=== PATIENT | male | born 1950 | race Caucasian/White ===

== ENCOUNTER 2016-11-10 08:23 | Inpatient (IN) ==
[2016-11-10] MEDS ORDERED: ALBUTEROL/IPRATROPIUM 3 ML NEB RESP TX PRN (08:37)
--- NOTE | 2016-11-10 08:50 | Pulmonology History & Physical ---
History of Present Illness Chief complaint: pneumonia, outpatient treatment failure History of present illness: YESSENIA Zambrano-Guillaume acting as scribe for Dr. Narciso Arnett. Mr. Díaz is a 66 year old /White male with multiple chronic medical problems. Presented to the clinic on 11/04/16 for his 8 week check up he was seen along with his and daughter who are mostly the historians for this appt. At that time he was having increased shortness of breath and discolored sputum, along with increased reflux, heartburn, and decreased tolerance of his feedings. Per his report he has also been experiencing weight loss. He is followed by DARRELL Darby and has been evaluated by him recently. 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 This was the second time he has been given Gentamicin IM as an outpatient for Pseudomonas. He has also been treated with multiple PO antibiotics including Levaquin and Cleocin within the last few months. Sputum for gram stain C&S was obtained at his appt on the and result showed moderate Pseudomonas aeruginosa and moderate growth of yeast. Due to resistance to PO antibiotics and history of treatment with multiple courses of IM antibiotics for this infection in combination with his multiple chronic medical problems, decision was made to admit to inpatient for further treatment and evaluation with IV antibiotics. Allergies: Morphine Medications: See list Past medical history: [facility] hospitalization 11/23/2015 through 2015 under the care of the hospitalists. He was admitted and with acute respiratory failure, aspiration into the respiratory tract, Parkinson's disease , and hyperglycemia. During that admission the patient developed acute respiratory distress syndrome ultimately requiring a tracheostomy which was done 12/03/[address] Herron. Patient had a PEG placed 12/04/2015 for feedings and this was done by Dr. Darby. He was discharged to [facility] where he stayed under the care of Dr. Arnett from 12/15/15-December. At that time he was transferred to [facility] in [place]. He was admitted back to [facility] on 01/30/16-02/16/16 with acute respiratory failure and pneumonia secondary to aspiration he had a second tracheostomy placed at this time which he still has in place now. Cultures during this stay grew Klebsiella and ESBL. [facility] 02/16/16-04/07/16, after leaving [facility] he required superintendent [employer] mechanical ventilation so he was transferred to [facility] where he stayed from 04/07/16-06/25/16 once he was able to wean off mechanical ventilation. He has 2 reported trach site cultures positive for MRSA while at [facility], last trach site culture done at the clinic on 07/29/16 grew Serratia marcescens this was treated with Levaquin. His urine cultures have been positive for Pseudomonas aeruginosa on 07/29/16 and 09/09/16 both these times he was treated with Gentamicin IM. Sputum C&S has grown Pseudomonas aeruginosa on 09/11/16, 10/04/16, and again on 11/04/16 as above this was treated with Gentamicin IM. He has a history of Parkinson's disease and dyslipidemia. There is a remote history of rotator cuff repair. I believe he's had neck surgery in the past also. Family history: Positive for familial heart disease and familial hypertension Social history: The patient is . His is very supportive. He is a former smoker. His daughter is a nurse who helps out at home with his home care. CXR, Labs, and EKG are pending at this time. Home Medications Medication Instructions Recorded Confirmed Type Aspirin EC Tab 81 mg PO DAILY tablet 02/16/16 11/10/16 Rx Acetaminophen Tab [Tylenol Tab] 325 mg PO Q4H PRN 11/10/16 11/10/16 History Amantadine HCl [Amantadine] 100 mg PEG TID 11/10/16 11/10/16 History Carbidopa/Levodopa/Entacapone 1 each PO 5X DAILY 11/10/16 11/10/16 History [Stalevo 200 Tablet] Fludrocortisone [Florinef] 0.1 mg PEG TID 11/10/16 11/10/16 History Midodrine [Proamatine] 10 mg PEG TID 11/10/16 11/10/16 History Pantoprazole Tab [Protonix Tab] 40 mg PEG BID 11/10/16 11/10/16 History Potassium Chloride Liquid 20 meq PEG BID 11/10/16 11/10/16 History Scopolamine 1.5 mg Patch 1 patch TRANSDERM Q3DAY 11/10/16 11/10/16 History [Transderm Scop 1.5 mg/72 hr Patch] Allergies Allergy/AdvReac Type Severity Reaction Status Date / Time morphine Allergy Unknown/Unable Verified 11/23/15 10:45 to obtain Medical,Surgical,& Family Hx - Medical History Neurology: History of: Parkinson's Disease Endocrine: History of: Dyslipidemia Respiratory: History of: Intubation, Pneumonia - Surgical History Thoracic Surgeries: Patient denies;: Organ Transplant Orthopedic Surgeries: Surgical HX of;: Orthopedic Surgery (rotator cuff repair) - Family History Family History: Reports;: Family Heart Disease (siblings), Family Hypertension ( siblings) - Social History Smoking Status: Former smoker Results - Labs CBC & BMP: 11/10/16 09:13 11/10/16 09:12 Exam (Pulmonay) H&P - Constitutional Exam: Psych: Awake and alert. Pleasant and cooperative patient. HEENT: Pupils, irises, sclera, conjunctiva, and eyelids are normal. The face is symmetrical without rash or masses. Neck: Symmetrical. Tracheostomy in place. Lymphatics: No submandibular, cervical, or supraclavicular adenopathy Chest: Symmetrical with loose large airway congestion and coarse breath sounds bilaterally. CV: Regular with a short grade 1/6 systolic ejection murmur at the left sternal border that does not radiate; no gallop or rub Arterial: Carotids with a good upstroke. There is no bruit. Upper extremity pulses are palpable. Lower extremity pulses are non-palpable, but I see no evidence of ischemia. Venous: Exam of the neck, upper, and lower extremities is normal Abd: No appreciable organomegaly, masses, tenderness, or bruit; PEG tube is present; Bowel sounds are positive x 4; The aorta was not palpated. /Rectal: Deferred Extremities: No clubbing, cyanosis, edema, or obvious DVT. Skin: No cancerous or infectious lesions of the exposed, examined skin; the perineal area was not examined. M/S: Age appropriate loss of the normal curvature of the cervical, thoracic, and lumbar spine. Neurological: Cranial nerves are intact, Long tract motor function is intact; Sensory exam was not done; gait was not tested. The remainder of the exam was noncontributory. Impression: #1: Pneumonia secondary to Pseudomonas refractory to outpatient treatment. #2: GERD, recent increased reflux and aspiration #3: Underlying Parkinson's disease #4: Increased shortness of breath secondary to #1. #5: Weight loss #6: See past history. Plan: #1: Admit to inpatient for treatment with IV antibiotics. #2: Gentamicin start at 40mg [id number], consult pharmacy for dosing management. Fortaz 1GM [id number]. #3: Repeat sputum for gram stain culture and sensitivity before first dose of abx. #4: Inhalation therapy with Duonebs QID and PRN. #5: ID and continue home medicines. #6: CXR today. #7: See orders.
[2016-11-10] MEDS ORDERED: GENTAMICIN IV SCH (09:00)
[2016-11-10] MEDS ORDERED: SODIUM CHLORIDE 0.9% IV SCH (09:00)
[2016-11-10 09:23] LABS: Basophils % 0.1 % (0.0-0.8); Eosinophils % 0.1 % (0.00-10.9); Hematocrit 38.2 VOL% (42.0-52.0); Hemoglobin 12.9 GM/DL (14.0-18.0); Immature Granulocytes % 0.4 %; Immature Granulocytes Absolute 0.05 #; Lymphocytes # 0.9 10*3/uL (1.4-4.0); Lymphocytes % 6.2 % (21.2-54.2); Mean Corpuscular HGB Conc 33.8 GM/DL (32-36); Mean Corpuscular Hemoglobin 33 PG (27-34); Monocytes # 0.3 10*3/uL (0.11-0.8); Monocytes % 2.2 % (1.7-12.7); Neutrophils # 12.7 10*3/uL (1.4-7.4); Platelet Count 253 T/CUMM (130-400); Red Blood Count 3.94 MC/CUMM (3.8-5.5); Red Cell Distribution Width 12.6 % (9.3-17.3); White Blood Count 13.9 T/CUMM (4-12)
--- NOTE | 2016-11-10 09:25 | EKG Report ---
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
[2016-11-10 09:39] LABS: Apearance,Urine CLEAR (Clear); Bacteria,Urine Occasional /HPF (Few); Bilirubin,Urine Negative (Negative); Blood, Urine Negative (Negative); Glucose,Urine (UA) Negative (Negative); Hyaline Casts,Urine 4 /LPF (0-3); Ketones,Urine Negative (Negative); Mucus,Urine Occasional /LPF (Occasional); Nitrite,Urine Negative (Negative); Protein,Urine Negative; RBC,Urine 2 /HPF (0-4); Squamous Epithelial Cell,Urine Occasional /HPF (0-10); Urine Specific Gravity 1.004 (1.001-1.035); Urine Urobilinogen < 2.0 EU/DL (0.2-1.0); WBC,Urine 19 /HPF (0-6)
[2016-11-10 09:40] LABS: Urine Color Yellow (Yellow)
[2016-11-10 09:48] LABS: Giant Platelets Few; Hypochromasia 1+; Lymphocytes 9 % (20-55); Platelet Estimate Adequate; Segmented Neutrophils 86 % (50-85); Total Cells Counted 100
[2016-11-10 09:59] LABS: Alanine Aminotransferase < 9 U/L (16-61); Albumin 3.3 G/DL (3.4-5.0); Alkaline Phosphatase 120 U/L (45-117); Aspartate Amino Transferase 22 U/L (0-37); Blood Urea Nitrogen 10 MG/DL (7-18); Calcium 8.5 MG/DL (8.5-10.1); Glucose 180 MG/DL (74-106); Magnesium 2.4 MG/DL (1.8-2.4); Osmolality,Calculated 280.5 MOS/KG (273-304); Potassium 3.3 MMOL/L (3.5-5.1); Sodium 139 MMOL/L (136-145)
[2016-11-10] MEDS ORDERED: ACETAMINOPHEN 325 MG TABLET PO PRN (10:06)
[2016-11-10] MEDS: ALBUTEROL/IPRATROPIUM 3 ML NEB RESP TX SCH ×3 (10:30→19:23)
[2016-11-10] MEDS: GENTAMICIN INJ 400 MG in SODIUM CHLORIDE 0.9% 100 ML IV SCH (13:07)
--- NOTE | 2016-11-10 13:26 | Gastrointestinal Consult Note ---
Assessment and Plan (1) Dysphagia causing pulmonary aspiration with swallowing Status: Acute Assessment and plan: I am concerned about this patient's coughing/vomiting of tube feeds out of his tracheostomy site. In a patient without evidence of gastric emptying difficulties on nuclear study this speaks to either severe esophageal dysmotility, versus perhaps a progressive pyloric stenosis versus a fistulous tract from the esophagus into the trachea or bronchial tree. We will perform upper endoscopy tomorrow to look for these things. In the meantime utilization of something to improve gastric motility and decreased regurgitation is called for. Given the parkinsonian history we will hold off on use of Reglan as this can worsen parkinsonian symptoms. Will try erythromycin suspension 200 mg every 6 hours to see if this helps out. Will keep track of this by checking residuals. My strong suggestion is to switch the formulation of the patient's tube feeds to something calorically dense that can be used less frequently and with less volume. Suggestions include TwoCal HN or Nepro. At the very least we could switch the patient over to Jevity 1.5. The patient and his understands the risks of upper endoscopy which include but are not limited to: Bleeding, infection, perforation, cardiac and pulmonary compromise. Current Visit: Yes (2) Chronic GERD Status: Acute Assessment and plan: He is currently being covered with Protonix 40 mg twice daily, will switch this over to an IV preparation. Further recommendations after tomorrow's upper endoscopy. It might be advisable to switch him over to Prevacid 30 mg twice daily Via [employer] for his PEG tube, his insurance may have difficulty covering this. Current Visit: Yes (3) Moderate malnutrition Status: Acute Assessment and plan: This patient has lost another 4 pounds since I saw him in the office on 10/11/16 he had lost 12 pounds in the prior month before coming to the office. He needs to improve his nutritional status, hopefully the dense caloric liquid intake will help with this as well the erythromycin. He is not having any diarrhea fortunately. We will keep an eye on residuals and perhaps ramp up the formula intake per hour. A pump in this patient may be problematic due to his attempts to be more mobile, ambulating with a walker for example. He might be better served with a nighttime gravity feeding schedule. Current Visit: Yes History of Present Illness Chief complaint: Severe sensation of regurgitation, refractory GERD despite Protonix BID History of present illness: Mr. Díaz is a 66 year old male who is followed by Melquiades tavera and Dr. Umanzor, a neurologist at [facility], for his refractory parkinsonism and had previously been seen in the past for elevations of his ALT and AST likely from ischemic hepatitis when seen in the hospital back in October 2015. Patient developed Arvidson who is having difficulty being weaned off of the ventilator with tracheostomy placement required and a PEG tube subsequently placed on 12/04/15. The upper endoscopy at that time demonstrated some mild linear gastritis thought secondary to patient's NG tube erosion with some mild duodenitis but no Helicobacter pylori. The patient has been having some difficulty with his tracheostomy and with apparent high residuals producing aspiration. He actually had to have a tracheostomy revision by Dr. Herron, and the residual fistulous hole from the last tracheostomy is not completely closed off. As mentioned in nurse practitioner Lu's note, cultures have grown out Klebsiella. The patient ended up requiring long-term mechanical ventilation both at [facility] and then after transfer back to [facility] where he remained until 06/25/16. He had been quite cachectic at that point and started gaining weight after was released from their institution and his PEG tube feeding was advanced at first to Glucerna but after he failed to qualify for this medication due to lack of diabetes this was cut back to Jevity 1.2 nickolas per milliliter. Lately he is been having some real problems over the last 1 month with regurgitation of tube feeds through his tracheostomy site, and was seen in my office on 10/11/16 at which time I ordered a gastric emptying study. Surprisingly this turned out to be normal with a T1 half emptying time of 74.8 minutes, well within the normal range. We have switched him up to Protonix 40 mg twice a day but this does not appear to be improving his underlying situation. It is still a mystery to me exactly how it is the tube feeds are regurgitating out of his tracheostomy site without a fistulous tract. I will perform upper endoscopy tomorrow looking for this and examining for pyloric stenosis which might be feeding into his current problems. He is not having any particular abdominal pain. He does get up and walk around some. He is not having diarrhea or constipation particularly. He does have the sensation of reflux despite the Protonix twice daily. The states that despite the normal gastric emptying the patient has 2-3 syringes of retained material in the stomach when residuals are checked prior to feedings in this patient at times (120-180 mL every 2-3 hours)--> is the patient's parkinsonism will not be able to use Reglan but instead erythromycin may represent an acceptable alternative. Home Medications Medication Instructions Recorded Confirmed Type Aspirin EC Tab 81 mg PO DAILY tablet 02/16/16 11/10/16 Rx Acetaminophen Tab [Tylenol Tab] 325 mg PO Q4H PRN 11/10/16 11/10/16 History Amantadine HCl [Amantadine] 100 mg PEG TID 11/10/16 11/10/16 History Carbidopa/Levodopa/Entacapone 1 each PO 5X DAILY 11/10/16 11/10/16 History [Stalevo 200 Tablet] Fludrocortisone [Florinef] 0.1 mg PEG TID 11/10/16 11/10/16 History Midodrine [Proamatine] 10 mg PEG TID 11/10/16 11/10/16 History Pantoprazole Tab [Protonix Tab] 40 mg PEG BID 11/10/16 11/10/16 History Potassium Chloride Liquid 20 meq PEG BID 11/10/16 11/10/16 History Scopolamine 1.5 mg Patch 1 patch TRANSDERM Q3DAY 11/10/16 11/10/16 History [Transderm Scop 1.5 mg/72 hr Patch] Allergies Allergy/AdvReac Type Severity Reaction Status Date / Time morphine Allergy Unknown/Unable Verified 11/23/15 10:45 to obtain Medical,Surgical,& Family Hx - Medical History Neurology: History of: Parkinson's Disease Endocrine: History of: Dyslipidemia Respiratory: History of: Intubation, Pneumonia Renal: History of: Renal Problems (chronic steele) - Surgical History Thoracic Surgeries: Patient denies;: Organ Transplant Orthopedic Surgeries: Surgical HX of;: Orthopedic Surgery (rotator cuff repair) - Family History Family History: Reports;: Family Heart Disease (siblings), Family Hypertension ( siblings) - Social History Smoking Status: Former smoker Review of systems: Constitutional: Denies fever, chills, but positive for nausea, and vomiting Eyes: Denies dry eyes, and scleral icterus HENT: Denies headaches Cardiovascular: Denies acute chest pain and claudication Respiratory: Admits to occasional shortness of breath, wheezing, and difficulty breathing, denies cough Gastrointestinal: As noted in the HPI Genitourinary: Denies dysuria and hematuria Neurologic: Denies vision loss, and loss of sensation Musculoskeletal: Denies joint swelling, but he does have some joint stiffness, and muscular weakness Psychiatric: Denies kierra symptoms, positive for depression Heme-Lymph: Denies easy bruising, lymph node enlargement or tenderness, night sweats, excessive bleeding Allergies-immunologic: Denies pruritus and rhinorrhea Exam - Constitutional Vitals: Period Temp Pulse Resp BP Sys/West Pulse Ox Last 24 Hr 97.9 F 80-82 18-22 147/85 88-98 General appearance: mild distress - Head Head exam: Present: normocephalic - Eye Eye exam: Present: EOMI Pupils: Present: MARCELINO - Neck Neck exam: Present: other (Tracheostomy site noted with closing fistulous tract next to this on the right side) - Respiratory Respiratory exam: Present: clear to auscultation bilaterally - Cardiovascular Cardiovascular exam: Present: regular rate and rhythm - GI/Abdominal GI/Abdominal exam: Present: normal bowel sounds, soft, other (Clean dry PEG tube is noted in the left upper quadrant.). Absent: distended, guarding, tenderness, rebound - Extremities Exam Extremities exam: Present: edema, other (No parkinsonian tremor detected, 4/5 strength in hands--> unexpectedly good.) - Back Exam Back exam: Present: normal inspection Results - Labs CBC & BMP: 11/10/16 09:13 11/10/16 09:12
[2016-11-10] MEDS ORDERED: LEVODOPA PO SCH (14:00)
[2016-11-10] MEDS ORDERED: CARBIDOPA PO SCH (14:00)
[2016-11-10] MEDS ORDERED: ENTACAPONE PO SCH (14:00)
[2016-11-10] MEDS: MIDODRINE 5 MG TABLET PEG SCH ×2 (14:34→21:07)
[2016-11-10] MEDS: FLUDROCORTISONE 0.1 MG TABLET PEG SCH ×2 (14:34→21:07)
[2016-11-10] MEDS: AMANTADINE 100 MG CAPSULE PEG SCH ×2 (14:34→21:06)
--- NOTE | 2016-11-10 15:15 | XRay Report ---
XR chest 2V Indication: Shortness of breath. Chest 2 views: Comparison 04/07/2016. PICC line has been removed. Tracheostomy is stable. Lungs are hypoinflated with elevation right hemidiaphragm. Bibasilar atelectasis or pneumonia is present, although in general, left lung base is better aerated than back in March. Mid and upper lungs are maintained relatively clear. Heart size is upper limits normal but stable. Impression: Bibasilar atelectasis or pneumonia with chronic elevation right hemidiaphragm and pulmonary hypoinflation. PROCEDURE INTERPRETED AT [facility] DEPARTMENT OF RADIOLOGY Final Report Signed by: Kevin Velasquez M.D.
[2016-11-10] MEDS: CARBIDOPA/LEVODOPA 25-100 MG TABLET PO SCH ×2 (16:33→21:07)
[2016-11-10] MEDS: ENTACAPONE 200 MG TABLET PO SCH ×2 (16:33→21:07)
[2016-11-10] MEDS: ERYTHROMYCIN ETHYLSUCCINATE 40 MG/ML 100 ML/BOTTLE PO SCH ×2 (16:34→18:01)
[2016-11-10] MEDS ORDERED: PANTOPRAZOLE 40 MG TABLET PO SCH (21:00)
[2016-11-10] MEDS: POTASSIUM CHLORIDE 20 MEQ/15 ML UDCUP PEG SCH (21:07)
[2016-11-11] MEDS: ERYTHROMYCIN ETHYLSUCCINATE 40 MG/ML 100 ML/BOTTLE PO SCH ×4 (00:46→17:20)
[2016-11-11 02:59] LABS: Basophils % 0.2 % (0.0-0.8); Eosinophils % 0.4 % (0.00-10.9); Hematocrit 34.4 VOL% (42.0-52.0); Hemoglobin 11.3 GM/DL (14.0-18.0); Immature Granulocytes % 0.4 %; Immature Granulocytes Absolute 0.04 #; Lymphocytes # 1.7 10*3/uL (1.4-4.0); Lymphocytes % 17.7 % (21.2-54.2); Mean Corpuscular HGB Conc 32.8 GM/DL (32-36); Mean Corpuscular Hemoglobin 32 PG (27-34); Mean Corpuscular Volume 98.3 FL (87-102); Mean Platelet Volume 10.5 FL (9.6-12.0); Monocytes # 0.9 10*3/uL (0.11-0.8); Monocytes % 9.1 % (1.7-12.7); Neutrophils % 72.2 % (38.7-73.9); Platelet Count 266 T/CUMM (130-400); Red Cell Distribution Width 12.8 % (9.3-17.3); White Blood Count 9.8 T/CUMM (4-12)
[2016-11-11 03:10] LABS: Calcium 8.1 MG/DL (8.5-10.1); Osmolality,Calculated 282.1 MOS/KG (273-304); Potassium 3.3 MMOL/L (3.5-5.1)
[2016-11-11 03:23] LABS: Magnesium 2.5 MG/DL (1.8-2.4); Phosphorous 2.9 MG/DL (2.5-4.9)
[2016-11-11] MEDS: CARBIDOPA/LEVODOPA 25-100 MG TABLET PO SCH ×5 (07:19→21:24)
[2016-11-11] MEDS: ENTACAPONE 200 MG TABLET PO SCH ×4 (07:20→21:25)
[2016-11-11] MEDS: ALBUTEROL/IPRATROPIUM 3 ML NEB RESP TX SCH ×4 (07:37→19:14)
[2016-11-11] MEDS ORDERED: PROPOFOL 200 MG/20 ML VIAL IV ONE (09:19)
[2016-11-11] MEDS ORDERED: LIDOCAINE 1% 5 ML VIAL ONE (09:19)
--- NOTE | 2016-11-11 09:25 | Operative Note ---
Date of procedure: 11/11/16 Pre-op diagnosis: ? Evidence of gastroparesis or tracheoesophageal fistula with aspiration Post-op diagnosis: other (No gross evidence of tracheoesophageal fistula, no esophagitis, but a great deal of retained green fluid in the fundus and in the antrum--represents refluxate from the duodenum which is slightly dilated. We will look for downstream obstruction with a small bowel follow-through.) Procedure: PROCEDURE: Esophagogastroduodenoscopy (EGD) REFERRING PHYSICIAN: Dr. Narciso Arnett MD INDICATIONS: This patient is having chronic aspiration through his trachea of PEG feedings, question of tracheoesophageal fistula versus gastroparesis, none seen on gastric emptying study. The prior H&P was reviewed and interrim changes are as noted: No change from GI consultation yesterday ENDOSCOPIST: Wilmer Darby MD ENDOSCOPE: [employer] Video 100 System upper endoscope ASA CLASS: 4 EXAM: CV: regular rate and rhythm respiratory: Clear without wheezes abdominal: active bowel sounds MEDICATION: Per nursing anesthesia protocol, see their notes PROCEDURE: After discussion of the potential risks and benefits of upper endoscopy, the informed consent was obtained. The patient was then placed in the left lateral decubitus position where sedation was achieved as noted above. Esophageal intubation was performed without difficulty, and the endoscope was advanced through the esophagus, stomach and duodenum. A slow withdrawal was then performed with retroflexion in the stomach for careful inspection of the incisura angularis, fundus and cardia. The scope was then returned to a neutral position and withdrawn through the esophagus. The patient tolerated the procedure well and without complication. BIOPSIES: Not obtained PHOTOGRAPHS: Obtained FINDINGS: Hypopharynx and Larynx: Normal, post laryngeal area narrowed at the tracheostomy site. Esohagoscopy Upper and middle thirds: No gross evidence of fistula Lower third surprisingly, no evidence of esophagitis, GE junction is crisp. Esophogastric junctions: No evidence of esophagitis, stricturing, Doll's. Gastroscopy: Cardia/Fundus: Retained pool of greenish fluid from reflux out of the duodenum Body: Mild diffuse gastritis Antrum and pylorus fluid around the pyloric channel which is eccentric Duodenoscopy: Bulb slightly dilated Second and third portions: Slightly dilated IMPRESSION: No gross evidence of tracheoesophageal fistula, no esophagitis, but a great deal of retained green fluid in the fundus and in the antrum-- represents refluxate from the duodenum which is slightly dilated. We will look for downstream obstruction with a small bowel follow-through. RECOMMENDATIONS: Follow up for biopsy results in 1-2 weeks by phone [phone] Continue anti-gastroesophageal reflux measures (avoid carbonated and acidic beverages, avoid eating within 2 hours of bedtime, avoid tight fitting clothing , and elevate the front bed posts 6 inches prior to sleeping. Small bowel follow-through using PEG tube. Wilmer Darby MD COPY TO: Narciso Arnett MD Anesthesia: MAC Surgeon / Physician: Wilmer Darby Estimated blood loss: minimal Specimens: none sent Condition: stable Disposition: post procedure unit (G.I. Suite) Results - Labs CBC & BMP: 11/11/16 01:58 11/11/16 01:58 Discharge Plan - Discharge Medications No Action Aspirin EC Tab 81 mg PO DAILY tablet Fludrocortisone [Florinef] 0.1 mg PEG TID Amantadine HCl [Amantadine] 100 mg PEG TID Acetaminophen Tab [Tylenol Tab] 325 mg PO Q4H PRN PRN Reason: Pain Pantoprazole Tab [Protonix Tab] 40 mg PEG BID Scopolamine 1.5 mg Patch [Transderm Scop 1.5 mg/72 hr Patch] 1 patch TRANSDERM Q3DAY Potassium Chloride Liquid 20 meq PEG BID Midodrine [Proamatine] 10 mg PEG TID Carbidopa/Levodopa/Entacapone [Stalevo 200 Tablet] 1 each PO 5X DAILY - Follow Up or Referral - Forms/Instructions
--- NOTE | 2016-11-11 09:42 | Gastrointestinal Progress Note ---
Assessment and Plan (1) Dysphagia causing pulmonary aspiration with swallowing Status: Acute Assessment and plan: I am concerned about this patient's coughing/vomiting of tube feeds out of his tracheostomy site. In a patient without evidence of gastric emptying difficulties on nuclear study this speaks to either severe esophageal dysmotility, versus perhaps a progressive pyloric stenosis versus a fistulous tract from the esophagus into the trachea or bronchial tree. We will perform upper endoscopy tomorrow to look for these things. In the meantime utilization of something to improve gastric motility and decreased regurgitation is called for. Given the parkinsonian history we will hold off on use of Reglan as this can worsen parkinsonian symptoms. Will try erythromycin suspension 200 mg every 6 hours to see if this helps out. Will keep track of this by checking residuals. My strong suggestion is to switch the formulation of the patient's tube feeds to something calorically dense that can be used less frequently and with less volume. Suggestions include TwoCal HN or Nepro. At the very least we could switch the patient over to Jevity 1.5. The patient and his understands the risks of upper endoscopy which include but are not limited to: Bleeding, infection, perforation, cardiac and pulmonary compromise. 11/05/16--the patient underwent upper endoscopy today and was found to have retained green fluid in the stomach, there was a slight dilation of the duodenum. This would be indicative of gastroparesis or small bowel partial obstruction versus ileus. Since we know from a gastric emptying study the emptying is adequate. Will search for ileus using small bowel follow-through at this point. Continue to observe the patient as he is taking erythromycin for efficacy and tolerance. Recall that this medication can have a proarrhythmic effect. Advance diet with a more calorically dense formula once the small bowel follow-through is been completed. Current Visit: Yes (2) Chronic GERD Status: Acute Assessment and plan: He is currently being covered with Protonix 40 mg twice daily, will switch this over to an IV preparation. Further recommendations after tomorrow's upper endoscopy. It might be advisable to switch him over to Prevacid 30 mg twice daily Via Solutab's for his PEG tube, his insurance may have difficulty covering this. 11/11/16--as noted above Prevacid Solutab's once off of IV Protonix. Current Visit: Yes (3) Moderate malnutrition Status: Acute Assessment and plan: This patient has lost another 4 pounds since I saw him in the office on 10/11/16 he had lost 12 pounds in the prior month before coming to the office. He needs to improve his nutritional status, hopefully the dense caloric liquid intake will help with this as well the erythromycin. He is not having any diarrhea fortunately. We will keep an eye on residuals and perhaps ramp up the formula intake per hour. A pump in this patient may be problematic due to his attempts to be more mobile, ambulating with a walker for example. He might be better served with a nighttime gravity feeding schedule. 11/11/16--restart tube feeds once small bowel follow-through is completed. Current Visit: Yes Gastroenterology - PN: Subj Interval history: No change from yesterday Exam (Progress Note) - Constitutional Vitals: Period Temp Pulse Resp BP Sys/West Pulse Ox Last 24 Hr 97.1 F-99.2 F 77-91 16-22 92-149/52-80 90-99 General appearance: no acute distress - Head Head exam: Present: normocephalic - Eye Eye exam: Present: EOMI - Respiratory Respiratory exam: Present: clear to auscultation bilaterally, decreased breath sounds. Absent: stridor, wheezes - Cardiovascular Cardiovascular exam: Present: regular rate and rhythm - GI/Abdominal GI/Abdominal exam: Present: normal bowel sounds - Extremities Exam Extremities exam: Present: normal inspection - Neurological Exam Neurological exam: Present: alert, oriented X3 - Psychiatric Psychiatric exam: Present: normal affect, normal mood - Skin Skin exam: Present: warm Results - Labs CBC & BMP: 11/11/16 01:58 11/11/16 01:58
--- NOTE | 2016-11-11 10:36 | Pulmonology Progress Note ---
Pulmonary - PN: Subj Interval history: This is a 66-year-old white male admitted from my office on 11/10/2016. His main problems were. #1: Pneumonia secondary to Pseudomonas refractory to outpatient treatment. #2: GERD, recent increased reflux and aspiration #3: Underlying Parkinson's disease #4: Increased shortness of breath secondary to #1. #5: Weight loss #6: See past history. 11/11/2016. Today the patient was seen in the GI lab along with Dr. Holliday. Patient had some retained intestinal material in the stomach. Dr. Holliday has had it erythromycin is going watch for any evidence of small bowel obstruction. Patient's sputum's are growing gram-negative rods and a few gram-positive cocci. Suspect gram-negative rods are Pseudomonas just as we have grown as an outpatient. White count is dropped from 13,900-9800 with 72% segs. H&H is 11.3 /34.4. Potassium remains low at 3.3 and will be replaced. Creatinine is 0.4 with a BUN of 14. Patient's TSH is normal but he has to free T4 values are elevated. He takes no thyroid supplement. I am not aware that any of his medicines falsely elevated thyroid values. His TSH I think indicates that he is euthyroid. Yesterday also started the patient on physical therapy and Occupational Therapy. He is also receiving wound care. I have asked psychiatric social worker supervisor to see patient and discuss options with his . Patient is taking care of at home by his . Urine shows no evidence of infection. Magnesium is 2.5. Patient has a tendency towards hypoxemia especially during his endoscopic procedure. I think this is from under breathing and from retention of secretions. At a later date we may need to evaluate the patient with fiberoptic bronchoscopy. Today's chest x-ray shows a right lower lung infiltrate compatible with pneumonia and there is associated atelectasis Physical exam. Vital signs. See below Psychiatric oriented 3. Cooperative. Face. Symmetrical. No edema of the lips or tongue Neck symmetrical. No meningismus Chest. Large airway congestion. Heart. No gallop Abdomen. As per Dr. Holliday Extremities. No evidence of deep venous thrombophlebitis Neurologic. Cranial nerves are intact with some decreased hearing acuity long track motor functions intact. Patient has a stigmata of Parkinson's disease. The remainder the physical exam is noncontributory. Plan: 11/10/2016 #1: Admit to inpatient for treatment with IV antibiotics. #2: Gentamicin start at 40mg [id number], consult pharmacy for dosing management. Fortaz 1GM [id number]. #3: Repeat sputum for gram stain culture and sensitivity before first dose of abx. #4: Inhalation therapy with Duonebs QID and PRN. #5: ID and continue home medicines. #6: CXR today. #7: See orders. 11/11/2016. 1. See my note, above 2. See endoscopic report 3. Have discussed with Dr. Saman Holliday and we have coordinated our care 4. Watch for any evidence of small bowel obstruction 5. Check cultures. 6. Consider therapeutic and diagnostic fiberoptic bronchoscopy at a later date 7. TSH is normal. Probably euthyroid. Exam (Progress Note) - Constitutional Vitals: Period Temp Pulse Resp BP Sys/West Pulse Ox Last 24 Hr 97.1 F-99.2 F 60-91 16-22 92-155/52-82 89-99 Results - Labs CBC & BMP: 11/11/16 01:58 11/11/16 01:58
--- NOTE | 2016-11-11 10:41 | Anesthesia Post-Op ---
Anesthesia Post OP - Post Ansesthetic Evaluation Patient seen in post op: Yes Resp: within normal limits (Sats 89% with O2 per trach- preop sats ~ 82%) CV: within normal limits Mental: within normal limits Temp: within normal limits [id number]: within normal limits Nausea and Vomiting: within normal limits Pain: within normal limits
[2016-11-11] MEDS: FLUDROCORTISONE 0.1 MG TABLET PEG SCH ×3 (16:52→21:24)
[2016-11-11] MEDS: MIDODRINE 5 MG TABLET PEG SCH ×3 (16:52→21:25)
[2016-11-11] MEDS: AMANTADINE 100 MG CAPSULE PEG SCH ×3 (16:55→21:24)
[2016-11-11] MEDS: ASPIRIN EC 81 MG TABLET PO SCH (17:23)
[2016-11-11] MEDS: POTASSIUM CHLORIDE 20 MEQ/15 ML UDCUP PEG SCH ×2 (17:23→21:24)
[2016-11-11] MEDS: GENTAMICIN INJ 400 MG in SODIUM CHLORIDE 0.9% 100 ML IV SCH (17:24)
[2016-11-11] MEDS: DESITIN 4OZ/NYSTATIN 15 GRAM MIXTURE PASTE TOP SCH ×2 (17:24→21:25)
--- NOTE | 2016-11-11 21:01 | Fluoroscopy Report ---
Exam: FL small bowel follow through Date: 11/11/2016 9:39 AM Comparison: None Indication: Ileus versus SBO Technique:[Customer Strategy Manager and additional multiple films were obtained after the injection of barium into the PEG tube in the stomach. A total of 12 films were obtained.] Findings: Gaseous distention of the bowel, especially the colon noted on the commercial coordinator film with increased fecal material. PEG tube in the stomach with no leakage of the contrast at the time of the injection of contrast. Slow transient time with barium reaching the colon at 7 hours. The distal small bowel demonstrates somewhat suboptimal opacification on the films that were obtained.. Passage of a significant portion of the contrast into the colon on the final film. Intermittent gastroesophageal reflux. Impression: PEG tube in the stomach with gastroesophageal reflux. Delayed transient time which may be related to ileus with increased fecal material consistent with significant constipation. No evidence of definite SBO. However there is limited evaluation of the distal small bowel since there was significant movement of the contrast from the jejunum into the colon between the 5 and 7 hour films. PROCEDURE INTERPRETED AT [facility] DEPARTMENT OF RADIOLOGY Final Report Signed by: Dr. Yarely Steel
[2016-11-11] MEDS: ACETAMINOPHEN 325 MG TABLET PO PRN (21:40)
[2016-11-12] MEDS: CARBIDOPA/LEVODOPA 25-100 MG TABLET PO SCH ×5 (05:33→21:06)
[2016-11-12] MEDS: ERYTHROMYCIN ETHYLSUCCINATE 40 MG/ML 100 ML/BOTTLE PO SCH ×4 (05:34→18:20)
[2016-11-12] MEDS: ENTACAPONE 200 MG TABLET PO SCH ×5 (05:34→21:06)
[2016-11-12 06:20] LABS: Basophils % 0.2 % (0.0-0.8); Eosinophils # 0.1 10*3/uL (0.0-0.87); Eosinophils % 0.6 % (0.00-10.9); Hematocrit 36.3 VOL% (42.0-52.0); Hemoglobin 12.1 GM/DL (14.0-18.0); Immature Granulocytes % 0.5 %; Immature Granulocytes Absolute 0.09 #; Lymphocytes % 5.7 % (21.2-54.2); Mean Corpuscular HGB Conc 33.3 GM/DL (32-36); Mean Corpuscular Hemoglobin 33 PG (27-34); Mean Corpuscular Volume 99.2 FL (87-102); Mean Platelet Volume 10.6 FL (9.6-12.0); Monocytes # 0.7 10*3/uL (0.11-0.8); Monocytes % 4.2 % (1.7-12.7); Neutrophils # 15.8 10*3/uL (1.4-7.4); Neutrophils % 88.8 % (38.7-73.9); Platelet Count 249 T/CUMM (130-400); Red Blood Count 3.66 MC/CUMM (3.8-5.5); Red Cell Distribution Width 12.8 % (9.3-17.3); White Blood Count 17.8 T/CUMM (4-12)
[2016-11-12 06:50] LABS: Calcium 8.2 MG/DL (8.5-10.1); Osmolality,Calculated 278.4 MOS/KG (273-304); Potassium 3.8 MMOL/L (3.5-5.1)
--- NOTE | 2016-11-12 07:00 | Gastrointestinal Progress Note ---
Assessment and Plan (1) Dysphagia causing pulmonary aspiration with swallowing Status: Acute Assessment and plan: I am concerned about this patient's coughing/vomiting of tube feeds out of his tracheostomy site. In a patient without evidence of gastric emptying difficulties on nuclear study this speaks to either severe esophageal dysmotility, versus perhaps a progressive pyloric stenosis versus a fistulous tract from the esophagus into the trachea or bronchial tree. We will perform upper endoscopy tomorrow to look for these things. In the meantime utilization of something to improve gastric motility and decreased regurgitation is called for. Given the parkinsonian history we will hold off on use of Reglan as this can worsen parkinsonian symptoms. Will try erythromycin suspension 200 mg every 6 hours to see if this helps out. Will keep track of this by checking residuals. My strong suggestion is to switch the formulation of the patient's tube feeds to something calorically dense that can be used less frequently and with less volume. Suggestions include TwoCal HN or Nepro. At the very least we could switch the patient over to Jevity 1.5. The patient and his understands the risks of upper endoscopy which include but are not limited to: Bleeding, infection, perforation, cardiac and pulmonary compromise. 11/11/16--the patient underwent upper endoscopy today and was found to have retained green fluid in the stomach, there was a slight dilation of the duodenum. This would be indicative of gastroparesis or small bowel partial obstruction versus ileus. Since we know from a gastric emptying study the emptying is adequate. Will search for ileus using small bowel follow-through at this point. Continue to observe the patient as he is taking erythromycin for efficacy and tolerance. Recall that this medication can have a proarrhythmic effect. Advance diet with a more calorically dense formula once the small bowel follow-through is been completed. 11/12/16--the patient is tolerating his erythromycin well. the patient's is additionally flushing his feeds with anywhere between 300-500 cc of free water with his roughly 5 cans of feeding per day. The patient has a small bowel follow-through that demonstrates a extremely slow emptying at approximately 7 hours. This explains the patient's regurgitation of tube feeds as he is slow emptying caused by a likely "whole GI tract" hypomotility. The patient's x-rays seem to demonstrate constipation all the patient states that he is going to the bathroom routinely. Bear in mind that these changes are on erythromycin to speed the GI tract--so these numbers likely worse off of the promotility agent. I told the patient's that free water flushes and additional medication flushes should add up to no more than another can of feeding (240 mL) during his 5 meals per day, and no meals within 3 hours of sleep. I have left a prescription for the erythromycin in his chart, there is not much further for me to add, will sign off at this time. Current Visit: Yes (2) Chronic GERD Status: Acute Assessment and plan: He is currently being covered with Protonix 40 mg twice daily, will switch this over to an IV preparation. Further recommendations after tomorrow's upper endoscopy. It might be advisable to switch him over to Prevacid 30 mg twice daily Via Solutab's for his PEG tube, his insurance may have difficulty covering this. 11/11/16--as noted above Prevacid Solutab's once off of IV Protonix. 11/12/16--Prescription for Prevacid Solutab's left in the front of the chart along with the erythromycin tabs to be crushed and flushed through the PEG tube. Would like to avoid a PEJ (percutaneous endoscopic jejunal feeding tube) PEG, but this could be an option for the future if the above changes do not fix his underlying regurgitation of tube feeds through the trach. Current Visit: Yes (3) Moderate malnutrition Status: Acute Assessment and plan: This patient has lost another 4 pounds since I saw him in the office on 10/11/16 he had lost 12 pounds in the prior month before coming to the office. He needs to improve his nutritional status, hopefully the dense caloric liquid intake will help with this as well the erythromycin. He is not having any diarrhea fortunately. We will keep an eye on residuals and perhaps ramp up the formula intake per hour. A pump in this patient may be problematic due to his attempts to be more mobile, ambulating with a walker for example. He might be better served with a nighttime gravity feeding schedule. 11/11/16--restart tube feeds once small bowel follow-through is completed. 11/12/16--the patient's residuals from his tube feedings are not almost 0 now indicating adequate clearance from the stomach. From a GI standpoint although he has complete GI tract hypomotility he is otherwise doing well. Please do not hesitate to reconsult me if there are further issues I can address. Will be happy to see this patient in follow-up as needed. Current Visit: Yes Gastroenterology - PN: Subj Interval history: Alert for the nursing staff that the patient's is additionally flushing his feeds with anywhere between 300-500 cc of free water with his roughly 5 cans of feeding per day. The patient has a small bowel follow-through that demonstrates a extremely slow emptying at approximately 7 hours. This explains the patient's regurgitation of tube feeds as he is slow emptying caused by a likely "whole GI tract" hypomotility. The patient's x-rays seem to demonstrate constipation all the patient states that he is going to the bathroom routinely. Bear in mind that these changes are on erythromycin mental speed the GI tract. Exam (Progress Note) - Constitutional Vitals: Period Temp Pulse Resp BP Sys/West Pulse Ox Last 24 Hr 97.2 F-98.3 F 60-97 16-20 96-155/63-84 28-98 Results - Labs CBC & BMP: 11/12/16 05:09 11/11/16 01:58
[2016-11-12] MEDS: ALBUTEROL/IPRATROPIUM 3 ML NEB RESP TX SCH ×4 (07:18→19:42)
[2016-11-12] MEDS: LANSOPRAZOLE ODT 30 MG TABLET PEG SCH ×2 (09:59→21:07)
[2016-11-12] MEDS: AMANTADINE 100 MG CAPSULE PEG SCH ×3 (09:59→21:07)
[2016-11-12] MEDS: POTASSIUM CHLORIDE 20 MEQ/15 ML UDCUP PEG SCH ×2 (09:59→21:08)
[2016-11-12] MEDS: FLUDROCORTISONE 0.1 MG TABLET PEG SCH ×3 (09:59→21:07)
[2016-11-12] MEDS: ASPIRIN EC 81 MG TABLET PO SCH (10:00)
[2016-11-12] MEDS: MIDODRINE 5 MG TABLET PEG SCH ×3 (10:46→21:06)
[2016-11-12] MEDS: DESITIN 4OZ/NYSTATIN 15 GRAM MIXTURE PASTE TOP SCH ×2 (12:04→21:08)
--- NOTE | 2016-11-12 12:09 | Pulmonology Progress Note ---
Pulmonary - PN: Subj Interval history: Neel Britton, [facility]-, acting as scribe for Dr. Narciso Arnett This is a 66-year-old white male [facility]. At the time of admission, his main problems were: #1: Pneumonia secondary to Pseudomonas refractory to outpatient treatment. #2: GERD, recent increased reflux and aspiration #3: Underlying Parkinson's disease #4: Increased shortness of breath secondary to #1. #5: Weight loss #6: See past history. 11/11/2016. Today the patient was seen in the GI lab along with Dr. Darby. Patient had some retained intestinal material in the stomach. Dr. Darby has had it erythromycin is going watch for any evidence of small bowel obstruction. Patient's sputum's are growing gram-negative rods and a few gram-positive cocci. Suspect gram-negative rods are Pseudomonas just as we have grown as an outpatient. White count is dropped from 13,900-9800 with 72% segs. H&H is 11.3 /34.4. Potassium remains low at 3.3 and will be replaced. Creatinine is 0.4 with a BUN of 14. Patient's TSH is normal but he has to free T4 values are elevated. He takes no thyroid supplement. I am not aware that any of his medicines falsely elevated thyroid values. His TSH I think indicates that he is euthyroid. Yesterday also started the patient on physical therapy and Occupational Therapy. He is also receiving wound care. I have asked social worker to see patient and discuss options with his . Patient is taking care of at home by his . Urine shows no evidence of infection. Magnesium is 2.5. Patient has a tendency towards hypoxemia especially during his endoscopic procedure. I think this is from under breathing and from retention of secretions. At a later date we may need to evaluate the patient with fiberoptic bronchoscopy. Today's chest x-ray shows a right lower lung infiltrate compatible with pneumonia and there is associated atelectasis 11/12/2016. The patient was seen today along with his and Nikkie Rodriguez RN. Small bowel follow-through yesterday showed delayed transit time which is noted may be related to ileus with increased fecal material consistent with significant constipation. There is no evidence of definite small bowel obstruction. There was limited evaluation of the distal small bowel since there was significant movement of the contrast from the jejunum into the colon between the 5 and [address] Darby has noted that the patient basically has hypomotility of the entire GI tract. That said, he now has residuals of almost 0 indicating adequate clearance from the stomach. This would certainly help with his reflux and hopefully overall pulmonary/GI issues. This will, however, need to be watched very, very carefully. Sputum culture has again grown pseudomonas aeruginosa. Urine culture has grown pseudomonas aeruginosa and is also growing 2 different gram-positive cocci's. He is presently on Fortaz and gentamicin. We are awaiting the final urine culture report. We will most likely plan for fiberoptic bronchoscopy on Tuesday. We have discussed this with the patient and his to their understanding and they are in complete agreement. Mrs. Magaña ask if we can have physical therapy see the patient on Tuesday. We have asked for this to be done, but she understands that this is out of her control. Physical therapy is certainly not available on Tuesday. Medications have been reviewed. We made no changes today. Labs been reviewed. White count is 17,800 with 88.8% segs; H&H 12.1/36.3; platelet count 249,000; creatinine 0.40, BUN 9, electrolytes are normal Exam (Progress Note) - Constitutional Vitals: Period Temp Pulse Resp BP Sys/West Pulse Ox Last 24 Hr 98 F-98.6 F 79-97 18-24 96-148/57-84 28-97 Exam: Chest with loose large airway congestion Heart no gallop Abdomen as per Dr. Darby Extremities with nothing to suggest acute deep venous thrombophlebitis Psychiatric oriented 3 Neurologic stigmata of Parkinson's disease Plan: Continue present treatment. Will ask for physical therapy to work with this patient on Tuesday. Follow-up final urine culture when available. Plan for fiberoptic bronchoscopy on Tuesday. See orders. Results - Labs CBC & BMP: 11/12/16 05:09 11/12/16 05:09
[2016-11-12] MEDS: GENTAMICIN INJ 400 MG in SODIUM CHLORIDE 0.9% 100 ML IV SCH (14:51)
[2016-11-12] MEDS: ACETAMINOPHEN 325 MG TABLET PO PRN (21:07)
[2016-11-13] MEDS: ACETAMINOPHEN 325 MG TABLET PO PRN ×2 (01:03→22:17)
[2016-11-13] MEDS: ERYTHROMYCIN ETHYLSUCCINATE 40 MG/ML 100 ML/BOTTLE PO SCH ×4 (01:04→17:32)
[2016-11-13] MEDS: SCOPOLAMINE 1.5 MG PATCH TRANSDERM SCH (01:38)
[2016-11-13 05:56] LABS: Basophils % 0.1 % (0.0-0.8); Eosinophils # 0.2 10*3/uL (0.0-0.87); Eosinophils % 1.1 % (0.00-10.9); Hematocrit 33.5 VOL% (42.0-52.0); Hemoglobin 10.8 GM/DL (14.0-18.0); Immature Granulocytes % 0.4 %; Immature Granulocytes Absolute 0.07 #; Lymphocytes # 1.3 10*3/uL (1.4-4.0); Lymphocytes % 8.2 % (21.2-54.2); Mean Corpuscular HGB Conc 32.2 GM/DL (32-36); Mean Corpuscular Hemoglobin 32 PG (27-34); Mean Corpuscular Volume 99.4 FL (87-102); Mean Platelet Volume 10.4 FL (9.6-12.0); Monocytes # 1.1 10*3/uL (0.11-0.8); Monocytes % 6.7 % (1.7-12.7); Neutrophils # 13.2 10*3/uL (1.4-7.4); Neutrophils % 83.5 % (38.7-73.9); Platelet Count 220 T/CUMM (130-400); Red Blood Count 3.37 MC/CUMM (3.8-5.5); Red Cell Distribution Width 13.1 % (9.3-17.3); White Blood Count 15.8 T/CUMM (4-12)
[2016-11-13 06:28] LABS: Calcium 8.2 MG/DL (8.5-10.1); Osmolality,Calculated 281.3 MOS/KG (273-304); Potassium 3.6 MMOL/L (3.5-5.1)
[2016-11-13] MEDS: ALBUTEROL/IPRATROPIUM 3 ML NEB RESP TX SCH ×4 (07:18→19:28)
[2016-11-13] MEDS: CARBIDOPA/LEVODOPA 25-100 MG TABLET PO SCH ×5 (07:28→22:17)
[2016-11-13] MEDS: ENTACAPONE 200 MG TABLET PO SCH ×5 (07:29→22:17)
[2016-11-13] MEDS: LANSOPRAZOLE ODT 30 MG TABLET PEG SCH ×2 (09:00→22:18)
[2016-11-13] MEDS: MIDODRINE 5 MG TABLET PEG SCH ×3 (09:01→22:18)
[2016-11-13] MEDS: AMANTADINE 100 MG CAPSULE PEG SCH ×3 (09:01→22:17)
[2016-11-13] MEDS: ASPIRIN EC 81 MG TABLET PO SCH (09:01)
[2016-11-13] MEDS: FLUDROCORTISONE 0.1 MG TABLET PEG SCH ×3 (09:01→22:17)
[2016-11-13] MEDS: POTASSIUM CHLORIDE 20 MEQ/15 ML UDCUP PEG SCH ×2 (09:01→22:17)
[2016-11-13] MEDS: DESITIN 4OZ/NYSTATIN 15 GRAM MIXTURE PASTE TOP SCH (09:01)
--- NOTE | 2016-11-13 09:04 | Pulmonology Progress Note ---
Pulmonary - PN: Subj Interval history: Patient with parkinsons and pseudomonas colonization/infection. OVernight patient spiked a fever, and per the he has been more sleepy and lethargic since yesterday. Sensitivities back on culture results today Exam (Progress Note) - Constitutional Vitals: Period Temp Pulse Resp BP Sys/West Pulse Ox Last 24 Hr 98 F-101.1 F 88-101 18-24 98-114/51-63 80-97 General appearance: normal weight, no acute distress Exam: patient sleepy, but wakes up voice and nods head - Head Head exam: Present: normal inspection - ENT ENT exam: Present: other (trach in place) - Respiratory Respiratory exam: Present: clear to auscultation bilaterally - Cardiovascular Cardiovascular exam: Present: regular rate and rhythm Results - Labs CBC & BMP: 11/13/16 05:18 11/13/16 05:18 Lab Results: I have reviewed the past 24 hour labs Assessment and Plan (1) Aspiration pneumonia Status: Acute Assessment and plan: Patient growing pseudomonas from urine and sputum, resistent to everything but Zosyn. Will switch antibiotics today since he spiked a fever last night, and repeat CXR to monitor Current Visit: No
[2016-11-13] MEDS: PIPERACILLIN/TAZOBACTAM 3,375 MG in SODIUM CHLORIDE 0.9% 100 ML IV SCH ×2 (09:39→17:32)
--- NOTE | 2016-11-13 10:22 | XRay Report ---
XR chest 1V portable Indication: Pneumonia. Chest one view: Comparison 11/10/2016. Tracheostomy, borderline cardiomegaly again noted. Increasing infiltrate medial right lung base noted with persistent obscuration of left hemidiaphragm. Right hemidiaphragm remains elevated with continued pulmonary hypoinflation. Impression: Worsening right basilar pneumonia. Continued left basilar infiltrate. PROCEDURE INTERPRETED AT [facility] DEPARTMENT OF RADIOLOGY Final Report Signed by: Kevin Velasquez M.D.
[2016-11-13] MEDS ORDERED: ACETYLCYSTEINE 20% 800 MG/4 ML VIAL RESP TX ONE (20:16)
[2016-11-13 20:45] LABS: Allen Test Positive
[2016-11-13] MEDS ORDERED: ALBUTEROL 2.5 MG/3 ML NEB RESP TX ONE (20:46)
[2016-11-13 20:49] LABS: ABG Base Excess 10.3 MMOL/L (-2.5-2.5); ABG HCO3 36.8 MMOL/L (20-26); ABG Oxygen Saturation 88.1 % (95-100); ABG PCO2 58.3 MM HG (35-48); ABG PH 7.418 (7.35-7.45); ABG PO2 49.3 MM HG (80-95); ABG TCO2 38.6 MMOL/L (23-27)
[2016-11-13 21:11] LABS: Calcium 8.2 MG/DL (8.5-10.1); Potassium 3.7 MMOL/L (3.5-5.1)
[2016-11-13] MEDS: DORNASE ALFA 2.5 MG/2.5 ML VIAL RESP TX SCH (21:14)
[2016-11-13 21:17] LABS: ABG Base Excess 9.8 MMOL/L (-2.5-2.5); ABG HCO3 35.5 MMOL/L (20-26); ABG Oxygen Saturation 89.2 % (95-100); ABG PCO2 53.1 MM HG (35-48); ABG PH 7.443 (7.35-7.45); ABG PO2 50.1 MM HG (80-95); ABG TCO2 37.1 MMOL/L (23-27)
[2016-11-14] MEDS: ERYTHROMYCIN ETHYLSUCCINATE 40 MG/ML 100 ML/BOTTLE PO SCH ×4 (01:00→17:33)
[2016-11-14] MEDS: PIPERACILLIN/TAZOBACTAM 3,375 MG in SODIUM CHLORIDE 0.9% 100 ML IV SCH ×3 (02:53→16:57)
[2016-11-14] MEDS: ACETAMINOPHEN 325 MG TABLET PO PRN ×3 (02:54→13:10)
[2016-11-14] MEDS: ENTACAPONE 200 MG TABLET PO SCH ×5 (07:07→21:19)
[2016-11-14] MEDS: CARBIDOPA/LEVODOPA 25-100 MG TABLET PO SCH ×5 (07:07→21:19)
[2016-11-14] MEDS: ALBUTEROL/IPRATROPIUM 3 ML NEB RESP TX SCH ×4 (07:35→20:16)
[2016-11-14] MEDS: DORNASE ALFA 2.5 MG/2.5 ML VIAL RESP TX SCH ×2 (07:40→20:16)
--- NOTE | 2016-11-14 07:43 | XRay Report ---
XR chest 1V portable Indication: Shortness of breath. Chest one view: Comparison 0937 hours. Tracheostomy, normal heart size and mediastinal contour are stable. More discrete patchy infiltrate left lung base noted with worsening patchy infiltrate of the right upper lobe and right middle lobe now present. L noted right hemidiaphragm persists. Impression: Worsening multifocal pulmonary opacifications, either multifocal pneumonia or progressive edema. ARDS may be developing. PROCEDURE INTERPRETED AT [facility] DEPARTMENT OF RADIOLOGY Final Report Signed by: Kevin Velasquez M.D.
--- NOTE | 2016-11-14 07:46 | Pulmonology Progress Note ---
Pulmonary - PN: Subj Interval history: Called by nursing last night that patient was having significantly increased secretions and desaturating into the low 80s, high 70s. Decided to transfer to ICU for closer monitoring and possible need for mechanical ventilation. Patients sats are better this morning, but he continues to fever and be tachypneic. CXR showed worsening infiltrate. Exam (Progress Note) - Constitutional Vitals: Period Temp Pulse Resp BP Sys/West Pulse Ox Last 24 Hr 98.8 F-103.4 F 82-112 13-28 104-151/54-71 44-99 General appearance: mild distress - Head Head exam: Present: normal inspection - Neck Neck exam: Present: other (trach in place, yellow secretions being suctioned) - Respiratory Respiratory exam: Present: rales - Cardiovascular Cardiovascular exam: Present: tachycardia Results - Labs CBC & BMP: 11/13/16 05:18 11/13/16 20:33 Lab Results: I have reviewed the past 24 hour labs - Diagnostic Findings Procedure: Chest x-ray: image reviewed by me (reviewd images, see HPI) Assessment and Plan (1) Aspiration pneumonia Status: Acute Assessment and plan: Patient clinically worsening yesterday on Gent and Fortaz, switched to Zosyn, continued to fever. Cultures today show that he has a second GPC in the sputum and is growing VRE in the urine. Will add Linezolid, not currently requiring ventilator support, but this may become necessary if he does not turn around. Will reculture today given his clinical worsening. Current Visit: No
[2016-11-14] MEDS ORDERED: VANCOMYCIN INJ 1,000 MG in SODIUM CHLORIDE 0.9% 250 ML IV SCH (08:00)
[2016-11-14 08:19] LABS: Basophils % 0.2 % (0.0-0.8); Hematocrit 31.5 VOL% (42.0-52.0); Hemoglobin 10.5 GM/DL (14.0-18.0); Immature Granulocytes % 1.1 %; Immature Granulocytes Absolute 0.27 #; Lymphocytes # 1.2 10*3/uL (1.4-4.0); Lymphocytes % 4.8 % (21.2-54.2); Mean Corpuscular HGB Conc 33.3 GM/DL (32-36); Mean Corpuscular Hemoglobin 33 PG (27-34); Mean Corpuscular Volume 99.4 FL (87-102); Monocytes # 1.5 10*3/uL (0.11-0.8); Monocytes % 6.1 % (1.7-12.7); Neutrophils # 21.1 10*3/uL (1.4-7.4); Neutrophils % 87.8 % (38.7-73.9); Platelet Count 187 T/CUMM (130-400); Red Blood Count 3.17 MC/CUMM (3.8-5.5)
[2016-11-14] MEDS: POTASSIUM CHLORIDE 20 MEQ/15 ML UDCUP PEG SCH ×2 (08:29→21:18)
[2016-11-14] MEDS: MIDODRINE 5 MG TABLET PEG SCH ×3 (08:29→21:19)
[2016-11-14] MEDS: ASPIRIN EC 81 MG TABLET PO SCH (08:29)
[2016-11-14] MEDS: AMANTADINE 100 MG CAPSULE PEG SCH ×3 (08:29→21:19)
[2016-11-14] MEDS: LANSOPRAZOLE ODT 30 MG TABLET PEG SCH ×2 (08:29→21:19)
[2016-11-14] MEDS: LINEZOLID INJ 600 MG in PREMIX 1 EACH IV SCH ×2 (08:30→20:46)
[2016-11-14] MEDS: FLUDROCORTISONE 0.1 MG TABLET PEG SCH ×3 (08:30→21:18)
[2016-11-14 08:50] LABS: Band Neutrophils 2 % (0-10); Hypochromasia 1+; Lymphocytes 3 % (20-55); Segmented Neutrophils 89 % (50-85); Total Cells Counted 100
[2016-11-14 08:52] LABS: Microcytosis Slight; Platelet Estimate Adequate
[2016-11-14 08:55] LABS: Albumin 2.7 G/DL (3.4-5.0); Calcium 7.9 MG/DL (8.5-10.1); Phosphorous 2.3 MG/DL (2.5-4.9); Potassium 3.5 MMOL/L (3.5-5.1)
[2016-11-14] MEDS: DESITIN 4OZ/NYSTATIN 15 GRAM MIXTURE PASTE TOP SCH ×3 (08:59→21:19)
[2016-11-15] MEDS: PIPERACILLIN/TAZOBACTAM 3,375 MG in SODIUM CHLORIDE 0.9% 100 ML IV SCH ×3 (00:31→16:28)
[2016-11-15] MEDS: ERYTHROMYCIN ETHYLSUCCINATE 40 MG/ML 100 ML/BOTTLE PO SCH ×4 (00:31→18:06)
[2016-11-15] MEDS: CARBIDOPA/LEVODOPA 25-100 MG TABLET PO SCH ×5 (06:09→21:38)
[2016-11-15] MEDS: ENTACAPONE 200 MG TABLET PO SCH ×5 (06:09→21:38)
[2016-11-15 06:48] LABS: Calcium 8.1 MG/DL (8.5-10.1); Magnesium 2.5 MG/DL (1.8-2.4); Phosphorous 1.8 MG/DL (2.5-4.9); Potassium 3.4 MMOL/L (3.5-5.1)
[2016-11-15] MEDS: ALBUTEROL/IPRATROPIUM 3 ML NEB RESP TX SCH ×4 (07:31→19:48)
[2016-11-15] MEDS: DORNASE ALFA 2.5 MG/2.5 ML VIAL RESP TX SCH ×2 (07:39→19:48)
[2016-11-15] MEDS: POTASSIUM CHLORIDE 20 MEQ/15 ML UDCUP PEG SCH ×2 (08:18→21:37)
[2016-11-15] MEDS: FLUDROCORTISONE 0.1 MG TABLET PEG SCH ×3 (08:19→21:37)
[2016-11-15] MEDS: MIDODRINE 5 MG TABLET PEG SCH ×3 (08:19→21:37)
[2016-11-15] MEDS: ASPIRIN EC 81 MG TABLET PO SCH (08:19)
[2016-11-15] MEDS: AMANTADINE 100 MG CAPSULE PEG SCH ×3 (08:19→21:38)
[2016-11-15] MEDS: LINEZOLID INJ 600 MG in PREMIX 1 EACH IV SCH ×2 (08:20→21:37)
[2016-11-15] MEDS: LANSOPRAZOLE ODT 30 MG TABLET PEG SCH ×2 (08:20→21:37)
--- NOTE | 2016-11-15 09:09 | XRay Report ---
Portable chest. Indication: Pneumonia. Comparison: November 13, 2016. The heart is normal in size. A tracheostomy tube is in satisfactory position. There is worsening atelectasis at the right lung base. There is rounded opacity in the medial aspect of the right lung, and diffuse infiltrate involving the right lung, worsened compared to the previous exam. Postsurgical changes in the right shoulder. Impression: Interval worsening with increasing right-sided infiltrate and increasing left-sided atelectasis. Rounded area of opacity in the medial aspect of the right lung base, mass versus round pneumonia. Follow-up necessary. PROCEDURE INTERPRETED AT [facility] DEPARTMENT OF RADIOLOGY Final Report Signed by: Dr. Bria Rosas
[2016-11-15 09:55] LABS: ABG Base Excess 12.2 MMOL/L (-2.5-2.5); ABG HCO3 38.5 MMOL/L (20-26); ABG Oxygen Saturation 95.2 % (95-100); ABG PCO2 59.4 MM HG (35-48); ABG PH 7.429 (7.35-7.45); ABG PO2 70.2 MM HG (80-95); ABG TCO2 40.3 MMOL/L (23-27)
[2016-11-15 10:10] LABS: Basophils % 0.1 % (0.0-0.8); Hematocrit 30.7 VOL% (42.0-52.0); Hemoglobin 10.2 GM/DL (14.0-18.0); Immature Granulocytes % 1.3 %; Immature Granulocytes Absolute 0.27 #; Lymphocytes # 0.8 10*3/uL (1.4-4.0); Lymphocytes % 3.9 % (21.2-54.2); Mean Corpuscular HGB Conc 33.2 GM/DL (32-36); Mean Corpuscular Hemoglobin 33 PG (27-34); Mean Corpuscular Volume 99.7 FL (87-102); Mean Platelet Volume 10.5 FL (9.6-12.0); Monocytes # 1.1 10*3/uL (0.11-0.8); Monocytes % 5.3 % (1.7-12.7); Neutrophils # 18.2 10*3/uL (1.4-7.4); Neutrophils % 89.4 % (38.7-73.9); Platelet Count 177 T/CUMM (130-400); Red Blood Count 3.08 MC/CUMM (3.8-5.5); Red Cell Distribution Width 12.6 % (9.3-17.3); White Blood Count 20.4 T/CUMM (4-12)
--- NOTE | 2016-11-15 10:54 | Pulmonology Progress Note ---
Pulmonary - PN: Subj Interval history: This is a 66-year-old white male admitted from my office on 11/10/2016. His main problems were. #1: Pneumonia secondary to Pseudomonas refractory to outpatient treatment. #2: GERD, recent increased reflux and aspiration #3: Underlying Parkinson's disease #4: Increased shortness of breath secondary to #1. #5: Weight loss #6: See past history. 11/11/2016. Today the patient was seen in the GI lab along with Dr. Holliday. Patient had some retained intestinal material in the stomach. Dr. Holliday has had it erythromycin is going watch for any evidence of small bowel obstruction. Patient's sputum's are growing gram-negative rods and a few gram-positive cocci. Suspect gram-negative rods are Pseudomonas just as we have grown as an outpatient. White count is dropped from 13,900-9800 with 72% segs. H&H is 11.3 /34.4. Potassium remains low at 3.3 and will be replaced. Creatinine is 0.4 with a BUN of 14. Patient's TSH is normal but he has to free T4 values are elevated. He takes no thyroid supplement. I am not aware that any of his medicines falsely elevated thyroid values. His TSH I think indicates that he is euthyroid. Yesterday also started the patient on physical therapy and Occupational Therapy. He is also receiving wound care. I have asked director of social media marketing to see patient and discuss options with his . Patient is taking care of at home by his . Urine shows no evidence of infection. Magnesium is 2.5. Patient has a tendency towards hypoxemia especially during his endoscopic procedure. I think this is from under breathing and from retention of secretions. At a later date we may need to evaluate the patient with fiberoptic bronchoscopy. Today's chest x-ray shows a right lower lung infiltrate compatible with pneumonia and there is associated atelectasis 11/15/2016. Over the past few days the patient has experienced increase hypoxemia and increased shortness of breath along with difficulty mobilizing sputum. This necessitated movement to ICU. Today the patient still has trouble with mobilization of his fluid and I think that this would come to fiberoptic bronchoscopy. I would like to see his temperature drop a little more as I would try to avoid inducing any sepsis. His chest x-ray shows the right upper lung and right lower lung infiltrate. He continues to grow Pseudomonas from his sputum. He also has grown Pseudomonas from his urine which has a different spectrum of sensitivity. Urinalysis also grown Enterococcus faecalis. Medicines have been adjusted and everything is covered. ABGs on FiO2 of 60% oxygen shows a pH of 7.23, PCO2 of 59.2, PO2 70.2 and a bicarb of 35.5. Sodium is 136. Potassium is dropped to 3.4. White count is 20 ,400 with 89 segs. H&H is 10.2/30.4. The patient's downhill slide seems to be related to pyelonephritis with possible sepsis as well as Pseudomonas pneumonia and retention of secretions. He is tentatively scheduled for fiberoptic bronchoscopy tomorrow. He presently is better and does not appear to be in any distress. He was seen with Neel Britton nurse back Physical exam. Vital signs. See below Psychiatric oriented 3. Cooperative. Face. Symmetrical. No edema of the lips or tongue Neck symmetrical. No meningismus Chest. Large airway congestion. Heart. No gallop Abdomen. As per Dr. Holliday Extremities. No evidence of deep venous thrombophlebitis Neurologic. Cranial nerves are intact with some decreased hearing acuity long track motor functions intact. Patient has a stigmata of Parkinson's disease. The remainder the physical exam is noncontributory. Plan: 11/10/2016 #1: Admit to inpatient for treatment with IV antibiotics. #2: Gentamicin start at 40mg [id number], consult pharmacy for dosing management. Fortaz 1GM [id number]. #3: Repeat sputum for gram stain culture and sensitivity before first dose of abx. #4: Inhalation therapy with Duonebs QID and PRN. #5: ID and continue home medicines. #6: CXR today. #7: See orders. 11/11/2016. 1. See my note, above 2. See endoscopic report 3. Have discussed with Dr. Saman Holliday and we have coordinated our care 4. Watch for any evidence of small bowel obstruction 5. Check cultures. 6. Consider therapeutic and diagnostic fiberoptic bronchoscopy at a later date 7. TSH is normal. Probably euthyroid. 11/15/2016. 1. See today's note, above 2. Fiberoptic bronchoscopy in a.m. 3. See adjustment of antibiotics. 4. Continue to follow her ABGs chest x-ray and lab Exam (Progress Note) - Constitutional Vitals: Period Temp Pulse Resp BP Sys/West Pulse Ox Last 24 Hr 99.8 F-101.5 F 52-92 12-50 103-134/53-76 93-100 Results - Labs CBC & BMP: 11/15/16 09:51 11/15/16 05:39
[2016-11-15] MEDS: DESITIN 4OZ/NYSTATIN 15 GRAM MIXTURE PASTE TOP SCH ×2 (10:57→21:38)
[2016-11-15 11:01] LABS: Band Neutrophils 1 % (0-10); Giant Platelets Few; Hypochromasia 1+; Lymphocytes 5 % (20-55); Platelet Estimate Normal; Segmented Neutrophils 88 % (50-85); Total Cells Counted 100
[2016-11-15 11:02] LABS: Microcytosis Slight
[2016-11-15] MEDS: GENTAMICIN INJ 400 MG in SODIUM CHLORIDE 0.9% 100 ML IV SCH (13:07)
[2016-11-15] MEDS: ACETAMINOPHEN 325 MG TABLET PO PRN (21:40)
[2016-11-16] MEDS: PIPERACILLIN/TAZOBACTAM 3,375 MG in SODIUM CHLORIDE 0.9% 100 ML IV SCH ×3 (00:24→15:33)
[2016-11-16] MEDS: ERYTHROMYCIN ETHYLSUCCINATE 40 MG/ML 100 ML/BOTTLE PO SCH ×4 (00:24→18:09)
[2016-11-16 03:37] LABS: ABG Base Excess 14.1 MMOL/L (-2.5-2.5); ABG HCO3 37.9 MMOL/L (20-26); ABG Oxygen Saturation 98.5 % (95-100); ABG PCO2 63.8 MM HG (35-48); ABG PH 7.418 (7.35-7.45); ABG PO2 95.1 MM HG (80-95); ABG TCO2 37.8 MMOL/L (23-27); Allen Test Positive
[2016-11-16 05:10] LABS: Basophils % 0.2 % (0.0-0.8); Eosinophils # 0.1 10*3/uL (0.0-0.87); Eosinophils % 0.8 % (0.00-10.9); Hematocrit 31.8 VOL% (42.0-52.0); Hemoglobin 10.3 GM/DL (14.0-18.0); Immature Granulocytes % 0.6 %; Immature Granulocytes Absolute 0.08 #; Lymphocytes # 1.1 10*3/uL (1.4-4.0); Lymphocytes % 8.5 % (21.2-54.2); Mean Corpuscular HGB Conc 32.4 GM/DL (32-36); Mean Corpuscular Hemoglobin 32 PG (27-34); Mean Corpuscular Volume 99.4 FL (87-102); Mean Platelet Volume 10.6 FL (9.6-12.0); Monocytes # 0.8 10*3/uL (0.11-0.8); Monocytes % 6.3 % (1.7-12.7); Neutrophils % 83.6 % (38.7-73.9); Platelet Count 187 T/CUMM (130-400); Red Cell Distribution Width 12.4 % (9.3-17.3); White Blood Count 13.1 T/CUMM (4-12)
[2016-11-16 05:16] LABS: INR 1.1; Partial Thromboplastin Time 37.6 SECS (0-40)
[2016-11-16] MEDS: CARBIDOPA/LEVODOPA 25-100 MG TABLET PO SCH ×5 (05:37→21:49)
[2016-11-16] MEDS: ENTACAPONE 200 MG TABLET PO SCH ×5 (05:37→21:49)
[2016-11-16] MEDS: DORNASE ALFA 2.5 MG/2.5 ML VIAL RESP TX SCH ×2 (07:05→19:38)
[2016-11-16] MEDS: ALBUTEROL/IPRATROPIUM 3 ML NEB RESP TX SCH ×4 (07:05→19:38)
--- NOTE | 2016-11-16 08:10 | Pulmonology Progress Note ---
Pulmonary - PN: Subj Interval history: This is a 66-year-old white male admitted from my office on 11/10/2016. His main problems were. #1: Pneumonia secondary to Pseudomonas refractory to outpatient treatment. #2: GERD, recent increased reflux and aspiration #3: Underlying Parkinson's disease #4: Increased shortness of breath secondary to #1. #5: Weight loss #6: See past history. 11/11/2016. Today the patient was seen in the GI lab along with Dr. Holliday. Patient had some retained intestinal material in the stomach. Dr. Holliday has had it erythromycin is going watch for any evidence of small bowel obstruction. Patient's sputum's are growing gram-negative rods and a few gram-positive cocci. Suspect gram-negative rods are Pseudomonas just as we have grown as an outpatient. White count is dropped from 13,900-9800 with 72% segs. H&H is 11.3 /34.4. Potassium remains low at 3.3 and will be replaced. Creatinine is 0.4 with a BUN of 14. Patient's TSH is normal but he has to free T4 values are elevated. He takes no thyroid supplement. I am not aware that any of his medicines falsely elevated thyroid values. His TSH I think indicates that he is euthyroid. Yesterday also started the patient on physical therapy and Occupational Therapy. He is also receiving wound care. I have asked socially responsible investment adviser to see patient and discuss options with his . Patient is taking care of at home by his . Urine shows no evidence of infection. Magnesium is 2.5. Patient has a tendency towards hypoxemia especially during his endoscopic procedure. I think this is from under breathing and from retention of secretions. At a later date we may need to evaluate the patient with fiberoptic bronchoscopy. Today's chest x-ray shows a right lower lung infiltrate compatible with pneumonia and there is associated atelectasis 11/15/2016. Over the past few days the patient has experienced increase hypoxemia and increased shortness of breath along with difficulty mobilizing sputum. This necessitated movement to ICU. Today the patient still has trouble with mobilization of his fluid and I think that this would come to fiberoptic bronchoscopy. I would like to see his temperature drop a little more as I would try to avoid inducing any sepsis. His chest x-ray shows the right upper lung and right lower lung infiltrate. He continues to grow Pseudomonas from his sputum. He also has grown Pseudomonas from his urine which has a different spectrum of sensitivity. Urinalysis also grown Enterococcus faecalis. Medicines have been adjusted and everything is covered. ABGs on FiO2 of 60% oxygen shows a pH of 7.23, PCO2 of 59.2, PO2 70.2 and a bicarb of 35.5. Sodium is 136. Potassium is dropped to 3.4. White count is 20 ,400 with 89 segs. H&H is 10.2/30.4. The patient's downhill slide seems to be related to pyelonephritis with possible sepsis as well as Pseudomonas pneumonia and retention of secretions. He is tentatively scheduled for fiberoptic bronchoscopy tomorrow. He presently is better and does not appear to be in any distress. He was seen with Neel Britton nurse practitioner. 11/16/2016. Patient had a fairly uneventful night. A lot of sputum has been suctioned through his trach. His is leftward she thinks trach may be out of position. I do not see that on his exam but he is for bronchoscopy a little later on this morning. That will be checked. The patient's urine is growing Pseudomonas and enterococcus. His sputum has grown Pseudomonas. There is another gram-negative ml growing and his sputum's are reported as showing gram- positive rods. Patient continues to have a temperature as high as 100. His feedings have gone well on one occasion it was 90 cc remaining but otherwise his stomach is emptied well. ABGs today on FiO2 of 60% shows a pH 7.418, PCO2 63.8, PO2 95.1 and a bicarb of 37.9. Glucoses are normal. Phosphorus is slightly low at 1.7. White count has dropped from 24,000 13,100 with 84 segs. H&H is stable at 10.3/31.8 and platelet counts 187,000. Chest x-ray shows a fairly dense extensive right upper lung right middle lung and right lower lung infiltrate. Fiberoptic bronchoscopy. 11/16/2016. See report. Significant retained secretions. Markedly collapsible large and small airways with edema and partial stenosis exacerbating the patient's ineffective cough. Specimens were sent for cytology bacterial, AFB and fungal studies. See orders. Physical exam. Vital signs. See below Psychiatric oriented 3. Cooperative. Face. Symmetrical. No edema of the lips or tongue Neck symmetrical. No meningismus Chest. Large airway congestion. Heart. No gallop Abdomen. As per Dr. Holliday Extremities. No evidence of deep venous thrombophlebitis Neurologic. Cranial nerves are intact with some decreased hearing acuity long track motor functions intact. Patient has a stigmata of Parkinson's disease. The remainder the physical exam is noncontributory. Plan: 11/10/2016 #1: Admit to inpatient for treatment with IV antibiotics. #2: Gentamicin start at 40mg [id number], consult pharmacy for dosing management. Fortaz 1GM [id number]. #3: Repeat sputum for gram stain culture and sensitivity before first dose of abx. #4: Inhalation therapy with Duonebs QID and PRN. #5: ID and continue home medicines. #6: CXR today. #7: See orders. 11/11/2016. 1. See my note, above 2. See endoscopic report 3. Have discussed with Dr. Saman Holliday and we have coordinated our care 4. Watch for any evidence of small bowel obstruction 5. Check cultures. 6. Consider therapeutic and diagnostic fiberoptic bronchoscopy at a later date 7. TSH is normal. Probably euthyroid. 11/15/2016. 1. See today's note, above 2. Fiberoptic bronchoscopy in a.m. 3. See adjustment of antibiotics. 4. Continue to follow her ABGs chest x-ray and lab 11/16/2016. 1. See today's note, above 2. See fiberoptic bronchoscopy report 3. Will probably require repeat bronchoscopy in 1-2 days 4. Although this is been discussed with the 5. Check bronchoscopy Exam (Progress Note) - Constitutional Vitals: Period Temp Pulse Resp BP Sys/West Pulse Ox Last 24 Hr 99.1 F-100.0 F 75-91 12-44 89-133/53-76 90-99 Results - Labs CBC & BMP: 11/16/16 04:46 11/15/16 05:39
--- NOTE | 2016-11-16 08:32 | XRay Report ---
XR chest 1V portable Indication: Pneumonia Comparison: 15 November 2016 Findings: The heart and mediastinum are stable in size and configuration. Tracheostomy tube is unchanged in position. The pulmonary vascularity is normal in caliber. Right upper lung density is present similar to previous exam. No other lung infiltrates, effusions, pneumothorax or other abnormality is demonstrated. Impression: No significant changes. PROCEDURE INTERPRETED AT [facility] DEPARTMENT OF RADIOLOGY Final Report Signed by: Dr. Bobo Montelongo
[2016-11-16] MEDS: LINEZOLID INJ 600 MG in PREMIX 1 EACH IV SCH ×2 (08:50→20:32)
--- NOTE | 2016-11-16 08:53 | Event Note ---
In hospital diagnostic and therapeutic fiberoptic bronchoscopy. Bilateral bronchoalveolar lavages. Specimen sent for cytology, Gram stain, bacterial cultures, AFB stains and culture and fungal stains and culture. This is a 66-year-old white male with a trach. He has Pseudomonas infection in his sputum he has a right upper lung and right lower lung pneumonia which is most likely Pseudomonas. He also has sputum's which are showing gram-positive rods. These cultures are not yet reported. Patient's had recent fever and has not done as well as expected. Staff is able to suction and fairly well but this does not resolve his problem with sputum retention. His cough is ineffective. In addition he has a PEG and gastroesophageal reflux appears to have been a problem. It is suspected that he recently aspirated. For all these reasons the patient's evaluated with fiberoptic bronchoscopy. Also his said she thought his trach was malpositioned. Trach was in good position. The trachea was erythematous and partially collapsible. The francesco was sharp Right mainstem bronchus was full of thick tenacious secretions that extended into the right upper lung, right middle lung and right lower lung. These areas were treated with bronchoalveolar lavage. Specimens contain multiple sputum plugs and bronchial casts. I did not see any definite food contents. His underlying large and small airways are markedly collapsible. This is consistent with what I have seen on this patient in the past when he has been hospitalized. The left mainstem bronchus was full of thick tenacious secretions these extended into the left upper lung and especially the lingula. These areas were lavaged until clear. The left lower lung was full of thick tenacious secretions and these were removed with bronchoalveolar lavage. The collection apparatus showed diminished bronchial cast bronchial plugs. Again I did not see any food contents. The underlying airways were friable edematous and markedly collapsible. All of this contributes to the patient's ineffective cough most likely will require additional evaluation and treatment fiberoptic bronchoscopy. The patient tolerated procedure well his O2 sats were better afterwards and he was breathing better. Multiple studies have been ordered. See above. I discussed and reviewed the case with the patient's . Neel Britton nurse practitioner was present. Impression. 1. Pneumonia. Pseudomonas is been grown from the sputum. Growth from a gram positive ml is pending 2. Retained secretions 3. Ineffective cough 4. Markedly collapsible large and small airways with edema and partial obstruction 5. Past history of adult respiratory distress syndrome 2 6. Respiratory failure for oxygen and carbon dioxide Plan. 1. Follow-up chest x-ray 2. Check bronchoscopy specimens 3. Will probably require repeat bronchoscopy in 1-2 day
[2016-11-16] MEDS: POTASSIUM CHLORIDE 20 MEQ/15 ML UDCUP PEG SCH ×2 (09:12→21:49)
[2016-11-16] MEDS: MIDODRINE 5 MG TABLET PEG SCH ×3 (09:13→21:49)
[2016-11-16] MEDS: AMANTADINE 100 MG CAPSULE PEG SCH ×3 (09:13→21:49)
[2016-11-16] MEDS: ASPIRIN EC 81 MG TABLET PO SCH (09:13)
[2016-11-16] MEDS: FLUDROCORTISONE 0.1 MG TABLET PEG SCH ×3 (09:13→21:49)
[2016-11-16] MEDS: LANSOPRAZOLE ODT 30 MG TABLET PEG SCH ×2 (09:14→21:49)
[2016-11-16] MEDS: SCOPOLAMINE 1.5 MG PATCH TRANSDERM SCH (09:17)
[2016-11-16] MEDS ORDERED: SODIUM PHOSPHATE INJ 20 MMOL in SODIUM CHLORIDE 0.9% 250 ML IV ONE (10:16)
[2016-11-16] MEDS: DESITIN 4OZ/NYSTATIN 15 GRAM MIXTURE PASTE TOP SCH ×2 (12:17→21:49)
[2016-11-16] MEDS: GENTAMICIN INJ 400 MG in SODIUM CHLORIDE 0.9% 100 ML IV SCH (12:17)
[2016-11-17] MEDS: PIPERACILLIN/TAZOBACTAM 3,375 MG in SODIUM CHLORIDE 0.9% 100 ML IV SCH ×3 (00:02→17:35)
[2016-11-17] MEDS: ERYTHROMYCIN ETHYLSUCCINATE 40 MG/ML 100 ML/BOTTLE PO SCH ×4 (00:02→18:24)
[2016-11-17 03:29] LABS: ABG Base Excess 17.4 MMOL/L (-2.5-2.5); ABG HCO3 41.4 MMOL/L (20-26); ABG Oxygen Saturation 96.8 % (95-100); ABG PCO2 64.2 MM HG (35-48); ABG PH 7.449 (7.35-7.45); ABG PO2 78.4 MM HG (80-95); ABG TCO2 40.7 MMOL/L (23-27); Allen Test Positive
[2016-11-17] MEDS: ENTACAPONE 200 MG TABLET PO SCH ×5 (06:11→21:14)
[2016-11-17] MEDS: CARBIDOPA/LEVODOPA 25-100 MG TABLET PO SCH ×5 (06:11→21:15)
[2016-11-17] MEDS: ALBUTEROL/IPRATROPIUM 3 ML NEB RESP TX SCH ×4 (07:08→19:24)
[2016-11-17] MEDS: DORNASE ALFA 2.5 MG/2.5 ML VIAL RESP TX SCH ×2 (07:16→19:29)
--- NOTE | 2016-11-17 07:26 | XRay Report ---
Portable chest. Indication: Pneumonia. Comparison: November 16, 2016. The heart is enlarged with left ventricular hypertrophy. The left lung demonstrates basilar atelectasis and small pleural effusion, stable. There is extensive alveolar infiltrate involving the right lung and a right-sided pleural effusion which also remain stable. A tracheostomy tube is in satisfactory position. Persistent contrast material within the bowel. Postsurgical changes the right shoulder. Impression: Stable appearance of the lung mckeon. PROCEDURE INTERPRETED AT [facility] DEPARTMENT OF RADIOLOGY Final Report Signed by: Dr. Bria Rosas
[2016-11-17] MEDS: POTASSIUM CHLORIDE 20 MEQ/15 ML UDCUP PEG SCH ×2 (08:02→21:14)
[2016-11-17] MEDS: AMANTADINE 100 MG CAPSULE PEG SCH ×3 (08:02→21:15)
[2016-11-17] MEDS: FLUDROCORTISONE 0.1 MG TABLET PEG SCH ×3 (08:03→21:14)
[2016-11-17] MEDS: ASPIRIN EC 81 MG TABLET PO SCH (08:03)
[2016-11-17] MEDS: LANSOPRAZOLE ODT 30 MG TABLET PEG SCH ×2 (08:03→21:14)
[2016-11-17] MEDS: MIDODRINE 5 MG TABLET PEG SCH ×3 (08:03→21:15)
[2016-11-17] MEDS: LINEZOLID INJ 600 MG in PREMIX 1 EACH IV SCH ×2 (08:07→21:15)
[2016-11-17] MEDS: DESITIN 4OZ/NYSTATIN 15 GRAM MIXTURE PASTE TOP SCH ×2 (09:41→22:44)
--- NOTE | 2016-11-17 10:50 | Pulmonology Progress Note ---
Pulmonary - PN: Subj Interval history: This is a 66-year-old white male admitted from my office on 11/10/2016. His main problems were. #1: Pneumonia secondary to Pseudomonas refractory to outpatient treatment. #2: GERD, recent increased reflux and aspiration #3: Underlying Parkinson's disease #4: Increased shortness of breath secondary to #1. #5: Weight loss #6: See past history. 11/11/2016. Today the patient was seen in the GI lab along with Dr. Holliday. Patient had some retained intestinal material in the stomach. Dr. Holliday has had it erythromycin is going watch for any evidence of small bowel obstruction. Patient's sputum's are growing gram-negative rods and a few gram-positive cocci. Suspect gram-negative rods are Pseudomonas just as we have grown as an outpatient. White count is dropped from 13,900-9800 with 72% segs. H&H is 11.3 /34.4. Potassium remains low at 3.3 and will be replaced. Creatinine is 0.4 with a BUN of 14. Patient's TSH is normal but he has to free T4 values are elevated. He takes no thyroid supplement. I am not aware that any of his medicines falsely elevated thyroid values. His TSH I think indicates that he is euthyroid. Yesterday also started the patient on physical therapy and Occupational Therapy. He is also receiving wound care. I have asked social director to see patient and discuss options with his . Patient is taking care of at home by his . Urine shows no evidence of infection. Magnesium is 2.5. Patient has a tendency towards hypoxemia especially during his endoscopic procedure. I think this is from under breathing and from retention of secretions. At a later date we may need to evaluate the patient with fiberoptic bronchoscopy. Today's chest x-ray shows a right lower lung infiltrate compatible with pneumonia and there is associated atelectasis 11/15/2016. Over the past few days the patient has experienced increase hypoxemia and increased shortness of breath along with difficulty mobilizing sputum. This necessitated movement to ICU. Today the patient still has trouble with mobilization of his fluid and I think that this would come to fiberoptic bronchoscopy. I would like to see his temperature drop a little more as I would try to avoid inducing any sepsis. His chest x-ray shows the right upper lung and right lower lung infiltrate. He continues to grow Pseudomonas from his sputum. He also has grown Pseudomonas from his urine which has a different spectrum of sensitivity. Urinalysis also grown Enterococcus faecalis. Medicines have been adjusted and everything is covered. ABGs on FiO2 of 60% oxygen shows a pH of 7.23, PCO2 of 59.2, PO2 70.2 and a bicarb of 35.5. Sodium is 136. Potassium is dropped to 3.4. White count is 20 ,400 with 89 segs. H&H is 10.2/30.4. The patient's downhill slide seems to be related to pyelonephritis with possible sepsis as well as Pseudomonas pneumonia and retention of secretions. He is tentatively scheduled for fiberoptic bronchoscopy tomorrow. He presently is better and does not appear to be in any distress. He was seen with Neel Britton nurse practitioner. 11/16/2016. Patient had a fairly uneventful night. A lot of sputum has been suctioned through his trach. His is leftward she thinks trach may be out of position. I do not see that on his exam but he is for bronchoscopy a little later on this morning. That will be checked. The patient's urine is growing Pseudomonas and enterococcus. His sputum has grown Pseudomonas. There is another gram-negative ml growing and his sputum's are reported as showing gram- positive rods. Patient continues to have a temperature as high as 100. His feedings have gone well on one occasion it was 90 cc remaining but otherwise his stomach is emptied well. ABGs today on FiO2 of 60% shows a pH 7.418, PCO2 63.8, PO2 95.1 and a bicarb of 37.9. Glucoses are normal. Phosphorus is slightly low at 1.7. White count has dropped from 24,000 13,100 with 84 segs. H&H is stable at 10.3/31.8 and platelet counts 187,000. Chest x-ray shows a fairly dense extensive right upper lung right middle lung and right lower lung infiltrate. Fiberoptic bronchoscopy. 11/16/2016. See report. Significant retained secretions. Markedly collapsible large and small airways with edema and partial stenosis exacerbating the patient's ineffective cough. Specimens were sent for cytology bacterial, AFB and fungal studies. See orders. 11/17/2016. Today's x-ray shows a residual mainly alveolar infiltrate in the right upper lung and right middle lung. Most of each atelectatic changes seen in the right lower lung have resolved. There is faint infiltrate with some atelectasis at the left medial base. ABGs are abnormal but unchanged. Breath sounds are extremely stiff. Velcro rales like. I will start the patient on Solu-Medrol 30 IV push every 12 hours. Glucoses are slightly high and will increase with the Solu-Medrol so I am adding sliding scale insulin. At the suggestion dietary phosphorus was added yesterday and I think this is very appropriate. This patient still has a problem with retention of secretions. He has a trach and is been suction as well as possible. He coughs as strong as he can but his cough is ineffective. He will be evaluated with fiberoptic bronchoscopy tomorrow Physical exam. Vital signs. See below Psychiatric oriented 3. Cooperative. Face. Symmetrical. No edema of the lips or tongue Neck symmetrical. No meningismus Chest. Large airway congestion. Velcro rales Heart. No gallop Abdomen. As per Dr. Holliday Extremities. No evidence of deep venous thrombophlebitis Neurologic. Cranial nerves are intact with some decreased hearing acuity long track motor functions intact. Patient has a stigmata of Parkinson's disease. The remainder the physical exam is noncontributory. Plan: 11/10/2016 #1: Admit to inpatient for treatment with IV antibiotics. #2: Gentamicin start at 40mg [id number], consult pharmacy for dosing management. Fortaz 1GM [id number]. #3: Repeat sputum for gram stain culture and sensitivity before first dose of abx. #4: Inhalation therapy with Duonebs QID and PRN. #5: ID and continue home medicines. #6: CXR today. #7: See orders. 11/11/2016. 1. See my note, above 2. See endoscopic report 3. Have discussed with Dr. Saman Holliday and we have coordinated our care 4. Watch for any evidence of small bowel obstruction 5. Check cultures. 6. Consider therapeutic and diagnostic fiberoptic bronchoscopy at a later date 7. TSH is normal. Probably euthyroid. 11/15/2016. 1. See today's note, above 2. Fiberoptic bronchoscopy in a.m. 3. See adjustment of antibiotics. 4. Continue to follow her ABGs chest x-ray and lab 11/16/2016. 1. See today's note, above 2. See fiberoptic bronchoscopy report 3. Will probably require repeat bronchoscopy in 1-2 days 4. Although this is been discussed with the 5. Check bronchoscopy 11/17/2016. 1. See today's note, above 2. Solu-Medrol 3. Fiberoptic bronchoscopy tomorrow 4. Phosphorus 5. Sliding scale insulin 6. Continue daily chest x-ray ABGs and lab Exam (Progress Note) - Constitutional Vitals: Period Temp Pulse Resp BP Sys/West Pulse Ox Last 24 Hr 97.8 F-99.5 F 74-94 10-36 96-138/50-72 94-100 Results - Labs CBC & BMP: 11/16/16 04:46 11/15/16 05:39
[2016-11-17] MEDS: methylPREDNISolone SOD SUC 40 MG/1 ML VIAL IV SCH (11:33)
[2016-11-17] MEDS ORDERED: SODIUM PHOSPHATE INJ 20 MMOL in SODIUM CHLORIDE 0.9% 250 ML IV ONE (11:39)
[2016-11-17] MEDS: INSULIN REGULAR 100 UNIT/ML SUBCUT SCH ×2 (12:44→18:25)
[2016-11-17] MEDS: GENTAMICIN INJ 400 MG in SODIUM CHLORIDE 0.9% 100 ML IV SCH (14:25)
--- NOTE | 2016-11-17 18:16 | Pathology Report from [facility] ---
[facility] [place] : [id number] PATIENT NAME : Onofre Díaz ORDERING DR : LUIS CARLOS YUNG MD CLINICAL HX: Pneumonia POST-OP DX: Same SPECIMEN INFO: Washing- Bronchial, bilateral - 35 mls thick mucoid tello-pink with plugs CLASS: I CLASS COMMENTS: Marked acute inflammation, squamous cells, and benign respiratory cellsCELL BLOCK: Same CLASS LEGEND: CLASS 0 Material inadequate for diagnosis because of (see comment) CLASS I Absence of atypical or abnormal cells CLASS II Atypical Cytology but no evidence of malignancy CLASS III Cytology suggestive of but not conclusive for malignancy CLASS IV Cytology strongly suggestive of malignancy CLASS V Cytology conclusive for malignancy COLLECTED DATE: 11/16/2016 [facility] REPORT DATE: 11/17/2016 ELECTRONICALLY SIGNED BY: Gareth Ivey M.D. 11/17/2016 - 9:26:29 [email or web address]
[2016-11-18] MEDS: ERYTHROMYCIN ETHYLSUCCINATE 40 MG/ML 100 ML/BOTTLE PO SCH ×4 (00:21→18:12)
[2016-11-18] MEDS: methylPREDNISolone SOD SUC 40 MG/1 ML VIAL IV SCH ×3 (00:31→22:28)
[2016-11-18] MEDS: INSULIN REGULAR 100 UNIT/ML SUBCUT SCH ×4 (00:31→18:12)
[2016-11-18] MEDS: PIPERACILLIN/TAZOBACTAM 3,375 MG in SODIUM CHLORIDE 0.9% 100 ML IV SCH ×3 (00:31→15:49)
[2016-11-18 02:28] LABS: Allen Test Positive
[2016-11-18 02:29] LABS: ABG Base Excess 18.1 MMOL/L (-2.5-2.5); ABG HCO3 42.2 MMOL/L (20-26); ABG Oxygen Saturation 98.1 % (95-100); ABG PH 7.427 (7.35-7.45); ABG PO2 90.3 MM HG (80-95)
[2016-11-18 02:32] LABS: ABG PCO2 69.7 MM HG (35-48)
[2016-11-18 06:08] LABS: Hematocrit 31.4 VOL% (42.0-52.0); Hemoglobin 10.1 GM/DL (14.0-18.0); Immature Granulocytes % 0.7 %; Immature Granulocytes Absolute 0.03 #; Lymphocytes # 0.4 10*3/uL (1.4-4.0); Lymphocytes % 8.8 % (21.2-54.2); Mean Corpuscular HGB Conc 32.2 GM/DL (32-36); Mean Corpuscular Hemoglobin 32 PG (27-34); Mean Corpuscular Volume 98.4 FL (87-102); Mean Platelet Volume 10.3 FL (9.6-12.0); Monocytes # 0.1 10*3/uL (0.11-0.8); Monocytes % 3.1 % (1.7-12.7); Neutrophils % 87.4 % (38.7-73.9); Platelet Count 217 T/CUMM (130-400); Red Blood Count 3.19 MC/CUMM (3.8-5.5); Red Cell Distribution Width 12.5 % (9.3-17.3); White Blood Count 4.6 T/CUMM (4-12)
[2016-11-18 06:26] LABS: INR 1.1; PT Patient Result 11.6 SECS; Partial Thromboplastin Time 35.2 SECS (0-40)
[2016-11-18] MEDS: CARBIDOPA/LEVODOPA 25-100 MG TABLET PO SCH ×5 (06:42→21:16)
[2016-11-18] MEDS: ENTACAPONE 200 MG TABLET PO SCH ×5 (06:42→21:16)
[2016-11-18 06:49] LABS: Calcium 8.6 MG/DL (8.5-10.1); Osmolality,Calculated 283.4 MOS/KG (273-304); Potassium 2.8 MMOL/L (3.5-5.1)
[2016-11-18] MEDS: ALBUTEROL/IPRATROPIUM 3 ML NEB RESP TX SCH ×4 (06:50→19:30)
[2016-11-18] MEDS: DORNASE ALFA 2.5 MG/2.5 ML VIAL RESP TX SCH ×2 (06:56→19:32)
--- NOTE | 2016-11-18 07:58 | XRay Report ---
History is ventilator management, pneumonia follow-up Comparison 11/17/2016 Heart remains enlarged. Tracheostomy present. There has been mild improvement with continued moderate right lung infiltrates and small suspected effusion. The mild infiltrate/atelectasis the left lung base remains. Impression: Mild improvement described above PROCEDURE INTERPRETED AT [facility] DEPARTMENT OF RADIOLOGY Final Report Signed by: Dr. Jinny Rosas
[2016-11-18] MEDS ORDERED: MAGNESIUM SULF RIDER 4 GM in PREMIX 1 EACH IV PRN (08:26)
[2016-11-18] MEDS ORDERED: MAGNESIUM SULF RIDER 2 GM in PREMIX 1 EACH IV PRN (08:26)
--- NOTE | 2016-11-18 08:33 | Event Note ---
In hospital diagnostic and therapeutic fiberoptic bronchoscopy. Bilateral bronchoalveolar lavages were sent for Gram stain, bacterial culture, AFB stains and culture, fungal stains and culture. This is a 66-year-old white male with severe Parkinson's disease. He has a trach. He has retained secretions are none resolved pneumonia. Cough is been ineffective. There is been suspected aspiration. All these reasons he is evaluated with fiberoptic bronchoscopy. Endotracheal tube is in good position. Trachea was mildly to moderately collapsible. There were no lesions. Haleigh was sharp Right mainstem bronchus was full of thick tenacious secretions that extended into the right upper lung right middle lung and right lower lung. These areas were lavaged until clear. There was minor scattered erosive friable bronchitis with some mild stenosis. Airways were markedly collapsible. Left mainstem bronchus was full of thick tenacious secretions extended into the left upper lung and the left lower lung. All segments were evaluated with bronchial alveolar lavage. The airways showed some edema and some partial stenosis and marked collapsibility which is worse at the lower lungs. Bilateral bronchoalveolar lavages showed multiple bronchial casts. There were dense plugs. In the material had a tannish, coloration that look like old feedings and may have been aspirated. Patient tolerated procedure well there were no complications. In a few minutes I will discuss the findings with the patient's Impression. 1. Trach. 2. None resolved pneumonia 3. Retained secretions 4. Ineffective cough 5. Neuromuscular compromise secondary to Parkinson's disease 6. Mild generalized bronchitis with endobronchial edema 7. COPD with collapsible large and small airways Plan. 1. Follow-up chest x-ray 2. Discuss findings with patient's 3. Check bronchoscopy spelled
[2016-11-18] MEDS: AMANTADINE 100 MG CAPSULE PEG SCH ×3 (08:37→20:32)
[2016-11-18] MEDS: MIDODRINE 5 MG TABLET PEG SCH ×3 (08:37→20:32)
[2016-11-18] MEDS: POTASSIUM CHLORIDE 20 MEQ/15 ML UDCUP PEG SCH ×2 (08:37→20:31)
[2016-11-18] MEDS: ASPIRIN EC 81 MG TABLET PO SCH (08:37)
[2016-11-18] MEDS: FLUDROCORTISONE 0.1 MG TABLET PEG SCH ×3 (08:37→20:32)
[2016-11-18] MEDS: LANSOPRAZOLE ODT 30 MG TABLET PEG SCH ×2 (08:37→20:32)
[2016-11-18] MEDS: LINEZOLID INJ 600 MG in PREMIX 1 EACH IV SCH ×2 (08:39→20:33)
[2016-11-18] MEDS: POTASSIUM CHLORIDE RIDER 10 MEQ in PREMIX 1 EACH IV PRN ×5 (08:41→17:43)
--- NOTE | 2016-11-18 11:15 | Pulmonology Progress Note ---
Pulmonary - PN: Subj Interval history: Neel Britton, [facility]-, acting as scribe for Dr. Narciso Arnett This is a 66-year-old white male admitted [facility] on [facility]. At the time of admission, his main problems were: #1: Pneumonia secondary to Pseudomonas refractory to outpatient treatment. #2: GERD, recent increased reflux and aspiration #3: Underlying Parkinson's disease #4: Increased shortness of breath secondary to #1. #5: Weight loss #6: See past history. 11/11/2016. Today the patient was seen in the GI lab along with Dr. Darby. Patient had some retained intestinal material in the stomach. Dr. Draby has had it erythromycin is going watch for any evidence of small bowel obstruction. Patient's sputum's are growing gram-negative rods and a few gram-positive cocci. Suspect gram-negative rods are Pseudomonas just as we have grown as an outpatient. White count is dropped from 13,900-9800 with 72% segs. H&H is 11.3 /34.4. Potassium remains low at 3.3 and will be replaced. Creatinine is 0.4 with a BUN of 14. Patient's TSH is normal but he has to free T4 values are elevated. He takes no thyroid supplement. I am not aware that any of his medicines falsely elevated thyroid values. His TSH I think indicates that he is euthyroid. Yesterday also started the patient on physical therapy and Occupational Therapy. He is also receiving wound care. I have asked clinical social work aide to see patient and discuss options with his . Patient is taking care of at home by his . Urine shows no evidence of infection. Magnesium is 2.5. Patient has a tendency towards hypoxemia especially during his endoscopic procedure. I think this is from under breathing and from retention of secretions. At a later date we may need to evaluate the patient with fiberoptic bronchoscopy. Today's chest x-ray shows a right lower lung infiltrate compatible with pneumonia and there is associated atelectasis 11/12/2016. The patient was seen today along with his and Nikkie Rodriguez RN. Small bowel follow-through yesterday showed delayed transit time which is noted may be related to ileus with increased fecal material consistent with significant constipation. There is no evidence of definite small bowel obstruction. There was limited evaluation of the distal small bowel since there was significant movement of the contrast from the jejunum into the colon between the 5 and [address] Darby has noted that the patient basically has hypomotility of the entire GI tract. That said, he now has residuals of almost 0 indicating adequate clearance from the stomach. This would certainly help with his reflux and hopefully overall pulmonary/GI issues. This will, however, need to be watched very, very carefully. Sputum culture has again grown pseudomonas aeruginosa. Urine culture has grown pseudomonas aeruginosa and is also growing 2 different gram-positive cocci's. He is presently on Fortaz and gentamicin. We are awaiting the final urine culture report. We will most likely plan for fiberoptic bronchoscopy on Tuesday. We have discussed this with the patient and his to their understanding and they are in complete agreement. Mrs. Magaña ask if we can have physical therapy see the patient on Tuesday. We have asked for this to be done, but she understands that this is out of her control. Physical therapy is certainly not available on Tuesday. Medications have been reviewed. We made no changes today. Labs been reviewed. White count is 17,800 with 88.8% segs; H&H 12.1/36.3; platelet count 249,000; creatinine 0.40, BUN 9, electrolytes are normal 11/15/2016. Over the past few days the patient has experienced increase hypoxemia and increased shortness of breath along with difficulty mobilizing sputum. This necessitated movement to ICU. Today the patient still has trouble with mobilization of his fluid and I think that this would come to fiberoptic bronchoscopy. I would like to see his temperature drop a little more as I would try to avoid inducing any sepsis. His chest x-ray shows the right upper lung and right lower lung infiltrate. He continues to grow Pseudomonas from his sputum. He also has grown Pseudomonas from his urine which has a different spectrum of sensitivity. Urinalysis also grown Enterococcus faecalis. Medicines have been adjusted and everything is covered. ABGs on FiO2 of 60% oxygen shows a pH of 7.23, PCO2 of 59.2, PO2 70.2 and a bicarb of 35.5. Sodium is 136. Potassium is dropped to 3.4. White count is 20 ,400 with 89 segs. H&H is 10.2/30.4. The patient's downhill slide seems to be related to pyelonephritis with possible sepsis as well as Pseudomonas pneumonia and retention of secretions. He is tentatively scheduled for fiberoptic bronchoscopy tomorrow. He presently is better and does not appear to be in any distress. He was seen with Neel Britton nurse practitioner. 11/16/2016. Patient had a fairly uneventful night. A lot of sputum has been suctioned through his trach. His is leftward she thinks trach may be out of position. I do not see that on his exam but he is for bronchoscopy a little later on this morning. That will be checked. The patient's urine is growing Pseudomonas and enterococcus. His sputum has grown Pseudomonas. There is another gram-negative ml growing and his sputum's are reported as showing gram- positive rods. Patient continues to have a temperature as high as 100. His feedings have gone well on one occasion it was 90 cc remaining but otherwise his stomach is emptied well. ABGs today on FiO2 of 60% shows a pH 7.418, PCO2 63.8, PO2 95.1 and a bicarb of 37.9. Glucoses are normal. Phosphorus is slightly low at 1.7. White count has dropped from 24,000 13,100 with 84 segs. H&H is stable at 10.3/31.8 and platelet counts 187,000. Chest x-ray shows a fairly dense extensive right upper lung right middle lung and right lower lung infiltrate. Fiberoptic bronchoscopy. 11/16/2016. See report. Significant retained secretions. Markedly collapsible large and small airways with edema and partial stenosis exacerbating the patient's ineffective cough. Specimens were sent for cytology bacterial, AFB and fungal studies. See orders. 11/17/2016. Today's x-ray shows a residual mainly alveolar infiltrate in the right upper lung and right middle lung. Most of each atelectatic changes seen in the right lower lung have resolved. There is faint infiltrate with some atelectasis at the left medial base. ABGs are abnormal but unchanged. Breath sounds are extremely stiff. Velcro rales like. I will start the patient on Solu-Medrol 30 IV push every 12 hours. Glucoses are slightly high and will increase with the Solu-Medrol so I am adding sliding scale insulin. At the suggestion dietary phosphorus was added yesterday and I think this is very appropriate. This patient still has a problem with retention of secretions. He has a trach and is been suction as well as possible. He coughs as strong as he can but his cough is ineffective. He will be evaluated with fiberoptic bronchoscopy tomorrow. 11/18/2016. The patient again underwent fiberoptic bronchoscopy today. This showed non-resolving pneumonia, retained secretions, ineffective cough, mild generalized bronchitis with endobronchial edema, and COPD with collapsible large and small airways. Please see the bronchoscopy report for more information. Patient's chest x-ray is little bit better. The right upper lung infiltrate is less dense. Bronchoscopy cultures from 11/16/2016 are growing a gram-negative ml. Final ID is pending. Previous sputum cultures grew Pseudomonas as noted in previous progress notes. Previous urine culture grew Pseudomonas and enterococcus faecalis. We will repeat a urinalysis today. Culture if indicated. ABGs this morning on an FiO2 of 40% showed a PCO2 of 69.7. We are going to start Diamox 250 mg IV every 12 hours. He will have repeat ABGs in the morning. Physical therapy and Occupational therapy are working with Mr. Díaz. Medications have been reviewed. Diamox was started today. Labs been reviewed. White count is 4600 with 87.4% segs; H&H 10.1/31.4; platelet count 217,000; INR 1.1; creatinine 0.40, BUN 11, sodium 140, potassium 2.8, magnesium 2.7, phosphorus 1.9 Exam (Progress Note) - Constitutional Vitals: Period Temp Pulse Resp BP Sys/West Pulse Ox Last 24 Hr 97.5 F-98.1 F 73-86 17-44 106-153/57-92 91-99 Exam: Chest with loose large airway congestion, but better after bronchoscopy Heart no gallop Abdomen is nontender and nondistended; rare bowel sounds Extremities with nothing to suggest acute deep venous thrombophlebitis Psychiatric oriented 3 Neurologic stigmata of Parkinson's disease Plan: Continue present treatment. Follow-up urinalysis results. Start Diamox 250 mg IV every 12 hours. Start potassium replacement protocol. Follow-up bronchoscopy results when available. See orders. Results - Labs CBC & BMP: 11/18/16 04:35 11/18/16 04:35
[2016-11-18] MEDS ORDERED: SODIUM PHOSPHATE INJ 20 MMOL in SODIUM CHLORIDE 0.9% 250 ML IV ONE (12:00)
[2016-11-18] MEDS: GENTAMICIN INJ 400 MG in SODIUM CHLORIDE 0.9% 100 ML IV SCH (12:38)
[2016-11-18] MEDS: DESITIN 4OZ/NYSTATIN 15 GRAM MIXTURE PASTE TOP SCH ×2 (12:40→20:33)
[2016-11-18 17:50] LABS: Apearance,Urine CLOUDY (Clear); Bilirubin,Urine Negative (Negative); Blood, Urine Negative (Negative); Glucose,Urine (UA) 150 mg/dL (Negative); Ketones,Urine Negative (Negative); Mucus,Urine Occasional /LPF (Occasional); Nitrite,Urine Negative (Negative); Protein,Urine 30 MG/DL; RBC,Urine 3 /HPF (0-4); Urine Color Yellow (Yellow); Urine Specific Gravity 1.011 (1.001-1.035); Urine Urobilinogen < 2.0 EU/DL (0.2-1.0); WBC,Urine 1 /HPF (0-6)
[2016-11-18] MEDS: POTASSIUM CHLORIDE 20 MEQ/15 ML UDCUP PER TUBE PRN (22:28)
[2016-11-19] MEDS: POTASSIUM CHLORIDE 20 MEQ/15 ML UDCUP PER TUBE PRN ×3 (01:14→15:36)
[2016-11-19] MEDS: PIPERACILLIN/TAZOBACTAM 3,375 MG in SODIUM CHLORIDE 0.9% 100 ML IV SCH ×4 (01:14→23:31)
[2016-11-19] MEDS: INSULIN REGULAR 100 UNIT/ML SUBCUT SCH ×5 (01:14→23:31)
[2016-11-19] MEDS: ERYTHROMYCIN ETHYLSUCCINATE 40 MG/ML 100 ML/BOTTLE PO SCH ×5 (01:14→23:51)
[2016-11-19 03:53] LABS: ABG Base Excess 7.6 MMOL/L (-2.5-2.5); ABG HCO3 31.4 MMOL/L (20-26); ABG Oxygen Saturation 97.4 % (95-100); ABG PCO2 62.2 MM HG (35-48); ABG PH 7.359 (7.35-7.45); ABG PO2 90.2 MM HG (80-95); Allen Test Positive
[2016-11-19 04:57] LABS: Hematocrit 33.2 VOL% (42.0-52.0); Hemoglobin 10.5 GM/DL (14.0-18.0); Immature Granulocytes % 0.5 %; Immature Granulocytes Absolute 0.04 #; Lymphocytes # 0.4 10*3/uL (1.4-4.0); Lymphocytes % 5.3 % (21.2-54.2); Mean Corpuscular HGB Conc 31.6 GM/DL (32-36); Mean Corpuscular Hemoglobin 32 PG (27-34); Mean Platelet Volume 10.2 FL (9.6-12.0); Monocytes # 0.3 10*3/uL (0.11-0.8); Neutrophils % 90.2 % (38.7-73.9); Platelet Count 302 T/CUMM (130-400); Red Blood Count 3.32 MC/CUMM (3.8-5.5); Red Cell Distribution Width 12.6 % (9.3-17.3); White Blood Count 7.8 T/CUMM (4-12)
[2016-11-19 05:26] LABS: Calcium 8.2 MG/DL (8.5-10.1); Osmolality,Calculated 295.3 MOS/KG (273-304); Potassium 3.1 MMOL/L (3.5-5.1)
[2016-11-19] MEDS: ENTACAPONE 200 MG TABLET PO SCH ×5 (06:12→21:02)
[2016-11-19] MEDS: CARBIDOPA/LEVODOPA 25-100 MG TABLET PO SCH ×5 (06:13→21:02)
--- NOTE | 2016-11-19 07:22 | XRay Report ---
History is ventilator management follow-up pneumonia Comparison 11/18/2016 Heart is at the upper range normal in size. Tracheostomy is present. Patient is rotated There remains hazy and reticular nodular infiltrate in the lower half of the right chest improved in the interval. Small underlying effusion is slightly improved as well. There is improved aeration in the left lung base with minimal hypoaeration changes remaining. Impression: Mild improvement described above PROCEDURE INTERPRETED AT [facility] DEPARTMENT OF RADIOLOGY Final Report Signed by: Dr. Jinny Rosas
[2016-11-19] MEDS: ALBUTEROL/IPRATROPIUM 3 ML NEB RESP TX SCH ×4 (07:50→19:37)
[2016-11-19] MEDS: DORNASE ALFA 2.5 MG/2.5 ML VIAL RESP TX SCH ×2 (07:55→19:47)
[2016-11-19] MEDS ORDERED: SODIUM PHOSPHATE INJ 20 MMOL in SODIUM CHLORIDE 0.9% 250 ML IV ONE (08:30)
[2016-11-19] MEDS: POTASSIUM CHLORIDE 20 MEQ/15 ML UDCUP PEG SCH ×2 (09:58→21:02)
[2016-11-19] MEDS: MIDODRINE 5 MG TABLET PEG SCH ×3 (09:58→21:02)
[2016-11-19] MEDS: ASPIRIN EC 81 MG TABLET PO SCH (09:58)
[2016-11-19] MEDS: LANSOPRAZOLE ODT 30 MG TABLET PEG SCH ×2 (09:59→21:02)
[2016-11-19] MEDS: FLUDROCORTISONE 0.1 MG TABLET PEG SCH ×3 (09:59→21:02)
[2016-11-19] MEDS: AMANTADINE 100 MG CAPSULE PEG SCH ×3 (09:59→21:02)
[2016-11-19] MEDS: SCOPOLAMINE 1.5 MG PATCH TRANSDERM SCH (10:01)
[2016-11-19] MEDS: LINEZOLID INJ 600 MG in PREMIX 1 EACH IV SCH ×2 (10:03→19:51)
--- NOTE | 2016-11-19 11:13 | Pulmonology Progress Note ---
Pulmonary - PN: Subj Interval history: Neel Britton, [facility]-, acting as scribe for Dr. Narciso Arnett This is a 66-year-old white male admitted from [facility] on [facility]. At the time of admission, his main problems were: #1: Pneumonia secondary to Pseudomonas refractory to outpatient treatment. #2: GERD, recent increased reflux and aspiration #3: Underlying Parkinson's disease #4: Increased shortness of breath secondary to #1. #5: Weight loss #6: See past history. 11/11/2016. Today the patient was seen in the GI lab along with Dr. Darby. Patient had some retained intestinal material in the stomach. Dr. Darby has had it erythromycin is going watch for any evidence of small bowel obstruction. Patient's sputum's are growing gram-negative rods and a few gram-positive cocci. Suspect gram-negative rods are Pseudomonas just as we have grown as an outpatient. White count is dropped from 13,900-9800 with 72% segs. H&H is 11.3 /34.4. Potassium remains low at 3.3 and will be replaced. Creatinine is 0.4 with a BUN of 14. Patient's TSH is normal but he has to free T4 values are elevated. He takes no thyroid supplement. I am not aware that any of his medicines falsely elevated thyroid values. His TSH I think indicates that he is euthyroid. Yesterday also started the patient on physical therapy and Occupational Therapy. He is also receiving wound care. I have asked social insurance administrator to see patient and discuss options with his . Patient is taking care of at home by his . Urine shows no evidence of infection. Magnesium is 2.5. Patient has a tendency towards hypoxemia especially during his endoscopic procedure. I think this is from under breathing and from retention of secretions. At a later date we may need to evaluate the patient with fiberoptic bronchoscopy. Today's chest x-ray shows a right lower lung infiltrate compatible with pneumonia and there is associated atelectasis 11/12/2016. The patient was seen today along with his and Nikkie Rodriguez RN. Small bowel follow-through yesterday showed delayed transit time which is noted may be related to ileus with increased fecal material consistent with significant constipation. There is no evidence of definite small bowel obstruction. There was limited evaluation of the distal small bowel since there was significant movement of the contrast from the jejunum into the colon between the 5 and [address] Darby has noted that the patient basically has hypomotility of the entire GI tract. That said, he now has residuals of almost 0 indicating adequate clearance from the stomach. This would certainly help with his reflux and hopefully overall pulmonary/GI issues. This will, however, need to be watched very, very carefully. Sputum culture has again grown pseudomonas aeruginosa. Urine culture has grown pseudomonas aeruginosa and is also growing 2 different gram-positive cocci's. He is presently on Fortaz and gentamicin. We are awaiting the final urine culture report. We will most likely plan for fiberoptic bronchoscopy on Tuesday. We have discussed this with the patient and his to their understanding and they are in complete agreement. Mrs. Magaña ask if we can have physical therapy see the patient on Tuesday. We have asked for this to be done, but she understands that this is out of her control. Physical therapy is certainly not available on Tuesday. Medications have been reviewed. We made no changes today. Labs been reviewed. White count is 17,800 with 88.8% segs; H&H 12.1/36.3; platelet count 249,000; creatinine 0.40, BUN 9, electrolytes are normal 11/15/2016. Over the past few days the patient has experienced increase hypoxemia and increased shortness of breath along with difficulty mobilizing sputum. This necessitated movement to ICU. Today the patient still has trouble with mobilization of his fluid and I think that this would come to fiberoptic bronchoscopy. I would like to see his temperature drop a little more as I would try to avoid inducing any sepsis. His chest x-ray shows the right upper lung and right lower lung infiltrate. He continues to grow Pseudomonas from his sputum. He also has grown Pseudomonas from his urine which has a different spectrum of sensitivity. Urinalysis also grown Enterococcus faecalis. Medicines have been adjusted and everything is covered. ABGs on FiO2 of 60% oxygen shows a pH of 7.23, PCO2 of 59.2, PO2 70.2 and a bicarb of 35.5. Sodium is 136. Potassium is dropped to 3.4. White count is 20 ,400 with 89 segs. H&H is 10.2/30.4. The patient's downhill slide seems to be related to pyelonephritis with possible sepsis as well as Pseudomonas pneumonia and retention of secretions. He is tentatively scheduled for fiberoptic bronchoscopy tomorrow. He presently is better and does not appear to be in any distress. He was seen with Neel Britton nurse practitioner. 11/16/2016. Patient had a fairly uneventful night. A lot of sputum has been suctioned through his trach. His is leftward she thinks trach may be out of position. I do not see that on his exam but he is for bronchoscopy a little later on this morning. That will be checked. The patient's urine is growing Pseudomonas and enterococcus. His sputum has grown Pseudomonas. There is another gram-negative ml growing and his sputum's are reported as showing gram- positive rods. Patient continues to have a temperature as high as 100. His feedings have gone well on one occasion it was 90 cc remaining but otherwise his stomach is emptied well. ABGs today on FiO2 of 60% shows a pH 7.418, PCO2 63.8, PO2 95.1 and a bicarb of 37.9. Glucoses are normal. Phosphorus is slightly low at 1.7. White count has dropped from 24,000 13,100 with 84 segs. H&H is stable at 10.3/31.8 and platelet counts 187,000. Chest x-ray shows a fairly dense extensive right upper lung right middle lung and right lower lung infiltrate. Fiberoptic bronchoscopy. 11/16/2016. See report. Significant retained secretions. Markedly collapsible large and small airways with edema and partial stenosis exacerbating the patient's ineffective cough. Specimens were sent for cytology bacterial, AFB and fungal studies. See orders. 11/17/2016. Today's x-ray shows a residual mainly alveolar infiltrate in the right upper lung and right middle lung. Most of each atelectatic changes seen in the right lower lung have resolved. There is faint infiltrate with some atelectasis at the left medial base. ABGs are abnormal but unchanged. Breath sounds are extremely stiff. Velcro rales like. I will start the patient on Solu-Medrol 30 IV push every 12 hours. Glucoses are slightly high and will increase with the Solu-Medrol so I am adding sliding scale insulin. At the suggestion dietary phosphorus was added yesterday and I think this is very appropriate. This patient still has a problem with retention of secretions. He has a trach and is been suction as well as possible. He coughs as strong as he can but his cough is ineffective. He will be evaluated with fiberoptic bronchoscopy tomorrow. 11/18/2016. The patient again underwent fiberoptic bronchoscopy today. This showed non-resolving pneumonia, retained secretions, ineffective cough, mild generalized bronchitis with endobronchial edema, and COPD with collapsible large and small airways. Please see the bronchoscopy report for more information. Patient's chest x-ray is little bit better. The right upper lung infiltrate is less dense. Bronchoscopy cultures from 11/16/2016 are growing a gram-negative ml. Final ID is pending. Previous sputum cultures grew Pseudomonas as noted in previous progress notes. Previous urine culture grew Pseudomonas and enterococcus faecalis. We will repeat a urinalysis today. Culture if indicated. ABGs this morning on an FiO2 of 40% showed a PCO2 of 69.7. We are going to start Diamox 250 mg IV every 12 hours. He will have repeat ABGs in the morning. Physical therapy and Occupational therapy are working with Mr. Díaz. Medications have been reviewed. Diamox was started today. Labs been reviewed. White count is 4600 with 87.4% segs; H&H 10.1/31.4; platelet count 217,000; INR 1.1; creatinine 0.40, BUN 11, sodium 140, potassium 2.8, magnesium 2.7, phosphorus 1.9 11/19/2016. The patient was seen today along with his nurse. Diamox was started yesterday. His PCO2 has fallen from 69.7-62.2. We will continue the Diamox. He has daily ABGs ordered. Bronchoscopy was done yesterday as well. This was the second time. He continues to have loose large airway congestion and has difficulty mobilizing his secretions. He has a tracheostomy. We have and plan for repeat bronchoscopy on Tuesday. His bronchoscopy cultures from 11/16 have grown Pseudomonas again. He is on appropriate antibiotics for this. Bronchoscopy cultures from 11/18/2016 are again growing a gram-negative ml. Urinalysis obtained yesterday shows no evidence of infection. We have asked the nursing staff to ask physical therapy to work this patient on Tuesday. He certainly does not need to lose any more of his strength. His chest x-ray is slowly improving day by day. Medications have been reviewed. We made no changes today. Labs been reviewed. White count is 7800 with 90.2% segs; H&H 10.5/33.2; platelet count 302,000; creatinine 0.60, BUN 16, sodium 141, potassium 3.1 ( this is being replaced), calcium 8.2, phosphorus 1.7 Exam (Progress Note) - Constitutional Vitals: Period Temp Pulse Resp BP Sys/West Pulse Ox Last 24 Hr 97.2 F-98.1 F 68-84 17-47 112-144/63-89 94-100 Exam: Chest with loose large airway congestion Heart no gallop Abdomen is nontender and nondistended; rare bowel sounds Extremities with nothing to suggest acute deep venous thrombophlebitis Psychiatric oriented 3 Neurologic stigmata of Parkinson's disease Plan: Continue present treatment. Continue Diamox 250 mg IV every 12 hours. Continue potassium replacement protocol. Follow-up bronchoscopy results when available. Have physical therapy work with this patient on Tuesday. Plan for bronchoscopy on Tuesday. Daily chest x-ray and ABGs. Daily labs. See orders. Results - Labs CBC & BMP: 11/19/16 03:44 11/19/16 03:44
[2016-11-19] MEDS: methylPREDNISolone SOD SUC 40 MG/1 ML VIAL IV SCH ×2 (12:10→23:31)
[2016-11-19] MEDS: DESITIN 4OZ/NYSTATIN 15 GRAM MIXTURE PASTE TOP SCH ×2 (12:14→21:02)
[2016-11-19] MEDS: GENTAMICIN INJ 400 MG in SODIUM CHLORIDE 0.9% 100 ML IV SCH (13:30)
[2016-11-20 03:49] LABS: ABG Base Excess 5.3 MMOL/L (-2.5-2.5); ABG HCO3 29.3 MMOL/L (20-26); ABG Oxygen Saturation 99.4 % (95-100); ABG PH 7.345 (7.35-7.45); ABG TCO2 29.6 MMOL/L (23-27)
[2016-11-20 04:58] LABS: Basophils % 0.1 % (0.0-0.8); Hematocrit 36.6 VOL% (42.0-52.0); Hemoglobin 11.5 GM/DL (14.0-18.0); Immature Granulocytes % 0.6 %; Immature Granulocytes Absolute 0.05 #; Lymphocytes # 0.4 10*3/uL (1.4-4.0); Lymphocytes % 4.6 % (21.2-54.2); Mean Corpuscular HGB Conc 31.4 GM/DL (32-36); Mean Corpuscular Hemoglobin 32 PG (27-34); Mean Corpuscular Volume 101.1 FL (87-102); Mean Platelet Volume 9.8 FL (9.6-12.0); Monocytes # 0.3 10*3/uL (0.11-0.8); Monocytes % 3.7 % (1.7-12.7); Platelet Count 351 T/CUMM (130-400); Red Blood Count 3.62 MC/CUMM (3.8-5.5); Red Cell Distribution Width 12.5 % (9.3-17.3); White Blood Count 8.7 T/CUMM (4-12)
[2016-11-20 05:36] LABS: Calcium 8.5 MG/DL (8.5-10.1); Osmolality,Calculated 297.1 MOS/KG (273-304); Phosphorous 2.1 MG/DL (2.5-4.9)
[2016-11-20] MEDS: ERYTHROMYCIN ETHYLSUCCINATE 40 MG/ML 100 ML/BOTTLE PO SCH ×2 (05:48→19:29)
[2016-11-20 06:31] LABS: Anisocytosis Slight; Band Neutrophils 1 % (0-10); Lymphocytes 6 % (20-55); Macrocytosis Slight; Platelet Estimate Normal; Segmented Neutrophils 92 % (50-85); Total Cells Counted 100
[2016-11-20] MEDS: ENTACAPONE 200 MG TABLET PO SCH ×5 (06:32→21:34)
[2016-11-20] MEDS: INSULIN REGULAR 100 UNIT/ML SUBCUT SCH ×3 (06:32→18:46)
[2016-11-20] MEDS: POTASSIUM CHLORIDE 20 MEQ/15 ML UDCUP PER TUBE PRN ×4 (06:32→18:35)
[2016-11-20] MEDS: CARBIDOPA/LEVODOPA 25-100 MG TABLET PO SCH ×5 (06:33→21:34)
--- NOTE | 2016-11-20 07:05 | Pulmonology Progress Note ---
Pulmonary - PN: Subj Interval history: This 66-year-old white male has advanced Parkinson's disease. He has a tracheostomy. He is being fed through PEG tube. He has had multiple bronchoscopies with findings of Pseudomonas. He is on Zosyn. His respiratory rates in the upper 20s but is otherwise comfortable and able to converse with the nurses using a speaking valve. Exam (Progress Note) - Constitutional Vitals: Period Temp Pulse Resp BP Sys/West Pulse Ox Last 24 Hr 97.4 F-98.4 F 68-84 14-28 115-150/65-94 94-100 Exam: Patient is responsive. Vital signs normal. Pupils react to light. Throat is clear. Tracheostomy is in place and looks clean. Neck is supple. Chest reveals a few rhonchi equal breath sounds. Heart normal rate rhythm no murmurs. Abdomen soft no masses PEG tube in place. Extremities no clubbing cyanosis or edema. Calves nontender Results - Labs CBC & BMP: 11/20/16 04:07 11/20/16 04:07 Lab Results: I have reviewed the past 24 hour labs - Diagnostic Findings Procedure: Chest x-ray: image reviewed by me (Bibasilar infiltrates and probably a small effusion. Looks better than yesterday. Appears to have contrast in his left colon.) Assessment and Plan (1) Parkinsons Status: Acute Assessment and plan: Patient has advanced Parkinson's disease and is on medications. He has problems with recurrent aspiration due to that. He has a tracheostomy and a PEG tube in place. Current Visit: No (2) Aspiration pneumonia Status: Acute Assessment and plan: He has grown Pseudomonas from his bronchial washings. He is on appropriate antibiotics with Zosyn. Current Visit: No
[2016-11-20] MEDS: ALBUTEROL/IPRATROPIUM 3 ML NEB RESP TX SCH ×4 (07:32→20:21)
[2016-11-20] MEDS: DORNASE ALFA 2.5 MG/2.5 ML VIAL RESP TX SCH ×2 (07:38→20:33)
--- NOTE | 2016-11-20 07:38 | XRay Report ---
Exam: XR chest 1V portable Date: 11/20/2016 4:00 AM Indication: Follow-up tracheostomy Comparison: 11/19/2016 Technical: 11/20/2016 Findings: Tracheostomy tube is present. Mild prominence the cardiac silhouette. Decreasing infiltrate and effusion in the right base with persistent area of prominence in the right perihilar region. Tiny low volume effusions are present bilaterally. No pneumothorax. Previous cortical anchor screws over the right shoulder x3 with small area of residual density tubing suspected over the right upper chest not otherwise clarified over the axillary region superior to the right humeral head Impression: 1. Stable position of tracheostomy tube 2. Improving aeration with slight decreasing effusions bilaterally with residual densities as described 4. Previous shoulder surgery on the right PROCEDURE INTERPRETED AT [facility] DEPARTMENT OF RADIOLOGY Final Report Signed by: Dr. Narciso Kumar
[2016-11-20] MEDS: PIPERACILLIN/TAZOBACTAM 3,375 MG in SODIUM CHLORIDE 0.9% 100 ML IV SCH ×2 (08:42→21:33)
[2016-11-20] MEDS: FLUDROCORTISONE 0.1 MG TABLET PEG SCH ×3 (08:43→21:34)
[2016-11-20] MEDS: POTASSIUM CHLORIDE 20 MEQ/15 ML UDCUP PEG SCH ×2 (08:43→21:34)
[2016-11-20] MEDS: LINEZOLID INJ 600 MG in PREMIX 1 EACH IV SCH ×2 (08:43→21:33)
[2016-11-20] MEDS: ASPIRIN EC 81 MG TABLET PO SCH (08:43)
[2016-11-20] MEDS: AMANTADINE 100 MG CAPSULE PEG SCH ×3 (08:44→21:37)
[2016-11-20] MEDS: MIDODRINE 5 MG TABLET PEG SCH ×3 (08:44→21:37)
[2016-11-20] MEDS: LANSOPRAZOLE ODT 30 MG TABLET PEG SCH ×2 (08:44→21:34)
[2016-11-20] MEDS: DESITIN 4OZ/NYSTATIN 15 GRAM MIXTURE PASTE TOP SCH ×2 (11:11→22:27)
[2016-11-20] MEDS: methylPREDNISolone SOD SUC 40 MG/1 ML VIAL IV SCH ×2 (11:14→22:28)
[2016-11-20] MEDS ORDERED: POTASSIUM PHOSPHATE 30 MMOL in SODIUM CHLORIDE 0.9% 250 ML IV ONE (11:15)
[2016-11-20] MEDS: GENTAMICIN INJ 400 MG in SODIUM CHLORIDE 0.9% 100 ML IV SCH (13:02)
[2016-11-21] MEDS: ERYTHROMYCIN ETHYLSUCCINATE 40 MG/ML 100 ML/BOTTLE PO SCH ×4 (00:19→18:47)
[2016-11-21] MEDS: INSULIN REGULAR 100 UNIT/ML SUBCUT SCH ×4 (00:22→18:51)
[2016-11-21 03:45] LABS: ABG Base Excess 4.1 MMOL/L (-2.5-2.5); ABG HCO3 30.1 MMOL/L (20-26); ABG Oxygen Saturation 97.7 % (95-100); ABG PCO2 51.5 MM HG (35-48); ABG PH 7.385 (7.35-7.45); ABG PO2 99.5 MM HG (80-95); ABG TCO2 31.7 MMOL/L (23-27)
[2016-11-21 05:07] LABS: Basophils % 0.1 % (0.0-0.8); Hemoglobin 11.3 GM/DL (14.0-18.0); Immature Granulocytes % 0.8 %; Lymphocytes # 0.3 10*3/uL (1.4-4.0); Lymphocytes % 2.8 % (21.2-54.2); Mean Corpuscular HGB Conc 32.3 GM/DL (32-36); Mean Corpuscular Hemoglobin 32 PG (27-34); Mean Corpuscular Volume 99.7 FL (87-102); Mean Platelet Volume 9.9 FL (9.6-12.0); Monocytes # 0.3 10*3/uL (0.11-0.8); Monocytes % 2.7 % (1.7-12.7); Neutrophils # 11.3 10*3/uL (1.4-7.4); Neutrophils % 93.6 % (38.7-73.9); Platelet Count 369 T/CUMM (130-400); Red Blood Count 3.51 MC/CUMM (3.8-5.5); Red Cell Distribution Width 12.7 % (9.3-17.3); White Blood Count 12.1 T/CUMM (4-12)
[2016-11-21 05:21] LABS: Calcium 8.3 MG/DL (8.5-10.1); Magnesium 2.7 MG/DL (1.8-2.4); Osmolality,Calculated 299.8 MOS/KG (273-304)
[2016-11-21] MEDS: ENTACAPONE 200 MG TABLET PO SCH ×5 (06:40→21:13)
[2016-11-21] MEDS: CARBIDOPA/LEVODOPA 25-100 MG TABLET PO SCH ×5 (06:40→21:14)
[2016-11-21] MEDS: PIPERACILLIN/TAZOBACTAM 3,375 MG in SODIUM CHLORIDE 0.9% 100 ML IV SCH ×3 (06:40→21:14)
[2016-11-21 07:23] LABS: Hypochromasia 1+; Lymphocytes 1 % (20-55); Platelet Estimate Adequate; Segmented Neutrophils 95 % (50-85); Total Cells Counted 100
[2016-11-21] MEDS: ALBUTEROL/IPRATROPIUM 3 ML NEB RESP TX SCH ×4 (07:28→19:44)
--- NOTE | 2016-11-21 07:56 | Pulmonology Progress Note ---
Pulmonary - PN: Subj Interval history: This 66-year-old white male has advanced Parkinson's disease. He has a tracheostomy. He is being fed through PEG tube. He has had multiple bronchoscopies with findings of Pseudomonas. He is on Zosyn. His respiratory rates in the upper 20s but is otherwise comfortable and able to converse with the nurses using a speaking valve. 11/21/2016 patient appears about the same. He talks a little bit. He is very weak. His potassium has been low and he is getting replacement. I will increase the potassium to 4 times a day rather than twice a day. He is on Diamox 250 mg twice a day. This may be causing the potassium loss. I will decrease that to 125 mg twice a day. He does have a metabolic alkalosis that we are treating. His renal function is okay. His blood sugars are not well controlled. Exam (Progress Note) - Constitutional Vitals: Period Temp Pulse Resp BP Sys/West Pulse Ox Last 24 Hr 97.3 F-98.0 F 66-83 16-36 103-165/62-91 87-100 Exam: Patient is responsive. Vital signs normal. Pupils react to light. Throat is clear. Tracheostomy is in place and looks clean. Neck is supple. Chest reveals a few rhonchi equal breath sounds. Heart normal rate rhythm no murmurs. Abdomen soft no masses PEG tube in place. Extremities no clubbing cyanosis or edema. Calves nontender. Little change from yesterday. Results - Labs CBC & BMP: 11/21/16 04:16 11/21/16 04:16 Lab Results: I have reviewed the past 24 hour labs - Diagnostic Findings Procedure: Chest x-ray: image reviewed by me (Tracheostomy in good position. Mild basilar atelectasis bilaterally.) Assessment and Plan (1) Parkinsons Status: Acute Assessment and plan: Patient has advanced Parkinson's disease and is on medications. He has problems with recurrent aspiration due to that. He has a tracheostomy and a PEG tube in place. 11/21/2016 appears to have end-stage Parkinson's disease. Current Visit: No (2) Aspiration pneumonia Status: Acute Assessment and plan: He has grown Pseudomonas from his bronchial washings. He is on appropriate antibiotics with Zosyn. 11/21/2016 continuing with antibiotics. All of the cultures have grown Pseudomonas. I will add a second antipseudomonal drug. Current Visit: No
[2016-11-21] MEDS: LEVOFLOXACIN INJ 500 MG in PREMIX 1 EACH IV SCH (08:21)
[2016-11-21] MEDS: LINEZOLID INJ 600 MG in PREMIX 1 EACH IV SCH ×2 (08:21→21:12)
[2016-11-21] MEDS: MIDODRINE 5 MG TABLET PEG SCH ×3 (08:25→21:13)
[2016-11-21] MEDS: ASPIRIN EC 81 MG TABLET PO SCH (08:25)
[2016-11-21] MEDS: AMANTADINE 100 MG CAPSULE PEG SCH ×3 (08:25→21:13)
[2016-11-21] MEDS: POTASSIUM CHLORIDE 20 MEQ/15 ML UDCUP PEG SCH ×4 (08:25→21:12)
[2016-11-21] MEDS: FLUDROCORTISONE 0.1 MG TABLET PEG SCH ×3 (08:25→21:12)
[2016-11-21] MEDS: LANSOPRAZOLE ODT 30 MG TABLET PEG SCH ×2 (08:25→21:12)
[2016-11-21] MEDS: DESITIN 4OZ/NYSTATIN 15 GRAM MIXTURE PASTE TOP SCH ×2 (08:26→21:13)
[2016-11-21] MEDS: DORNASE ALFA 2.5 MG/2.5 ML VIAL RESP TX SCH ×2 (09:00→20:20)
--- NOTE | 2016-11-21 09:02 | XRay Report ---
Exam: XR chest 1V portable Date: 11/21/2016 4:00 AM Indication: Follow-up tracheostomy Comparison: 11/20/2016 Technical: AP Findings: Tracheostomy tube present. Mild cardiac prominence. Some radiopaque material in the splenic flexure. Tiny effusions are present. No pneumothorax. External cardiac leads are present. Mediastinum is unremarkable. ASVD is present. Impression: 1. Stable appearance of the tracheostomy tube 2. Tiny low volume effusions PROCEDURE INTERPRETED AT [facility] DEPARTMENT OF RADIOLOGY Final Report Signed by: Dr. Narciso Kumar
[2016-11-21] MEDS: methylPREDNISolone SOD SUC 40 MG/1 ML VIAL IV SCH (11:27)
[2016-11-21] MEDS: GENTAMICIN INJ 400 MG in SODIUM CHLORIDE 0.9% 100 ML IV SCH (13:18)
[2016-11-22] MEDS: ERYTHROMYCIN ETHYLSUCCINATE 40 MG/ML 100 ML/BOTTLE PO SCH ×4 (01:01→17:53)
[2016-11-22] MEDS: INSULIN REGULAR 100 UNIT/ML SUBCUT SCH ×4 (01:13→18:54)
[2016-11-22] MEDS: methylPREDNISolone SOD SUC 40 MG/1 ML VIAL IV SCH ×3 (01:13→22:37)
[2016-11-22 03:46] LABS: ABG Base Excess 4.1 MMOL/L (-2.5-2.5); ABG Oxygen Saturation 96.9 % (95-100); ABG PCO2 55.1 MM HG (35-48); ABG PH 7.356 (7.35-7.45); ABG PO2 85.9 MM HG (80-95); ABG TCO2 27.8 MMOL/L (23-27)
[2016-11-22 04:50] LABS: Basophils % 0.1 % (0.0-0.8); Hematocrit 35.7 VOL% (42.0-52.0); Hemoglobin 11.5 GM/DL (14.0-18.0); Immature Granulocytes % 0.9 %; Immature Granulocytes Absolute 0.14 #; Lymphocytes # 0.8 10*3/uL (1.4-4.0); Lymphocytes % 5.4 % (21.2-54.2); Mean Corpuscular HGB Conc 32.2 GM/DL (32-36); Mean Corpuscular Hemoglobin 32 PG (27-34); Mean Platelet Volume 9.6 FL (9.6-12.0); Monocytes # 0.8 10*3/uL (0.11-0.8); Monocytes % 5.4 % (1.7-12.7); Neutrophils # 13.1 10*3/uL (1.4-7.4); Neutrophils % 88.2 % (38.7-73.9); Platelet Count 378 T/CUMM (130-400); Red Blood Count 3.57 MC/CUMM (3.8-5.5); Red Cell Distribution Width 12.7 % (9.3-17.3); White Blood Count 14.9 T/CUMM (4-12)
[2016-11-22 05:10] LABS: INR 1.1; PT Patient Result 11.6 SECS; Partial Thromboplastin Time 30.6 SECS (0-40)
[2016-11-22 05:31] LABS: Calcium 8.1 MG/DL (8.5-10.1); Magnesium 2.6 MG/DL (1.8-2.4); Osmolality,Calculated 293.7 MOS/KG (273-304); Phosphorous 1.7 MG/DL (2.5-4.9); Potassium 3.2 MMOL/L (3.5-5.1); Prealbumin 22.4 MG/DL (20-40)
[2016-11-22] MEDS: ENTACAPONE 200 MG TABLET PO SCH ×5 (06:34→22:36)
[2016-11-22] MEDS: PIPERACILLIN/TAZOBACTAM 3,375 MG in SODIUM CHLORIDE 0.9% 100 ML IV SCH ×3 (06:34→22:36)
[2016-11-22] MEDS: CARBIDOPA/LEVODOPA 25-100 MG TABLET PO SCH ×5 (06:34→22:32)
--- NOTE | 2016-11-22 07:30 | XRay Report ---
Portable chest Date: 11/22/2016 Clinical history: Tracheostomy tube Comparison: 11/21/2016 Technique: Portable AP sitting chest Findings: The heart remains borderline in size with stable tracheostomy tube. Minimally progressive parenchymal findings with persistent relative elevation of the right hemidiaphragm. Retained oral contrast in the bowel. Postoperative findings in the right shoulder with degenerative changes. Impression: Tracheostomy tube in satisfactory position. Progressive atelectasis/infiltration with small pleural effusions. Persistent relative elevation of the right hemidiaphragm. PROCEDURE INTERPRETED AT [facility] DEPARTMENT OF RADIOLOGY Final Report Signed by: Dr. Yarely Steel
[2016-11-22] MEDS: ALBUTEROL/IPRATROPIUM 3 ML NEB RESP TX SCH ×4 (07:50→19:32)
[2016-11-22] MEDS: DORNASE ALFA 2.5 MG/2.5 ML VIAL RESP TX SCH ×2 (07:51→19:46)
[2016-11-22] MEDS: LEVOFLOXACIN INJ 500 MG in PREMIX 1 EACH IV SCH (08:04)
--- NOTE | 2016-11-22 08:28 | Event Note ---
In hospital diagnostic and therapeutic fiberoptic bronchoscopy. Bilateral bronchoalveolar lavages were sent for Gram stain, bacterial culture sensitivity , AFB stains and culture, fungal stains and culture. This 66-year-old white male with Parkinson's disease, ineffective cough, retained secretions, trach, COPD, respiratory failure for oxygen and carbon dioxide. Also pneumonia. For these reasons patient is evaluated with diagnostic and therapeutic fiberoptic bronchoscopy. The trach and the trach site were fine the distal trachea look normal. The francesco was sharp. The right mainstem bronchus was full of thick tenacious whitish appearing secretions that extended into the right upper lung, right middle lung and right lower lung. These areas were lavaged until clear. There was marked obstructive disease with marked collapsibility of the bronchi. This is most prominent in the right lower lung. Left mainstem bronchus was filled with thick tenacious whitish appearing secretions that extended into the left upper lung and the left lower lung. These areas were cleared with bronchoalveolar lavage. There was underlying obstructive lung disease with collapsible large airways. The patient tolerated procedure well. There were no complications. Impression. 1. Pneumonia 2. Ineffective cough 3. Retained secretions 4. Severe COPD with collapsible large and small airways #5 Parkinson's disease with compromised neuromuscular coughing ability 6. See above Plan. 1. Follow-up chest x-ray 2. Check bronchoscopy
[2016-11-22] MEDS: LINEZOLID INJ 600 MG in PREMIX 1 EACH IV SCH ×2 (09:05→22:29)
[2016-11-22] MEDS: SCOPOLAMINE 1.5 MG PATCH TRANSDERM SCH (09:06)
[2016-11-22] MEDS: LANSOPRAZOLE ODT 30 MG TABLET PEG SCH ×2 (09:07→22:36)
[2016-11-22] MEDS: FLUDROCORTISONE 0.1 MG TABLET PEG SCH ×3 (09:07→22:29)
[2016-11-22] MEDS: POTASSIUM CHLORIDE 20 MEQ/15 ML UDCUP PEG SCH ×4 (09:07→22:36)
[2016-11-22] MEDS: AMANTADINE 100 MG CAPSULE PEG SCH ×3 (09:07→22:34)
[2016-11-22] MEDS: DESITIN 4OZ/NYSTATIN 15 GRAM MIXTURE PASTE TOP SCH ×2 (09:07→22:36)
[2016-11-22] MEDS: ASPIRIN EC 81 MG TABLET PO SCH (09:08)
[2016-11-22] MEDS: MIDODRINE 5 MG TABLET PEG SCH ×3 (09:08→22:34)
--- NOTE | 2016-11-22 11:13 | Pulmonology Progress Note ---
Pulmonary - PN: Subj Interval history: This is a 66-year-old white male admitted from my office on 11/10/2016. His main problems were. #1: Pneumonia secondary to Pseudomonas refractory to outpatient treatment. #2: GERD, recent increased reflux and aspiration #3: Underlying Parkinson's disease #4: Increased shortness of breath secondary to #1. #5: Weight loss #6: See past history. 11/11/2016. Today the patient was seen in the GI lab along with Dr. Holliday. Patient had some retained intestinal material in the stomach. Dr. Holliday has had it erythromycin is going watch for any evidence of small bowel obstruction. Patient's sputum's are growing gram-negative rods and a few gram-positive cocci. Suspect gram-negative rods are Pseudomonas just as we have grown as an outpatient. White count is dropped from 13,900-9800 with 72% segs. H&H is 11.3 /34.4. Potassium remains low at 3.3 and will be replaced. Creatinine is 0.4 with a BUN of 14. Patient's TSH is normal but he has to free T4 values are elevated. He takes no thyroid supplement. I am not aware that any of his medicines falsely elevated thyroid values. His TSH I think indicates that he is euthyroid. Yesterday also started the patient on physical therapy and Occupational Therapy. He is also receiving wound care. I have asked social work case manager to see patient and discuss options with his . Patient is taking care of at home by his . Urine shows no evidence of infection. Magnesium is 2.5. Patient has a tendency towards hypoxemia especially during his endoscopic procedure. I think this is from under breathing and from retention of secretions. At a later date we may need to evaluate the patient with fiberoptic bronchoscopy. Today's chest x-ray shows a right lower lung infiltrate compatible with pneumonia and there is associated atelectasis 11/15/2016. Over the past few days the patient has experienced increase hypoxemia and increased shortness of breath along with difficulty mobilizing sputum. This necessitated movement to ICU. Today the patient still has trouble with mobilization of his fluid and I think that this would come to fiberoptic bronchoscopy. I would like to see his temperature drop a little more as I would try to avoid inducing any sepsis. His chest x-ray shows the right upper lung and right lower lung infiltrate. He continues to grow Pseudomonas from his sputum. He also has grown Pseudomonas from his urine which has a different spectrum of sensitivity. Urinalysis also grown Enterococcus faecalis. Medicines have been adjusted and everything is covered. ABGs on FiO2 of 60% oxygen shows a pH of 7.23, PCO2 of 59.2, PO2 70.2 and a bicarb of 35.5. Sodium is 136. Potassium is dropped to 3.4. White count is 20 ,400 with 89 segs. H&H is 10.2/30.4. The patient's downhill slide seems to be related to pyelonephritis with possible sepsis as well as Pseudomonas pneumonia and retention of secretions. He is tentatively scheduled for fiberoptic bronchoscopy tomorrow. He presently is better and does not appear to be in any distress. He was seen with Neel Britton nurse practitioner. 11/16/2016. Patient had a fairly uneventful night. A lot of sputum has been suctioned through his trach. His is leftward she thinks trach may be out of position. I do not see that on his exam but he is for bronchoscopy a little later on this morning. That will be checked. The patient's urine is growing Pseudomonas and enterococcus. His sputum has grown Pseudomonas. There is another gram-negative ml growing and his sputum's are reported as showing gram- positive rods. Patient continues to have a temperature as high as 100. His feedings have gone well on one occasion it was 90 cc remaining but otherwise his stomach is emptied well. ABGs today on FiO2 of 60% shows a pH 7.418, PCO2 63.8, PO2 95.1 and a bicarb of 37.9. Glucoses are normal. Phosphorus is slightly low at 1.7. White count has dropped from 24,000 13,100 with 84 segs. H&H is stable at 10.3/31.8 and platelet counts 187,000. Chest x-ray shows a fairly dense extensive right upper lung right middle lung and right lower lung infiltrate. Fiberoptic bronchoscopy. 11/16/2016. See report. Significant retained secretions. Markedly collapsible large and small airways with edema and partial stenosis exacerbating the patient's ineffective cough. Specimens were sent for cytology bacterial, AFB and fungal studies. See orders. 11/17/2016. Today's x-ray shows a residual mainly alveolar infiltrate in the right upper lung and right middle lung. Most of each atelectatic changes seen in the right lower lung have resolved. There is faint infiltrate with some atelectasis at the left medial base. ABGs are abnormal but unchanged. Breath sounds are extremely stiff. Velcro rales like. I will start the patient on Solu-Medrol 30 IV push every 12 hours. Glucoses are slightly high and will increase with the Solu-Medrol so I am adding sliding scale insulin. At the suggestion dietary phosphorus was added yesterday and I think this is very appropriate. This patient still has a problem with retention of secretions. He has a trach and is been suction as well as possible. He coughs as strong as he can but his cough is ineffective. He will be evaluated with fiberoptic bronchoscopy tomorrow 11/22/2016.His laboratory tests are stable. Patient had a fiberoptic bronchoscopy this morning. See report. He had copious bilateral secretions and this will probably have to be repeated on the day or 2. His chest x-ray has shown good improvement. His ABGs are gradually improving. He is significantly ill and hopefully he will be ready for movement of ICU in another few days. Potassium is 3.2 and the patient is on a replacement protocol. Physical exam. Vital signs. See below Psychiatric oriented 3. Cooperative. Face. Symmetrical. No edema of the lips or tongue Neck symmetrical. No meningismus Chest. Large airway congestion. Velcro rales Heart. No gallop Abdomen. As per Dr. Holliday Extremities. No evidence of deep venous thrombophlebitis Neurologic. Cranial nerves are intact with some decreased hearing acuity long track motor functions intact. Patient has a stigmata of Parkinson's disease. The remainder the physical exam is noncontributory. Plan: 11/10/2016 #1: Admit to inpatient for treatment with IV antibiotics. #2: Gentamicin start at 40mg [id number], consult pharmacy for dosing management. Fortaz 1GM [id number]. #3: Repeat sputum for gram stain culture and sensitivity before first dose of abx. #4: Inhalation therapy with Duonebs QID and PRN. #5: ID and continue home medicines. #6: CXR today. #7: See orders. 11/11/2016. 1. See my note, above 2. See endoscopic report 3. Have discussed with Dr. Saman Holliday and we have coordinated our care 4. Watch for any evidence of small bowel obstruction 5. Check cultures. 6. Consider therapeutic and diagnostic fiberoptic bronchoscopy at a later date 7. TSH is normal. Probably euthyroid. 11/15/2016. 1. See today's note, above 2. Fiberoptic bronchoscopy in a.m. 3. See adjustment of antibiotics. 4. Continue to follow her ABGs chest x-ray and lab 11/16/2016. 1. See today's note, above 2. See fiberoptic bronchoscopy report 3. Will probably require repeat bronchoscopy in 1-2 days 4. Although this is been discussed with the 5. Check bronchoscopy 11/17/2016. 1. See today's note, above 2. Solu-Medrol 3. Fiberoptic bronchoscopy tomorrow 4. Phosphorus 5. Sliding scale insulin 6. Continue daily chest x-ray ABGs and lab 11/22/2016. 1. See today's note above 2. See fiberoptic bronchoscopy note from 05/25/2016 3. Discuss findings and plans with . Neel Britton nurse practitioner was present. Exam (Progress Note) - Constitutional Vitals: Period Temp Pulse Resp BP Sys/West Pulse Ox Last 24 Hr 97.5 F-98.0 F 66-89 12-38 111-148/66-90 91-100 Results - Labs CBC & BMP: 11/22/16 04:06 11/22/16 04:06
[2016-11-22] MEDS: GENTAMICIN INJ 400 MG in SODIUM CHLORIDE 0.9% 100 ML IV SCH (12:50)
[2016-11-22] MEDS ORDERED: POTASSIUM PHOSPHATE 30 MMOL in SODIUM CHLORIDE 0.9% 250 ML IV ONE (16:00)
[2016-11-23] MEDS: INSULIN REGULAR 100 UNIT/ML SUBCUT SCH ×4 (00:29→17:06)
[2016-11-23] MEDS: ERYTHROMYCIN ETHYLSUCCINATE 40 MG/ML 100 ML/BOTTLE PO SCH ×4 (00:37→17:00)
[2016-11-23 03:17] LABS: ABG Oxygen Saturation 94.3 % (95-100); ABG PCO2 55.8 MM HG (35-48); ABG PH 7.339 (7.35-7.45); ABG PO2 71.8 MM HG (80-95); ABG TCO2 27.1 MMOL/L (23-27); Allen Test Positive
[2016-11-23 05:02] LABS: Basophils % 0.1 % (0.0-0.8); Hemoglobin 11.5 GM/DL (14.0-18.0); Immature Granulocytes % 0.9 %; Immature Granulocytes Absolute 0.14 #; Lymphocytes # 0.3 10*3/uL (1.4-4.0); Lymphocytes % 2.1 % (21.2-54.2); Mean Corpuscular HGB Conc 31.9 GM/DL (32-36); Mean Corpuscular Hemoglobin 32 PG (27-34); Mean Platelet Volume 9.5 FL (9.6-12.0); Monocytes # 0.3 10*3/uL (0.11-0.8); Monocytes % 1.7 % (1.7-12.7); Neutrophils # 15.2 10*3/uL (1.4-7.4); Neutrophils % 95.2 % (38.7-73.9); Platelet Count 396 T/CUMM (130-400); Red Cell Distribution Width 12.8 % (9.3-17.3)
[2016-11-23] MEDS: PIPERACILLIN/TAZOBACTAM 3,375 MG in SODIUM CHLORIDE 0.9% 100 ML IV SCH (05:17)
[2016-11-23] MEDS: CARBIDOPA/LEVODOPA 25-100 MG TABLET PO SCH ×5 (05:19→21:57)
[2016-11-23] MEDS: ENTACAPONE 200 MG TABLET PO SCH ×5 (05:19→21:57)
[2016-11-23 05:36] LABS: Band Neutrophils 1 % (0-10); Hypochromasia 1+; Lymphocytes 2 % (20-55); Macrocytosis Slight; Segmented Neutrophils 96 % (50-85); Total Cells Counted 100
[2016-11-23 05:37] LABS: Platelet Estimate Normal
[2016-11-23 05:45] LABS: Calcium 7.9 MG/DL (8.5-10.1); Magnesium 2.6 MG/DL (1.8-2.4); Osmolality,Calculated 290.1 MOS/KG (273-304); Potassium 3.6 MMOL/L (3.5-5.1)
[2016-11-23] MEDS: ALBUTEROL/IPRATROPIUM 3 ML NEB RESP TX SCH ×4 (07:17→18:59)
[2016-11-23] MEDS: DORNASE ALFA 2.5 MG/2.5 ML VIAL RESP TX SCH ×2 (07:23→19:02)
[2016-11-23] MEDS: LEVOFLOXACIN INJ 500 MG in PREMIX 1 EACH IV SCH ×2 (07:25→08:51)
--- NOTE | 2016-11-23 08:31 | XRay Report ---
XR chest 1V portable Indication: Tracheostomy Comparison: Chest x-ray dated November 22, 2016 Technique: Single frontal view of the chest. Findings: Tracheostomy tube appears grossly unchanged. Borderline heart size. Mildly increased bibasilar atelectasis/consolidation with probable small left pleural fluid and trace right pleural fluid. Visualized osseous and surrounding soft tissue structures appear grossly unchanged. Continued elevation of the right hemidiaphragm. IMPRESSION: As above. PROCEDURE INTERPRETED AT [facility] DEPARTMENT OF RADIOLOGY Final Report Signed by: Dr Nicolas Moreno
[2016-11-23] MEDS: LANSOPRAZOLE ODT 30 MG TABLET PEG SCH ×2 (08:41→20:23)
[2016-11-23] MEDS: POTASSIUM CHLORIDE 20 MEQ/15 ML UDCUP PEG SCH ×4 (08:41→20:23)
[2016-11-23] MEDS: MIDODRINE 5 MG TABLET PEG SCH ×3 (08:41→20:23)
[2016-11-23] MEDS: ASPIRIN EC 81 MG TABLET PO SCH (08:42)
[2016-11-23] MEDS: AMANTADINE 100 MG CAPSULE PEG SCH ×3 (08:42→20:23)
[2016-11-23] MEDS: FLUDROCORTISONE 0.1 MG TABLET PEG SCH ×3 (08:42→20:23)
[2016-11-23] MEDS: LINEZOLID INJ 600 MG in PREMIX 1 EACH IV SCH (08:51)
[2016-11-23] MEDS: DESITIN 4OZ/NYSTATIN 15 GRAM MIXTURE PASTE TOP SCH ×2 (08:57→20:23)
[2016-11-23] MEDS: SCOPOLAMINE 1.5 MG PATCH TRANSDERM SCH (10:41)
[2016-11-23] MEDS: methylPREDNISolone SOD SUC 40 MG/1 ML VIAL IV SCH ×2 (10:42→21:59)
[2016-11-23] MEDS: GENTAMICIN INJ 400 MG in SODIUM CHLORIDE 0.9% 100 ML IV SCH (12:41)
--- NOTE | 2016-11-23 12:47 | Pulmonology Progress Note ---
Pulmonary - PN: Subj Interval history: This is a 66-year-old white male admitted from my office on 11/10/2016. His main problems were. #1: Pneumonia secondary to Pseudomonas refractory to outpatient treatment. #2: GERD, recent increased reflux and aspiration #3: Underlying Parkinson's disease #4: Increased shortness of breath secondary to #1. #5: Weight loss #6: See past history. 11/11/2016. Today the patient was seen in the GI lab along with Dr. Holliday. Patient had some retained intestinal material in the stomach. Dr. Holliday has had it erythromycin is going watch for any evidence of small bowel obstruction. Patient's sputum's are growing gram-negative rods and a few gram-positive cocci. Suspect gram-negative rods are Pseudomonas just as we have grown as an outpatient. White count is dropped from 13,900-9800 with 72% segs. H&H is 11.3 /34.4. Potassium remains low at 3.3 and will be replaced. Creatinine is 0.4 with a BUN of 14. Patient's TSH is normal but he has to free T4 values are elevated. He takes no thyroid supplement. I am not aware that any of his medicines falsely elevated thyroid values. His TSH I think indicates that he is euthyroid. Yesterday also started the patient on physical therapy and Occupational Therapy. He is also receiving wound care. I have asked socially responsible investment adviser to see patient and discuss options with his . Patient is taking care of at home by his . Urine shows no evidence of infection. Magnesium is 2.5. Patient has a tendency towards hypoxemia especially during his endoscopic procedure. I think this is from under breathing and from retention of secretions. At a later date we may need to evaluate the patient with fiberoptic bronchoscopy. Today's chest x-ray shows a right lower lung infiltrate compatible with pneumonia and there is associated atelectasis 11/15/2016. Over the past few days the patient has experienced increase hypoxemia and increased shortness of breath along with difficulty mobilizing sputum. This necessitated movement to ICU. Today the patient still has trouble with mobilization of his fluid and I think that this would come to fiberoptic bronchoscopy. I would like to see his temperature drop a little more as I would try to avoid inducing any sepsis. His chest x-ray shows the right upper lung and right lower lung infiltrate. He continues to grow Pseudomonas from his sputum. He also has grown Pseudomonas from his urine which has a different spectrum of sensitivity. Urinalysis also grown Enterococcus faecalis. Medicines have been adjusted and everything is covered. ABGs on FiO2 of 60% oxygen shows a pH of 7.23, PCO2 of 59.2, PO2 70.2 and a bicarb of 35.5. Sodium is 136. Potassium is dropped to 3.4. White count is 20 ,400 with 89 segs. H&H is 10.2/30.4. The patient's downhill slide seems to be related to pyelonephritis with possible sepsis as well as Pseudomonas pneumonia and retention of secretions. He is tentatively scheduled for fiberoptic bronchoscopy tomorrow. He presently is better and does not appear to be in any distress. He was seen with Neel Britton nurse practitioner. 11/16/2016. Patient had a fairly uneventful night. A lot of sputum has been suctioned through his trach. His is leftward she thinks trach may be out of position. I do not see that on his exam but he is for bronchoscopy a little later on this morning. That will be checked. The patient's urine is growing Pseudomonas and enterococcus. His sputum has grown Pseudomonas. There is another gram-negative ml growing and his sputum's are reported as showing gram- positive rods. Patient continues to have a temperature as high as 100. His feedings have gone well on one occasion it was 90 cc remaining but otherwise his stomach is emptied well. ABGs today on FiO2 of 60% shows a pH 7.418, PCO2 63.8, PO2 95.1 and a bicarb of 37.9. Glucoses are normal. Phosphorus is slightly low at 1.7. White count has dropped from 24,000 13,100 with 84 segs. H&H is stable at 10.3/31.8 and platelet counts 187,000. Chest x-ray shows a fairly dense extensive right upper lung right middle lung and right lower lung infiltrate. Fiberoptic bronchoscopy. 11/16/2016. See report. Significant retained secretions. Markedly collapsible large and small airways with edema and partial stenosis exacerbating the patient's ineffective cough. Specimens were sent for cytology bacterial, AFB and fungal studies. See orders. 11/17/2016. Today's x-ray shows a residual mainly alveolar infiltrate in the right upper lung and right middle lung. Most of each atelectatic changes seen in the right lower lung have resolved. There is faint infiltrate with some atelectasis at the left medial base. ABGs are abnormal but unchanged. Breath sounds are extremely stiff. Velcro rales like. I will start the patient on Solu-Medrol 30 IV push every 12 hours. Glucoses are slightly high and will increase with the Solu-Medrol so I am adding sliding scale insulin. At the suggestion dietary phosphorus was added yesterday and I think this is very appropriate. This patient still has a problem with retention of secretions. He has a trach and is been suction as well as possible. He coughs as strong as he can but his cough is ineffective. He will be evaluated with fiberoptic bronchoscopy tomorrow 11/22/2016.His laboratory tests are stable. Patient had a fiberoptic bronchoscopy this morning. See report. He had copious bilateral secretions and this will probably have to be repeated on the day or 2. His chest x-ray has shown good improvement. His ABGs are gradually improving. He is significantly ill and hopefully he will be ready for movement of ICU in another few days. Potassium is 3.2 and the patient is on a replacement protocol. 11/23/2016 bronchoscopy specimens continue to grow gram-negative rods. 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 Patient is colonized. We will continue his present medicines as these showed a best ANGELO's. Today's chest x-ray following bronchoscopy is remarkably better. Patient is moving air better. I think he is stable enough to move him back to the pulmonary floor. ABGs on FiO2 of 40%. PH is 7.339, PCO2 is 55.8, PO2 is 71.8 bicarb is 27. Electrolytes normal. Creatinine is 0.40 with a BUN of 18. White count is 16, 095 segs. H&H 11.5/36.0 platelets of 396,000 Physical exam. Vital signs. See below Psychiatric oriented 3. Cooperative. Face. Symmetrical. No edema of the lips or tongue Neck symmetrical. No meningismus Chest. Large airway congestion. Improved. Velcro rales resolved. Overall moving air much better Heart. No gallop Abdomen. As per Dr. Holliday Extremities. No evidence of deep venous thrombophlebitis Neurologic. Cranial nerves are intact with some decreased hearing acuity long track motor functions intact. Patient has a stigmata of Parkinson's disease. The remainder the physical exam is noncontributory. Plan: 11/10/2016 #1: Admit to inpatient for treatment with IV antibiotics. #2: Gentamicin start at 40mg [id number], consult pharmacy for dosing management. Fortaz 1GM [id number]. #3: Repeat sputum for gram stain culture and sensitivity before first dose of abx. #4: Inhalation therapy with Duonebs QID and PRN. #5: ID and continue home medicines. #6: CXR today. #7: See orders. 11/11/2016. 1. See my note, above 2. See endoscopic report 3. Have discussed with Dr. Saman Holliday and we have coordinated our care 4. Watch for any evidence of small bowel obstruction 5. Check cultures. 6. Consider therapeutic and diagnostic fiberoptic bronchoscopy at a later date 7. TSH is normal. Probably euthyroid. 11/15/2016. 1. See today's note, above 2. Fiberoptic bronchoscopy in a.m. 3. See adjustment of antibiotics. 4. Continue to follow her ABGs chest x-ray and lab 11/16/2016. 1. See today's note, above 2. See fiberoptic bronchoscopy report 3. Will probably require repeat bronchoscopy in 1-2 days 4. Although this is been discussed with the 5. Check bronchoscopy 11/17/2016. 1. See today's note, above 2. Solu-Medrol 3. Fiberoptic bronchoscopy tomorrow 4. Phosphorus 5. Sliding scale insulin 6. Continue daily chest x-ray ABGs and lab 11/22/2016. 1. See today's note above 2. See fiberoptic bronchoscopy note from 05/25/2016 3. Discuss findings and plans with . Neel Britton nurse practitioner was present. 11/23/2016. 1. See today's note, above. 2. Continue present antibiotics 3. Move to floor. Will check with about the possibility of [facility] down the road. 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
[2016-11-24] MEDS: INSULIN REGULAR 100 UNIT/ML SUBCUT SCH ×4 (00:14→17:38)
[2016-11-24] MEDS: ERYTHROMYCIN ETHYLSUCCINATE 40 MG/ML 100 ML/BOTTLE PO SCH ×2 (00:50→10:20)
[2016-11-24] MEDS: CARBIDOPA/LEVODOPA 25-100 MG TABLET PO SCH ×5 (05:42→21:13)
[2016-11-24] MEDS: ENTACAPONE 200 MG TABLET PO SCH ×5 (05:43→21:14)
[2016-11-24 07:34] LABS: Basophils % 0.1 % (0.0-0.8); Hemoglobin 11.6 GM/DL (14.0-18.0); Immature Granulocytes % 0.7 %; Immature Granulocytes Absolute 0.11 #; Lymphocytes # 0.5 10*3/uL (1.4-4.0); Lymphocytes % 3.4 % (21.2-54.2); Mean Corpuscular HGB Conc 33.1 GM/DL (32-36); Mean Corpuscular Hemoglobin 33 PG (27-34); Mean Platelet Volume 9.5 FL (9.6-12.0); Monocytes # 0.4 10*3/uL (0.11-0.8); Monocytes % 2.8 % (1.7-12.7); Neutrophils # 13.8 10*3/uL (1.4-7.4); Platelet Count 368 T/CUMM (130-400); Red Blood Count 3.57 MC/CUMM (3.8-5.5); Red Cell Distribution Width 12.8 % (9.3-17.3); White Blood Count 14.9 T/CUMM (4-12)
[2016-11-24] MEDS: ALBUTEROL/IPRATROPIUM 3 ML NEB RESP TX SCH ×4 (07:40→20:18)
[2016-11-24] MEDS: DORNASE ALFA 2.5 MG/2.5 ML VIAL RESP TX SCH ×2 (07:40→20:18)
[2016-11-24 08:06] LABS: Calcium 8.1 MG/DL (8.5-10.1); Magnesium 2.6 MG/DL (1.8-2.4); Osmolality,Calculated 295.8 MOS/KG (273-304); Potassium 3.3 MMOL/L (3.5-5.1)
[2016-11-24 08:46] LABS: Lymphocytes 2 % (20-55); Segmented Neutrophils 95 % (50-85); Total Cells Counted 100
[2016-11-24 08:47] LABS: Hypochromasia 1+; Platelet Estimate Normal
[2016-11-24] MEDS: AMANTADINE 100 MG CAPSULE PEG SCH ×4 (09:54→21:14)
[2016-11-24] MEDS: LANSOPRAZOLE ODT 30 MG TABLET PEG SCH ×2 (09:54→21:14)
[2016-11-24] MEDS: ASPIRIN EC 81 MG TABLET PO SCH (09:54)
[2016-11-24] MEDS: FLUDROCORTISONE 0.1 MG TABLET PEG SCH ×4 (09:54→21:14)
[2016-11-24] MEDS: MIDODRINE 5 MG TABLET PEG SCH ×4 (09:54→21:14)
[2016-11-24] MEDS: POTASSIUM CHLORIDE 20 MEQ/15 ML UDCUP PEG SCH ×4 (09:54→21:13)
[2016-11-24] MEDS: DESITIN 4OZ/NYSTATIN 15 GRAM MIXTURE PASTE TOP SCH ×2 (09:55→21:14)
[2016-11-24] MEDS: methylPREDNISolone SOD SUC 40 MG/1 ML VIAL IV SCH ×2 (09:55→13:15)
[2016-11-24] MEDS: POTASSIUM CHLORIDE RIDER 10 MEQ in PREMIX 1 EACH IV PRN ×4 (09:56→23:46)
--- NOTE | 2016-11-24 11:16 | Pulmonology Progress Note ---
Pulmonary - PN: Subj Interval history: Neel Britton, [facility]-, acting as scribe for Dr. Narciso Arnett This is a 66-year-old white male [facility]. At the time of admission, his main problems were: #1: Pneumonia secondary to Pseudomonas refractory to outpatient treatment. #2: GERD, recent increased reflux and aspiration #3: Underlying Parkinson's disease #4: Increased shortness of breath secondary to #1. #5: Weight loss #6: See past history. 11/11/2016. Today the patient was seen in the GI lab along with Dr. Darby. Patient had some retained intestinal material in the stomach. Dr. Darby has had it erythromycin is going watch for any evidence of small bowel obstruction. Patient's sputum's are growing gram-negative rods and a few gram-positive cocci. Suspect gram-negative rods are Pseudomonas just as we have grown as an outpatient. White count is dropped from 13,900-9800 with 72% segs. H&H is 11.3 /34.4. Potassium remains low at 3.3 and will be replaced. Creatinine is 0.4 with a BUN of 14. Patient's TSH is normal but he has to free T4 values are elevated. He takes no thyroid supplement. I am not aware that any of his medicines falsely elevated thyroid values. His TSH I think indicates that he is euthyroid. Yesterday also started the patient on physical therapy and Occupational Therapy. He is also receiving wound care. I have asked child welfare social worker to see patient and discuss options with his . Patient is taking care of at home by his . Urine shows no evidence of infection. Magnesium is 2.5. Patient has a tendency towards hypoxemia especially during his endoscopic procedure. I think this is from under breathing and from retention of secretions. At a later date we may need to evaluate the patient with fiberoptic bronchoscopy. Today's chest x-ray shows a right lower lung infiltrate compatible with pneumonia and there is associated atelectasis 11/12/2016. The patient was seen today along with his and Nikkie Rodriguez RN. Small bowel follow-through yesterday showed delayed transit time which is noted may be related to ileus with increased fecal material consistent with significant constipation. There is no evidence of definite small bowel obstruction. There was limited evaluation of the distal small bowel since there was significant movement of the contrast from the jejunum into the colon between the 5 and [address] Darby has noted that the patient basically has hypomotility of the entire GI tract. That said, he now has residuals of almost 0 indicating adequate clearance from the stomach. This would certainly help with his reflux and hopefully overall pulmonary/GI issues. This will, however, need to be watched very, very carefully. Sputum culture has again grown pseudomonas aeruginosa. Urine culture has grown pseudomonas aeruginosa and is also growing 2 different gram-positive cocci's. He is presently on Fortaz and gentamicin. We are awaiting the final urine culture report. We will most likely plan for fiberoptic bronchoscopy on Tuesday. We have discussed this with the patient and his to their understanding and they are in complete agreement. Mrs. Magaña ask if we can have physical therapy see the patient on Tuesday. We have asked for this to be done, but she understands that this is out of her control. Physical therapy is certainly not available on Tuesday. Medications have been reviewed. We made no changes today. Labs been reviewed. White count is 17,800 with 88.8% segs; H&H 12.1/36.3; platelet count 249,000; creatinine 0.40, BUN 9, electrolytes are normal 11/15/2016. Over the past few days the patient has experienced increase hypoxemia and increased shortness of breath along with difficulty mobilizing sputum. This necessitated movement to ICU. Today the patient still has trouble with mobilization of his fluid and I think that this would come to fiberoptic bronchoscopy. I would like to see his temperature drop a little more as I would try to avoid inducing any sepsis. His chest x-ray shows the right upper lung and right lower lung infiltrate. He continues to grow Pseudomonas from his sputum. He also has grown Pseudomonas from his urine which has a different spectrum of sensitivity. Urinalysis also grown Enterococcus faecalis. Medicines have been adjusted and everything is covered. ABGs on FiO2 of 60% oxygen shows a pH of 7.23, PCO2 of 59.2, PO2 70.2 and a bicarb of 35.5. Sodium is 136. Potassium is dropped to 3.4. White count is 20 ,400 with 89 segs. H&H is 10.2/30.4. The patient's downhill slide seems to be related to pyelonephritis with possible sepsis as well as Pseudomonas pneumonia and retention of secretions. He is tentatively scheduled for fiberoptic bronchoscopy tomorrow. He presently is better and does not appear to be in any distress. He was seen with Neel Britton nurse practitioner. 11/16/2016. Patient had a fairly uneventful night. A lot of sputum has been suctioned through his trach. His is leftward she thinks trach may be out of position. I do not see that on his exam but he is for bronchoscopy a little later on this morning. That will be checked. The patient's urine is growing Pseudomonas and enterococcus. His sputum has grown Pseudomonas. There is another gram-negative ml growing and his sputum's are reported as showing gram- positive rods. Patient continues to have a temperature as high as 100. His feedings have gone well on one occasion it was 90 cc remaining but otherwise his stomach is emptied well. ABGs today on FiO2 of 60% shows a pH 7.418, PCO2 63.8, PO2 95.1 and a bicarb of 37.9. Glucoses are normal. Phosphorus is slightly low at 1.7. White count has dropped from 24,000 13,100 with 84 segs. H&H is stable at 10.3/31.8 and platelet counts 187,000. Chest x-ray shows a fairly dense extensive right upper lung right middle lung and right lower lung infiltrate. Fiberoptic bronchoscopy. 11/16/2016. See report. Significant retained secretions. Markedly collapsible large and small airways with edema and partial stenosis exacerbating the patient's ineffective cough. Specimens were sent for cytology bacterial, AFB and fungal studies. See orders. 11/17/2016. Today's x-ray shows a residual mainly alveolar infiltrate in the right upper lung and right middle lung. Most of each atelectatic changes seen in the right lower lung have resolved. There is faint infiltrate with some atelectasis at the left medial base. ABGs are abnormal but unchanged. Breath sounds are extremely stiff. Velcro rales like. I will start the patient on Solu-Medrol 30 IV push every 12 hours. Glucoses are slightly high and will increase with the Solu-Medrol so I am adding sliding scale insulin. At the suggestion dietary phosphorus was added yesterday and I think this is very appropriate. This patient still has a problem with retention of secretions. He has a trach and is been suction as well as possible. He coughs as strong as he can but his cough is ineffective. He will be evaluated with fiberoptic bronchoscopy tomorrow. 11/18/2016. The patient again underwent fiberoptic bronchoscopy today. This showed non-resolving pneumonia, retained secretions, ineffective cough, mild generalized bronchitis with endobronchial edema, and COPD with collapsible large and small airways. Please see the bronchoscopy report for more information. Patient's chest x-ray is little bit better. The right upper lung infiltrate is less dense. Bronchoscopy cultures from 11/16/2016 are growing a gram-negative ml. Final ID is pending. Previous sputum cultures grew Pseudomonas as noted in previous progress notes. Previous urine culture grew Pseudomonas and enterococcus faecalis. We will repeat a urinalysis today. Culture if indicated. ABGs this morning on an FiO2 of 40% showed a PCO2 of 69.7. We are going to start Diamox 250 mg IV every 12 hours. He will have repeat ABGs in the morning. Physical therapy and Occupational therapy are working with Mr. Díaz. Medications have been reviewed. Diamox was started today. Labs been reviewed. White count is 4600 with 87.4% segs; H&H 10.1/31.4; platelet count 217,000; INR 1.1; creatinine 0.40, BUN 11, sodium 140, potassium 2.8, magnesium 2.7, phosphorus 1.9 11/19/2016. The patient was seen today along with his nurse. Diamox was started yesterday. His PCO2 has fallen from 69.7-62.2. We will continue the Diamox. He has daily ABGs ordered. Bronchoscopy was done yesterday as well. This was the second time. He continues to have loose large airway congestion and has difficulty mobilizing his secretions. He has a tracheostomy. We have and plan for repeat bronchoscopy on Tuesday. His bronchoscopy cultures from 11/16 have grown Pseudomonas again. He is on appropriate antibiotics for this. Bronchoscopy cultures from 11/18/2016 are again growing a gram-negative ml. Urinalysis obtained yesterday shows no evidence of infection. We have asked the nursing staff to ask physical therapy to work this patient on Tuesday. He certainly does not need to lose any more of his strength. His chest x-ray is slowly improving day by day. Medications have been reviewed. We made no changes today. Labs been reviewed. White count is 7800 with 90.2% segs; H&H 10.5/33.2; platelet count 302,000; creatinine 0.60, BUN 16, sodium 141, potassium 3.1 ( this is being replaced), calcium 8.2, phosphorus 1.7 11/22/2016. His laboratory tests are stable. Patient had a fiberoptic bronchoscopy this morning. See report. He had copious bilateral secretions and this will probably have to be repeated on the day or 2. His chest x-ray has shown good improvement. His ABGs are gradually improving. He is significantly ill and hopefully he will be ready for movement of ICU in another few days. Potassium is 3.2 and the patient is on a replacement protocol. 11/23/2016. Bronchoscopy specimens continue to grow gram-negative rods. He found these have turned out to be Pseudomonas aeruginosa. Patient is colonized. We will continue his present medicines as these showed a best ANGELO' s. Today's chest x-ray following bronchoscopy is remarkably better. Patient is moving air better. I think he is stable enough to move him back to the pulmonary floor. ABGs on FiO2 of 40%. PH is 7.339, PCO2 is 55.8, PO2 is 71.8 bicarb is 27. Electrolytes normal. Creatinine is 0.40 with a BUN of 18. White count is 16,095 segs. H&H 11.5/36.0 platelets of 396,000 11/24/2016. The patient was seen today along with Giovanna Meléndez RN. He is now been moved to the pulmonary floor. Bronchoscopy lavage from 11/22/2016 has again grown Pseudomonas. We will can continue him on his present antibiotics. As noted before, the patient will need to continue long-term antibiotics until this organism has completely been eradicated. On chest exam today, he continues to have slight large airway congestion. Will consider possible bronchoscopy on Tuesday if needed. Chest x-ray and ABGs today were not done. These have been reordered for tomorrow. Medications have been reviewed. We made no changes today. Labs been reviewed. White count is 14,900 with 93.0% segs; H&H 11.6/35.0; platelet count 368,000; creatinine 0.50, BUN 21, sodium 144, potassium 3.3 ( this is being replaced); magnesium 2.6 Exam (Progress Note) - Constitutional Vitals: Period Temp Pulse Resp BP Sys/West Pulse Ox Last 24 Hr 96.7 F-98.6 F 71-87 16-32 108-137/64-81 93-100 Exam: Chest with slight large airway congestion Heart no gallop Abdomen is nontender and nondistended; rare bowel sounds Extremities with nothing to suggest acute deep venous thrombophlebitis Psychiatric oriented 3 Neurologic stigmata of Parkinson's disease Plan: Continue present treatment. Continue potassium replacement protocol. Consider bronchoscopy on Tuesday. See orders. Results - Labs CBC & BMP: 11/24/16 07:21 11/24/16 07:21
[2016-11-24] MEDS: ERYTHROMYCIN ETHYLSUCCINATE PO SCH ×2 (13:32→17:38)
[2016-11-24] MEDS: GENTAMICIN INJ 400 MG in SODIUM CHLORIDE 0.9% 100 ML IV SCH (16:17)
[2016-11-25] MEDS: ERYTHROMYCIN ETHYLSUCCINATE PO SCH ×5 (00:21→23:20)
[2016-11-25] MEDS: methylPREDNISolone SOD SUC 40 MG/1 ML VIAL IV SCH ×4 (00:21→22:52)
[2016-11-25] MEDS: INSULIN REGULAR 100 UNIT/ML SUBCUT SCH ×4 (00:21→17:49)
[2016-11-25 03:59] LABS: ABG Base Excess 5.7 MMOL/L (-2.5-2.5); ABG HCO3 31.4 MMOL/L (20-26); ABG Oxygen Saturation 96.6 % (95-100); ABG PCO2 50.7 MM HG (35-48); ABG PO2 81.5 MM HG (80-95)
[2016-11-25] MEDS: CARBIDOPA/LEVODOPA 25-100 MG TABLET PO SCH ×6 (06:28→22:36)
[2016-11-25] MEDS: ENTACAPONE 200 MG TABLET PO SCH ×6 (06:28→22:36)
[2016-11-25 07:31] LABS: Calcium 8.1 MG/DL (8.5-10.1)
[2016-11-25] MEDS: ALBUTEROL/IPRATROPIUM 3 ML NEB RESP TX SCH ×4 (07:35→19:48)
[2016-11-25 07:37] LABS: Prealbumin 25.2 MG/DL (20-40)
[2016-11-25] MEDS: DORNASE ALFA 2.5 MG/2.5 ML VIAL RESP TX SCH ×2 (07:50→19:40)
--- NOTE | 2016-11-25 08:23 | XRay Report ---
Portable chest Date: 11/25/2016 Clinical history: Trach, cough, shortness of breath Comparison: 11/23/2016 Technique: Portable AP sitting chest Findings: The heart is borderline in size with stable tracheostomy tube. Persistent relative elevation of the right hemidiaphragm with residual diffuse parenchymal findings at the lung bases with small pleural effusions. Retained contrast in the visualized splenic flexure all the colon. Postoperative findings in the left shoulder with degenerative changes. Impression: No significant change in the appearance of the chest when compared to the previous exam. PROCEDURE INTERPRETED AT [facility] DEPARTMENT OF RADIOLOGY Final Report Signed by: Dr. Yarely Steel
[2016-11-25] MEDS: MIDODRINE 5 MG TABLET PEG SCH ×3 (08:25→22:36)
[2016-11-25] MEDS: LANSOPRAZOLE ODT 30 MG TABLET PEG SCH ×2 (08:25→22:37)
[2016-11-25] MEDS: FLUDROCORTISONE 0.1 MG TABLET PEG SCH ×3 (08:25→22:37)
[2016-11-25] MEDS: POTASSIUM CHLORIDE 20 MEQ/15 ML UDCUP PEG SCH ×4 (08:25→22:35)
[2016-11-25] MEDS: AMANTADINE 100 MG CAPSULE PEG SCH ×3 (08:25→22:37)
[2016-11-25] MEDS: DESITIN 4OZ/NYSTATIN 15 GRAM MIXTURE PASTE TOP SCH ×2 (08:26→22:37)
[2016-11-25] MEDS: ASPIRIN EC 81 MG TABLET PO SCH (08:26)
--- NOTE | 2016-11-25 11:17 | Pulmonology Progress Note ---
Pulmonary - PN: Subj Interval history: Neel Britton, [facility]-, acting as scribe for Dr. Narciso Arnett This is a 66-year-old white male [facility] on [facility]. At the time of admission, his main problems were: #1: Pneumonia secondary to Pseudomonas refractory to outpatient treatment. #2: GERD, recent increased reflux and aspiration #3: Underlying Parkinson's disease #4: Increased shortness of breath secondary to #1. #5: Weight loss #6: See past history. 11/11/2016. Today the patient was seen in the GI lab along with Dr. Darby. Patient had some retained intestinal material in the stomach. Dr. Darby has had it erythromycin is going watch for any evidence of small bowel obstruction. Patient's sputum's are growing gram-negative rods and a few gram-positive cocci. Suspect gram-negative rods are Pseudomonas just as we have grown as an outpatient. White count is dropped from 13,900-9800 with 72% segs. H&H is 11.3 /34.4. Potassium remains low at 3.3 and will be replaced. Creatinine is 0.4 with a BUN of 14. Patient's TSH is normal but he has to free T4 values are elevated. He takes no thyroid supplement. I am not aware that any of his medicines falsely elevated thyroid values. His TSH I think indicates that he is euthyroid. Yesterday also started the patient on physical therapy and Occupational Therapy. He is also receiving wound care. I have asked high school social studies teacher to see patient and discuss options with his . Patient is taking care of at home by his . Urine shows no evidence of infection. Magnesium is 2.5. Patient has a tendency towards hypoxemia especially during his endoscopic procedure. I think this is from under breathing and from retention of secretions. At a later date we may need to evaluate the patient with fiberoptic bronchoscopy. Today's chest x-ray shows a right lower lung infiltrate compatible with pneumonia and there is associated atelectasis 11/12/2016. The patient was seen today along with his and Nikkie Rodriguez RN. Small bowel follow-through yesterday showed delayed transit time which is noted may be related to ileus with increased fecal material consistent with significant constipation. There is no evidence of definite small bowel obstruction. There was limited evaluation of the distal small bowel since there was significant movement of the contrast from the jejunum into the colon between the 5 and [address] Darby has noted that the patient basically has hypomotility of the entire GI tract. That said, he now has residuals of almost 0 indicating adequate clearance from the stomach. This would certainly help with his reflux and hopefully overall pulmonary/GI issues. This will, however, need to be watched very, very carefully. Sputum culture has again grown pseudomonas aeruginosa. Urine culture has grown pseudomonas aeruginosa and is also growing 2 different gram-positive cocci's. He is presently on Fortaz and gentamicin. We are awaiting the final urine culture report. We will most likely plan for fiberoptic bronchoscopy on Tuesday. We have discussed this with the patient and his to their understanding and they are in complete agreement. Mrs. Magaña ask if we can have physical therapy see the patient on Tuesday. We have asked for this to be done, but she understands that this is out of her control. Physical therapy is certainly not available on Tuesday. Medications have been reviewed. We made no changes today. Labs been reviewed. White count is 17,800 with 88.8% segs; H&H 12.1/36.3; platelet count 249,000; creatinine 0.40, BUN 9, electrolytes are normal 11/15/2016. Over the past few days the patient has experienced increase hypoxemia and increased shortness of breath along with difficulty mobilizing sputum. This necessitated movement to ICU. Today the patient still has trouble with mobilization of his fluid and I think that this would come to fiberoptic bronchoscopy. I would like to see his temperature drop a little more as I would try to avoid inducing any sepsis. His chest x-ray shows the right upper lung and right lower lung infiltrate. He continues to grow Pseudomonas from his sputum. He also has grown Pseudomonas from his urine which has a different spectrum of sensitivity. Urinalysis also grown Enterococcus faecalis. Medicines have been adjusted and everything is covered. ABGs on FiO2 of 60% oxygen shows a pH of 7.23, PCO2 of 59.2, PO2 70.2 and a bicarb of 35.5. Sodium is 136. Potassium is dropped to 3.4. White count is 20 ,400 with 89 segs. H&H is 10.2/30.4. The patient's downhill slide seems to be related to pyelonephritis with possible sepsis as well as Pseudomonas pneumonia and retention of secretions. He is tentatively scheduled for fiberoptic bronchoscopy tomorrow. He presently is better and does not appear to be in any distress. He was seen with Neel Britton nurse practitioner. 11/16/2016. Patient had a fairly uneventful night. A lot of sputum has been suctioned through his trach. His is leftward she thinks trach may be out of position. I do not see that on his exam but he is for bronchoscopy a little later on this morning. That will be checked. The patient's urine is growing Pseudomonas and enterococcus. His sputum has grown Pseudomonas. There is another gram-negative ml growing and his sputum's are reported as showing gram- positive rods. Patient continues to have a temperature as high as 100. His feedings have gone well on one occasion it was 90 cc remaining but otherwise his stomach is emptied well. ABGs today on FiO2 of 60% shows a pH 7.418, PCO2 63.8, PO2 95.1 and a bicarb of 37.9. Glucoses are normal. Phosphorus is slightly low at 1.7. White count has dropped from 24,000 13,100 with 84 segs. H&H is stable at 10.3/31.8 and platelet counts 187,000. Chest x-ray shows a fairly dense extensive right upper lung right middle lung and right lower lung infiltrate. Fiberoptic bronchoscopy. 11/16/2016. See report. Significant retained secretions. Markedly collapsible large and small airways with edema and partial stenosis exacerbating the patient's ineffective cough. Specimens were sent for cytology bacterial, AFB and fungal studies. See orders. 11/17/2016. Today's x-ray shows a residual mainly alveolar infiltrate in the right upper lung and right middle lung. Most of each atelectatic changes seen in the right lower lung have resolved. There is faint infiltrate with some atelectasis at the left medial base. ABGs are abnormal but unchanged. Breath sounds are extremely stiff. Velcro rales like. I will start the patient on Solu-Medrol 30 IV push every 12 hours. Glucoses are slightly high and will increase with the Solu-Medrol so I am adding sliding scale insulin. At the suggestion dietary phosphorus was added yesterday and I think this is very appropriate. This patient still has a problem with retention of secretions. He has a trach and is been suction as well as possible. He coughs as strong as he can but his cough is ineffective. He will be evaluated with fiberoptic bronchoscopy tomorrow. 11/18/2016. The patient again underwent fiberoptic bronchoscopy today. This showed non-resolving pneumonia, retained secretions, ineffective cough, mild generalized bronchitis with endobronchial edema, and COPD with collapsible large and small airways. Please see the bronchoscopy report for more information. Patient's chest x-ray is little bit better. The right upper lung infiltrate is less dense. Bronchoscopy cultures from 11/16/2016 are growing a gram-negative ml. Final ID is pending. Previous sputum cultures grew Pseudomonas as noted in previous progress notes. Previous urine culture grew Pseudomonas and enterococcus faecalis. We will repeat a urinalysis today. Culture if indicated. ABGs this morning on an FiO2 of 40% showed a PCO2 of 69.7. We are going to start Diamox 250 mg IV every 12 hours. He will have repeat ABGs in the morning. Physical therapy and Occupational therapy are working with Mr. Díaz. Medications have been reviewed. Diamox was started today. Labs been reviewed. White count is 4600 with 87.4% segs; H&H 10.1/31.4; platelet count 217,000; INR 1.1; creatinine 0.40, BUN 11, sodium 140, potassium 2.8, magnesium 2.7, phosphorus 1.9 11/19/2016. The patient was seen today along with his nurse. Diamox was started yesterday. His PCO2 has fallen from 69.7-62.2. We will continue the Diamox. He has daily ABGs ordered. Bronchoscopy was done yesterday as well. This was the second time. He continues to have loose large airway congestion and has difficulty mobilizing his secretions. He has a tracheostomy. We have and plan for repeat bronchoscopy on Tuesday. His bronchoscopy cultures from 11/16 have grown Pseudomonas again. He is on appropriate antibiotics for this. Bronchoscopy cultures from 11/18/2016 are again growing a gram-negative ml. Urinalysis obtained yesterday shows no evidence of infection. We have asked the nursing staff to ask physical therapy to work this patient on Tuesday. He certainly does not need to lose any more of his strength. His chest x-ray is slowly improving day by day. Medications have been reviewed. We made no changes today. Labs been reviewed. White count is 7800 with 90.2% segs; H&H 10.5/33.2; platelet count 302,000; creatinine 0.60, BUN 16, sodium 141, potassium 3.1 ( this is being replaced), calcium 8.2, phosphorus 1.7 11/22/2016. His laboratory tests are stable. Patient had a fiberoptic bronchoscopy this morning. See report. He had copious bilateral secretions and this will probably have to be repeated on the day or 2. His chest x-ray has shown good improvement. His ABGs are gradually improving. He is significantly ill and hopefully he will be ready for movement of ICU in another few days. Potassium is 3.2 and the patient is on a replacement protocol. 11/23/2016. Bronchoscopy specimens continue to grow gram-negative rods. He found these have turned out to be Pseudomonas aeruginosa. Patient is colonized. We will continue his present medicines as these showed a best ANGELO' s. Today's chest x-ray following bronchoscopy is remarkably better. Patient is moving air better. I think he is stable enough to move him back to the pulmonary floor. ABGs on FiO2 of 40%. PH is 7.339, PCO2 is 55.8, PO2 is 71.8 bicarb is 27. Electrolytes normal. Creatinine is 0.40 with a BUN of 18. White count is 16,095 segs. H&H 11.5/36.0 platelets of 396,000 11/24/2016. The patient was seen today along with Giovanna Meléndez RN. He is now been moved to the pulmonary floor. Bronchoscopy lavage from 11/22/2016 has again grown Pseudomonas. We will can continue him on his present antibiotics. As noted before, the patient will need to continue long-term antibiotics until this organism has completely been eradicated. On chest exam today, he continues to have slight large airway congestion. Will consider possible bronchoscopy on Tuesday if needed. Chest x-ray and ABGs today were not done. These have been reordered for tomorrow. Medications have been reviewed. We made no changes today. Labs been reviewed. White count is 14,900 with 93.0% segs; H&H 11.6/35.0; platelet count 368,000; creatinine 0.50, BUN 21, sodium 144, potassium 3.3 ( this is being replaced); magnesium 2.6 11/25/16. The patient was seen today along with his and Niesha Monroy RN. CXR today continues to show improvement, but on chest exam he has loose LAW congestion. Also, his most recent FOB cultures have again grown Pseudomonas. All things considered, we will proceed with with bronchoscopy tomorrow as discussed with the patient and his . He will need complete treatment until resolution of the Pseudomonas as it continues to grow and is the reason for his readmission this time. Medications have been reviewed. We made no changes today. Labs have been reviewed. Creatinine 0.40, BUN 21, electrolytes are normal ABGs this morning on unknown FiO2 showed a pH of 7.410, PCO2 50.7, PO2 81.5, bicarb 31.4, and oxygen saturation 96.6% Exam (Progress Note) - Constitutional Vitals: Period Temp Pulse Resp BP Sys/West Pulse Ox Last 24 Hr 97.8 F-98.2 F 78-88 16-22 120-139/53-77 91-98 Exam: Chest with loose large airway congestion Heart no gallop Abdomen is nontender and nondistended; rare bowel sounds Extremities with nothing to suggest acute deep venous thrombophlebitis Psychiatric oriented 3 Neurologic stigmata of Parkinson's disease Plan: Continue present treatment. Proceed with bronchoscopy tomorrow. Repeat chest x-ray tomorrow. See orders. Results - Labs CBC & BMP: 11/24/16 07:21 11/25/16 04:47
[2016-11-25] MEDS ORDERED: SODIUM PHOSPHATE INJ 20 MMOL in SODIUM CHLORIDE 0.9% 250 ML IV ONE (14:10)
[2016-11-25] MEDS: GENTAMICIN INJ 400 MG in SODIUM CHLORIDE 0.9% 100 ML IV SCH (22:32)
[2016-11-26] MEDS: ERYTHROMYCIN ETHYLSUCCINATE PO SCH ×5 (00:15→23:59)
[2016-11-26] MEDS: INSULIN REGULAR 100 UNIT/ML SUBCUT SCH ×5 (02:03→23:58)
[2016-11-26 05:38] LABS: Hematocrit 34.7 VOL% (42.0-52.0); Hemoglobin 11.6 GM/DL (14.0-18.0); Immature Granulocytes % 0.8 %; Immature Granulocytes Absolute 0.07 #; Lymphocytes # 0.3 10*3/uL (1.4-4.0); Lymphocytes % 2.9 % (21.2-54.2); Mean Corpuscular HGB Conc 33.4 GM/DL (32-36); Mean Corpuscular Hemoglobin 33 PG (27-34); Mean Corpuscular Volume 97.2 FL (87-102); Mean Platelet Volume 9.5 FL (9.6-12.0); Monocytes # 0.2 10*3/uL (0.11-0.8); Monocytes % 1.8 % (1.7-12.7); Neutrophils # 8.2 10*3/uL (1.4-7.4); Neutrophils % 94.5 % (38.7-73.9); Platelet Count 289 T/CUMM (130-400); Red Blood Count 3.57 MC/CUMM (3.8-5.5); Red Cell Distribution Width 13.2 % (9.3-17.3); White Blood Count 8.7 T/CUMM (4-12)
[2016-11-26 05:55] LABS: INR 1.1; PT Patient Result 11.6 SECS; Partial Thromboplastin Time 29.5 SECS (0-40)
[2016-11-26 06:04] LABS: Calcium 8.1 MG/DL (8.5-10.1); Osmolality,Calculated 303.7 MOS/KG (273-304); Potassium 3.5 MMOL/L (3.5-5.1)
[2016-11-26 06:29] LABS: Band Neutrophils 1 % (0-10); Lymphocytes 3 % (20-55); Segmented Neutrophils 96 % (50-85); Total Cells Counted 100
[2016-11-26 06:30] LABS: Giant Platelets Few; Hypochromasia 1+; Macrocytosis Slight; Ovalocytes Slight; Platelet Estimate Adequate
[2016-11-26] MEDS: ENTACAPONE 200 MG TABLET PO SCH ×5 (06:42→22:31)
[2016-11-26] MEDS: CARBIDOPA/LEVODOPA 25-100 MG TABLET PO SCH ×5 (06:43→22:31)
[2016-11-26] MEDS: DORNASE ALFA 2.5 MG/2.5 ML VIAL RESP TX SCH ×2 (07:03→19:21)
[2016-11-26] MEDS: ALBUTEROL/IPRATROPIUM 3 ML NEB RESP TX SCH ×4 (07:03→19:15)
[2016-11-26] MEDS ORDERED: LIDOCAINE 2% 20 ML VIAL RESP TX ONE (07:30)
[2016-11-26] MEDS ORDERED: LIDOCAINE 1% 20 ML VIAL MISC INJ ONE (07:30)
--- NOTE | 2016-11-26 09:18 | XRay Report ---
History: Shortness of breath and cough Date: 11/26/2016 Study: Chest x-ray AP portable Comparison exam: 11/25/2016 The tracheostomy tube is in stable satisfactory position. The cardiac silhouette is upper normal in size. There is no mediastinal mass. The pulmonary vasculature is not engorged. There is continued left basilar atelectasis/infiltrate and mild left pleural effusion without change. There is continued mild atelectasis in the right lung base without change. There is no new or worsening process. Osseous structures are similar. Impression: No significant interval change from the previous study PROCEDURE INTERPRETED AT [facility] DEPARTMENT OF RADIOLOGY Final Report Signed by: Dr. Rosalind De
[2016-11-26] MEDS: MIDODRINE 5 MG TABLET PEG SCH ×3 (11:42→21:21)
[2016-11-26] MEDS: LANSOPRAZOLE ODT 30 MG TABLET PEG SCH ×2 (11:42→21:21)
[2016-11-26] MEDS: AMANTADINE 100 MG CAPSULE PEG SCH ×3 (11:42→21:21)
[2016-11-26] MEDS: FLUDROCORTISONE 0.1 MG TABLET PEG SCH ×3 (11:42→21:20)
[2016-11-26] MEDS: ASPIRIN EC 81 MG TABLET PO SCH (11:42)
[2016-11-26] MEDS: methylPREDNISolone SOD SUC 40 MG/1 ML VIAL IV SCH ×2 (11:43→22:31)
[2016-11-26] MEDS: SCOPOLAMINE 1.5 MG PATCH TRANSDERM SCH (11:43)
[2016-11-26] MEDS: POTASSIUM CHLORIDE 20 MEQ/15 ML UDCUP PEG SCH ×4 (11:43→21:20)
[2016-11-26] MEDS: DESITIN 4OZ/NYSTATIN 15 GRAM MIXTURE PASTE TOP SCH ×2 (11:44→21:44)
--- NOTE | 2016-11-26 12:21 | Pulmonology Progress Note ---
Pulmonary - PN: Subj Interval history: Neel Britton, [facility]-, acting as scribe for Dr. Narciso Arnett This is a 66-year-old white male [facility]. At the time of admission, his main problems were: #1: Pneumonia secondary to Pseudomonas refractory to outpatient treatment. #2: GERD, recent increased reflux and aspiration #3: Underlying Parkinson's disease #4: Increased shortness of breath secondary to #1. #5: Weight loss #6: See past history. 11/11/2016. Today the patient was seen in the GI lab along with Dr. Darby. Patient had some retained intestinal material in the stomach. Dr. Darby has had it erythromycin is going watch for any evidence of small bowel obstruction. Patient's sputum's are growing gram-negative rods and a few gram-positive cocci. Suspect gram-negative rods are Pseudomonas just as we have grown as an outpatient. White count is dropped from 13,900-9800 with 72% segs. H&H is 11.3 /34.4. Potassium remains low at 3.3 and will be replaced. Creatinine is 0.4 with a BUN of 14. Patient's TSH is normal but he has to free T4 values are elevated. He takes no thyroid supplement. I am not aware that any of his medicines falsely elevated thyroid values. His TSH I think indicates that he is euthyroid. Yesterday also started the patient on physical therapy and Occupational Therapy. He is also receiving wound care. I have asked social media director to see patient and discuss options with his . Patient is taking care of at home by his . Urine shows no evidence of infection. Magnesium is 2.5. Patient has a tendency towards hypoxemia especially during his endoscopic procedure. I think this is from under breathing and from retention of secretions. At a later date we may need to evaluate the patient with fiberoptic bronchoscopy. Today's chest x-ray shows a right lower lung infiltrate compatible with pneumonia and there is associated atelectasis 11/12/2016. The patient was seen today along with his and Nikkie Rodriguez RN. Small bowel follow-through yesterday showed delayed transit time which is noted may be related to ileus with increased fecal material consistent with significant constipation. There is no evidence of definite small bowel obstruction. There was limited evaluation of the distal small bowel since there was significant movement of the contrast from the jejunum into the colon between the 5 and [address] Darby has noted that the patient basically has hypomotility of the entire GI tract. That said, he now has residuals of almost 0 indicating adequate clearance from the stomach. This would certainly help with his reflux and hopefully overall pulmonary/GI issues. This will, however, need to be watched very, very carefully. Sputum culture has again grown pseudomonas aeruginosa. Urine culture has grown pseudomonas aeruginosa and is also growing 2 different gram-positive cocci's. He is presently on Fortaz and gentamicin. We are awaiting the final urine culture report. We will most likely plan for fiberoptic bronchoscopy on Tuesday. We have discussed this with the patient and his to their understanding and they are in complete agreement. Mrs. Magaña ask if we can have physical therapy see the patient on Tuesday. We have asked for this to be done, but she understands that this is out of her control. Physical therapy is certainly not available on Tuesday. Medications have been reviewed. We made no changes today. Labs been reviewed. White count is 17,800 with 88.8% segs; H&H 12.1/36.3; platelet count 249,000; creatinine 0.40, BUN 9, electrolytes are normal 11/15/2016. Over the past few days the patient has experienced increase hypoxemia and increased shortness of breath along with difficulty mobilizing sputum. This necessitated movement to ICU. Today the patient still has trouble with mobilization of his fluid and I think that this would come to fiberoptic bronchoscopy. I would like to see his temperature drop a little more as I would try to avoid inducing any sepsis. His chest x-ray shows the right upper lung and right lower lung infiltrate. He continues to grow Pseudomonas from his sputum. He also has grown Pseudomonas from his urine which has a different spectrum of sensitivity. Urinalysis also grown Enterococcus faecalis. Medicines have been adjusted and everything is covered. ABGs on FiO2 of 60% oxygen shows a pH of 7.23, PCO2 of 59.2, PO2 70.2 and a bicarb of 35.5. Sodium is 136. Potassium is dropped to 3.4. White count is 20 ,400 with 89 segs. H&H is 10.2/30.4. The patient's downhill slide seems to be related to pyelonephritis with possible sepsis as well as Pseudomonas pneumonia and retention of secretions. He is tentatively scheduled for fiberoptic bronchoscopy tomorrow. He presently is better and does not appear to be in any distress. He was seen with Neel Britton nurse practitioner. 11/16/2016. Patient had a fairly uneventful night. A lot of sputum has been suctioned through his trach. His is leftward she thinks trach may be out of position. I do not see that on his exam but he is for bronchoscopy a little later on this morning. That will be checked. The patient's urine is growing Pseudomonas and enterococcus. His sputum has grown Pseudomonas. There is another gram-negative ml growing and his sputum's are reported as showing gram- positive rods. Patient continues to have a temperature as high as 100. His feedings have gone well on one occasion it was 90 cc remaining but otherwise his stomach is emptied well. ABGs today on FiO2 of 60% shows a pH 7.418, PCO2 63.8, PO2 95.1 and a bicarb of 37.9. Glucoses are normal. Phosphorus is slightly low at 1.7. White count has dropped from 24,000 13,100 with 84 segs. H&H is stable at 10.3/31.8 and platelet counts 187,000. Chest x-ray shows a fairly dense extensive right upper lung right middle lung and right lower lung infiltrate. Fiberoptic bronchoscopy. 11/16/2016. See report. Significant retained secretions. Markedly collapsible large and small airways with edema and partial stenosis exacerbating the patient's ineffective cough. Specimens were sent for cytology bacterial, AFB and fungal studies. See orders. 11/17/2016. Today's x-ray shows a residual mainly alveolar infiltrate in the right upper lung and right middle lung. Most of each atelectatic changes seen in the right lower lung have resolved. There is faint infiltrate with some atelectasis at the left medial base. ABGs are abnormal but unchanged. Breath sounds are extremely stiff. Velcro rales like. I will start the patient on Solu-Medrol 30 IV push every 12 hours. Glucoses are slightly high and will increase with the Solu-Medrol so I am adding sliding scale insulin. At the suggestion dietary phosphorus was added yesterday and I think this is very appropriate. This patient still has a problem with retention of secretions. He has a trach and is been suction as well as possible. He coughs as strong as he can but his cough is ineffective. He will be evaluated with fiberoptic bronchoscopy tomorrow. 11/18/2016. The patient again underwent fiberoptic bronchoscopy today. This showed non-resolving pneumonia, retained secretions, ineffective cough, mild generalized bronchitis with endobronchial edema, and COPD with collapsible large and small airways. Please see the bronchoscopy report for more information. Patient's chest x-ray is little bit better. The right upper lung infiltrate is less dense. Bronchoscopy cultures from 11/16/2016 are growing a gram-negative ml. Final ID is pending. Previous sputum cultures grew Pseudomonas as noted in previous progress notes. Previous urine culture grew Pseudomonas and enterococcus faecalis. We will repeat a urinalysis today. Culture if indicated. ABGs this morning on an FiO2 of 40% showed a PCO2 of 69.7. We are going to start Diamox 250 mg IV every 12 hours. He will have repeat ABGs in the morning. Physical therapy and Occupational therapy are working with Mr. Díaz. Medications have been reviewed. Diamox was started today. Labs been reviewed. White count is 4600 with 87.4% segs; H&H 10.1/31.4; platelet count 217,000; INR 1.1; creatinine 0.40, BUN 11, sodium 140, potassium 2.8, magnesium 2.7, phosphorus 1.9 11/19/2016. The patient was seen today along with his nurse. Diamox was started yesterday. His PCO2 has fallen from 69.7-62.2. We will continue the Diamox. He has daily ABGs ordered. Bronchoscopy was done yesterday as well. This was the second time. He continues to have loose large airway congestion and has difficulty mobilizing his secretions. He has a tracheostomy. We have and plan for repeat bronchoscopy on Tuesday. His bronchoscopy cultures from 11/16 have grown Pseudomonas again. He is on appropriate antibiotics for this. Bronchoscopy cultures from 11/18/2016 are again growing a gram-negative ml. Urinalysis obtained yesterday shows no evidence of infection. We have asked the nursing staff to ask physical therapy to work this patient on Tuesday. He certainly does not need to lose any more of his strength. His chest x-ray is slowly improving day by day. Medications have been reviewed. We made no changes today. Labs been reviewed. White count is 7800 with 90.2% segs; H&H 10.5/33.2; platelet count 302,000; creatinine 0.60, BUN 16, sodium 141, potassium 3.1 ( this is being replaced), calcium 8.2, phosphorus 1.7 11/22/2016. His laboratory tests are stable. Patient had a fiberoptic bronchoscopy this morning. See report. He had copious bilateral secretions and this will probably have to be repeated on the day or 2. His chest x-ray has shown good improvement. His ABGs are gradually improving. He is significantly ill and hopefully he will be ready for movement of ICU in another few days. Potassium is 3.2 and the patient is on a replacement protocol. 11/23/2016. Bronchoscopy specimens continue to grow gram-negative rods. He found these have turned out to be Pseudomonas aeruginosa. Patient is colonized. We will continue his present medicines as these showed a best ANGELO' s. Today's chest x-ray following bronchoscopy is remarkably better. Patient is moving air better. I think he is stable enough to move him back to the pulmonary floor. ABGs on FiO2 of 40%. PH is 7.339, PCO2 is 55.8, PO2 is 71.8 bicarb is 27. Electrolytes normal. Creatinine is 0.40 with a BUN of 18. White count is 16,095 segs. H&H 11.5/36.0 platelets of 396,000 11/24/2016. The patient was seen today along with Giovanna Meléndez RN. He is now been moved to the pulmonary floor. Bronchoscopy lavage from 11/22/2016 has again grown Pseudomonas. We will can continue him on his present antibiotics. As noted before, the patient will need to continue long-term antibiotics until this organism has completely been eradicated. On chest exam today, he continues to have slight large airway congestion. Will consider possible bronchoscopy on Tuesday if needed. Chest x-ray and ABGs today were not done. These have been reordered for tomorrow. Medications have been reviewed. We made no changes today. Labs been reviewed. White count is 14,900 with 93.0% segs; H&H 11.6/35.0; platelet count 368,000; creatinine 0.50, BUN 21, sodium 144, potassium 3.3 ( this is being replaced); magnesium 2.6 11/25/16. The patient was seen today along with his and Niesha Monroy RN. CXR today continues to show improvement, but on chest exam he has loose LAW congestion. Also, his most recent FOB cultures have again grown Pseudomonas. All things considered, we will proceed with with bronchoscopy tomorrow as discussed with the patient and his . He will need complete treatment until resolution of the Pseudomonas as it continues to grow and is the reason for his readmission this time. Medications have been reviewed. We made no changes today. Labs have been reviewed. Creatinine 0.40, BUN 21, electrolytes are normal ABGs this morning on unknown FiO2 showed a pH of 7.410, PCO2 50.7, PO2 81.5, bicarb 31.4, and oxygen saturation 96.6% 11/26/2016. The patient was seen today along with his and Nikkie Rodriguez RN. Earlier today the patient underwent fiberoptic bronchoscopy. Patient tolerated procedure well. He had retained secretions and these were lavaged. There were sent for culture. Please see the bronchoscopy report for more information. We discussed the procedure with the patient's afterwards. He is scheduled for repeat fiberoptic bronchoscopy on Tuesday. He will have a repeat chest x-ray on Tuesday. We are going to continue him on his present treatment given his Pseudomonas colonization. Medications have been reviewed. We made no changes today. Labs been reviewed. White count is 8794.5% segs; H&H 11.6/34.7; platelet count 289,000; creatinine 0.40, BUN 23, electrolytes are normal; phosphorus is 2.3 and is being corrected as per dietary; INR 1.1 Exam (Progress Note) - Constitutional Vitals: Period Temp Pulse Resp BP Sys/West Pulse Ox Last 24 Hr 97.1 F-98.9 F 78-94 14-24 120-144/63-83 92-99 Exam: Chest with loose large airway congestion but improved post bronchoscopy Heart no gallop Abdomen is nontender and nondistended; rare bowel sounds Extremities with nothing to suggest acute deep venous thrombophlebitis Psychiatric oriented 3 Neurologic stigmata of Parkinson's disease Plan: Continue present treatment. Repeat bronchoscopy on Tuesday. Repeat chest x-ray Tuesday. Follow-up bronchoscopy results from today when available. See orders. Results - Labs CBC & BMP: 11/26/16 05:29 11/26/16 05:29
--- NOTE | 2016-11-26 14:59 | Event Note ---
In hospital diagnostic and therapeutic fiberoptic bronchoscopy. Bilateral bronchoalveolar lavages were sent for Gram stain, bacterial culture, fungal stains and cultures. This is a 66-year-old white male with Parkinson's disease in an ineffective cough. He has a trach and he has been trached as thoroughly as possible. He has had a chronic infection with Pseudomonas arch stenosis. His sputum's have continued to be positive on bronchoscopy. Today he is reevaluated for effectiveness of antibiotic treatment. Patient also has problem with retention of secretions. He is also to be treated with bronchoalveolar lavage to help clear his pulmonary secretions. The trach and the trach site looked normal the trachea was collapsible and contain a good bit of secretions which were removed. The francesco was sharp Right mainstem bronchus was packed full of thick tenacious secretions that stop up to suction channel multiple occasions. These secretions were removed and then the patient was evaluated with bronchoalveolar lavage. The secretions involve the right upper lung, right middle lung and right lower lung. Patient' s airways were markedly collapsible. He had mild to moderate erosive bronchitis in the right lower lung. I did not see any cancerous appearing lesions. The left mainstem bronchus was full of thick tenacious secretions that partially occluded the bronchus. These extended into the left upper lung and left lower lung. Both lobes required bronchoalveolar lavage in order to remove the secretions. As the secretions were removed additional secretions appeared from distal bronchi and he required several cleanings. The airways were collapsible. This included both large and small airways. This has the appearance of severe COPD. The collection apparatus showed multiple dense bronchial plugs and casts and the secretions were brownish staining compatible with patient's PEG tube feedings. These were not copious and may have been old. The patient tolerated procedure well. There were no complications. Findings were discussed with his . I allowed the patient to watch on video screen while the procedure was done. Impression 1. Pseudomonas colonization of airways and recent pneumonia which was probably Pseudomonas 2. Trach 3. Parkinson's disease with an ineffective cough 4. Retention of secretions. 5. Recent pneumonia 6. COPD with markedly collapsible large and small airway 7. See above Plan. 1.. Follow-up chest x-ray 2. Check bronchoscopy
[2016-11-26] MEDS: POTASSIUM PHOS/SOD PHOS POWDER 250 MG PACK PER TUBE SCH (21:21)
[2016-11-26] MEDS: ACETAMINOPHEN 325 MG TABLET PO PRN (22:31)
[2016-11-26] MEDS: GENTAMICIN INJ 400 MG in SODIUM CHLORIDE 0.9% 100 ML IV SCH (22:45)
[2016-11-27] MEDS: ERYTHROMYCIN ETHYLSUCCINATE PO SCH ×4 (05:41→23:50)
[2016-11-27] MEDS: ENTACAPONE 200 MG TABLET PO SCH ×5 (05:41→22:14)
[2016-11-27] MEDS: CARBIDOPA/LEVODOPA 25-100 MG TABLET PO SCH ×5 (05:41→22:14)
[2016-11-27] MEDS: INSULIN REGULAR 100 UNIT/ML SUBCUT SCH ×3 (05:42→17:48)
[2016-11-27] MEDS: ACETAMINOPHEN 325 MG TABLET PO PRN ×2 (05:45→21:14)
[2016-11-27] MEDS: DORNASE ALFA 2.5 MG/2.5 ML VIAL RESP TX SCH ×2 (07:59→19:23)
[2016-11-27] MEDS: ALBUTEROL/IPRATROPIUM 3 ML NEB RESP TX SCH ×4 (07:59→19:23)
[2016-11-27] MEDS: methylPREDNISolone SOD SUC 40 MG/1 ML VIAL IV SCH ×2 (10:04→23:50)
[2016-11-27] MEDS: LANSOPRAZOLE ODT 30 MG TABLET PEG SCH ×2 (10:05→20:44)
[2016-11-27] MEDS: POTASSIUM CHLORIDE 20 MEQ/15 ML UDCUP PEG SCH ×4 (10:05→20:45)
[2016-11-27] MEDS: POTASSIUM PHOS/SOD PHOS POWDER 250 MG PACK PER TUBE SCH ×2 (10:05→20:43)
[2016-11-27] MEDS: FLUDROCORTISONE 0.1 MG TABLET PEG SCH ×3 (10:05→20:44)
[2016-11-27] MEDS: AMANTADINE 100 MG CAPSULE PEG SCH ×3 (10:05→20:45)
[2016-11-27] MEDS: MIDODRINE 5 MG TABLET PEG SCH ×3 (10:06→20:45)
[2016-11-27] MEDS: DESITIN 4OZ/NYSTATIN 15 GRAM MIXTURE PASTE TOP SCH ×2 (10:06→21:06)
[2016-11-27] MEDS: ASPIRIN EC 81 MG TABLET PO SCH (10:06)
--- NOTE | 2016-11-27 16:57 | Pulmonology Progress Note ---
Pulmonary - PN: Subj Interval history: This is a 66-year-old white male admitted from my office on 11/10/2016. His main problems were. #1: Pneumonia secondary to Pseudomonas refractory to outpatient treatment. #2: GERD, recent increased reflux and aspiration #3: Underlying Parkinson's disease #4: Increased shortness of breath secondary to #1. #5: Weight loss #6: See past history. 11/11/2016. Today the patient was seen in the GI lab along with Dr. Holliday. Patient had some retained intestinal material in the stomach. Dr. Holliday has had it erythromycin is going watch for any evidence of small bowel obstruction. Patient's sputum's are growing gram-negative rods and a few gram-positive cocci. Suspect gram-negative rods are Pseudomonas just as we have grown as an outpatient. White count is dropped from 13,900-9800 with 72% segs. H&H is 11.3 /34.4. Potassium remains low at 3.3 and will be replaced. Creatinine is 0.4 with a BUN of 14. Patient's TSH is normal but he has to free T4 values are elevated. He takes no thyroid supplement. I am not aware that any of his medicines falsely elevated thyroid values. His TSH I think indicates that he is euthyroid. Yesterday also started the patient on physical therapy and Occupational Therapy. He is also receiving wound care. I have asked social security benefits interviewer to see patient and discuss options with his . Patient is taking care of at home by his . Urine shows no evidence of infection. Magnesium is 2.5. Patient has a tendency towards hypoxemia especially during his endoscopic procedure. I think this is from under breathing and from retention of secretions. At a later date we may need to evaluate the patient with fiberoptic bronchoscopy. Today's chest x-ray shows a right lower lung infiltrate compatible with pneumonia and there is associated atelectasis 11/15/2016. Over the past few days the patient has experienced increase hypoxemia and increased shortness of breath along with difficulty mobilizing sputum. This necessitated movement to ICU. Today the patient still has trouble with mobilization of his fluid and I think that this would come to fiberoptic bronchoscopy. I would like to see his temperature drop a little more as I would try to avoid inducing any sepsis. His chest x-ray shows the right upper lung and right lower lung infiltrate. He continues to grow Pseudomonas from his sputum. He also has grown Pseudomonas from his urine which has a different spectrum of sensitivity. Urinalysis also grown Enterococcus faecalis. Medicines have been adjusted and everything is covered. ABGs on FiO2 of 60% oxygen shows a pH of 7.23, PCO2 of 59.2, PO2 70.2 and a bicarb of 35.5. Sodium is 136. Potassium is dropped to 3.4. White count is 20 ,400 with 89 segs. H&H is 10.2/30.4. The patient's downhill slide seems to be related to pyelonephritis with possible sepsis as well as Pseudomonas pneumonia and retention of secretions. He is tentatively scheduled for fiberoptic bronchoscopy tomorrow. He presently is better and does not appear to be in any distress. He was seen with Neel Britton nurse practitioner. 11/16/2016. Patient had a fairly uneventful night. A lot of sputum has been suctioned through his trach. His is leftward she thinks trach may be out of position. I do not see that on his exam but he is for bronchoscopy a little later on this morning. That will be checked. The patient's urine is growing Pseudomonas and enterococcus. His sputum has grown Pseudomonas. There is another gram-negative ml growing and his sputum's are reported as showing gram- positive rods. Patient continues to have a temperature as high as 100. His feedings have gone well on one occasion it was 90 cc remaining but otherwise his stomach is emptied well. ABGs today on FiO2 of 60% shows a pH 7.418, PCO2 63.8, PO2 95.1 and a bicarb of 37.9. Glucoses are normal. Phosphorus is slightly low at 1.7. White count has dropped from 24,000 13,100 with 84 segs. H&H is stable at 10.3/31.8 and platelet counts 187,000. Chest x-ray shows a fairly dense extensive right upper lung right middle lung and right lower lung infiltrate. Fiberoptic bronchoscopy. 11/16/2016. See report. Significant retained secretions. Markedly collapsible large and small airways with edema and partial stenosis exacerbating the patient's ineffective cough. Specimens were sent for cytology bacterial, AFB and fungal studies. See orders. 11/17/2016. Today's x-ray shows a residual mainly alveolar infiltrate in the right upper lung and right middle lung. Most of each atelectatic changes seen in the right lower lung have resolved. There is faint infiltrate with some atelectasis at the left medial base. ABGs are abnormal but unchanged. Breath sounds are extremely stiff. Velcro rales like. I will start the patient on Solu-Medrol 30 IV push every 12 hours. Glucoses are slightly high and will increase with the Solu-Medrol so I am adding sliding scale insulin. At the suggestion dietary phosphorus was added yesterday and I think this is very appropriate. This patient still has a problem with retention of secretions. He has a trach and is been suction as well as possible. He coughs as strong as he can but his cough is ineffective. He will be evaluated with fiberoptic bronchoscopy tomorrow 11/22/2016.His laboratory tests are stable. Patient had a fiberoptic bronchoscopy this morning. See report. He had copious bilateral secretions and this will probably have to be repeated on the day or 2. His chest x-ray has shown good improvement. His ABGs are gradually improving. He is significantly ill and hopefully he will be ready for movement of ICU in another few days. Potassium is 3.2 and the patient is on a replacement protocol. 11/23/2016 bronchoscopy specimens continue to grow gram-negative rods. 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 Patient is colonized. We will continue his present medicines as these showed a best ANGELO's. Today's chest x-ray following bronchoscopy is remarkably better. Patient is moving air better. I think he is stable enough to move him back to the pulmonary floor. ABGs on FiO2 of 40%. PH is 7.339, PCO2 is 55.8, PO2 is 71.8 bicarb is 27. Electrolytes normal. Creatinine is 0.40 with a BUN of 18. White count is 16, 095 segs. H&H 11.5/36.0 platelets of 396,000 Physical exam. Vital signs. See below Psychiatric oriented 3. Cooperative. Face. Symmetrical. No edema of the lips or tongue Neck symmetrical. No meningismus Chest. Large airway congestion. Improved. Velcro rales resolved. Overall moving air much better Heart. No gallop Abdomen. As per Dr. Holliday Extremities. No evidence of deep venous thrombophlebitis Neurologic. Cranial nerves are intact with some decreased hearing acuity long track motor functions intact. Patient has a stigmata of Parkinson's disease. The remainder the physical exam is noncontributory. Plan: 11/10/2016 #1: Admit to inpatient for treatment with IV antibiotics. #2: Gentamicin start at 40mg [id number], consult pharmacy for dosing management. Fortaz 1GM [id number]. #3: Repeat sputum for gram stain culture and sensitivity before first dose of abx. #4: Inhalation therapy with Duonebs QID and PRN. #5: ID and continue home medicines. #6: CXR today. #7: See orders. 11/11/2016. 1. See my note, above 2. See endoscopic report 3. Have discussed with Dr. Saman Holliday and we have coordinated our care 4. Watch for any evidence of small bowel obstruction 5. Check cultures. 6. Consider therapeutic and diagnostic fiberoptic bronchoscopy at a later date 7. TSH is normal. Probably euthyroid. 11/15/2016. 1. See today's note, above 2. Fiberoptic bronchoscopy in a.m. 3. See adjustment of antibiotics. 4. Continue to follow her ABGs chest x-ray and lab 11/16/2016. 1. See today's note, aboveThis is a 66-year-old white male admitted from my office on 11/10/2016. His main problems were. #1: Pneumonia secondary to Pseudomonas refractory to outpatient treatment. #2: GERD, recent increased reflux and aspiration #3: Underlying Parkinson's disease #4: Increased shortness of breath secondary to #1. #5: Weight loss #6: See past history. 11/11/2016. Today the patient was seen in the GI lab along with Dr. Holliday. Patient had some retained intestinal material in the stomach. Dr. Holliday has had it erythromycin is going watch for any evidence of small bowel obstruction. Patient's sputum's are growing gram-negative rods and a few gram-positive cocci. Suspect gram-negative rods are Pseudomonas just as we have grown as an outpatient. White count is dropped from 13,900-9800 with 72% segs. H&H is 11.3 /34.4. Potassium remains low at 3.3 and will be replaced. Creatinine is 0.4 with a BUN of 14. Patient's TSH is normal but he has to free T4 values are elevated. He takes no thyroid supplement. I am not aware that any of his medicines falsely elevated thyroid values. His TSH I think indicates that he is euthyroid. Yesterday also started the patient on physical therapy and Occupational Therapy. He is also receiving wound care. I have asked social security benefits interviewer to see patient and discuss options with his . Patient is taking care of at home by his . Urine shows no evidence of infection. Magnesium is 2.5. Patient has a tendency towards hypoxemia especially during his endoscopic procedure. I think this is from under breathing and from retention of secretions. At a later date we may need to evaluate the patient with fiberoptic bronchoscopy. Today's chest x-ray shows a right lower lung infiltrate compatible with pneumonia and there is associated atelectasis 11/15/2016. Over the past few days the patient has experienced increase hypoxemia and increased shortness of breath along with difficulty mobilizing sputum. This necessitated movement to ICU. Today the patient still has trouble with mobilization of his fluid and I think that this would come to fiberoptic bronchoscopy. I would like to see his temperature drop a little more as I would try to avoid inducing any sepsis. His chest x-ray shows the right upper lung and right lower lung infiltrate. He continues to grow Pseudomonas from his sputum. He also has grown Pseudomonas from his urine which has a different spectrum of sensitivity. Urinalysis also grown Enterococcus faecalis. Medicines have been adjusted and everything is covered. ABGs on FiO2 of 60% oxygen shows a pH of 7.23, PCO2 of 59.2, PO2 70.2 and a bicarb of 35.5. Sodium is 136. Potassium is dropped to 3.4. White count is 20 ,400 with 89 segs. H&H is 10.2/30.4. The patient's downhill slide seems to be related to pyelonephritis with possible sepsis as well as Pseudomonas pneumonia and retention of secretions. He is tentatively scheduled for fiberoptic bronchoscopy tomorrow. He presently is better and does not appear to be in any distress. He was seen with Neel Britton nurse practitioner. 11/16/2016. Patient had a fairly uneventful night. A lot of sputum has been suctioned through his trach. His is leftward she thinks trach may be out of position. I do not see that on his exam but he is for bronchoscopy a little later on this morning. That will be checked. The patient's urine is growing Pseudomonas and enterococcus. His sputum has grown Pseudomonas. There is another gram-negative ml growing and his sputum's are reported as showing gram- positive rods. Patient continues to have a temperature as high as 100. His feedings have gone well on one occasion it was 90 cc remaining but otherwise his stomach is emptied well. ABGs today on FiO2 of 60% shows a pH 7.418, PCO2 63.8, PO2 95.1 and a bicarb of 37.9. Glucoses are normal. Phosphorus is slightly low at 1.7. White count has dropped from 24,000 13,100 with 84 segs. H&H is stable at 10.3/31.8 and platelet counts 187,000. Chest x-ray shows a fairly dense extensive right upper lung right middle lung and right lower lung infiltrate. Fiberoptic bronchoscopy. 11/16/2016. See report. Significant retained secretions. Markedly collapsible large and small airways with edema and partial stenosis exacerbating the patient's ineffective cough. Specimens were sent for cytology bacterial, AFB and fungal studies. See orders. 11/17/2016. Today's x-ray shows a residual mainly alveolar infiltrate in the right upper lung and right middle lung. Most of each atelectatic changes seen in the right lower lung have resolved. There is faint infiltrate with some atelectasis at the left medial base. ABGs are abnormal but unchanged. Breath sounds are extremely stiff. Velcro rales like. I will start the patient on Solu-Medrol 30 IV push every 12 hours. Glucoses are slightly high and will increase with the Solu-Medrol so I am adding sliding scale insulin. At the suggestion dietary phosphorus was added yesterday and I think this is very appropriate. This patient still has a problem with retention of secretions. He has a trach and is been suction as well as possible. He coughs as strong as he can but his cough is ineffective. He will be evaluated with fiberoptic bronchoscopy tomorrow 11/22/2016.His laboratory tests are stable. Patient had a fiberoptic bronchoscopy this morning. See report. He had copious bilateral secretions and this will probably have to be repeated on the day or 2. His chest x-ray has shown good improvement. His ABGs are gradually improving. He is significantly ill and hopefully he will be ready for movement of ICU in another few days. Potassium is 3.2 and the patient is on a replacement protocol. 11/23/2016 bronchoscopy specimens continue to grow gram-negative rods. 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 Patient is colonized. We will continue his present medicines as these showed a best ANGELO's. Today's chest x-ray following bronchoscopy is remarkably better. Patient is moving air better. I think he is stable enough to move him back to the pulmonary floor. ABGs on FiO2 of 40%. PH is 7.339, PCO2 is 55.8, PO2 is 71.8 bicarb is 27. Electrolytes normal. Creatinine is 0.40 with a BUN of 18. White count is 16, 095 segs. H&H 11.5/36.0 platelets of 396,000 11/27/2016. Patient was seen along with his . He said after his bronchoscopy yesterday he felt bad all day. He felt sleepy. Hopefully this was a IM Benadryl. He feels a little better today. His chest sounds much better. He is growing gram-negative rods from his 11/26/2016 fiberoptic bronchoscopy. He has had Pseudomonas all along the way so this is probably same organism and this is not been eradicated yet. Vital signs are stable and his chest is fairly clear. There are no new problems. Physical exam. Vital signs. See below Psychiatric oriented 3. Cooperative. Face. Symmetrical. No edema of the lips or tongue Neck symmetrical. No meningismus Chest. Large airway congestion. Improved. Velcro rales resolved. Overall moving air much better Heart. No gallop Abdomen. As per Dr. Holliday Extremities. No evidence of deep venous thrombophlebitis Neurologic. Cranial nerves are intact with some decreased hearing acuity long track motor functions intact. Patient has a stigmata of Parkinson's disease. The remainder the physical exam is noncontributory. Plan: 11/10/2016 #1: Admit to inpatient for treatment with IV antibiotics. #2: Gentamicin start at 40mg [id number], consult pharmacy for dosing management. Fortaz 1GM [id number]. #3: Repeat sputum for gram stain culture and sensitivity before first dose of abx. #4: Inhalation therapy with Duonebs QID and PRN. #5: ID and continue home medicines. #6: CXR today. #7: See orders. 11/11/2016. 1. See my note, above 2. See endoscopic report 3. Have discussed with Dr. Saman Holliday and we have coordinated our care 4. Watch for any evidence of small bowel obstruction 5. Check cultures. 6. Consider therapeutic and diagnostic fiberoptic bronchoscopy at a later date 7. TSH is normal. Probably euthyroid. 11/15/2016. 1. See today's note, above 2. Fiberoptic bronchoscopy in a.m. 3. See adjustment of antibiotics. 4. Continue to follow her ABGs chest x-ray and lab 11/16/2016. 1. See today's note, above 2. See fiberoptic bronchoscopy report 3. Will probably require repeat bronchoscopy in 1-2 days 4. Although this is been discussed with the 5. Check bronchoscopy 11/17/2016. 1. See today's note, above 2. Solu-Medrol 3. Fiberoptic bronchoscopy tomorrow 4. Phosphorus 5. Sliding scale insulin 6. Continue daily chest x-ray ABGs and lab 11/22/2016. 1. See today's note above 2. See fiberoptic bronchoscopy note from 05/25/2016 3. Discuss findings and plans with . Neel Britton nurse practitioner was present. 11/23/2016. 1. See today's note, above. 2. Continue present antibiotics 3. Move to floor. Will check with about the possibility of [facility] down the road. 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 See fiberoptic bronchoscopy report 3. Will probably require repeat bronchoscopy in 1-2 days 4. Although this is been discussed with the 5. Check bronchoscopy 11/17/2016. 1. See today's note, above 2. Solu-Medrol 3. Fiberoptic bronchoscopy tomorrow 4. Phosphorus 5. Sliding scale insulin 6. Continue daily chest x-ray ABGs and lab 11/22/2016. 1. See today's note above 2. See fiberoptic bronchoscopy note from 05/25/2016 3. Discuss findings and plans with . Neel Britton nurse practitioner was present. 11/23/2016. 1. See today's note, above. 2. Continue present antibiotics 3. Move to floor. Will check with about the possibility of [facility] down the road. 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 1. See today's note above. 2. Continues to grow Pseudomonas 3. Continue present regimen. Exam (Progress Note) - Constitutional Vitals: Period Temp Pulse Resp BP Sys/West Pulse Ox Last 24 Hr 97.8 F-99.1 F 81-98 18-24 116-148/68-75 91-99 Results - Labs CBC & BMP: 11/26/16 05:29 11/26/16 05:29
[2016-11-27] MEDS: GENTAMICIN INJ 400 MG in SODIUM CHLORIDE 0.9% 100 ML IV SCH (23:50)
[2016-11-28] MEDS: INSULIN REGULAR 100 UNIT/ML SUBCUT SCH ×4 (00:18→17:46)
[2016-11-28] MEDS: ERYTHROMYCIN ETHYLSUCCINATE PO SCH ×4 (05:57→23:05)
[2016-11-28] MEDS: CARBIDOPA/LEVODOPA 25-100 MG TABLET PO SCH ×5 (05:57→21:03)
[2016-11-28] MEDS: ENTACAPONE 200 MG TABLET PO SCH ×5 (05:58→21:03)
[2016-11-28] MEDS: ALBUTEROL/IPRATROPIUM 3 ML NEB RESP TX SCH ×4 (08:01→19:32)
[2016-11-28] MEDS: DORNASE ALFA 2.5 MG/2.5 ML VIAL RESP TX SCH ×2 (08:01→19:32)
[2016-11-28] MEDS: POTASSIUM CHLORIDE 20 MEQ/15 ML UDCUP PEG SCH ×4 (09:19→21:04)
[2016-11-28] MEDS: ASPIRIN EC 81 MG TABLET PO SCH (09:19)
[2016-11-28] MEDS: AMANTADINE 100 MG CAPSULE PEG SCH ×3 (09:19→21:02)
[2016-11-28] MEDS: MIDODRINE 5 MG TABLET PEG SCH ×3 (09:19→21:03)
[2016-11-28] MEDS: FLUDROCORTISONE 0.1 MG TABLET PEG SCH ×3 (09:20→21:02)
[2016-11-28] MEDS: POTASSIUM PHOS/SOD PHOS POWDER 250 MG PACK PER TUBE SCH ×2 (09:20→21:03)
[2016-11-28] MEDS: LANSOPRAZOLE ODT 30 MG TABLET PEG SCH ×2 (09:20→21:02)
[2016-11-28] MEDS: DESITIN 4OZ/NYSTATIN 15 GRAM MIXTURE PASTE TOP SCH ×2 (09:23→21:04)
[2016-11-28] MEDS: methylPREDNISolone SOD SUC 40 MG/1 ML VIAL IV SCH ×2 (12:22→23:05)
--- NOTE | 2016-11-28 14:02 | Pulmonology Progress Note ---
Pulmonary - PN: Subj Interval history: This is a 66-year-old white male admitted from my office on 11/10/2016. His main problems were. #1: Pneumonia secondary to Pseudomonas refractory to outpatient treatment. #2: GERD, recent increased reflux and aspiration #3: Underlying Parkinson's disease #4: Increased shortness of breath secondary to #1. #5: Weight loss #6: See past history. 11/11/2016. Today the patient was seen in the GI lab along with Dr. Holliday. Patient had some retained intestinal material in the stomach. Dr. Holliday has had it erythromycin is going watch for any evidence of small bowel obstruction. Patient's sputum's are growing gram-negative rods and a few gram-positive cocci. Suspect gram-negative rods are Pseudomonas just as we have grown as an outpatient. White count is dropped from 13,900-9800 with 72% segs. H&H is 11.3 /34.4. Potassium remains low at 3.3 and will be replaced. Creatinine is 0.4 with a BUN of 14. Patient's TSH is normal but he has to free T4 values are elevated. He takes no thyroid supplement. I am not aware that any of his medicines falsely elevated thyroid values. His TSH I think indicates that he is euthyroid. Yesterday also started the patient on physical therapy and Occupational Therapy. He is also receiving wound care. I have asked director social service to see patient and discuss options with his . Patient is taking care of at home by his . Urine shows no evidence of infection. Magnesium is 2.5. Patient has a tendency towards hypoxemia especially during his endoscopic procedure. I think this is from under breathing and from retention of secretions. At a later date we may need to evaluate the patient with fiberoptic bronchoscopy. Today's chest x-ray shows a right lower lung infiltrate compatible with pneumonia and there is associated atelectasis 11/15/2016. Over the past few days the patient has experienced increase hypoxemia and increased shortness of breath along with difficulty mobilizing sputum. This necessitated movement to ICU. Today the patient still has trouble with mobilization of his fluid and I think that this would come to fiberoptic bronchoscopy. I would like to see his temperature drop a little more as I would try to avoid inducing any sepsis. His chest x-ray shows the right upper lung and right lower lung infiltrate. He continues to grow Pseudomonas from his sputum. He also has grown Pseudomonas from his urine which has a different spectrum of sensitivity. Urinalysis also grown Enterococcus faecalis. Medicines have been adjusted and everything is covered. ABGs on FiO2 of 60% oxygen shows a pH of 7.23, PCO2 of 59.2, PO2 70.2 and a bicarb of 35.5. Sodium is 136. Potassium is dropped to 3.4. White count is 20 ,400 with 89 segs. H&H is 10.2/30.4. The patient's downhill slide seems to be related to pyelonephritis with possible sepsis as well as Pseudomonas pneumonia and retention of secretions. He is tentatively scheduled for fiberoptic bronchoscopy tomorrow. He presently is better and does not appear to be in any distress. He was seen with Neel Britton nurse practitioner. 11/16/2016. Patient had a fairly uneventful night. A lot of sputum has been suctioned through his trach. His is leftward she thinks trach may be out of position. I do not see that on his exam but he is for bronchoscopy a little later on this morning. That will be checked. The patient's urine is growing Pseudomonas and enterococcus. His sputum has grown Pseudomonas. There is another gram-negative ml growing and his sputum's are reported as showing gram- positive rods. Patient continues to have a temperature as high as 100. His feedings have gone well on one occasion it was 90 cc remaining but otherwise his stomach is emptied well. ABGs today on FiO2 of 60% shows a pH 7.418, PCO2 63.8, PO2 95.1 and a bicarb of 37.9. Glucoses are normal. Phosphorus is slightly low at 1.7. White count has dropped from 24,000 13,100 with 84 segs. H&H is stable at 10.3/31.8 and platelet counts 187,000. Chest x-ray shows a fairly dense extensive right upper lung right middle lung and right lower lung infiltrate. Fiberoptic bronchoscopy. 11/16/2016. See report. Significant retained secretions. Markedly collapsible large and small airways with edema and partial stenosis exacerbating the patient's ineffective cough. Specimens were sent for cytology bacterial, AFB and fungal studies. See orders. 11/17/2016. Today's x-ray shows a residual mainly alveolar infiltrate in the right upper lung and right middle lung. Most of each atelectatic changes seen in the right lower lung have resolved. There is faint infiltrate with some atelectasis at the left medial base. ABGs are abnormal but unchanged. Breath sounds are extremely stiff. Velcro rales like. I will start the patient on Solu-Medrol 30 IV push every 12 hours. Glucoses are slightly high and will increase with the Solu-Medrol so I am adding sliding scale insulin. At the suggestion dietary phosphorus was added yesterday and I think this is very appropriate. This patient still has a problem with retention of secretions. He has a trach and is been suction as well as possible. He coughs as strong as he can but his cough is ineffective. He will be evaluated with fiberoptic bronchoscopy tomorrow 11/22/2016.His laboratory tests are stable. Patient had a fiberoptic bronchoscopy this morning. See report. He had copious bilateral secretions and this will probably have to be repeated on the day or 2. His chest x-ray has shown good improvement. His ABGs are gradually improving. He is significantly ill and hopefully he will be ready for movement of ICU in another few days. Potassium is 3.2 and the patient is on a replacement protocol. 11/23/2016 bronchoscopy specimens continue to grow gram-negative rods. 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 Patient is colonized. We will continue his present medicines as these showed a best ANGELO's. Today's chest x-ray following bronchoscopy is remarkably better. Patient is moving air better. I think he is stable enough to move him back to the pulmonary floor. ABGs on FiO2 of 40%. PH is 7.339, PCO2 is 55.8, PO2 is 71.8 bicarb is 27. Electrolytes normal. Creatinine is 0.40 with a BUN of 18. White count is 16, 095 segs. H&H 11.5/36.0 platelets of 396,000 Physical exam. Vital signs. See below Psychiatric oriented 3. Cooperative. Face. Symmetrical. No edema of the lips or tongue Neck symmetrical. No meningismus Chest. Large airway congestion. Improved. Velcro rales resolved. Overall moving air much better Heart. No gallop Abdomen. As per Dr. Holliday Extremities. No evidence of deep venous thrombophlebitis Neurologic. Cranial nerves are intact with some decreased hearing acuity long track motor functions intact. Patient has a stigmata of Parkinson's disease. The remainder the physical exam is noncontributory. Plan: 11/10/2016 #1: Admit to inpatient for treatment with IV antibiotics. #2: Gentamicin start at 40mg [id number], consult pharmacy for dosing management. Fortaz 1GM [id number]. #3: Repeat sputum for gram stain culture and sensitivity before first dose of abx. #4: Inhalation therapy with Duonebs QID and PRN. #5: ID and continue home medicines. #6: CXR today. #7: See orders. 11/11/2016. 1. See my note, above 2. See endoscopic report 3. Have discussed with Dr. Saman Holliday and we have coordinated our care 4. Watch for any evidence of small bowel obstruction 5. Check cultures. 6. Consider therapeutic and diagnostic fiberoptic bronchoscopy at a later date 7. TSH is normal. Probably euthyroid. 11/15/2016. 1. See today's note, above 2. Fiberoptic bronchoscopy in a.m. 3. See adjustment of antibiotics. 4. Continue to follow her ABGs chest x-ray and lab 11/16/2016. 1. See today's note, aboveThis is a 66-year-old white male admitted from my office on 11/10/2016. His main problems were. #1: Pneumonia secondary to Pseudomonas refractory to outpatient treatment. #2: GERD, recent increased reflux and aspiration #3: Underlying Parkinson's disease #4: Increased shortness of breath secondary to #1. #5: Weight loss #6: See past history. 11/11/2016. Today the patient was seen in the GI lab along with Dr. Holliday. Patient had some retained intestinal material in the stomach. Dr. Holliday has had it erythromycin is going watch for any evidence of small bowel obstruction. Patient's sputum's are growing gram-negative rods and a few gram-positive cocci. Suspect gram-negative rods are Pseudomonas just as we have grown as an outpatient. White count is dropped from 13,900-9800 with 72% segs. H&H is 11.3 /34.4. Potassium remains low at 3.3 and will be replaced. Creatinine is 0.4 with a BUN of 14. Patient's TSH is normal but he has to free T4 values are elevated. He takes no thyroid supplement. I am not aware that any of his medicines falsely elevated thyroid values. His TSH I think indicates that he is euthyroid. Yesterday also started the patient on physical therapy and Occupational Therapy. He is also receiving wound care. I have asked director social service to see patient and discuss options with his . Patient is taking care of at home by his . Urine shows no evidence of infection. Magnesium is 2.5. Patient has a tendency towards hypoxemia especially during his endoscopic procedure. I think this is from under breathing and from retention of secretions. At a later date we may need to evaluate the patient with fiberoptic bronchoscopy. Today's chest x-ray shows a right lower lung infiltrate compatible with pneumonia and there is associated atelectasis 11/15/2016. Over the past few days the patient has experienced increase hypoxemia and increased shortness of breath along with difficulty mobilizing sputum. This necessitated movement to ICU. Today the patient still has trouble with mobilization of his fluid and I think that this would come to fiberoptic bronchoscopy. I would like to see his temperature drop a little more as I would try to avoid inducing any sepsis. His chest x-ray shows the right upper lung and right lower lung infiltrate. He continues to grow Pseudomonas from his sputum. He also has grown Pseudomonas from his urine which has a different spectrum of sensitivity. Urinalysis also grown Enterococcus faecalis. Medicines have been adjusted and everything is covered. ABGs on FiO2 of 60% oxygen shows a pH of 7.23, PCO2 of 59.2, PO2 70.2 and a bicarb of 35.5. Sodium is 136. Potassium is dropped to 3.4. White count is 20 ,400 with 89 segs. H&H is 10.2/30.4. The patient's downhill slide seems to be related to pyelonephritis with possible sepsis as well as Pseudomonas pneumonia and retention of secretions. He is tentatively scheduled for fiberoptic bronchoscopy tomorrow. He presently is better and does not appear to be in any distress. He was seen with Neel Britton nurse practitioner. 11/16/2016. Patient had a fairly uneventful night. A lot of sputum has been suctioned through his trach. His is leftward she thinks trach may be out of position. I do not see that on his exam but he is for bronchoscopy a little later on this morning. That will be checked. The patient's urine is growing Pseudomonas and enterococcus. His sputum has grown Pseudomonas. There is another gram-negative ml growing and his sputum's are reported as showing gram- positive rods. Patient continues to have a temperature as high as 100. His feedings have gone well on one occasion it was 90 cc remaining but otherwise his stomach is emptied well. ABGs today on FiO2 of 60% shows a pH 7.418, PCO2 63.8, PO2 95.1 and a bicarb of 37.9. Glucoses are normal. Phosphorus is slightly low at 1.7. White count has dropped from 24,000 13,100 with 84 segs. H&H is stable at 10.3/31.8 and platelet counts 187,000. Chest x-ray shows a fairly dense extensive right upper lung right middle lung and right lower lung infiltrate. Fiberoptic bronchoscopy. 11/16/2016. See report. Significant retained secretions. Markedly collapsible large and small airways with edema and partial stenosis exacerbating the patient's ineffective cough. Specimens were sent for cytology bacterial, AFB and fungal studies. See orders. 11/17/2016. Today's x-ray shows a residual mainly alveolar infiltrate in the right upper lung and right middle lung. Most of each atelectatic changes seen in the right lower lung have resolved. There is faint infiltrate with some atelectasis at the left medial base. ABGs are abnormal but unchanged. Breath sounds are extremely stiff. Velcro rales like. I will start the patient on Solu-Medrol 30 IV push every 12 hours. Glucoses are slightly high and will increase with the Solu-Medrol so I am adding sliding scale insulin. At the suggestion dietary phosphorus was added yesterday and I think this is very appropriate. This patient still has a problem with retention of secretions. He has a trach and is been suction as well as possible. He coughs as strong as he can but his cough is ineffective. He will be evaluated with fiberoptic bronchoscopy tomorrow 11/22/2016.His laboratory tests are stable. Patient had a fiberoptic bronchoscopy this morning. See report. He had copious bilateral secretions and this will probably have to be repeated on the day or 2. His chest x-ray has shown good improvement. His ABGs are gradually improving. He is significantly ill and hopefully he will be ready for movement of ICU in another few days. Potassium is 3.2 and the patient is on a replacement protocol. 11/23/2016 bronchoscopy specimens continue to grow gram-negative rods. 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 Patient is colonized. We will continue his present medicines as these showed a best ANGELO's. Today's chest x-ray following bronchoscopy is remarkably better. Patient is moving air better. I think he is stable enough to move him back to the pulmonary floor. ABGs on FiO2 of 40%. PH is 7.339, PCO2 is 55.8, PO2 is 71.8 bicarb is 27. Electrolytes normal. Creatinine is 0.40 with a BUN of 18. White count is 16, 095 segs. H&H 11.5/36.0 platelets of 396,000 11/27/2016. Patient was seen along with his . He said after his bronchoscopy yesterday he felt bad all day. He felt sleepy. Hopefully this was a IM Benadryl. He feels a little better today. His chest sounds much better. He is growing gram-negative rods from his 11/26/2016 fiberoptic bronchoscopy. He has had Pseudomonas all along the way so this is probably same organism and this is not been eradicated yet. Vital signs are stable and his chest is fairly clear. There are no new problems. 11/28/2016. Patient's doing well today. His chest is slightly congested. Glucoses are 215. Labs been reviewed. Patient will have a chest x-ray tomorrow. Sputum's continue to grow gram-negative ml from his last bronchoscopy. These have not yet been reported. There are no new requests. Note that Mrs. Magaña was not present today. Physical exam. Vital signs. See below Psychiatric oriented 3. Cooperative. Face. Symmetrical. No edema of the lips or tongue Neck symmetrical. No meningismus Chest. Large airway congestion. Improved. Velcro rales resolved. Overall moving air much better Heart. No gallop Abdomen. As per Dr. Holliday Extremities. No evidence of deep venous thrombophlebitis Neurologic. Cranial nerves are intact with some decreased hearing acuity long track motor functions intact. Patient has a stigmata of Parkinson's disease. The remainder the physical exam is noncontributory. Plan: 11/10/2016 #1: Admit to inpatient for treatment with IV antibiotics. #2: Gentamicin start at 40mg [id number], consult pharmacy for dosing management. Fortaz 1GM [id number]. #3: Repeat sputum for gram stain culture and sensitivity before first dose of abx. #4: Inhalation therapy with Duonebs QID and PRN. #5: ID and continue home medicines. #6: CXR today. #7: See orders. 11/11/2016. 1. See my note, above 2. See endoscopic report 3. Have discussed with Dr. Saman Holliday and we have coordinated our care 4. Watch for any evidence of small bowel obstruction 5. Check cultures. 6. Consider therapeutic and diagnostic fiberoptic bronchoscopy at a later date 7. TSH is normal. Probably euthyroid. 11/15/2016. 1. See today's note, above 2. Fiberoptic bronchoscopy in a.m. 3. See adjustment of antibiotics. 4. Continue to follow her ABGs chest x-ray and lab 11/16/2016. 1. See today's note, above 2. See fiberoptic bronchoscopy report 3. Will probably require repeat bronchoscopy in 1-2 days 4. Although this is been discussed with the 5. Check bronchoscopy 11/17/2016. 1. See today's note, above 2. Solu-Medrol 3. Fiberoptic bronchoscopy tomorrow 4. Phosphorus 5. Sliding scale insulin 6. Continue daily chest x-ray ABGs and lab 11/22/2016. 1. See today's note above 2. See fiberoptic bronchoscopy note from 05/25/2016 3. Discuss findings and plans with . Neel Britton nurse practitioner was present. 11/23/2016. 1. See today's note, above. 2. Continue present antibiotics 3. Move to floor. Will check with about the possibility of [facility] down the road. 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 See fiberoptic bronchoscopy report 3. Will probably require repeat bronchoscopy in 1-2 days 4. Although this is been discussed with the 5. Check bronchoscopy 11/17/2016. 1. See today's note, above 2. Solu-Medrol 3. Fiberoptic bronchoscopy tomorrow 4. Phosphorus 5. Sliding scale insulin 6. Continue daily chest x-ray ABGs and lab 11/22/2016. 1. See today's note above 2. See fiberoptic bronchoscopy note from 05/25/2016 3. Discuss findings and plans with . Neel Britton nurse practitioner was present. 11/23/2016. 1. See today's note, above. 2. Continue present antibiotics 3. Move to floor. Will check with about the possibility of [facility] down the road. 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 1. See today's note above. 2. Continues to grow Pseudomonas 3. Continue present regimen. 11/28/2016. 1. See today's note above. 2. Chest x-ray tomorrow 3. Cultures sensitivities are pending. Exam (Progress Note) - Constitutional Vitals: Period Temp Pulse Resp BP Sys/West Pulse Ox Last 24 Hr 97.8 F-98.6 F 80-93 18-22 115-125/67-84 94-99 Results - Labs CBC & BMP: 11/26/16 05:29 11/26/16 05:29
[2016-11-28] MEDS: GENTAMICIN INJ 400 MG in SODIUM CHLORIDE 0.9% 100 ML IV SCH (23:07)
[2016-11-29] MEDS: INSULIN REGULAR 100 UNIT/ML SUBCUT SCH ×4 (00:07→17:50)
[2016-11-29 03:58] LABS: Calcium 7.9 MG/DL (8.5-10.1); Magnesium 2.4 MG/DL (1.8-2.4); Osmolality,Calculated 300.7 MOS/KG (273-304); Phosphorous 2.8 MG/DL (2.5-4.9); Potassium 3.8 MMOL/L (3.5-5.1); Prealbumin 19.3 MG/DL (20-40)
[2016-11-29] MEDS: CARBIDOPA/LEVODOPA 25-100 MG TABLET PO SCH ×5 (05:07→21:50)
[2016-11-29] MEDS: ERYTHROMYCIN ETHYLSUCCINATE PO SCH ×3 (05:07→17:20)
[2016-11-29] MEDS: ENTACAPONE 200 MG TABLET PO SCH ×5 (05:07→21:51)
[2016-11-29] MEDS: DORNASE ALFA 2.5 MG/2.5 ML VIAL RESP TX SCH ×2 (07:07→19:35)
[2016-11-29] MEDS: ALBUTEROL/IPRATROPIUM 3 ML NEB RESP TX SCH ×4 (07:28→19:35)
[2016-11-29] MEDS: POTASSIUM CHLORIDE 20 MEQ/15 ML UDCUP PEG SCH ×4 (09:24→21:50)
[2016-11-29] MEDS: POTASSIUM PHOS/SOD PHOS POWDER 250 MG PACK PER TUBE SCH ×2 (09:25→21:52)
[2016-11-29] MEDS: AMANTADINE 100 MG CAPSULE PEG SCH ×3 (09:26→21:51)
[2016-11-29] MEDS: ASPIRIN EC 81 MG TABLET PO SCH (09:27)
[2016-11-29] MEDS: FLUDROCORTISONE 0.1 MG TABLET PEG SCH ×3 (09:27→21:50)
[2016-11-29] MEDS: MIDODRINE 5 MG TABLET PEG SCH ×3 (09:27→21:50)
[2016-11-29] MEDS: LANSOPRAZOLE ODT 30 MG TABLET PEG SCH ×2 (09:27→21:51)
[2016-11-29] MEDS: SCOPOLAMINE 1.5 MG PATCH TRANSDERM SCH (09:29)
[2016-11-29] MEDS: DESITIN 4OZ/NYSTATIN 15 GRAM MIXTURE PASTE TOP SCH ×2 (09:31→21:53)
--- NOTE | 2016-11-29 09:40 | XRay Report ---
Portable chest November 29, 2016 at 0518 hours Indication: Decreased oxygenation Comparison images November 26, 2016 Findings: Tubes and lines are unchanged in position. Heart size is unchanged. Increasing prominence of the central pulmonary vasculature with worsening bibasilar atelectasis and pleural effusions. No acute osseous abnormalities. Note again made of prior left rotator cuff repair Impression: 1. Developing pulmonary venous congestion 2. Worsening bibasilar atelectasis and pleural effusions PROCEDURE INTERPRETED AT [facility] DEPARTMENT OF RADIOLOGY Final Report Signed by: Can Amaya
[2016-11-29] MEDS: methylPREDNISolone SOD SUC 40 MG/1 ML VIAL IV SCH ×2 (10:39→23:33)
--- NOTE | 2016-11-29 10:57 | Pulmonology Progress Note ---
Pulmonary - PN: Subj Interval history: This is a 66-year-old white male admitted from my office on 11/10/2016. His main problems were. #1: Pneumonia secondary to Pseudomonas refractory to outpatient treatment. #2: GERD, recent increased reflux and aspiration #3: Underlying Parkinson's disease #4: Increased shortness of breath secondary to #1. #5: Weight loss #6: See past history. 11/11/2016. Today the patient was seen in the GI lab along with Dr. Holliday. Patient had some retained intestinal material in the stomach. Dr. Holliday has had it erythromycin is going watch for any evidence of small bowel obstruction. Patient's sputum's are growing gram-negative rods and a few gram-positive cocci. Suspect gram-negative rods are Pseudomonas just as we have grown as an outpatient. White count is dropped from 13,900-9800 with 72% segs. H&H is 11.3 /34.4. Potassium remains low at 3.3 and will be replaced. Creatinine is 0.4 with a BUN of 14. Patient's TSH is normal but he has to free T4 values are elevated. He takes no thyroid supplement. I am not aware that any of his medicines falsely elevated thyroid values. His TSH I think indicates that he is euthyroid. Yesterday also started the patient on physical therapy and Occupational Therapy. He is also receiving wound care. I have asked licensed social worker to see patient and discuss options with his . Patient is taking care of at home by his . Urine shows no evidence of infection. Magnesium is 2.5. Patient has a tendency towards hypoxemia especially during his endoscopic procedure. I think this is from under breathing and from retention of secretions. At a later date we may need to evaluate the patient with fiberoptic bronchoscopy. Today's chest x-ray shows a right lower lung infiltrate compatible with pneumonia and there is associated atelectasis 11/15/2016. Over the past few days the patient has experienced increase hypoxemia and increased shortness of breath along with difficulty mobilizing sputum. This necessitated movement to ICU. Today the patient still has trouble with mobilization of his fluid and I think that this would come to fiberoptic bronchoscopy. I would like to see his temperature drop a little more as I would try to avoid inducing any sepsis. His chest x-ray shows the right upper lung and right lower lung infiltrate. He continues to grow Pseudomonas from his sputum. He also has grown Pseudomonas from his urine which has a different spectrum of sensitivity. Urinalysis also grown Enterococcus faecalis. Medicines have been adjusted and everything is covered. ABGs on FiO2 of 60% oxygen shows a pH of 7.23, PCO2 of 59.2, PO2 70.2 and a bicarb of 35.5. Sodium is 136. Potassium is dropped to 3.4. White count is 20 ,400 with 89 segs. H&H is 10.2/30.4. The patient's downhill slide seems to be related to pyelonephritis with possible sepsis as well as Pseudomonas pneumonia and retention of secretions. He is tentatively scheduled for fiberoptic bronchoscopy tomorrow. He presently is better and does not appear to be in any distress. He was seen with Neel Britton nurse practitioner. 11/16/2016. Patient had a fairly uneventful night. A lot of sputum has been suctioned through his trach. His is leftward she thinks trach may be out of position. I do not see that on his exam but he is for bronchoscopy a little later on this morning. That will be checked. The patient's urine is growing Pseudomonas and enterococcus. His sputum has grown Pseudomonas. There is another gram-negative ml growing and his sputum's are reported as showing gram- positive rods. Patient continues to have a temperature as high as 100. His feedings have gone well on one occasion it was 90 cc remaining but otherwise his stomach is emptied well. ABGs today on FiO2 of 60% shows a pH 7.418, PCO2 63.8, PO2 95.1 and a bicarb of 37.9. Glucoses are normal. Phosphorus is slightly low at 1.7. White count has dropped from 24,000 13,100 with 84 segs. H&H is stable at 10.3/31.8 and platelet counts 187,000. Chest x-ray shows a fairly dense extensive right upper lung right middle lung and right lower lung infiltrate. Fiberoptic bronchoscopy. 11/16/2016. See report. Significant retained secretions. Markedly collapsible large and small airways with edema and partial stenosis exacerbating the patient's ineffective cough. Specimens were sent for cytology bacterial, AFB and fungal studies. See orders. 11/17/2016. Today's x-ray shows a residual mainly alveolar infiltrate in the right upper lung and right middle lung. Most of each atelectatic changes seen in the right lower lung have resolved. There is faint infiltrate with some atelectasis at the left medial base. ABGs are abnormal but unchanged. Breath sounds are extremely stiff. Velcro rales like. I will start the patient on Solu-Medrol 30 IV push every 12 hours. Glucoses are slightly high and will increase with the Solu-Medrol so I am adding sliding scale insulin. At the suggestion dietary phosphorus was added yesterday and I think this is very appropriate. This patient still has a problem with retention of secretions. He has a trach and is been suction as well as possible. He coughs as strong as he can but his cough is ineffective. He will be evaluated with fiberoptic bronchoscopy tomorrow 11/22/2016.His laboratory tests are stable. Patient had a fiberoptic bronchoscopy this morning. See report. He had copious bilateral secretions and this will probably have to be repeated on the day or 2. His chest x-ray has shown good improvement. His ABGs are gradually improving. He is significantly ill and hopefully he will be ready for movement of ICU in another few days. Potassium is 3.2 and the patient is on a replacement protocol. 11/23/2016 bronchoscopy specimens continue to grow gram-negative rods. 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 Patient is colonized. We will continue his present medicines as these showed a best ANGELO's. Today's chest x-ray following bronchoscopy is remarkably better. Patient is moving air better. I think he is stable enough to move him back to the pulmonary floor. ABGs on FiO2 of 40%. PH is 7.339, PCO2 is 55.8, PO2 is 71.8 bicarb is 27. Electrolytes normal. Creatinine is 0.40 with a BUN of 18. White count is 16, 095 segs. H&H 11.5/36.0 platelets of 396,000 Physical exam. Vital signs. See below Psychiatric oriented 3. Cooperative. Face. Symmetrical. No edema of the lips or tongue Neck symmetrical. No meningismus Chest. Large airway congestion. Improved. Velcro rales resolved. Overall moving air much better Heart. No gallop Abdomen. As per Dr. Holliday Extremities. No evidence of deep venous thrombophlebitis Neurologic. Cranial nerves are intact with some decreased hearing acuity long track motor functions intact. Patient has a stigmata of Parkinson's disease. The remainder the physical exam is noncontributory. Plan: 11/10/2016 #1: Admit to inpatient for treatment with IV antibiotics. #2: Gentamicin start at 40mg [id number], consult pharmacy for dosing management. Fortaz 1GM [id number]. #3: Repeat sputum for gram stain culture and sensitivity before first dose of abx. #4: Inhalation therapy with Duonebs QID and PRN. #5: ID and continue home medicines. #6: CXR today. #7: See orders. 11/11/2016. 1. See my note, above 2. See endoscopic report 3. Have discussed with Dr. Saman Holliday and we have coordinated our care 4. Watch for any evidence of small bowel obstruction 5. Check cultures. 6. Consider therapeutic and diagnostic fiberoptic bronchoscopy at a later date 7. TSH is normal. Probably euthyroid. 11/15/2016. 1. See today's note, above 2. Fiberoptic bronchoscopy in a.m. 3. See adjustment of antibiotics. 4. Continue to follow her ABGs chest x-ray and lab 11/16/2016. 1. See today's note, aboveThis is a 66-year-old white male admitted from my office on 11/10/2016. His main problems were. #1: Pneumonia secondary to Pseudomonas refractory to outpatient treatment. #2: GERD, recent increased reflux and aspiration #3: Underlying Parkinson's disease #4: Increased shortness of breath secondary to #1. #5: Weight loss #6: See past history. 11/11/2016. Today the patient was seen in the GI lab along with Dr. Holliday. Patient had some retained intestinal material in the stomach. Dr. Holliday has had it erythromycin is going watch for any evidence of small bowel obstruction. Patient's sputum's are growing gram-negative rods and a few gram-positive cocci. Suspect gram-negative rods are Pseudomonas just as we have grown as an outpatient. White count is dropped from 13,900-9800 with 72% segs. H&H is 11.3 /34.4. Potassium remains low at 3.3 and will be replaced. Creatinine is 0.4 with a BUN of 14. Patient's TSH is normal but he has to free T4 values are elevated. He takes no thyroid supplement. I am not aware that any of his medicines falsely elevated thyroid values. His TSH I think indicates that he is euthyroid. Yesterday also started the patient on physical therapy and Occupational Therapy. He is also receiving wound care. I have asked licensed social worker to see patient and discuss options with his . Patient is taking care of at home by his . Urine shows no evidence of infection. Magnesium is 2.5. Patient has a tendency towards hypoxemia especially during his endoscopic procedure. I think this is from under breathing and from retention of secretions. At a later date we may need to evaluate the patient with fiberoptic bronchoscopy. Today's chest x-ray shows a right lower lung infiltrate compatible with pneumonia and there is associated atelectasis 11/15/2016. Over the past few days the patient has experienced increase hypoxemia and increased shortness of breath along with difficulty mobilizing sputum. This necessitated movement to ICU. Today the patient still has trouble with mobilization of his fluid and I think that this would come to fiberoptic bronchoscopy. I would like to see his temperature drop a little more as I would try to avoid inducing any sepsis. His chest x-ray shows the right upper lung and right lower lung infiltrate. He continues to grow Pseudomonas from his sputum. He also has grown Pseudomonas from his urine which has a different spectrum of sensitivity. Urinalysis also grown Enterococcus faecalis. Medicines have been adjusted and everything is covered. ABGs on FiO2 of 60% oxygen shows a pH of 7.23, PCO2 of 59.2, PO2 70.2 and a bicarb of 35.5. Sodium is 136. Potassium is dropped to 3.4. White count is 20 ,400 with 89 segs. H&H is 10.2/30.4. The patient's downhill slide seems to be related to pyelonephritis with possible sepsis as well as Pseudomonas pneumonia and retention of secretions. He is tentatively scheduled for fiberoptic bronchoscopy tomorrow. He presently is better and does not appear to be in any distress. He was seen with Neel Britton nurse practitioner. 11/16/2016. Patient had a fairly uneventful night. A lot of sputum has been suctioned through his trach. His is leftward she thinks trach may be out of position. I do not see that on his exam but he is for bronchoscopy a little later on this morning. That will be checked. The patient's urine is growing Pseudomonas and enterococcus. His sputum has grown Pseudomonas. There is another gram-negative ml growing and his sputum's are reported as showing gram- positive rods. Patient continues to have a temperature as high as 100. His feedings have gone well on one occasion it was 90 cc remaining but otherwise his stomach is emptied well. ABGs today on FiO2 of 60% shows a pH 7.418, PCO2 63.8, PO2 95.1 and a bicarb of 37.9. Glucoses are normal. Phosphorus is slightly low at 1.7. White count has dropped from 24,000 13,100 with 84 segs. H&H is stable at 10.3/31.8 and platelet counts 187,000. Chest x-ray shows a fairly dense extensive right upper lung right middle lung and right lower lung infiltrate. Fiberoptic bronchoscopy. 11/16/2016. See report. Significant retained secretions. Markedly collapsible large and small airways with edema and partial stenosis exacerbating the patient's ineffective cough. Specimens were sent for cytology bacterial, AFB and fungal studies. See orders. 11/17/2016. Today's x-ray shows a residual mainly alveolar infiltrate in the right upper lung and right middle lung. Most of each atelectatic changes seen in the right lower lung have resolved. There is faint infiltrate with some atelectasis at the left medial base. ABGs are abnormal but unchanged. Breath sounds are extremely stiff. Velcro rales like. I will start the patient on Solu-Medrol 30 IV push every 12 hours. Glucoses are slightly high and will increase with the Solu-Medrol so I am adding sliding scale insulin. At the suggestion dietary phosphorus was added yesterday and I think this is very appropriate. This patient still has a problem with retention of secretions. He has a trach and is been suction as well as possible. He coughs as strong as he can but his cough is ineffective. He will be evaluated with fiberoptic bronchoscopy tomorrow 11/22/2016.His laboratory tests are stable. Patient had a fiberoptic bronchoscopy this morning. See report. He had copious bilateral secretions and this will probably have to be repeated on the day or 2. His chest x-ray has shown good improvement. His ABGs are gradually improving. He is significantly ill and hopefully he will be ready for movement of ICU in another few days. Potassium is 3.2 and the patient is on a replacement protocol. 11/23/2016 bronchoscopy specimens continue to grow gram-negative rods. 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 Patient is colonized. We will continue his present medicines as these showed a best ANGELO's. Today's chest x-ray following bronchoscopy is remarkably better. Patient is moving air better. I think he is stable enough to move him back to the pulmonary floor. ABGs on FiO2 of 40%. PH is 7.339, PCO2 is 55.8, PO2 is 71.8 bicarb is 27. Electrolytes normal. Creatinine is 0.40 with a BUN of 18. White count is 16, 095 segs. H&H 11.5/36.0 platelets of 396,000 11/27/2016. Patient was seen along with his . He said after his bronchoscopy yesterday he felt bad all day. He felt sleepy. Hopefully this was a IM Benadryl. He feels a little better today. His chest sounds much better. He is growing gram-negative rods from his 11/26/2016 fiberoptic bronchoscopy. He has had Pseudomonas all along the way so this is probably same organism and this is not been eradicated yet. Vital signs are stable and his chest is fairly clear. There are no new problems. 11/28/2016. Patient's doing well today. His chest is slightly congested. Glucoses are 215. Labs been reviewed. Patient will have a chest x-ray tomorrow. Sputum's continue to grow gram-negative ml from his last bronchoscopy. These have not yet been reported. There are no new requests. Note that Mrs. Magaña was not present today. 11/29/2016. Earlier the patient had more shortness of breath than usual. This is cleared with ventilation therapy and suctioning. His follow-up chest x-ray shows a possible new infiltrate left upper lung. Patient has fluid in the major fissures bilaterally. He is for bronchoscopy in the a.m. Presently is lying flat in bed with no respiratory distress. Bronchoscopy specimen from 2016 grown Pseudomonas. Creatinine is 0.6 with a BUN of 24 and normal electrolytes. Patient's was not present. Physical exam. Vital signs. See below Psychiatric oriented 3. Cooperative. Face. Symmetrical. No edema of the lips or tongue Neck symmetrical. No meningismus Chest. Large airway congestion. Improved. Velcro rales resolved. Overall moving air much better Heart. No gallop Abdomen. As per Dr. Holliday Extremities. No evidence of deep venous thrombophlebitis Neurologic. Cranial nerves are intact with some decreased hearing acuity long track motor functions intact. Patient has a stigmata of Parkinson's disease. The remainder the physical exam is noncontributory. Plan: 11/10/2016 #1: Admit to inpatient for treatment with IV antibiotics. #2: Gentamicin start at 40mg [id number], consult pharmacy for dosing management. Fortaz 1GM [id number]. #3: Repeat sputum for gram stain culture and sensitivity before first dose of abx. #4: Inhalation therapy with Duonebs QID and PRN. #5: ID and continue home medicines. #6: CXR today. #7: See orders. 11/11/2016. 1. See my note, above 2. See endoscopic report 3. Have discussed with Dr. Saman Holliday and we have coordinated our care 4. Watch for any evidence of small bowel obstruction 5. Check cultures. 6. Consider therapeutic and diagnostic fiberoptic bronchoscopy at a later date 7. TSH is normal. Probably euthyroid. 11/15/2016. 1. See today's note, above 2. Fiberoptic bronchoscopy in a.m. 3. See adjustment of antibiotics. 4. Continue to follow her ABGs chest x-ray and lab 11/16/2016. 1. See today's note, above 2. See fiberoptic bronchoscopy report 3. Will probably require repeat bronchoscopy in 1-2 days 4. Although this is been discussed with the 5. Check bronchoscopy 11/17/2016. 1. See today's note, above 2. Solu-Medrol 3. Fiberoptic bronchoscopy tomorrow 4. Phosphorus 5. Sliding scale insulin 6. Continue daily chest x-ray ABGs and lab 11/22/2016. 1. See today's note above 2. See fiberoptic bronchoscopy note from 05/25/2016 3. Discuss findings and plans with . Neel Britton nurse practitioner was present. 11/23/2016. 1. See today's note, above. 2. Continue present antibiotics 3. Move to floor. Will check with about the possibility of [facility] down the road. 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 See fiberoptic bronchoscopy report 3. Will probably require repeat bronchoscopy in 1-2 days 4. Although this is been discussed with the 5. Check bronchoscopy 11/17/2016. 1. See today's note, above 2. Solu-Medrol 3. Fiberoptic bronchoscopy tomorrow 4. Phosphorus 5. Sliding scale insulin 6. Continue daily chest x-ray ABGs and lab 11/22/2016. 1. See today's note above 2. See fiberoptic bronchoscopy note from 05/25/2016 3. Discuss findings and plans with . Neel Britton nurse practitioner was present. 11/23/2016. 1. See today's note, above. 2. Continue present antibiotics 3. Move to floor. Will check with about the possibility of [facility] down the road. 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 1. See today's note above. 2. Continues to grow Pseudomonas 3. Continue present regimen. 11/28/2016. 1. See today's note above. 2. Chest x-ray tomorrow 3. Cultures sensitivities are pending. 11/29/2016. 1. Fiberoptic bronchoscopy in the morning 2. See my note above. 3. Sputum still growing Pseudomonas Exam (Progress Note) - Constitutional Vitals: Period Temp Pulse Resp BP Sys/West Pulse Ox Last 24 Hr 97.9 F-99.1 F 80-92 18-52 115-169/69-82 90-99 Results - Labs CBC & BMP: 11/26/16 05:29 11/29/16 03:10
[2016-11-29] MEDS: POTASSIUM CHLORIDE 20 MEQ/15 ML UDCUP PER TUBE PRN (12:27)
[2016-11-29] MEDS: GENTAMICIN INJ 400 MG in SODIUM CHLORIDE 0.9% 100 ML IV SCH (23:33)
[2016-11-30] MEDS: INSULIN REGULAR 100 UNIT/ML SUBCUT SCH ×4 (00:31→17:49)
[2016-11-30] MEDS: ERYTHROMYCIN ETHYLSUCCINATE PO SCH ×4 (04:40→18:02)
[2016-11-30 05:34] LABS: Hematocrit 34.3 VOL% (42.0-52.0); Hemoglobin 11.3 GM/DL (14.0-18.0); Immature Granulocytes % 0.6 %; Immature Granulocytes Absolute 0.06 #; Lymphocytes # 0.3 10*3/uL (1.4-4.0); Lymphocytes % 2.4 % (21.2-54.2); Mean Corpuscular HGB Conc 32.9 GM/DL (32-36); Mean Corpuscular Hemoglobin 33 PG (27-34); Mean Corpuscular Volume 98.8 FL (87-102); Mean Platelet Volume 10.8 FL (9.6-12.0); Monocytes # 0.2 10*3/uL (0.11-0.8); Monocytes % 2.2 % (1.7-12.7); Neutrophils % 94.8 % (38.7-73.9); Platelet Count 228 T/CUMM (130-400); Red Blood Count 3.47 MC/CUMM (3.8-5.5); Red Cell Distribution Width 13.6 % (9.3-17.3); White Blood Count 10.6 T/CUMM (4-12)
[2016-11-30 05:50] LABS: INR 1.1; PT Patient Result 11.3 SECS; Partial Thromboplastin Time 28.2 SECS (0-40)
[2016-11-30 05:57] LABS: Giant Platelets Few; Hypochromasia 1+; Lymphocytes 1 % (20-55); Ovalocytes Slight; Platelet Estimate Adequate; Segmented Neutrophils 98 % (50-85); Total Cells Counted 100
[2016-11-30 05:58] LABS: Macrocytosis Slight
[2016-11-30] MEDS: CARBIDOPA/LEVODOPA 25-100 MG TABLET PO SCH ×5 (06:33→22:03)
[2016-11-30] MEDS: ENTACAPONE 200 MG TABLET PO SCH ×5 (06:33→22:03)
[2016-11-30] MEDS ORDERED: LIDOCAINE 2% 20 ML VIAL RESP TX ONE (07:30)
[2016-11-30] MEDS ORDERED: LIDOCAINE 1% 20 ML VIAL MISC INJ ONE (07:30)
[2016-11-30] MEDS: ALBUTEROL/IPRATROPIUM 3 ML NEB RESP TX SCH ×4 (07:40→19:31)
[2016-11-30] MEDS: DORNASE ALFA 2.5 MG/2.5 ML VIAL RESP TX SCH ×2 (07:50→19:31)
--- NOTE | 2016-11-30 07:53 | Case Mgmt Physician Query Form ---
LONG STAY PHYSICIAN RECERTIFICATION *This form is to be completed for all Medicare patients before they reach day 20 of their hospitalization. Please complete each section as appropriate.* I certify that hospitalization, and continued hospitalization, for this patient is medically necessary as follows: 1) Reasons of either continued hospitalization of the patient for medical treatment or medically required diagnostic study or special or unusual services for cost outlier cases are as follows: Inability to clear secretions. Infection that can only be treated with IV antibiotics. General debility. 2) Estimated time patient will need to remain in hospital: Two weeks 3) Plan for Post Hospital Care: ( ) Home with Primary Care Follow up ( ) Home with Home Health Follow up ( ) LTACH/ Acute Care Rehab/ SNF/Penitentiary ( X) Other: LTACH versus home If you have any questions, please contact me. Thank you, Stormy Evans RN Case Management W [phone] F [phone] C [phone] E [email or web address] If you have any questions, please contact me . Thank you, Sadie LIZARRAGA Email: [email or web address] TOM
--- NOTE | 2016-11-30 10:16 | Event Note ---
In hospital diagnostic and therapeutic fiberoptic bronchoscopy. Bilateral bronchoalveolar lavages. Specimen sent for Gram stain, bacterial cultures and fungal stains and cultures. This is a 66-year-old white male with a compromise cough. He has Parkinson's disease and generalized debility. He has a trach and has been suction as thoroughly as possible. He appears to be colonized with Pseudomonas pneumoniae. His cultures have continued to be positive and he will be recultured today. He has retention of secretions. These are extremely thick and tenacious. For these reasons the patient's evaluated with fiberoptic bronchoscopy. The trach and trach site were normal. Trachea look normal and the francesco was sharp. See photograph. The right and left mainstem bronchi were occluded with thick tenacious secretions. See photograph #2. Right main stem bronchus was occluded by thick tenacious secretions. He is extended into the right upper lung right middle lung and the right lower lung. These areas were lavaged until clear. The patient's airways seem to have less collapsibility in the usual and then there was less erythema. The scope could not quite into the right middle lung and this was lavaged as best as possible. The left mainstem bronchus was full of thick tenacious secretions that extended into the left upper lung. There were more than usual secretions and a very large lingular segment. Secretions also involved all the segments of the left lower lung. Each lobe and its segments were lavaged until clear. The left lower lung segments demonstrated a lot of collapsibility and partially stenosed orifices. Previously noted erythema is resolving. The patient tolerated procedure well. In the collection apparatus there were multiple yellow bronchial casts and multiple dense bronchial plugs. Impression. 1. Ineffective cough. Exacerbated by Parkinson's disease and generalized skeletal debility. 2. Retained secretions. 3. Pseudomonas infection. Under aggressive treatment. Reculture. 4. Erosive bronchitis resolving 5. Collapsible large and small airways compatible with underlying COPD Plan. 1. Follow-up chest x-ray 2. Check bronchoscopy specimens.
--- NOTE | 2016-11-30 10:23 | Pulmonology Progress Note ---
Pulmonary - PN: Subj Interval history: This is a 66-year-old white male admitted from my office on 11/10/2016. His main problems were. #1: Pneumonia secondary to Pseudomonas refractory to outpatient treatment. #2: GERD, recent increased reflux and aspiration #3: Underlying Parkinson's disease #4: Increased shortness of breath secondary to #1. #5: Weight loss #6: See past history. 11/11/2016. Today the patient was seen in the GI lab along with Dr. Holliday. Patient had some retained intestinal material in the stomach. Dr. Holliday has had it erythromycin is going watch for any evidence of small bowel obstruction. Patient's sputum's are growing gram-negative rods and a few gram-positive cocci. Suspect gram-negative rods are Pseudomonas just as we have grown as an outpatient. White count is dropped from 13,900-9800 with 72% segs. H&H is 11.3 /34.4. Potassium remains low at 3.3 and will be replaced. Creatinine is 0.4 with a BUN of 14. Patient's TSH is normal but he has to free T4 values are elevated. He takes no thyroid supplement. I am not aware that any of his medicines falsely elevated thyroid values. His TSH I think indicates that he is euthyroid. Yesterday also started the patient on physical therapy and Occupational Therapy. He is also receiving wound care. I have asked social economist to see patient and discuss options with his . Patient is taking care of at home by his . Urine shows no evidence of infection. Magnesium is 2.5. Patient has a tendency towards hypoxemia especially during his endoscopic procedure. I think this is from under breathing and from retention of secretions. At a later date we may need to evaluate the patient with fiberoptic bronchoscopy. Today's chest x-ray shows a right lower lung infiltrate compatible with pneumonia and there is associated atelectasis 11/15/2016. Over the past few days the patient has experienced increase hypoxemia and increased shortness of breath along with difficulty mobilizing sputum. This necessitated movement to ICU. Today the patient still has trouble with mobilization of his fluid and I think that this would come to fiberoptic bronchoscopy. I would like to see his temperature drop a little more as I would try to avoid inducing any sepsis. His chest x-ray shows the right upper lung and right lower lung infiltrate. He continues to grow Pseudomonas from his sputum. He also has grown Pseudomonas from his urine which has a different spectrum of sensitivity. Urinalysis also grown Enterococcus faecalis. Medicines have been adjusted and everything is covered. ABGs on FiO2 of 60% oxygen shows a pH of 7.23, PCO2 of 59.2, PO2 70.2 and a bicarb of 35.5. Sodium is 136. Potassium is dropped to 3.4. White count is 20 ,400 with 89 segs. H&H is 10.2/30.4. The patient's downhill slide seems to be related to pyelonephritis with possible sepsis as well as Pseudomonas pneumonia and retention of secretions. He is tentatively scheduled for fiberoptic bronchoscopy tomorrow. He presently is better and does not appear to be in any distress. He was seen with Neel Britton nurse practitioner. 11/16/2016. Patient had a fairly uneventful night. A lot of sputum has been suctioned through his trach. His is leftward she thinks trach may be out of position. I do not see that on his exam but he is for bronchoscopy a little later on this morning. That will be checked. The patient's urine is growing Pseudomonas and enterococcus. His sputum has grown Pseudomonas. There is another gram-negative ml growing and his sputum's are reported as showing gram- positive rods. Patient continues to have a temperature as high as 100. His feedings have gone well on one occasion it was 90 cc remaining but otherwise his stomach is emptied well. ABGs today on FiO2 of 60% shows a pH 7.418, PCO2 63.8, PO2 95.1 and a bicarb of 37.9. Glucoses are normal. Phosphorus is slightly low at 1.7. White count has dropped from 24,000 13,100 with 84 segs. H&H is stable at 10.3/31.8 and platelet counts 187,000. Chest x-ray shows a fairly dense extensive right upper lung right middle lung and right lower lung infiltrate. Fiberoptic bronchoscopy. 11/16/2016. See report. Significant retained secretions. Markedly collapsible large and small airways with edema and partial stenosis exacerbating the patient's ineffective cough. Specimens were sent for cytology bacterial, AFB and fungal studies. See orders. 11/17/2016. Today's x-ray shows a residual mainly alveolar infiltrate in the right upper lung and right middle lung. Most of each atelectatic changes seen in the right lower lung have resolved. There is faint infiltrate with some atelectasis at the left medial base. ABGs are abnormal but unchanged. Breath sounds are extremely stiff. Velcro rales like. I will start the patient on Solu-Medrol 30 IV push every 12 hours. Glucoses are slightly high and will increase with the Solu-Medrol so I am adding sliding scale insulin. At the suggestion dietary phosphorus was added yesterday and I think this is very appropriate. This patient still has a problem with retention of secretions. He has a trach and is been suction as well as possible. He coughs as strong as he can but his cough is ineffective. He will be evaluated with fiberoptic bronchoscopy tomorrow 11/22/2016.His laboratory tests are stable. Patient had a fiberoptic bronchoscopy this morning. See report. He had copious bilateral secretions and this will probably have to be repeated on the day or 2. His chest x-ray has shown good improvement. His ABGs are gradually improving. He is significantly ill and hopefully he will be ready for movement of ICU in another few days. Potassium is 3.2 and the patient is on a replacement protocol. 11/23/2016 bronchoscopy specimens continue to grow gram-negative rods. 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 Patient is colonized. We will continue his present medicines as these showed a best ANGELO's. Today's chest x-ray following bronchoscopy is remarkably better. Patient is moving air better. I think he is stable enough to move him back to the pulmonary floor. ABGs on FiO2 of 40%. PH is 7.339, PCO2 is 55.8, PO2 is 71.8 bicarb is 27. Electrolytes normal. Creatinine is 0.40 with a BUN of 18. White count is 16, 095 segs. H&H 11.5/36.0 platelets of 396,000 Physical exam. Vital signs. See below Psychiatric oriented 3. Cooperative. Face. Symmetrical. No edema of the lips or tongue Neck symmetrical. No meningismus Chest. Large airway congestion. Improved. Velcro rales resolved. Overall moving air much better Heart. No gallop Abdomen. As per Dr. Holliday Extremities. No evidence of deep venous thrombophlebitis Neurologic. Cranial nerves are intact with some decreased hearing acuity long track motor functions intact. Patient has a stigmata of Parkinson's disease. The remainder the physical exam is noncontributory. Plan: 11/10/2016 #1: Admit to inpatient for treatment with IV antibiotics. #2: Gentamicin start at 40mg [id number], consult pharmacy for dosing management. Fortaz 1GM [id number]. #3: Repeat sputum for gram stain culture and sensitivity before first dose of abx. #4: Inhalation therapy with Duonebs QID and PRN. #5: ID and continue home medicines. #6: CXR today. #7: See orders. 11/11/2016. 1. See my note, above 2. See endoscopic report 3. Have discussed with Dr. Saman Holliday and we have coordinated our care 4. Watch for any evidence of small bowel obstruction 5. Check cultures. 6. Consider therapeutic and diagnostic fiberoptic bronchoscopy at a later date 7. TSH is normal. Probably euthyroid. 11/15/2016. 1. See today's note, above 2. Fiberoptic bronchoscopy in a.m. 3. See adjustment of antibiotics. 4. Continue to follow her ABGs chest x-ray and lab 11/16/2016. 1. See today's note, aboveThis is a 66-year-old white male admitted from my office on 11/10/2016. His main problems were. #1: Pneumonia secondary to Pseudomonas refractory to outpatient treatment. #2: GERD, recent increased reflux and aspiration #3: Underlying Parkinson's disease #4: Increased shortness of breath secondary to #1. #5: Weight loss #6: See past history. 11/11/2016. Today the patient was seen in the GI lab along with Dr. Holliday. Patient had some retained intestinal material in the stomach. Dr. Holliday has had it erythromycin is going watch for any evidence of small bowel obstruction. Patient's sputum's are growing gram-negative rods and a few gram-positive cocci. Suspect gram-negative rods are Pseudomonas just as we have grown as an outpatient. White count is dropped from 13,900-9800 with 72% segs. H&H is 11.3 /34.4. Potassium remains low at 3.3 and will be replaced. Creatinine is 0.4 with a BUN of 14. Patient's TSH is normal but he has to free T4 values are elevated. He takes no thyroid supplement. I am not aware that any of his medicines falsely elevated thyroid values. His TSH I think indicates that he is euthyroid. Yesterday also started the patient on physical therapy and Occupational Therapy. He is also receiving wound care. I have asked social economist to see patient and discuss options with his . Patient is taking care of at home by his . Urine shows no evidence of infection. Magnesium is 2.5. Patient has a tendency towards hypoxemia especially during his endoscopic procedure. I think this is from under breathing and from retention of secretions. At a later date we may need to evaluate the patient with fiberoptic bronchoscopy. Today's chest x-ray shows a right lower lung infiltrate compatible with pneumonia and there is associated atelectasis 11/15/2016. Over the past few days the patient has experienced increase hypoxemia and increased shortness of breath along with difficulty mobilizing sputum. This necessitated movement to ICU. Today the patient still has trouble with mobilization of his fluid and I think that this would come to fiberoptic bronchoscopy. I would like to see his temperature drop a little more as I would try to avoid inducing any sepsis. His chest x-ray shows the right upper lung and right lower lung infiltrate. He continues to grow Pseudomonas from his sputum. He also has grown Pseudomonas from his urine which has a different spectrum of sensitivity. Urinalysis also grown Enterococcus faecalis. Medicines have been adjusted and everything is covered. ABGs on FiO2 of 60% oxygen shows a pH of 7.23, PCO2 of 59.2, PO2 70.2 and a bicarb of 35.5. Sodium is 136. Potassium is dropped to 3.4. White count is 20 ,400 with 89 segs. H&H is 10.2/30.4. The patient's downhill slide seems to be related to pyelonephritis with possible sepsis as well as Pseudomonas pneumonia and retention of secretions. He is tentatively scheduled for fiberoptic bronchoscopy tomorrow. He presently is better and does not appear to be in any distress. He was seen with Neel Britton nurse practitioner. 11/16/2016. Patient had a fairly uneventful night. A lot of sputum has been suctioned through his trach. His is leftward she thinks trach may be out of position. I do not see that on his exam but he is for bronchoscopy a little later on this morning. That will be checked. The patient's urine is growing Pseudomonas and enterococcus. His sputum has grown Pseudomonas. There is another gram-negative lm growing and his sputum's are reported as showing gram- positive rods. Patient continues to have a temperature as high as 100. His feedings have gone well on one occasion it was 90 cc remaining but otherwise his stomach is emptied well. ABGs today on FiO2 of 60% shows a pH 7.418, PCO2 63.8, PO2 95.1 and a bicarb of 37.9. Glucoses are normal. Phosphorus is slightly low at 1.7. White count has dropped from 24,000 13,100 with 84 segs. H&H is stable at 10.3/31.8 and platelet counts 187,000. Chest x-ray shows a fairly dense extensive right upper lung right middle lung and right lower lung infiltrate. Fiberoptic bronchoscopy. 11/16/2016. See report. Significant retained secretions. Markedly collapsible large and small airways with edema and partial stenosis exacerbating the patient's ineffective cough. Specimens were sent for cytology bacterial, AFB and fungal studies. See orders. 11/17/2016. Today's x-ray shows a residual mainly alveolar infiltrate in the right upper lung and right middle lung. Most of each atelectatic changes seen in the right lower lung have resolved. There is faint infiltrate with some atelectasis at the left medial base. ABGs are abnormal but unchanged. Breath sounds are extremely stiff. Velcro rales like. I will start the patient on Solu-Medrol 30 IV push every 12 hours. Glucoses are slightly high and will increase with the Solu-Medrol so I am adding sliding scale insulin. At the suggestion dietary phosphorus was added yesterday and I think this is very appropriate. This patient still has a problem with retention of secretions. He has a trach and is been suction as well as possible. He coughs as strong as he can but his cough is ineffective. He will be evaluated with fiberoptic bronchoscopy tomorrow 11/22/2016.His laboratory tests are stable. Patient had a fiberoptic bronchoscopy this morning. See report. He had copious bilateral secretions and this will probably have to be repeated on the day or 2. His chest x-ray has shown good improvement. His ABGs are gradually improving. He is significantly ill and hopefully he will be ready for movement of ICU in another few days. Potassium is 3.2 and the patient is on a replacement protocol. 11/23/2016 bronchoscopy specimens continue to grow gram-negative rods. 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 Patient is colonized. We will continue his present medicines as these showed a best ANGELO's. Today's chest x-ray following bronchoscopy is remarkably better. Patient is moving air better. I think he is stable enough to move him back to the pulmonary floor. ABGs on FiO2 of 40%. PH is 7.339, PCO2 is 55.8, PO2 is 71.8 bicarb is 27. Electrolytes normal. Creatinine is 0.40 with a BUN of 18. White count is 16, 095 segs. H&H 11.5/36.0 platelets of 396,000 11/27/2016. Patient was seen along with his . He said after his bronchoscopy yesterday he felt bad all day. He felt sleepy. Hopefully this was a IM Benadryl. He feels a little better today. His chest sounds much better. He is growing gram-negative rods from his 11/26/2016 fiberoptic bronchoscopy. He has had Pseudomonas all along the way so this is probably same organism and this is not been eradicated yet. Vital signs are stable and his chest is fairly clear. There are no new problems. 11/28/2016. Patient's doing well today. His chest is slightly congested. Glucoses are 215. Labs been reviewed. Patient will have a chest x-ray tomorrow. Sputum's continue to grow gram-negative ml from his last bronchoscopy. These have not yet been reported. There are no new requests. Note that Mrs. Magaña was not present today. 11/29/2016. Earlier the patient had more shortness of breath than usual. This is cleared with ventilation therapy and suctioning. His follow-up chest x-ray shows a possible new infiltrate left upper lung. Patient has fluid in the major fissures bilaterally. He is for bronchoscopy in the a.m. Presently is lying flat in bed with no respiratory distress. Bronchoscopy specimen from 2016 grown Pseudomonas. Creatinine is 0.6 with a BUN of 24 and normal electrolytes. Patient's was not present. 11/30/2016. Yesterday patient had some increased shortness of breath dyspnea on exertion. This improved with intensive treatment. Today he had a fiberoptic bronchoscopy. Overall he was better but he still has significant retention of thick tenacious secretions which cannot be suctioned through his trach and that he cannot mobilize himself. His ability cough is compromised by the fact he has generalized debility and by the fact that he has Parkinson's disease. See bronchoscopy report. The patient's cultures have continued to be positive for Pseudomonas. He was recultured today. His sensitivities show he can only be treated with IV antibiotics. His recurrent respiratory distress has required hospitalization. He may be in the hospital for another week or 2 but if he improves I plan to consider long-term acute care versus going home. His is very attentive and is very well trained in his care. White blood cell count is 10,600 with 95% segs. H&H is stable 11.3/34.3. Platelets are 228,000. Glucoses have elevated. I will increase his sliding scale insulin today. Patient cannot eat or swallow. He gets continuous PEG feedings. Physical exam. Vital signs. See below Psychiatric oriented 3. Cooperative. Face. Symmetrical. No edema of the lips or tongue Neck symmetrical. No meningismus Chest. Large airway congestion. Improved. Velcro rales resolved. Overall moving air much better, but still compromised by retained Heart. No gallop Abdomen. As per Dr. Holliday Extremities. No evidence of deep venous thrombophlebitis Neurologic. Cranial nerves are intact with some decreased hearing acuity long track motor functions intact. Patient has a stigmata of Parkinson's disease. The remainder the physical exam is noncontributory. Plan: 11/10/2016 #1: Admit to inpatient for treatment with IV antibiotics. #2: Gentamicin start at 40mg [id number], consult pharmacy for dosing management. Fortaz 1GM [id number]. #3: Repeat sputum for gram stain culture and sensitivity before first dose of abx. #4: Inhalation therapy with Duonebs QID and PRN. #5: ID and continue home medicines. #6: CXR today. #7: See orders. 11/11/2016. 1. See my note, above 2. See endoscopic report 3. Have discussed with Dr. Saman Holliday and we have coordinated our care 4. Watch for any evidence of small bowel obstruction 5. Check cultures. 6. Consider therapeutic and diagnostic fiberoptic bronchoscopy at a later date 7. TSH is normal. Probably euthyroid. 11/15/2016. 1. See today's note, above 2. Fiberoptic bronchoscopy in a.m. 3. See adjustment of antibiotics. 4. Continue to follow her ABGs chest x-ray and lab 11/16/2016. 1. See today's note, above 2. See fiberoptic bronchoscopy report 3. Will probably require repeat bronchoscopy in 1-2 days 4. Although this is been discussed with the 5. Check bronchoscopy 11/17/2016. 1. See today's note, above 2. Solu-Medrol 3. Fiberoptic bronchoscopy tomorrow 4. Phosphorus 5. Sliding scale insulin 6. Continue daily chest x-ray ABGs and lab 11/22/2016. 1. See today's note above 2. See fiberoptic bronchoscopy note from 05/25/2016 3. Discuss findings and plans with . Neel Britton nurse practitioner was present. 11/23/2016. 1. See today's note, above. 2. Continue present antibiotics 3. Move to floor. Will check with about the possibility of [facility] down the road. 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 See fiberoptic bronchoscopy report 3. Will probably require repeat bronchoscopy in 1-2 days 4. Although this is been discussed with the 5. Check bronchoscopy 11/17/2016. 1. See today's note, above 2. Solu-Medrol 3. Fiberoptic bronchoscopy tomorrow 4. Phosphorus 5. Sliding scale insulin 6. Continue daily chest x-ray ABGs and lab 11/22/2016. 1. See today's note above 2. See fiberoptic bronchoscopy note from 05/25/2016 3. Discuss findings and plans with . Neel Britton nurse practitioner was present. 11/23/2016. 1. See today's note, above. 2. Continue present antibiotics 3. Move to floor. Will check with about the possibility of [facility] down the road. 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 1. See today's note above. 2. Continues to grow Pseudomonas 3. Continue present regimen. 11/28/2016. 1. See today's note above. 2. Chest x-ray tomorrow 3. Cultures sensitivities are pending. 11/29/2016. 1. Fiberoptic bronchoscopy in the morning 2. See my note above. 3. Sputum still growing Pseudomonas 11/30/2016. 1. See bronchoscopy report 2. We will need 1-2 more weeks of hospitalization. Requires IV antibiotics based on sensitivities from chronic Pseudomonas infection. 3. I am considering long-term acute care versus going home. I will discuss this with his today. Exam (Progress Note) - Constitutional Vitals: Period Temp Pulse Resp BP Sys/West Pulse Ox Last 24 Hr 97.6 F-99.3 F 80-97 10-38 105-141/65-76 88-98 Results - Labs CBC & BMP: 11/30/16 04:45 11/29/16 03:10
[2016-11-30] MEDS: POTASSIUM CHLORIDE 20 MEQ/15 ML UDCUP PEG SCH ×4 (11:41→22:03)
[2016-11-30] MEDS: ASPIRIN EC 81 MG TABLET PO SCH (11:42)
[2016-11-30] MEDS: POTASSIUM PHOS/SOD PHOS POWDER 250 MG PACK PER TUBE SCH ×2 (11:42→22:04)
[2016-11-30] MEDS: MIDODRINE 5 MG TABLET PEG SCH ×3 (11:42→22:04)
[2016-11-30] MEDS: LANSOPRAZOLE ODT 30 MG TABLET PEG SCH ×2 (11:42→22:03)
[2016-11-30] MEDS: AMANTADINE 100 MG CAPSULE PEG SCH ×3 (11:42→22:03)
[2016-11-30] MEDS: DESITIN 4OZ/NYSTATIN 15 GRAM MIXTURE PASTE TOP SCH ×2 (11:42→22:05)
[2016-11-30] MEDS: FLUDROCORTISONE 0.1 MG TABLET PEG SCH ×3 (11:42→22:04)
[2016-11-30] MEDS: methylPREDNISolone SOD SUC 40 MG/1 ML VIAL IV SCH (11:43)
[2016-11-30] MEDS: INSULIN NPH/REGULAR 70/30 100 UNIT/ML SUBCUT SCH (17:49)
[2016-11-30] MEDS: ACETAMINOPHEN 325 MG TABLET PO PRN (17:50)
[2016-12-01] MEDS: methylPREDNISolone SOD SUC 40 MG/1 ML VIAL IV SCH ×3 (00:28→23:23)
[2016-12-01] MEDS: INSULIN REGULAR 100 UNIT/ML SUBCUT SCH ×5 (00:30→23:26)
[2016-12-01] MEDS: ERYTHROMYCIN ETHYLSUCCINATE PO SCH ×3 (00:31→13:54)
[2016-12-01] MEDS: ENTACAPONE 200 MG TABLET PO SCH ×5 (06:24→21:00)
[2016-12-01] MEDS: CARBIDOPA/LEVODOPA 25-100 MG TABLET PO SCH ×5 (06:24→21:00)
--- NOTE | 2016-12-01 07:10 | XRay Report ---
Exam: XR chest 1V portable Date: 12/01/2016 4:00 AM Indication: Post bronchoscopy tracheostomy cough Comparison: 11/29/2016 Technical: AP Findings: Tracheostomy tube is present. There is elevation right hemidiaphragm. Low volume effusion atelectatic changes are present. Previous cortical anchor screws over the left shoulder. External cardiac leads are present. This suggests contrast in the bowel in the left splenic flexure region. Mild cardiac enlargement. No pneumothorax Impression: 1. Stable appearance of tracheostomy tube 2. Slight improvement in aeration however persistent atelectatic change and infiltrates and effusions in both bases are present. PROCEDURE INTERPRETED AT [facility] DEPARTMENT OF RADIOLOGY Final Report Signed by: Dr. Narciso Kumar
[2016-12-01] MEDS: ALBUTEROL/IPRATROPIUM 3 ML NEB RESP TX SCH ×4 (08:17→20:07)
[2016-12-01] MEDS: DORNASE ALFA 2.5 MG/2.5 ML VIAL RESP TX SCH ×2 (08:17→20:07)
[2016-12-01] MEDS: INSULIN NPH/REGULAR 70/30 100 UNIT/ML SUBCUT SCH ×2 (09:23→17:30)
[2016-12-01] MEDS: ASPIRIN EC 81 MG TABLET PO SCH (09:23)
[2016-12-01] MEDS: LANSOPRAZOLE ODT 30 MG TABLET PEG SCH ×2 (09:23→21:01)
[2016-12-01] MEDS: POTASSIUM CHLORIDE 20 MEQ/15 ML UDCUP PEG SCH ×4 (09:23→21:01)
[2016-12-01] MEDS: MIDODRINE 5 MG TABLET PEG SCH ×3 (09:24→21:00)
[2016-12-01] MEDS: POTASSIUM PHOS/SOD PHOS POWDER 250 MG PACK PER TUBE SCH ×2 (09:24→21:01)
[2016-12-01] MEDS: FLUDROCORTISONE 0.1 MG TABLET PEG SCH ×3 (09:24→21:01)
[2016-12-01] MEDS: AMANTADINE 100 MG CAPSULE PEG SCH ×3 (09:24→21:01)
[2016-12-01] MEDS: DESITIN 4OZ/NYSTATIN 15 GRAM MIXTURE PASTE TOP SCH ×2 (09:24→21:01)
--- NOTE | 2016-12-01 10:56 | Pulmonology Progress Note ---
Pulmonary - PN: Subj Interval history: Neel Britton, [facility]-, acting as scribe for Dr. Narciso Arnett This is a 66-year-old white male [facility]. At the time of admission, his main problems were: #1: Pneumonia secondary to Pseudomonas refractory to outpatient treatment. #2: GERD, recent increased reflux and aspiration #3: Underlying Parkinson's disease #4: Increased shortness of breath secondary to #1. #5: Weight loss #6: See past history. 11/11/2016. Today the patient was seen in the GI lab along with Dr. Darby. Patient had some retained intestinal material in the stomach. Dr. Darby has had it erythromycin is going watch for any evidence of small bowel obstruction. Patient's sputum's are growing gram-negative rods and a few gram-positive cocci. Suspect gram-negative rods are Pseudomonas just as we have grown as an outpatient. White count is dropped from 13,900-9800 with 72% segs. H&H is 11.3 /34.4. Potassium remains low at 3.3 and will be replaced. Creatinine is 0.4 with a BUN of 14. Patient's TSH is normal but he has to free T4 values are elevated. He takes no thyroid supplement. I am not aware that any of his medicines falsely elevated thyroid values. His TSH I think indicates that he is euthyroid. Yesterday also started the patient on physical therapy and Occupational Therapy. He is also receiving wound care. I have asked home health care social worker to see patient and discuss options with his . Patient is taking care of at home by his . Urine shows no evidence of infection. Magnesium is 2.5. Patient has a tendency towards hypoxemia especially during his endoscopic procedure. I think this is from under breathing and from retention of secretions. At a later date we may need to evaluate the patient with fiberoptic bronchoscopy. Today's chest x-ray shows a right lower lung infiltrate compatible with pneumonia and there is associated atelectasis 11/12/2016. The patient was seen today along with his and Nikkie Rodriguez RN. Small bowel follow-through yesterday showed delayed transit time which is noted may be related to ileus with increased fecal material consistent with significant constipation. There is no evidence of definite small bowel obstruction. There was limited evaluation of the distal small bowel since there was significant movement of the contrast from the jejunum into the colon between the 5 and [address] Darby has noted that the patient basically has hypomotility of the entire GI tract. That said, he now has residuals of almost 0 indicating adequate clearance from the stomach. This would certainly help with his reflux and hopefully overall pulmonary/GI issues. This will, however, need to be watched very, very carefully. Sputum culture has again grown pseudomonas aeruginosa. Urine culture has grown pseudomonas aeruginosa and is also growing 2 different gram-positive cocci's. He is presently on Fortaz and gentamicin. We are awaiting the final urine culture report. We will most likely plan for fiberoptic bronchoscopy on Tuesday. We have discussed this with the patient and his to their understanding and they are in complete agreement. Mrs. Magaña ask if we can have physical therapy see the patient on Tuesday. We have asked for this to be done, but she understands that this is out of her control. Physical therapy is certainly not available on Tuesday. Medications have been reviewed. We made no changes today. Labs been reviewed. White count is 17,800 with 88.8% segs; H&H 12.1/36.3; platelet count 249,000; creatinine 0.40, BUN 9, electrolytes are normal 11/15/2016. Over the past few days the patient has experienced increase hypoxemia and increased shortness of breath along with difficulty mobilizing sputum. This necessitated movement to ICU. Today the patient still has trouble with mobilization of his fluid and I think that this would come to fiberoptic bronchoscopy. I would like to see his temperature drop a little more as I would try to avoid inducing any sepsis. His chest x-ray shows the right upper lung and right lower lung infiltrate. He continues to grow Pseudomonas from his sputum. He also has grown Pseudomonas from his urine which has a different spectrum of sensitivity. Urinalysis also grown Enterococcus faecalis. Medicines have been adjusted and everything is covered. ABGs on FiO2 of 60% oxygen shows a pH of 7.23, PCO2 of 59.2, PO2 70.2 and a bicarb of 35.5. Sodium is 136. Potassium is dropped to 3.4. White count is 20 ,400 with 89 segs. H&H is 10.2/30.4. The patient's downhill slide seems to be related to pyelonephritis with possible sepsis as well as Pseudomonas pneumonia and retention of secretions. He is tentatively scheduled for fiberoptic bronchoscopy tomorrow. He presently is better and does not appear to be in any distress. He was seen with Neel Britton nurse practitioner. 11/16/2016. Patient had a fairly uneventful night. A lot of sputum has been suctioned through his trach. His is leftward she thinks trach may be out of position. I do not see that on his exam but he is for bronchoscopy a little later on this morning. That will be checked. The patient's urine is growing Pseudomonas and enterococcus. His sputum has grown Pseudomonas. There is another gram-negative ml growing and his sputum's are reported as showing gram- positive rods. Patient continues to have a temperature as high as 100. His feedings have gone well on one occasion it was 90 cc remaining but otherwise his stomach is emptied well. ABGs today on FiO2 of 60% shows a pH 7.418, PCO2 63.8, PO2 95.1 and a bicarb of 37.9. Glucoses are normal. Phosphorus is slightly low at 1.7. White count has dropped from 24,000 13,100 with 84 segs. H&H is stable at 10.3/31.8 and platelet counts 187,000. Chest x-ray shows a fairly dense extensive right upper lung right middle lung and right lower lung infiltrate. Fiberoptic bronchoscopy. 11/16/2016. See report. Significant retained secretions. Markedly collapsible large and small airways with edema and partial stenosis exacerbating the patient's ineffective cough. Specimens were sent for cytology bacterial, AFB and fungal studies. See orders. 11/17/2016. Today's x-ray shows a residual mainly alveolar infiltrate in the right upper lung and right middle lung. Most of each atelectatic changes seen in the right lower lung have resolved. There is faint infiltrate with some atelectasis at the left medial base. ABGs are abnormal but unchanged. Breath sounds are extremely stiff. Velcro rales like. I will start the patient on Solu-Medrol 30 IV push every 12 hours. Glucoses are slightly high and will increase with the Solu-Medrol so I am adding sliding scale insulin. At the suggestion dietary phosphorus was added yesterday and I think this is very appropriate. This patient still has a problem with retention of secretions. He has a trach and is been suction as well as possible. He coughs as strong as he can but his cough is ineffective. He will be evaluated with fiberoptic bronchoscopy tomorrow. 11/18/2016. The patient again underwent fiberoptic bronchoscopy today. This showed non-resolving pneumonia, retained secretions, ineffective cough, mild generalized bronchitis with endobronchial edema, and COPD with collapsible large and small airways. Please see the bronchoscopy report for more information. Patient's chest x-ray is little bit better. The right upper lung infiltrate is less dense. Bronchoscopy cultures from 11/16/2016 are growing a gram-negative ml. Final ID is pending. Previous sputum cultures grew Pseudomonas as noted in previous progress notes. Previous urine culture grew Pseudomonas and enterococcus faecalis. We will repeat a urinalysis today. Culture if indicated. ABGs this morning on an FiO2 of 40% showed a PCO2 of 69.7. We are going to start Diamox 250 mg IV every 12 hours. He will have repeat ABGs in the morning. Physical therapy and Occupational therapy are working with Mr. Díaz. Medications have been reviewed. Diamox was started today. Labs been reviewed. White count is 4600 with 87.4% segs; H&H 10.1/31.4; platelet count 217,000; INR 1.1; creatinine 0.40, BUN 11, sodium 140, potassium 2.8, magnesium 2.7, phosphorus 1.9 11/19/2016. The patient was seen today along with his nurse. Diamox was started yesterday. His PCO2 has fallen from 69.7-62.2. We will continue the Diamox. He has daily ABGs ordered. Bronchoscopy was done yesterday as well. This was the second time. He continues to have loose large airway congestion and has difficulty mobilizing his secretions. He has a tracheostomy. We have and plan for repeat bronchoscopy on Tuesday. His bronchoscopy cultures from 11/16 have grown Pseudomonas again. He is on appropriate antibiotics for this. Bronchoscopy cultures from 11/18/2016 are again growing a gram-negative ml. Urinalysis obtained yesterday shows no evidence of infection. We have asked the nursing staff to ask physical therapy to work this patient on Tuesday. He certainly does not need to lose any more of his strength. His chest x-ray is slowly improving day by day. Medications have been reviewed. We made no changes today. Labs been reviewed. White count is 7800 with 90.2% segs; H&H 10.5/33.2; platelet count 302,000; creatinine 0.60, BUN 16, sodium 141, potassium 3.1 ( this is being replaced), calcium 8.2, phosphorus 1.7 11/22/2016. His laboratory tests are stable. Patient had a fiberoptic bronchoscopy this morning. See report. He had copious bilateral secretions and this will probably have to be repeated on the day or 2. His chest x-ray has shown good improvement. His ABGs are gradually improving. He is significantly ill and hopefully he will be ready for movement of ICU in another few days. Potassium is 3.2 and the patient is on a replacement protocol. 11/23/2016. Bronchoscopy specimens continue to grow gram-negative rods. He found these have turned out to be Pseudomonas aeruginosa. Patient is colonized. We will continue his present medicines as these showed a best ANGELO' s. Today's chest x-ray following bronchoscopy is remarkably better. Patient is moving air better. I think he is stable enough to move him back to the pulmonary floor. ABGs on FiO2 of 40%. PH is 7.339, PCO2 is 55.8, PO2 is 71.8 bicarb is 27. Electrolytes normal. Creatinine is 0.40 with a BUN of 18. White count is 16,095 segs. H&H 11.5/36.0 platelets of 396,000 11/24/2016. The patient was seen today along with Giovanna Meléndez RN. He is now been moved to the pulmonary floor. Bronchoscopy lavage from 11/22/2016 has again grown Pseudomonas. We will can continue him on his present antibiotics. As noted before, the patient will need to continue long-term antibiotics until this organism has completely been eradicated. On chest exam today, he continues to have slight large airway congestion. Will consider possible bronchoscopy on Tuesday if needed. Chest x-ray and ABGs today were not done. These have been reordered for tomorrow. Medications have been reviewed. We made no changes today. Labs been reviewed. White count is 14,900 with 93.0% segs; H&H 11.6/35.0; platelet count 368,000; creatinine 0.50, BUN 21, sodium 144, potassium 3.3 ( this is being replaced); magnesium 2.6 11/25/16. The patient was seen today along with his and Niesha Monroy RN. CXR today continues to show improvement, but on chest exam he has loose LAW congestion. Also, his most recent FOB cultures have again grown Pseudomonas. All things considered, we will proceed with with bronchoscopy tomorrow as discussed with the patient and his . He will need complete treatment until resolution of the Pseudomonas as it continues to grow and is the reason for his readmission this time. Medications have been reviewed. We made no changes today. Labs have been reviewed. Creatinine 0.40, BUN 21, electrolytes are normal ABGs this morning on unknown FiO2 showed a pH of 7.410, PCO2 50.7, PO2 81.5, bicarb 31.4, and oxygen saturation 96.6% 11/26/2016. The patient was seen today along with his and Nikkie Rodriguez RN. Earlier today the patient underwent fiberoptic bronchoscopy. Patient tolerated procedure well. He had retained secretions and these were lavaged. There were sent for culture. Please see the bronchoscopy report for more information. We discussed the procedure with the patient's afterwards. He is scheduled for repeat fiberoptic bronchoscopy on Tuesday. He will have a repeat chest x-ray on Tuesday. We are going to continue him on his present treatment given his Pseudomonas colonization. Medications have been reviewed. We made no changes today. Labs been reviewed. White count is 8794.5% segs; H&H 11.6/34.7; platelet count 289,000; creatinine 0.40, BUN 23, electrolytes are normal; phosphorus is 2.3 and is being corrected as per dietary; INR 1.1 11/27/2016. Patient was seen along with his . He said after his bronchoscopy yesterday he felt bad all day. He felt sleepy. Hopefully this was a IM Benadryl. He feels a little better today. His chest sounds much better. He is growing gram-negative rods from his 11/26/2016 fiberoptic bronchoscopy. He has had Pseudomonas all along the way so this is probably same organism and this is not been eradicated yet. Vital signs are stable and his chest is fairly clear. There are no new problems. 11/28/2016. Patient's doing well today. His chest is slightly congested. Glucoses are 215. Labs been reviewed. Patient will have a chest x-ray tomorrow. Sputum's continue to grow gram-negative ml from his last bronchoscopy. These have not yet been reported. There are no new requests. Note that Mrs. Magaña was not present today. 11/29/2016. Earlier the patient had more shortness of breath than usual. This is cleared with ventilation therapy and suctioning. His follow-up chest x-ray shows a possible new infiltrate left upper lung. Patient has fluid in the major fissures bilaterally. He is for bronchoscopy in the a.m. Presently is lying flat in bed with no respiratory distress. Bronchoscopy specimen from 2016 grown Pseudomonas. Creatinine is 0.6 with a BUN of 24 and normal electrolytes. Patient's was not present. 11/30/2016. Yesterday patient had some increased shortness of breath dyspnea on exertion. This improved with intensive treatment. Today he had a fiberoptic bronchoscopy. Overall he was better but he still has significant retention of thick tenacious secretions which cannot be suctioned through his trach and that he cannot mobilize himself. His ability cough is compromised by the fact he has generalized debility and by the fact that he has Parkinson's disease. See bronchoscopy report. The patient's cultures have continued to be positive for Pseudomonas. He was recultured today. His sensitivities show he can only be treated with IV antibiotics. His recurrent respiratory distress has required hospitalization. He may be in the hospital for another week or 2 but if he improves I plan to consider long-term acute care versus going home. His is very attentive and is very well trained in his care. White blood cell count is 10,600 with 95% segs. H&H is stable 11.3/34.3. Platelets are 228,000. Glucoses have elevated. I will increase his sliding scale insulin today. Patient cannot eat or swallow. He gets continuous PEG feedings. 12/01/2016. The patient was seen today along with his physical security manager and Niesha Monroy RN. Yesterday patient underwent fiberoptic bronchoscopy. Gram stain from this is showing few gram-positive cocci in pairs and chains, moderate fungal elements, and many white blood cells. Cultures are pending. Yesterday we had a discussion with the patient's and the patient regarding LTAC placement. Given the necessity for continued high-dose IV antibiotics and repeat bronchoscopies, we felt it was in his best interest for [facility] placement. They agreed. However, they have had a in the family and his has asked that he not be moved until Tuesday of next week because Mrs. Díaz will be out of town. We will consult Dr. Sweet to see if he would be agreeable to accept this patient with the understanding that he cannot move until Tuesday. Chest x-ray today is stable to improved. Glucoses are under better control. Medications have been reviewed. We made no changes today. Labs been reviewed. No new labs were drawn today. Exam (Progress Note) - Constitutional Vitals: Period Temp Pulse Resp BP Sys/West Pulse Ox Last 24 Hr 97.0 F-98.4 F 80-103 18-38 115-129/70-79 91-96 Exam: Chest with loose large airway congestion but improved post bronchoscopy Heart no gallop Abdomen is nontender and nondistended; rare bowel sounds Extremities with nothing to suggest acute deep venous thrombophlebitis Psychiatric oriented 3 Neurologic stigmata of Parkinson's disease Plan: Continue present treatment. Repeat bronchoscopy on . Consult Dr. Sweet for possible [facility] acceptance on Tuesday. Follow-up bronchoscopy results from yesterday when available. See orders. Results - Labs CBC & BMP: 11/30/16 04:45 11/29/16 03:10
--- NOTE | 2016-12-01 12:15 | Event Note ---
Check patient on Dr. Horn's request. He has had a prolonged hospitalization with gram-negative pneumonias. Needs further management at [facility]. Plans will be for him to transfer on Tuesday. I will check back then and affect the transfer. Thank you
[2016-12-01] MEDS ORDERED: SKIN HEALING OINT (AQUAPHOR) 50 GM TUBE TOP PRN (14:07)
[2016-12-01] MEDS: ERYTHROMYCIN ETHYLSUCCINATE 40 MG/ML 100 ML/BOTTLE PO SCH ×2 (17:28→23:26)
[2016-12-02] MEDS: ENTACAPONE 200 MG TABLET PO SCH ×5 (05:48→21:24)
[2016-12-02] MEDS: INSULIN REGULAR 100 UNIT/ML SUBCUT SCH ×3 (05:48→17:34)
[2016-12-02] MEDS: CARBIDOPA/LEVODOPA 25-100 MG TABLET PO SCH ×5 (05:48→21:24)
[2016-12-02] MEDS: ERYTHROMYCIN ETHYLSUCCINATE 40 MG/ML 100 ML/BOTTLE PO SCH ×3 (05:48→17:34)
[2016-12-02] MEDS: ALBUTEROL/IPRATROPIUM 3 ML NEB RESP TX SCH ×4 (07:10→19:52)
[2016-12-02] MEDS: DORNASE ALFA 2.5 MG/2.5 ML VIAL RESP TX SCH ×2 (07:15→19:53)
[2016-12-02] MEDS ORDERED: LIDOCAINE 2% 20 ML VIAL RESP TX ONE (07:30)
[2016-12-02] MEDS ORDERED: LIDOCAINE 1% 20 ML VIAL MISC INJ ONE (07:30)
[2016-12-02 08:07] LABS: Hematocrit 36.4 VOL% (42.0-52.0); Hemoglobin 11.9 GM/DL (14.0-18.0); Immature Granulocytes % 0.5 %; Immature Granulocytes Absolute 0.03 #; Lymphocytes # 0.3 10*3/uL (1.4-4.0); Lymphocytes % 4.9 % (21.2-54.2); Mean Corpuscular HGB Conc 32.7 GM/DL (32-36); Mean Corpuscular Hemoglobin 32 PG (27-34); Mean Corpuscular Volume 98.9 FL (87-102); Mean Platelet Volume 10.8 FL (9.6-12.0); Monocytes # 0.3 10*3/uL (0.11-0.8); Monocytes % 4.7 % (1.7-12.7); Neutrophils # 5.2 10*3/uL (1.4-7.4); Neutrophils % 89.9 % (38.7-73.9); Platelet Count 201 T/CUMM (130-400); Red Blood Count 3.68 MC/CUMM (3.8-5.5); Red Cell Distribution Width 13.6 % (9.3-17.3); White Blood Count 5.8 T/CUMM (4-12)
[2016-12-02 08:24] LABS: PT Patient Result 10.9 SECS; Partial Thromboplastin Time 27.3 SECS (0-40)
[2016-12-02 08:40] LABS: Hypochromasia 1+; Lymphocytes 2 % (20-55); Macrocytosis Slight; Segmented Neutrophils 95 % (50-85); Total Cells Counted 100
[2016-12-02 08:41] LABS: Platelet Estimate Normal
[2016-12-02 08:45] LABS: Calcium 8.3 MG/DL (8.5-10.1); Magnesium 2.7 MG/DL (1.8-2.4); Phosphorous 2.7 MG/DL (2.5-4.9); Prealbumin 21.8 MG/DL (20-40)
[2016-12-02 09:01] LABS: Osmolality,Calculated 308.9 MOS/KG (273-304); Potassium 3.4 MMOL/L (3.5-5.1)
--- NOTE | 2016-12-02 09:27 | Event Note ---
In hospital diagnostic and therapeutic fiberoptic bronchoscopy. Bilateral bronchoalveolar lavages were sent for Gram stain, bacterial culture and fungal stains and cultures This is a 66-year-old white male with retained secretions in an ineffective cough. He is colonized with Pseudomonas. He has some Parkinson's disease and generalized debility which compromises his cough. He has underlying COPD which also impedes ability to suction his secretions. For these reasons he is evaluated with fiberoptic bronchoscopy. Patient's trach trach site looks fine is on the distal trachea and the francesco were normal. The right mainstem bronchus was full of thick tenacious secretions that extended into the right upper lung, the right middle lung and right lower lung. These areas were suctioned and lavaged to clear and they continued to fill over and over again with secretions that were contained distally. The large and small airways are markedly collapsible compatible with COPD The left mainstem bronchus was full of thick tenacious secretions that extended into all segments of the left upper lung and all segments of the left lower lung. These areas were lavaged and suctioned until clear. The secretions returned over and over again from beyond the view of the scope. The underlying airways showed marked collapsibility compatible with COPD. The patient tolerated procedure well there were no complications. Findings will be discussed with his Impression. 1. Trach 2. Severe COPD 3. Chronic infection with Pseudomonas 5. Ineffective cough secondary to debility, COPD and Parkinson's disease 6. Retained secretions Plan. 1. Check bronchoscopy specimens 2. We will need follow-up bronchoscopy to help mobilization of secretions 3. Follow-up chest
[2016-12-02] MEDS: MIDODRINE 5 MG TABLET PEG SCH ×3 (11:19→21:24)
[2016-12-02] MEDS: SCOPOLAMINE 1.5 MG PATCH TRANSDERM SCH (11:20)
[2016-12-02] MEDS: AMANTADINE 100 MG CAPSULE PEG SCH ×3 (11:20→21:24)
[2016-12-02] MEDS: FLUDROCORTISONE 0.1 MG TABLET PEG SCH ×3 (11:20→21:24)
[2016-12-02] MEDS: LANSOPRAZOLE ODT 30 MG TABLET PEG SCH ×2 (11:20→21:23)
[2016-12-02] MEDS: ASPIRIN EC 81 MG TABLET PO SCH (11:20)
[2016-12-02] MEDS: methylPREDNISolone SOD SUC 40 MG/1 ML VIAL IV SCH (11:21)
[2016-12-02] MEDS: POTASSIUM CHLORIDE 20 MEQ/15 ML UDCUP PEG SCH ×4 (11:21→21:23)
[2016-12-02] MEDS: INSULIN NPH/REGULAR 70/30 100 UNIT/ML SUBCUT SCH ×2 (11:22→17:33)
[2016-12-02] MEDS: DESITIN 4OZ/NYSTATIN 15 GRAM MIXTURE PASTE TOP SCH ×2 (11:22→21:24)
[2016-12-02] MEDS: POTASSIUM PHOS/SOD PHOS POWDER 250 MG PACK PER TUBE SCH ×2 (11:22→21:24)
--- NOTE | 2016-12-02 11:26 | Pulmonology Progress Note ---
Pulmonary - PN: Subj Interval history: Neel Britton, [facility]-, acting as scribe for Dr. Narciso Arnett This is a 66-year-old white male [facility]. At the time of admission, his main problems were: #1: Pneumonia secondary to Pseudomonas refractory to outpatient treatment. #2: GERD, recent increased reflux and aspiration #3: Underlying Parkinson's disease #4: Increased shortness of breath secondary to #1. #5: Weight loss #6: See past history. 11/11/2016. Today the patient was seen in the GI lab along with Dr. Darby. Patient had some retained intestinal material in the stomach. Dr. Darby has had it erythromycin is going watch for any evidence of small bowel obstruction. Patient's sputum's are growing gram-negative rods and a few gram-positive cocci. Suspect gram-negative rods are Pseudomonas just as we have grown as an outpatient. White count is dropped from 13,900-9800 with 72% segs. H&H is 11.3 /34.4. Potassium remains low at 3.3 and will be replaced. Creatinine is 0.4 with a BUN of 14. Patient's TSH is normal but he has to free T4 values are elevated. He takes no thyroid supplement. I am not aware that any of his medicines falsely elevated thyroid values. His TSH I think indicates that he is euthyroid. Yesterday also started the patient on physical therapy and Occupational Therapy. He is also receiving wound care. I have asked psych social worker to see patient and discuss options with his . Patient is taking care of at home by his . Urine shows no evidence of infection. Magnesium is 2.5. Patient has a tendency towards hypoxemia especially during his endoscopic procedure. I think this is from under breathing and from retention of secretions. At a later date we may need to evaluate the patient with fiberoptic bronchoscopy. Today's chest x-ray shows a right lower lung infiltrate compatible with pneumonia and there is associated atelectasis 11/12/2016. The patient was seen today along with his and Nikkie Rodriguez RN. Small bowel follow-through yesterday showed delayed transit time which is noted may be related to ileus with increased fecal material consistent with significant constipation. There is no evidence of definite small bowel obstruction. There was limited evaluation of the distal small bowel since there was significant movement of the contrast from the jejunum into the colon between the 5 and [address] Darby has noted that the patient basically has hypomotility of the entire GI tract. That said, he now has residuals of almost 0 indicating adequate clearance from the stomach. This would certainly help with his reflux and hopefully overall pulmonary/GI issues. This will, however, need to be watched very, very carefully. Sputum culture has again grown pseudomonas aeruginosa. Urine culture has grown pseudomonas aeruginosa and is also growing 2 different gram-positive cocci's. He is presently on Fortaz and gentamicin. We are awaiting the final urine culture report. We will most likely plan for fiberoptic bronchoscopy on Tuesday. We have discussed this with the patient and his to their understanding and they are in complete agreement. Mrs. Magaña ask if we can have physical therapy see the patient on Tuesday. We have asked for this to be done, but she understands that this is out of her control. Physical therapy is certainly not available on Tuesday. Medications have been reviewed. We made no changes today. Labs been reviewed. White count is 17,800 with 88.8% segs; H&H 12.1/36.3; platelet count 249,000; creatinine 0.40, BUN 9, electrolytes are normal 11/15/2016. Over the past few days the patient has experienced increase hypoxemia and increased shortness of breath along with difficulty mobilizing sputum. This necessitated movement to ICU. Today the patient still has trouble with mobilization of his fluid and I think that this would come to fiberoptic bronchoscopy. I would like to see his temperature drop a little more as I would try to avoid inducing any sepsis. His chest x-ray shows the right upper lung and right lower lung infiltrate. He continues to grow Pseudomonas from his sputum. He also has grown Pseudomonas from his urine which has a different spectrum of sensitivity. Urinalysis also grown Enterococcus faecalis. Medicines have been adjusted and everything is covered. ABGs on FiO2 of 60% oxygen shows a pH of 7.23, PCO2 of 59.2, PO2 70.2 and a bicarb of 35.5. Sodium is 136. Potassium is dropped to 3.4. White count is 20 ,400 with 89 segs. H&H is 10.2/30.4. The patient's downhill slide seems to be related to pyelonephritis with possible sepsis as well as Pseudomonas pneumonia and retention of secretions. He is tentatively scheduled for fiberoptic bronchoscopy tomorrow. He presently is better and does not appear to be in any distress. He was seen with Neel Britton nurse practitioner. 11/16/2016. Patient had a fairly uneventful night. A lot of sputum has been suctioned through his trach. His is leftward she thinks trach may be out of position. I do not see that on his exam but he is for bronchoscopy a little later on this morning. That will be checked. The patient's urine is growing Pseudomonas and enterococcus. His sputum has grown Pseudomonas. There is another gram-negative ml growing and his sputum's are reported as showing gram- positive rods. Patient continues to have a temperature as high as 100. His feedings have gone well on one occasion it was 90 cc remaining but otherwise his stomach is emptied well. ABGs today on FiO2 of 60% shows a pH 7.418, PCO2 63.8, PO2 95.1 and a bicarb of 37.9. Glucoses are normal. Phosphorus is slightly low at 1.7. White count has dropped from 24,000 13,100 with 84 segs. H&H is stable at 10.3/31.8 and platelet counts 187,000. Chest x-ray shows a fairly dense extensive right upper lung right middle lung and right lower lung infiltrate. Fiberoptic bronchoscopy. 11/16/2016. See report. Significant retained secretions. Markedly collapsible large and small airways with edema and partial stenosis exacerbating the patient's ineffective cough. Specimens were sent for cytology bacterial, AFB and fungal studies. See orders. 11/17/2016. Today's x-ray shows a residual mainly alveolar infiltrate in the right upper lung and right middle lung. Most of each atelectatic changes seen in the right lower lung have resolved. There is faint infiltrate with some atelectasis at the left medial base. ABGs are abnormal but unchanged. Breath sounds are extremely stiff. Velcro rales like. I will start the patient on Solu-Medrol 30 IV push every 12 hours. Glucoses are slightly high and will increase with the Solu-Medrol so I am adding sliding scale insulin. At the suggestion dietary phosphorus was added yesterday and I think this is very appropriate. This patient still has a problem with retention of secretions. He has a trach and is been suction as well as possible. He coughs as strong as he can but his cough is ineffective. He will be evaluated with fiberoptic bronchoscopy tomorrow. 11/18/2016. The patient again underwent fiberoptic bronchoscopy today. This showed non-resolving pneumonia, retained secretions, ineffective cough, mild generalized bronchitis with endobronchial edema, and COPD with collapsible large and small airways. Please see the bronchoscopy report for more information. Patient's chest x-ray is little bit better. The right upper lung infiltrate is less dense. Bronchoscopy cultures from 11/16/2016 are growing a gram-negative ml. Final ID is pending. Previous sputum cultures grew Pseudomonas as noted in previous progress notes. Previous urine culture grew Pseudomonas and enterococcus faecalis. We will repeat a urinalysis today. Culture if indicated. ABGs this morning on an FiO2 of 40% showed a PCO2 of 69.7. We are going to start Diamox 250 mg IV every 12 hours. He will have repeat ABGs in the morning. Physical therapy and Occupational therapy are working with Mr. Díaz. Medications have been reviewed. Diamox was started today. Labs been reviewed. White count is 4600 with 87.4% segs; H&H 10.1/31.4; platelet count 217,000; INR 1.1; creatinine 0.40, BUN 11, sodium 140, potassium 2.8, magnesium 2.7, phosphorus 1.9 11/19/2016. The patient was seen today along with his nurse. Diamox was started yesterday. His PCO2 has fallen from 69.7-62.2. We will continue the Diamox. He has daily ABGs ordered. Bronchoscopy was done yesterday as well. This was the second time. He continues to have loose large airway congestion and has difficulty mobilizing his secretions. He has a tracheostomy. We have and plan for repeat bronchoscopy on Tuesday. His bronchoscopy cultures from 11/16 have grown Pseudomonas again. He is on appropriate antibiotics for this. Bronchoscopy cultures from 11/18/2016 are again growing a gram-negative ml. Urinalysis obtained yesterday shows no evidence of infection. We have asked the nursing staff to ask physical therapy to work this patient on Tuesday. He certainly does not need to lose any more of his strength. His chest x-ray is slowly improving day by day. Medications have been reviewed. We made no changes today. Labs been reviewed. White count is 7800 with 90.2% segs; H&H 10.5/33.2; platelet count 302,000; creatinine 0.60, BUN 16, sodium 141, potassium 3.1 ( this is being replaced), calcium 8.2, phosphorus 1.7 11/22/2016. His laboratory tests are stable. Patient had a fiberoptic bronchoscopy this morning. See report. He had copious bilateral secretions and this will probably have to be repeated on the day or 2. His chest x-ray has shown good improvement. His ABGs are gradually improving. He is significantly ill and hopefully he will be ready for movement of ICU in another few days. Potassium is 3.2 and the patient is on a replacement protocol. 11/23/2016. Bronchoscopy specimens continue to grow gram-negative rods. He found these have turned out to be Pseudomonas aeruginosa. Patient is colonized. We will continue his present medicines as these showed a best ANGELO' s. Today's chest x-ray following bronchoscopy is remarkably better. Patient is moving air better. I think he is stable enough to move him back to the pulmonary floor. ABGs on FiO2 of 40%. PH is 7.339, PCO2 is 55.8, PO2 is 71.8 bicarb is 27. Electrolytes normal. Creatinine is 0.40 with a BUN of 18. White count is 16,095 segs. H&H 11.5/36.0 platelets of 396,000 11/24/2016. The patient was seen today along with Giovanna Meléndez RN. He is now been moved to the pulmonary floor. Bronchoscopy lavage from 11/22/2016 has again grown Pseudomonas. We will can continue him on his present antibiotics. As noted before, the patient will need to continue long-term antibiotics until this organism has completely been eradicated. On chest exam today, he continues to have slight large airway congestion. Will consider possible bronchoscopy on Tuesday if needed. Chest x-ray and ABGs today were not done. These have been reordered for tomorrow. Medications have been reviewed. We made no changes today. Labs been reviewed. White count is 14,900 with 93.0% segs; H&H 11.6/35.0; platelet count 368,000; creatinine 0.50, BUN 21, sodium 144, potassium 3.3 ( this is being replaced); magnesium 2.6 11/25/16. The patient was seen today along with his and Niesha Monroy RN. CXR today continues to show improvement, but on chest exam he has loose LAW congestion. Also, his most recent FOB cultures have again grown Pseudomonas. All things considered, we will proceed with with bronchoscopy tomorrow as discussed with the patient and his . He will need complete treatment until resolution of the Pseudomonas as it continues to grow and is the reason for his readmission this time. Medications have been reviewed. We made no changes today. Labs have been reviewed. Creatinine 0.40, BUN 21, electrolytes are normal ABGs this morning on unknown FiO2 showed a pH of 7.410, PCO2 50.7, PO2 81.5, bicarb 31.4, and oxygen saturation 96.6% 11/26/2016. The patient was seen today along with his and Nikkie Rodriguez RN. Earlier today the patient underwent fiberoptic bronchoscopy. Patient tolerated procedure well. He had retained secretions and these were lavaged. There were sent for culture. Please see the bronchoscopy report for more information. We discussed the procedure with the patient's afterwards. He is scheduled for repeat fiberoptic bronchoscopy on Tuesday. He will have a repeat chest x-ray on Tuesday. We are going to continue him on his present treatment given his Pseudomonas colonization. Medications have been reviewed. We made no changes today. Labs been reviewed. White count is 8794.5% segs; H&H 11.6/34.7; platelet count 289,000; creatinine 0.40, BUN 23, electrolytes are normal; phosphorus is 2.3 and is being corrected as per dietary; INR 1.1 11/27/2016. Patient was seen along with his . He said after his bronchoscopy yesterday he felt bad all day. He felt sleepy. Hopefully this was a IM Benadryl. He feels a little better today. His chest sounds much better. He is growing gram-negative rods from his 11/26/2016 fiberoptic bronchoscopy. He has had Pseudomonas all along the way so this is probably same organism and this is not been eradicated yet. Vital signs are stable and his chest is fairly clear. There are no new problems. 11/28/2016. Patient's doing well today. His chest is slightly congested. Glucoses are 215. Labs been reviewed. Patient will have a chest x-ray tomorrow. Sputum's continue to grow gram-negative ml from his last bronchoscopy. These have not yet been reported. There are no new requests. Note that Mrs. Magaña was not present today. 11/29/2016. Earlier the patient had more shortness of breath than usual. This is cleared with ventilation therapy and suctioning. His follow-up chest x-ray shows a possible new infiltrate left upper lung. Patient has fluid in the major fissures bilaterally. He is for bronchoscopy in the a.m. Presently is lying flat in bed with no respiratory distress. Bronchoscopy specimen from 2016 grown Pseudomonas. Creatinine is 0.6 with a BUN of 24 and normal electrolytes. Patient's was not present. 11/30/2016. Yesterday patient had some increased shortness of breath dyspnea on exertion. This improved with intensive treatment. Today he had a fiberoptic bronchoscopy. Overall he was better but he still has significant retention of thick tenacious secretions which cannot be suctioned through his trach and that he cannot mobilize himself. His ability cough is compromised by the fact he has generalized debility and by the fact that he has Parkinson's disease. See bronchoscopy report. The patient's cultures have continued to be positive for Pseudomonas. He was recultured today. His sensitivities show he can only be treated with IV antibiotics. His recurrent respiratory distress has required hospitalization. He may be in the hospital for another week or 2 but if he improves I plan to consider long-term acute care versus going home. His is very attentive and is very well trained in his care. White blood cell count is 10,600 with 95% segs. H&H is stable 11.3/34.3. Platelets are 228,000. Glucoses have elevated. I will increase his sliding scale insulin today. Patient cannot eat or swallow. He gets continuous PEG feedings. 12/01/2016. The patient was seen today along with his physical geographer and Niesha Monroy RN. Yesterday patient underwent fiberoptic bronchoscopy. Gram stain from this is showing few gram-positive cocci in pairs and chains, moderate fungal elements, and many white blood cells. Cultures are pending. Yesterday we had a discussion with the patient's and the patient regarding LTAC placement. Given the necessity for continued high-dose IV antibiotics and repeat bronchoscopies, we felt it was in his best interest for [facility] placement. They agreed. However, they have had a in the family and his has asked that he not be moved until Tuesday of next week because Mrs. Díaz will be out of town. We will consult Dr. Sweet to see if he would be agreeable to accept this patient with the understanding that he cannot move until Tuesday. Chest x-ray today is stable to improved. Glucoses are under better control. Medications have been reviewed. We made no changes today. Labs been reviewed. No new labs were drawn today. 12/02/2016. Patient was seen today along with his and Giovanna Meléndez RN. Earlier today the patient underwent fiberoptic bronchoscopy. This showed severe COPD, chronic infection with Pseudomonas, retained secretions, and ineffective cough secondary to debility, COPD, and Parkinson's disease. Patient tolerated the procedure well. The results of the bronchoscopy were discussed with patient's . Please see the bronchoscopy event note for more information. Of course, results are pending. We will follow-up these when they are available. Bronchoscopy done on 11/30/2016 has a gram-positive cocci and 2 different gram-negative rods growing on culture. He has well-documented chronic infection with Pseudomonas. We have had him on gentamicin for this throughout his hospitalization. Apparently, this "fell off" his MAY. We have restarted the gentamicin and again consulted pharmacology to dose and manage. An order has been written for the gentamicin not be discontinued unless we have written an order to do so. He is also on Fortaz which we are also continuing. This of course can be adjusted pending any new information becomes available. She is scheduled for repeat bronchoscopy tomorrow. This patient will need long- term acute care at [facility]. He was seen in consultation by Dr. Sweet yesterday he was agreed to accept him at [facility] on Tuesday. Medications have been reviewed. Restart gentamicin. Labs been reviewed. White count is 5800 with 89.9% segs; H&H 11.9/36.4; platelet count 201,000; INR 1.0; creatinine 0.4, BUN 30, sodium 151, potassium 3.4, magnesium 2.7, phosphorus 2.7 Exam (Progress Note) - Constitutional Vitals: Period Temp Pulse Resp BP Sys/West Pulse Ox Last 24 Hr 97.3 F-97.9 F 81-91 14-29 101-133/70-78 93-100 Exam: Chest with mild loose large airway congestion but improved post bronchoscopy Heart no gallop Abdomen is nontender and nondistended; rare bowel sounds Extremities with nothing to suggest acute deep venous thrombophlebitis Psychiatric oriented 3 Neurologic stigmata of Parkinson's disease Plan: Continue present treatment. Repeat bronchoscopy on Tuesday. Follow-up bronchoscopy results when available. Repeat chest x-ray in the morning. Restart gentamicin. Plan to move to [facility] on Tuesday. See orders. Results - Labs CBC & BMP: 12/02/16 07:40 12/02/16 07:40
[2016-12-02] MEDS: GENTAMICIN INJ 400 MG in SODIUM CHLORIDE 0.9% 100 ML IV SCH (13:47)
[2016-12-03] MEDS: methylPREDNISolone SOD SUC 40 MG/1 ML VIAL IV SCH ×3 (00:01→22:36)
[2016-12-03] MEDS: ERYTHROMYCIN ETHYLSUCCINATE 40 MG/ML 100 ML/BOTTLE PO SCH ×4 (00:07→17:02)
[2016-12-03] MEDS: INSULIN REGULAR 100 UNIT/ML SUBCUT SCH ×4 (00:07→17:18)
[2016-12-03] MEDS: ENTACAPONE 200 MG TABLET PO SCH ×5 (05:08→22:19)
[2016-12-03] MEDS: CARBIDOPA/LEVODOPA 25-100 MG TABLET PO SCH ×6 (05:09→22:33)
[2016-12-03 06:44] LABS: Hematocrit 36.8 VOL% (42.0-52.0); Hemoglobin 11.7 GM/DL (14.0-18.0); Immature Granulocytes % 0.6 %; Immature Granulocytes Absolute 0.04 #; Lymphocytes # 0.2 10*3/uL (1.4-4.0); Lymphocytes % 2.9 % (21.2-54.2); Mean Corpuscular HGB Conc 31.8 GM/DL (32-36); Mean Corpuscular Hemoglobin 32 PG (27-34); Mean Corpuscular Volume 99.5 FL (87-102); Mean Platelet Volume 11.2 FL (9.6-12.0); Monocytes # 0.2 10*3/uL (0.11-0.8); Monocytes % 2.6 % (1.7-12.7); Neutrophils # 6.1 10*3/uL (1.4-7.4); Neutrophils % 93.9 % (38.7-73.9); Platelet Count 201 T/CUMM (130-400); Red Cell Distribution Width 13.4 % (9.3-17.3); White Blood Count 6.5 T/CUMM (4-12)
[2016-12-03 07:16] LABS: INR 1.1; PT Patient Result 11.2 SECS; Partial Thromboplastin Time 27.8 SECS (0-40)
[2016-12-03 07:17] LABS: Giant Platelets Few; Hypochromasia 1+; Lymphocytes 4 % (20-55); Macrocytosis Slight; Platelet Estimate Adequate; Segmented Neutrophils 94 % (50-85); Total Cells Counted 100
[2016-12-03] MEDS: DORNASE ALFA 2.5 MG/2.5 ML VIAL RESP TX SCH ×2 (07:44→19:21)
[2016-12-03] MEDS: ALBUTEROL/IPRATROPIUM 3 ML NEB RESP TX SCH ×4 (07:44→19:21)
[2016-12-03] MEDS: INSULIN NPH/REGULAR 70/30 100 UNIT/ML SUBCUT SCH ×2 (07:55→17:03)
[2016-12-03] MEDS: DESITIN 4OZ/NYSTATIN 15 GRAM MIXTURE PASTE TOP SCH ×2 (07:59→22:19)
[2016-12-03] MEDS: POTASSIUM PHOS/SOD PHOS POWDER 250 MG PACK PER TUBE SCH ×2 (08:01→22:20)
[2016-12-03] MEDS: LANSOPRAZOLE ODT 30 MG TABLET PEG SCH ×2 (08:01→22:18)
[2016-12-03] MEDS: POTASSIUM CHLORIDE 20 MEQ/15 ML UDCUP PEG SCH ×4 (08:01→22:21)
[2016-12-03] MEDS: MIDODRINE 5 MG TABLET PEG SCH ×4 (08:01→22:19)
[2016-12-03] MEDS: FLUDROCORTISONE 0.1 MG TABLET PEG SCH ×4 (08:01→21:18)
[2016-12-03] MEDS: ASPIRIN EC 81 MG TABLET PO SCH (08:01)
[2016-12-03] MEDS: AMANTADINE 100 MG CAPSULE PEG SCH ×4 (08:01→21:18)
[2016-12-03] MEDS ORDERED: LIDOCAINE 1% 20 ML VIAL MISC INJ ONE (08:30)
[2016-12-03] MEDS ORDERED: LIDOCAINE 2% 20 ML VIAL RESP TX ONE (08:30)
--- NOTE | 2016-12-03 08:43 | XRay Report ---
Portable chest Exam date: 12/03/2016 4:00 AM Indication: Shortness of breath, cough postop Comparison: December 01, 2016 at 0557 hours Findings: Cardiomediastinal contours are stable with no change in tracheostomy placement. Low lung volumes with bibasilar atelectasis and small effusions, unchanged in the interim. No acute osseous abnormalities. Visualized upper abdomen demonstrates no acute pathology. Impression: No change in the bibasilar atelectasis or small volume effusions PROCEDURE INTERPRETED AT [facility] DEPARTMENT OF RADIOLOGY Final Report Signed by: Can Amaya
--- NOTE | 2016-12-03 10:20 | Event Note ---
In hospital diagnostic and therapeutic fiberoptic bronchoscopy. Specimens ( bilateral bronchoalveolar lavage) were sent for Gram stain, bacterial culture and sensitivity, fungal stains and cultures. This is a 66-year-old white male who has a trach he has generalized debility. He also has Parkinson's disease all of which cause him to have an ineffective cough he has underlying COPD which trapped secretions in his lungs because of the collapsibility of airways. He has had a chronic infection with Pseudomonas which is being treated. He is to be recultured today for this. Most recent bronchoscopy specimens are now growing a heavy growth of gram-positive cocci. These specimens will be recultured. Trach and trach site looks good. Trachea is slightly collapsible. The francesco is sharp Left mainstem bronchus was full of thick tenacious secretions. These were not as thick as before and they had a bubbly quality and I have mainly appeared to be white and none discolored. These extended into the left upper lung and the left lower lung. These lobes were lavaged until clear. The left lower lung bronchi are extremely collapsible. The left mainstem bronchus was also full of thick tenacious somewhat bubbly secretions. These extended into the right upper lung, the right middle lung and right lower lung. These lobes were lavaged until clear. The airways are collapsible compatible with COPD. The collapsibility is especially severe in the right lower lung. Patient tolerated procedure well there were no complications. Impression. 1. Chronic lung infection with Pseudomonas 2. Acute new infection with gram-positive cocci 3. Severe COPD with markedly collapsible large and small airways 4. Trach 5. Ineffective cough secondary to COPD, generalized debility and Parkinson's disease. Plan. 1. Continue Fortaz and gentamicin for Pseudomonas. 2. Add clindamycin for gram-positive cocci until we have ID 3. Check bronchoscopy results 4. Follow-up chest
[2016-12-03] MEDS ORDERED: CLINDAMYCIN INJ 300 MG in PREMIX 1 EACH IV SCH (10:30)
--- NOTE | 2016-12-03 12:13 | Pulmonology Progress Note ---
Pulmonary - PN: Subj Interval history: Neel Britton, [facility]-, acting as scribe for Dr. Narciso Arnett This is a 66-year-old white male [facility]. At the time of admission, his main problems were: #1: Pneumonia secondary to Pseudomonas refractory to outpatient treatment. #2: GERD, recent increased reflux and aspiration #3: Underlying Parkinson's disease #4: Increased shortness of breath secondary to #1. #5: Weight loss #6: See past history. 11/11/2016. Today the patient was seen in the GI lab along with Dr. Darby. Patient had some retained intestinal material in the stomach. Dr. Darby has had it erythromycin is going watch for any evidence of small bowel obstruction. Patient's sputum's are growing gram-negative rods and a few gram-positive cocci. Suspect gram-negative rods are Pseudomonas just as we have grown as an outpatient. White count is dropped from 13,900-9800 with 72% segs. H&H is 11.3 /34.4. Potassium remains low at 3.3 and will be replaced. Creatinine is 0.4 with a BUN of 14. Patient's TSH is normal but he has to free T4 values are elevated. He takes no thyroid supplement. I am not aware that any of his medicines falsely elevated thyroid values. His TSH I think indicates that he is euthyroid. Yesterday also started the patient on physical therapy and Occupational Therapy. He is also receiving wound care. I have asked social worker to see patient and discuss options with his . Patient is taking care of at home by his . Urine shows no evidence of infection. Magnesium is 2.5. Patient has a tendency towards hypoxemia especially during his endoscopic procedure. I think this is from under breathing and from retention of secretions. At a later date we may need to evaluate the patient with fiberoptic bronchoscopy. Today's chest x-ray shows a right lower lung infiltrate compatible with pneumonia and there is associated atelectasis 11/12/2016. The patient was seen today along with his and Nikkie Rodriguez RN. Small bowel follow-through yesterday showed delayed transit time which is noted may be related to ileus with increased fecal material consistent with significant constipation. There is no evidence of definite small bowel obstruction. There was limited evaluation of the distal small bowel since there was significant movement of the contrast from the jejunum into the colon between the 5 and [address] Darby has noted that the patient basically has hypomotility of the entire GI tract. That said, he now has residuals of almost 0 indicating adequate clearance from the stomach. This would certainly help with his reflux and hopefully overall pulmonary/GI issues. This will, however, need to be watched very, very carefully. Sputum culture has again grown pseudomonas aeruginosa. Urine culture has grown pseudomonas aeruginosa and is also growing 2 different gram-positive cocci's. He is presently on Fortaz and gentamicin. We are awaiting the final urine culture report. We will most likely plan for fiberoptic bronchoscopy on Tuesday. We have discussed this with the patient and his to their understanding and they are in complete agreement. Mrs. Magaña ask if we can have physical therapy see the patient on Tuesday. We have asked for this to be done, but she understands that this is out of her control. Physical therapy is certainly not available on Tuesday. Medications have been reviewed. We made no changes today. Labs been reviewed. White count is 17,800 with 88.8% segs; H&H 12.1/36.3; platelet count 249,000; creatinine 0.40, BUN 9, electrolytes are normal 11/15/2016. Over the past few days the patient has experienced increase hypoxemia and increased shortness of breath along with difficulty mobilizing sputum. This necessitated movement to ICU. Today the patient still has trouble with mobilization of his fluid and I think that this would come to fiberoptic bronchoscopy. I would like to see his temperature drop a little more as I would try to avoid inducing any sepsis. His chest x-ray shows the right upper lung and right lower lung infiltrate. He continues to grow Pseudomonas from his sputum. He also has grown Pseudomonas from his urine which has a different spectrum of sensitivity. Urinalysis also grown Enterococcus faecalis. Medicines have been adjusted and everything is covered. ABGs on FiO2 of 60% oxygen shows a pH of 7.23, PCO2 of 59.2, PO2 70.2 and a bicarb of 35.5. Sodium is 136. Potassium is dropped to 3.4. White count is 20 ,400 with 89 segs. H&H is 10.2/30.4. The patient's downhill slide seems to be related to pyelonephritis with possible sepsis as well as Pseudomonas pneumonia and retention of secretions. He is tentatively scheduled for fiberoptic bronchoscopy tomorrow. He presently is better and does not appear to be in any distress. He was seen with Neel Britton nurse practitioner. 11/16/2016. Patient had a fairly uneventful night. A lot of sputum has been suctioned through his trach. His is leftward she thinks trach may be out of position. I do not see that on his exam but he is for bronchoscopy a little later on this morning. That will be checked. The patient's urine is growing Pseudomonas and enterococcus. His sputum has grown Pseudomonas. There is another gram-negative ml growing and his sputum's are reported as showing gram- positive rods. Patient continues to have a temperature as high as 100. His feedings have gone well on one occasion it was 90 cc remaining but otherwise his stomach is emptied well. ABGs today on FiO2 of 60% shows a pH 7.418, PCO2 63.8, PO2 95.1 and a bicarb of 37.9. Glucoses are normal. Phosphorus is slightly low at 1.7. White count has dropped from 24,000 13,100 with 84 segs. H&H is stable at 10.3/31.8 and platelet counts 187,000. Chest x-ray shows a fairly dense extensive right upper lung right middle lung and right lower lung infiltrate. Fiberoptic bronchoscopy. 11/16/2016. See report. Significant retained secretions. Markedly collapsible large and small airways with edema and partial stenosis exacerbating the patient's ineffective cough. Specimens were sent for cytology bacterial, AFB and fungal studies. See orders. 11/17/2016. Today's x-ray shows a residual mainly alveolar infiltrate in the right upper lung and right middle lung. Most of each atelectatic changes seen in the right lower lung have resolved. There is faint infiltrate with some atelectasis at the left medial base. ABGs are abnormal but unchanged. Breath sounds are extremely stiff. Velcro rales like. I will start the patient on Solu-Medrol 30 IV push every 12 hours. Glucoses are slightly high and will increase with the Solu-Medrol so I am adding sliding scale insulin. At the suggestion dietary phosphorus was added yesterday and I think this is very appropriate. This patient still has a problem with retention of secretions. He has a trach and is been suction as well as possible. He coughs as strong as he can but his cough is ineffective. He will be evaluated with fiberoptic bronchoscopy tomorrow. 11/18/2016. The patient again underwent fiberoptic bronchoscopy today. This showed non-resolving pneumonia, retained secretions, ineffective cough, mild generalized bronchitis with endobronchial edema, and COPD with collapsible large and small airways. Please see the bronchoscopy report for more information. Patient's chest x-ray is little bit better. The right upper lung infiltrate is less dense. Bronchoscopy cultures from 11/16/2016 are growing a gram-negative ml. Final ID is pending. Previous sputum cultures grew Pseudomonas as noted in previous progress notes. Previous urine culture grew Pseudomonas and enterococcus faecalis. We will repeat a urinalysis today. Culture if indicated. ABGs this morning on an FiO2 of 40% showed a PCO2 of 69.7. We are going to start Diamox 250 mg IV every 12 hours. He will have repeat ABGs in the morning. Physical therapy and Occupational therapy are working with Mr. Díaz. Medications have been reviewed. Diamox was started today. Labs been reviewed. White count is 4600 with 87.4% segs; H&H 10.1/31.4; platelet count 217,000; INR 1.1; creatinine 0.40, BUN 11, sodium 140, potassium 2.8, magnesium 2.7, phosphorus 1.9 11/19/2016. The patient was seen today along with his nurse. Diamox was started yesterday. His PCO2 has fallen from 69.7-62.2. We will continue the Diamox. He has daily ABGs ordered. Bronchoscopy was done yesterday as well. This was the second time. He continues to have loose large airway congestion and has difficulty mobilizing his secretions. He has a tracheostomy. We have and plan for repeat bronchoscopy on Tuesday. His bronchoscopy cultures from 11/16 have grown Pseudomonas again. He is on appropriate antibiotics for this. Bronchoscopy cultures from 11/18/2016 are again growing a gram-negative ml. Urinalysis obtained yesterday shows no evidence of infection. We have asked the nursing staff to ask physical therapy to work this patient on Tuesday. He certainly does not need to lose any more of his strength. His chest x-ray is slowly improving day by day. Medications have been reviewed. We made no changes today. Labs been reviewed. White count is 7800 with 90.2% segs; H&H 10.5/33.2; platelet count 302,000; creatinine 0.60, BUN 16, sodium 141, potassium 3.1 ( this is being replaced), calcium 8.2, phosphorus 1.7 11/22/2016. His laboratory tests are stable. Patient had a fiberoptic bronchoscopy this morning. See report. He had copious bilateral secretions and this will probably have to be repeated on the day or 2. His chest x-ray has shown good improvement. His ABGs are gradually improving. He is significantly ill and hopefully he will be ready for movement of ICU in another few days. Potassium is 3.2 and the patient is on a replacement protocol. 11/23/2016. Bronchoscopy specimens continue to grow gram-negative rods. He found these have turned out to be Pseudomonas aeruginosa. Patient is colonized. We will continue his present medicines as these showed a best ANGELO' s. Today's chest x-ray following bronchoscopy is remarkably better. Patient is moving air better. I think he is stable enough to move him back to the pulmonary floor. ABGs on FiO2 of 40%. PH is 7.339, PCO2 is 55.8, PO2 is 71.8 bicarb is 27. Electrolytes normal. Creatinine is 0.40 with a BUN of 18. White count is 16,095 segs. H&H 11.5/36.0 platelets of 396,000 11/24/2016. The patient was seen today along with Giovanna Meléndez RN. He is now been moved to the pulmonary floor. Bronchoscopy lavage from 11/22/2016 has again grown Pseudomonas. We will can continue him on his present antibiotics. As noted before, the patient will need to continue long-term antibiotics until this organism has completely been eradicated. On chest exam today, he continues to have slight large airway congestion. Will consider possible bronchoscopy on Tuesday if needed. Chest x-ray and ABGs today were not done. These have been reordered for tomorrow. Medications have been reviewed. We made no changes today. Labs been reviewed. White count is 14,900 with 93.0% segs; H&H 11.6/35.0; platelet count 368,000; creatinine 0.50, BUN 21, sodium 144, potassium 3.3 ( this is being replaced); magnesium 2.6 11/25/16. The patient was seen today along with his and Niesha Monroy RN. CXR today continues to show improvement, but on chest exam he has loose LAW congestion. Also, his most recent FOB cultures have again grown Pseudomonas. All things considered, we will proceed with with bronchoscopy tomorrow as discussed with the patient and his . He will need complete treatment until resolution of the Pseudomonas as it continues to grow and is the reason for his readmission this time. Medications have been reviewed. We made no changes today. Labs have been reviewed. Creatinine 0.40, BUN 21, electrolytes are normal ABGs this morning on unknown FiO2 showed a pH of 7.410, PCO2 50.7, PO2 81.5, bicarb 31.4, and oxygen saturation 96.6% 11/26/2016. The patient was seen today along with his and Nikkie Rodriguez RN. Earlier today the patient underwent fiberoptic bronchoscopy. Patient tolerated procedure well. He had retained secretions and these were lavaged. There were sent for culture. Please see the bronchoscopy report for more information. We discussed the procedure with the patient's afterwards. He is scheduled for repeat fiberoptic bronchoscopy on Tuesday. He will have a repeat chest x-ray on Tuesday. We are going to continue him on his present treatment given his Pseudomonas colonization. Medications have been reviewed. We made no changes today. Labs been reviewed. White count is 8794.5% segs; H&H 11.6/34.7; platelet count 289,000; creatinine 0.40, BUN 23, electrolytes are normal; phosphorus is 2.3 and is being corrected as per dietary; INR 1.1 11/27/2016. Patient was seen along with his . He said after his bronchoscopy yesterday he felt bad all day. He felt sleepy. Hopefully this was a IM Benadryl. He feels a little better today. His chest sounds much better. He is growing gram-negative rods from his 11/26/2016 fiberoptic bronchoscopy. He has had Pseudomonas all along the way so this is probably same organism and this is not been eradicated yet. Vital signs are stable and his chest is fairly clear. There are no new problems. 11/28/2016. Patient's doing well today. His chest is slightly congested. Glucoses are 215. Labs been reviewed. Patient will have a chest x-ray tomorrow. Sputum's continue to grow gram-negative ml from his last bronchoscopy. These have not yet been reported. There are no new requests. Note that Mrs. Magaña was not present today. 11/29/2016. Earlier the patient had more shortness of breath than usual. This is cleared with ventilation therapy and suctioning. His follow-up chest x-ray shows a possible new infiltrate left upper lung. Patient has fluid in the major fissures bilaterally. He is for bronchoscopy in the a.m. Presently is lying flat in bed with no respiratory distress. Bronchoscopy specimen from 2016 grown Pseudomonas. Creatinine is 0.6 with a BUN of 24 and normal electrolytes. Patient's was not present. 11/30/2016. Yesterday patient had some increased shortness of breath dyspnea on exertion. This improved with intensive treatment. Today he had a fiberoptic bronchoscopy. Overall he was better but he still has significant retention of thick tenacious secretions which cannot be suctioned through his trach and that he cannot mobilize himself. His ability cough is compromised by the fact he has generalized debility and by the fact that he has Parkinson's disease. See bronchoscopy report. The patient's cultures have continued to be positive for Pseudomonas. He was recultured today. His sensitivities show he can only be treated with IV antibiotics. His recurrent respiratory distress has required hospitalization. He may be in the hospital for another week or 2 but if he improves I plan to consider long-term acute care versus going home. His is very attentive and is very well trained in his care. White blood cell count is 10,600 with 95% segs. H&H is stable 11.3/34.3. Platelets are 228,000. Glucoses have elevated. I will increase his sliding scale insulin today. Patient cannot eat or swallow. He gets continuous PEG feedings. 12/01/2016. The patient was seen today along with his certified physical therapist assistant and Niesha Monroy RN. Yesterday patient underwent fiberoptic bronchoscopy. Gram stain from this is showing few gram-positive cocci in pairs and chains, moderate fungal elements, and many white blood cells. Cultures are pending. Yesterday we had a discussion with the patient's and the patient regarding LTAC placement. Given the necessity for continued high-dose IV antibiotics and repeat bronchoscopies, we felt it was in his best interest for [facility] placement. They agreed. However, they have had a in the family and his has asked that he not be moved until Tuesday of next week because Mrs. Díaz will be out of town. We will consult Dr. Sweet to see if he would be agreeable to accept this patient with the understanding that he cannot move until Tuesday. Chest x-ray today is stable to improved. Glucoses are under better control. Medications have been reviewed. We made no changes today. Labs been reviewed. No new labs were drawn today. 12/02/2016. Patient was seen today along with his and Giovanna Melédnez RN. Earlier today the patient underwent fiberoptic bronchoscopy. This showed severe COPD, chronic infection with Pseudomonas, retained secretions, and ineffective cough secondary to debility, COPD, and Parkinson's disease. Patient tolerated the procedure well. The results of the bronchoscopy were discussed with patient's . Please see the bronchoscopy event note for more information. Of course, results are pending. We will follow-up these when they are available. Bronchoscopy done on 11/30/2016 has a gram-positive cocci and 2 different gram-negative rods growing on culture. He has well-documented chronic infection with Pseudomonas. We have had him on gentamicin for this throughout his hospitalization. Apparently, this "fell off" his MAY. We have restarted the gentamicin and again consulted pharmacology to dose and manage. An order has been written for the gentamicin not be discontinued unless we have written an order to do so. He is also on Fortaz which we are also continuing. This of course can be adjusted pending any new information becomes available. She is scheduled for repeat bronchoscopy tomorrow. This patient will need long- term acute care at [facility]. He was seen in consultation by Dr. Sweet yesterday he was agreed to accept him at [facility] on Tuesday. Medications have been reviewed. Restart gentamicin. Labs been reviewed. White count is 5800 with 89.9% segs; H&H 11.9/36.4; platelet count 201,000; INR 1.0; creatinine 0.4, BUN 30, sodium 151, potassium 3.4, magnesium 2.7, phosphorus 2.7 12/03/2016. Patient was seen today along with his daughter and Giovanna Meléndez RN. Earlier today, again, the patient underwent fiberoptic bronchoscopy. This showed ineffective cough secondary to COPD, generalized debility, and Parkinson' s disease. Patient also has chronic lung infection secondary to pseudomonas aeruginosa, pseudomonas aeruginosa #2, as well as new infection with a gram- positive cocci. The gram-positive cocci has been identified as Enterococcus faecalis. On review of the MICs provided, we will add penicillin to 2 million units IV every 6 hours. He is also currently receiving gentamicin and Fortaz. He will need long-term IV antibiotic therapy as well as repeated bronchoscopies. He also has severe COPD with markedly collapsible large and small airways. He has a trach. He has a PEG and has continuous feedings. He has been accepted at [facility] and will move there on Tuesday under the care of Dr. Sweet. Medications have been reviewed. Penicillin has been added today. Labs been reviewed. White count is 6.5 with 93.9% segs; H&H 11.7/36.8; platelet count 201,000; INR 1.1; BNP 25 Exam (Progress Note) - Constitutional Vitals: Period Temp Pulse Resp BP Sys/West Pulse Ox Last 24 Hr 97.2 F-97.5 F 56-93 12-38 96-145/64-79 94-98 Exam: Chest with mild loose large airway congestion but improved post bronchoscopy Heart no gallop Abdomen is nontender and nondistended; rare bowel sounds Extremities with nothing to suggest acute deep venous thrombophlebitis Psychiatric oriented 3 Neurologic stigmata of Parkinson's disease Plan: Continue present treatment. Add penicillin 2 million units IV every 6 hours. Follow-up bronchoscopy results when available. Repeat chest x-ray in the morning. Plan to move to [facility] on Tuesday. We will be out of town until . Tomorrow, Dr. Patel will assume the patient's care, but on 2016 he will be moved to [facility] where he will be under the care of Dr. Sweet until discharge. Results - Labs CBC & BMP: 12/03/16 05:12 12/02/16 07:40
[2016-12-03] MEDS: GENTAMICIN INJ 400 MG in SODIUM CHLORIDE 0.9% 100 ML IV SCH (12:44)
[2016-12-03] MEDS: PENICILLIN G POTASSIUM INJ 2,000,000 UNIT in SODIUM CHLORIDE 0.9% 100 ML IV SCH ×2 (14:16→20:34)
[2016-12-04] MEDS: INSULIN REGULAR 100 UNIT/ML SUBCUT SCH ×4 (00:40→17:02)
[2016-12-04] MEDS: ERYTHROMYCIN ETHYLSUCCINATE 40 MG/ML 100 ML/BOTTLE PO SCH ×4 (00:41→17:02)
[2016-12-04] MEDS: PENICILLIN G POTASSIUM INJ 2,000,000 UNIT in SODIUM CHLORIDE 0.9% 100 ML IV SCH ×4 (02:15→21:20)
[2016-12-04] MEDS: CARBIDOPA/LEVODOPA 25-100 MG TABLET PO SCH ×6 (07:02→21:27)
[2016-12-04] MEDS: ENTACAPONE 200 MG TABLET PO SCH ×5 (07:04→21:27)
[2016-12-04] MEDS: ALBUTEROL/IPRATROPIUM 3 ML NEB RESP TX SCH ×5 (07:48→19:25)
[2016-12-04] MEDS: DORNASE ALFA 2.5 MG/2.5 ML VIAL RESP TX SCH (07:48)
[2016-12-04] MEDS: INSULIN NPH/REGULAR 70/30 100 UNIT/ML SUBCUT SCH ×2 (08:30→16:33)
[2016-12-04] MEDS: MIDODRINE 5 MG TABLET PEG SCH ×3 (08:31→21:18)
[2016-12-04] MEDS: POTASSIUM CHLORIDE 20 MEQ/15 ML UDCUP PEG SCH ×4 (08:31→21:20)
[2016-12-04] MEDS: AMANTADINE 100 MG CAPSULE PEG SCH ×3 (08:32→21:18)
[2016-12-04] MEDS: LANSOPRAZOLE ODT 30 MG TABLET PEG SCH ×2 (08:32→21:18)
[2016-12-04] MEDS: FLUDROCORTISONE 0.1 MG TABLET PEG SCH ×3 (08:32→21:18)
[2016-12-04] MEDS: ASPIRIN EC 81 MG TABLET PO SCH (08:32)
[2016-12-04] MEDS: DESITIN 4OZ/NYSTATIN 15 GRAM MIXTURE PASTE TOP SCH ×2 (08:33→21:20)
[2016-12-04] MEDS: POTASSIUM PHOS/SOD PHOS POWDER 250 MG PACK PER TUBE SCH ×2 (08:33→21:18)
--- NOTE | 2016-12-04 11:27 | Pulmonology Progress Note ---
Pulmonary - PN: Subj Interval history: Patient is a 66-year-old white man that has basically end-stage Parkinson's disease. He has a chronic tracheostomy tube with a PEG tube. He has had chronic respiratory problems in the past. He has been treated for pneumonia and is getting better. He continues to get IV antibiotics. He is getting tube feedings. He continues with respiratory therapy. He says he is reasonably comfortable and has a speaking valve in place. He is not having any distress at present. Exam (Progress Note) - Constitutional Vitals: Period Temp Pulse Resp BP Sys/West Pulse Ox Last 24 Hr 97.6 F-98.3 F 69-96 18-20 116-132/70-82 90-99 General appearance: under weight, other (The patient certainly looks chronically ill but is comfortable lying in bed.) - Head Head exam: Present: normal inspection, normocephalic - Eye Eye exam: Present: EOMI. Absent: scleral icterus Pupils: Present: MARCELINO - ENT ENT exam: Present: normal exam, other (He does have temporal muscle wasting) - Neck Neck exam: Present: other (He has a tracheostomy tube in place.). Absent: thyromegaly - Respiratory Respiratory exam: Present: decreased breath sounds, rhonchi. Absent: wheezes - Cardiovascular Cardiovascular exam: Present: regular rate and rhythm. Absent: gallop, systolic murmur - GI/Abdominal GI/Abdominal exam: Present: normal bowel sounds, soft, other (He has a PEG tube in place and is getting feedings). Absent: organomegaly, tenderness - Extremities Exam Extremities exam: Present: other (He does have wasted extremities with rigidity) . Absent: calf tenderness, edema - Neurological Exam Neurological exam: Present: alert, oriented X3, other (He is basically bedridden with end-stage Parkinson's disease) - Psychiatric Psychiatric exam: Present: depressed - Skin Skin exam: Present: warm, dry Results - Labs CBC & BMP: 12/03/16 05:12 12/02/16 07:40 - Diagnostic Findings Procedure: Chest x-ray: image reviewed by me, report reviewed by me (Chest x- ray shows minimal bibasilar atelectasis) Assessment and Plan (1) Parkinsons Status: Acute Assessment and plan: Patient has severe Parkinson's disease and is basically bedridden. Current Visit: No (2) Aspiration pneumonia Status: Acute Assessment and plan: Patient apparently chronically aspirate some. He does have a chronic tracheostomy tube. He is breathing comfortably at present. Current Visit: No (3) Dysphagia causing pulmonary aspiration with swallowing Status: Acute Assessment and plan: The patient has chronic tube feedings. Current Visit: Yes (4) Moderate malnutrition Status: Acute Assessment and plan: Patient is very thin and somewhat malnourished and will continue with supportive care and tube feedings. He will probably go to [facility] week. Current Visit: Yes
[2016-12-04] MEDS: methylPREDNISolone SOD SUC 40 MG/1 ML VIAL IV SCH ×2 (14:30→23:17)
[2016-12-04] MEDS: GENTAMICIN INJ 400 MG in SODIUM CHLORIDE 0.9% 100 ML IV SCH (14:41)
[2016-12-05] MEDS: INSULIN REGULAR 100 UNIT/ML SUBCUT SCH ×5 (00:18→19:09)
[2016-12-05] MEDS: ERYTHROMYCIN ETHYLSUCCINATE 40 MG/ML 100 ML/BOTTLE PO SCH ×4 (00:19→17:06)
[2016-12-05] MEDS: PENICILLIN G POTASSIUM INJ 2,000,000 UNIT in SODIUM CHLORIDE 0.9% 100 ML IV SCH ×4 (02:33→21:42)
[2016-12-05] MEDS: ENTACAPONE 200 MG TABLET PO SCH ×5 (06:49→21:38)
[2016-12-05] MEDS: CARBIDOPA/LEVODOPA 25-100 MG TABLET PO SCH ×5 (06:49→21:38)
[2016-12-05] MEDS: ALBUTEROL/IPRATROPIUM 3 ML NEB RESP TX SCH ×4 (07:40→19:28)
[2016-12-05] MEDS: DORNASE ALFA 2.5 MG/2.5 ML VIAL RESP TX SCH ×2 (07:40→19:28)
[2016-12-05] MEDS: POTASSIUM CHLORIDE 20 MEQ/15 ML UDCUP PEG SCH ×4 (09:07→21:37)
[2016-12-05] MEDS: FLUDROCORTISONE 0.1 MG TABLET PEG SCH ×3 (09:08→21:38)
[2016-12-05] MEDS: LANSOPRAZOLE ODT 30 MG TABLET PEG SCH ×2 (09:08→21:38)
[2016-12-05] MEDS: MIDODRINE 5 MG TABLET PEG SCH ×3 (09:08→21:38)
[2016-12-05] MEDS: INSULIN NPH/REGULAR 70/30 100 UNIT/ML SUBCUT SCH ×2 (09:08→16:35)
[2016-12-05] MEDS: AMANTADINE 100 MG CAPSULE PEG SCH ×3 (09:09→21:36)
[2016-12-05] MEDS: ASPIRIN EC 81 MG TABLET PO SCH (09:09)
[2016-12-05] MEDS: POTASSIUM PHOS/SOD PHOS POWDER 250 MG PACK PER TUBE SCH ×2 (09:09→21:39)
[2016-12-05] MEDS: DESITIN 4OZ/NYSTATIN 15 GRAM MIXTURE PASTE TOP SCH ×2 (09:09→21:39)
[2016-12-05] MEDS: SCOPOLAMINE 1.5 MG PATCH TRANSDERM SCH (09:09)
--- NOTE | 2016-12-05 10:51 | Pulmonology Progress Note ---
Pulmonary - PN: Subj Interval history: Patient is a 66-year-old white man that has basically end-stage Parkinson's disease. He has a chronic tracheostomy tube with a PEG tube. He has had chronic respiratory problems in the past. He has been treated for pneumonia and is getting better. He continues to get IV antibiotics. He is getting tube feedings. He continues with respiratory therapy. He is sitting up today and looks reasonably comfortable. His sodium is a little elevated and he may be on the dry side. His water intake has been increased and will stop his diuretics. He is breathing comfortably at present Exam (Progress Note) - Constitutional Vitals: Period Temp Pulse Resp BP Sys/West Pulse Ox Last 24 Hr 96.9 F-98.7 F 87-94 16-22 101-116/66-73 92-941 Exam: General appearance: under weight, other (The patient certainly looks chronically ill but he is sitting up and looks reasonably comfortable today.) - Head Head exam: Present: normal inspection, normocephalic - Eye Eye exam: Present: EOMI. Absent: scleral icterus Pupils: Present: MARCELINO - ENT ENT exam: Present: normal exam, other (He does have temporal muscle wasting) - Neck Neck exam: Present: other (He has a tracheostomy tube in place.). Absent: thyromegaly - Respiratory Respiratory exam: Present: He has decreased breath sounds but no wheezing or rhonchi at present. - Cardiovascular Cardiovascular exam: Present: regular rate and rhythm. Absent: gallop, systolic murmur - GI/Abdominal GI/Abdominal exam: Present: normal bowel sounds, soft, other (He has a PEG tube in place and is getting feedings). Absent: organomegaly, tenderness - Extremities Exam Extremities exam: Present: other (He does have wasted extremities with rigidity) . Absent: calf tenderness, edema - Neurological Exam Neurological exam: Present: alert, oriented X3, other (He is sitting up but cannot do much activity.) - Psychiatric Psychiatric exam: Present: depressed - Skin Skin exam: Present: warm, dry Results - Labs CBC & BMP: 12/03/16 05:12 12/02/16 07:40 Assessment and Plan (1) Parkinsons Status: Acute Assessment and plan: Patient has severe Parkinson's disease and cannot do much activity. Apparently he has been standing with physical therapy. He certainly looks chronically ill. Current Visit: No (2) Aspiration pneumonia Status: Acute Assessment and plan: Patient apparently chronically aspirate some. He does have a chronic tracheostomy tube. He is breathing comfortably at present. His respiratory status appears stable. Current Visit: No (3) Dysphagia causing pulmonary aspiration with swallowing Status: Acute Assessment and plan: The patient has chronic tube feedings. His water intake has been increased. His lab will be checked tomorrow. Current Visit: Yes (4) Moderate malnutrition Status: Acute Assessment and plan: Patient is very thin and somewhat malnourished and will continue with supportive care and tube feedings. He will probably go to [facility] next week. Current Visit: Yes
[2016-12-05] MEDS: methylPREDNISolone SOD SUC 40 MG/1 ML VIAL IV SCH ×2 (11:40→23:42)
[2016-12-05] MEDS: GENTAMICIN INJ 400 MG in SODIUM CHLORIDE 0.9% 100 ML IV SCH (12:39)
[2016-12-05] MEDS: NYSTATIN 500,000 UNIT/5 ML UDCUP PO SCH (21:37)
[2016-12-06] MEDS: INSULIN REGULAR 100 UNIT/ML SUBCUT SCH ×3 (00:44→12:27)
[2016-12-06] MEDS: ERYTHROMYCIN ETHYLSUCCINATE 40 MG/ML 100 ML/BOTTLE PO SCH ×3 (00:48→12:27)
[2016-12-06] MEDS: PENICILLIN G POTASSIUM INJ 2,000,000 UNIT in SODIUM CHLORIDE 0.9% 100 ML IV SCH ×2 (01:43→09:24)
[2016-12-06] MEDS: DORNASE ALFA 2.5 MG/2.5 ML VIAL RESP TX SCH ×2 (04:17→08:03)
[2016-12-06] MEDS: ENTACAPONE 200 MG TABLET PO SCH ×2 (06:58→09:23)
[2016-12-06] MEDS: CARBIDOPA/LEVODOPA 25-100 MG TABLET PO SCH ×2 (06:58→09:23)
[2016-12-06 07:10] LABS: Calcium 7.8 MG/DL (8.5-10.1); Magnesium 2.5 MG/DL (1.8-2.4); Osmolality,Calculated 300.3 MOS/KG (273-304); Phosphorous 1.8 MG/DL (2.5-4.9); Prealbumin 17.8 MG/DL (20-40)
[2016-12-06] MEDS: ALBUTEROL/IPRATROPIUM 3 ML NEB RESP TX SCH ×2 (08:03→11:43)
[2016-12-06] MEDS: MIDODRINE 5 MG TABLET PEG SCH (09:23)
[2016-12-06] MEDS: ASPIRIN EC 81 MG TABLET PO SCH (09:23)
[2016-12-06] MEDS: NYSTATIN 500,000 UNIT/5 ML UDCUP PO SCH (09:23)
[2016-12-06] MEDS: AMANTADINE 100 MG CAPSULE PEG SCH (09:23)
[2016-12-06] MEDS: LANSOPRAZOLE ODT 30 MG TABLET PEG SCH (09:23)
[2016-12-06] MEDS: DESITIN 4OZ/NYSTATIN 15 GRAM MIXTURE PASTE TOP SCH (09:24)
[2016-12-06] MEDS: POTASSIUM CHLORIDE 20 MEQ/15 ML UDCUP PEG SCH (09:24)
[2016-12-06] MEDS: FLUDROCORTISONE 0.1 MG TABLET PEG SCH (09:24)
[2016-12-06] MEDS: INSULIN NPH/REGULAR 70/30 100 UNIT/ML SUBCUT SCH (09:25)
--- NOTE | 2016-12-06 10:03 | Pulmonology Progress Note ---
Pulmonary - PN: Subj Interval history: This 66-year-old white male has advanced Parkinson's disease. He has a tracheostomy. He is being fed through PEG tube. He has had multiple bronchoscopies with findings of Pseudomonas. He is on Zosyn. His respiratory rates in the upper 20s but is otherwise comfortable and able to converse with the nurses using a speaking valve. 11/21/2016 patient appears about the same. He talks a little bit. He is very weak. His potassium has been low and he is getting replacement. I will increase the potassium to 4 times a day rather than twice a day. He is on Diamox 250 mg twice a day. This may be causing the potassium loss. I will decrease that to 125 mg twice a day. He does have a metabolic alkalosis that we are treating. His renal function is okay. His blood sugars are not well controlled. 12/06/2016 patient seems stable. He is on IV Fortaz and penicillin for Pseudomonas and enterococcus. Plans are for him to go to [facility] today. I will manage him down there. Exam (Progress Note) - Constitutional Vitals: Period Temp Pulse Resp BP Sys/West Pulse Ox Last 24 Hr 97.0 F-97.9 F 78-93 18-22 100-116/65-71 93-100 Exam: Patient is responsive. Vital signs normal. Pupils react to light. Throat is clear. Tracheostomy is in place and looks clean. Neck is supple. Chest reveals a few rhonchi equal breath sounds. Heart normal rate rhythm no murmurs. Abdomen soft no masses PEG tube in place. Extremities no clubbing cyanosis or edema. Calves nontender. Results - Labs CBC & BMP: 12/03/16 05:12 12/06/16 05:51 Lab Results: I have reviewed the past 24 hour labs - Diagnostic Findings Procedure: Chest x-ray: image reviewed by me (Minimal effusions and basilar infiltrates. Little change from before.) Assessment and Plan (1) Parkinsons Status: Acute Assessment and plan: Patient has advanced Parkinson's disease and is on medications. He has problems with recurrent aspiration due to that. He has a tracheostomy and a PEG tube in place. 11/21/2016 appears to have end-stage Parkinson's disease. 12/06/2016 end-stage Parkinson's disease requiring tracheostomy and PEG feedings. Recurrent episodes of reflux with microaspiration. Continuing Parkinson's medications Current Visit: No (2) Aspiration pneumonia Status: Acute Assessment and plan: He has grown Pseudomonas from his bronchial washings. He is on appropriate antibiotics with Zosyn. 11/21/2016 continuing with antibiotics. All of the cultures have grown Pseudomonas. I will add a second antipseudomonal drug. 12/06/2016 this has improved. Needs further IV antibiotics. Current Visit: No Specialty Discharge - Follow Up or Referrals
[2016-12-06] MEDS: methylPREDNISolone SOD SUC 40 MG/1 ML VIAL IV SCH (11:30)
[2016-12-06 12:54] VITALS: BP 116/70
[2016-12-06] MEDS ORDERED: POTASSIUM PHOS/SOD PHOS POWDER 250 MG PACK PER TUBE SCH (15:00)
--- NOTE | 2016-12-31 14:49 | Physician Query Form ---
CLICK EDIT DOCUMENT TO SELECT QUERY ANSWER --> OK --> SIGN Carmel Ayala RN Clinical Log [employer] W) [phone] (f) [phone] [email or web address] PROVIDERS: Make your selection(s) from the choices in EACH section by typing an "x" and enter comments in the comment section. Please use your independent medical judgment in providing your response. This request does not imply that any particular answer is desired or expected. CLINICAL INDICATORS: (Providers should not edit this section) Based on documentation of "Acute aspiration pneumonia" and "Pneumonia secondary to Pseudomonas refractory to outpatient treatment" Treated with multiple fiberoptic bronchoscopes and bilateral bronchoalveolar lavages. IV Gentamicin and IV Fortaz. Based on the above, could you clarify the appropriate diagnosis, if significant , that supports the above abnormalities and additional evaluation, monitoring, and/or treatment rendered: ( X) Patient Treated for Aspiration Pneumonia AND Pneumonia Secondary to Pseudomonas ( ) Patient Treated for Aspiration Pneumonia ( ) Patient Treated for Pneumonia Secondary to Pseudomonas ( ) Patient Treated for other (please specify) ( ) Other, please specify: ( ) Clinically unable to determine COMMENTS: PLEASE ALSO DOCUMENT RESPONSE IN PROGRESS NOTES AND/OR DISCHARGE SUMMARY Use of terms such as suspected, likely, or probable (associated with a specific diagnosis that is being evaluated, monitored, or treated as if it exists) are acceptable and can be restated in the discharge summary if not ruled out. MTDD
--- NOTE | 2017-01-04 09:31 | Discharge Summary ---
Hospital Course - Hospital Course Hospital Course: This is a 66-year-old white male who was admitted to the hospital with Pseudomonas pneumonia refractory to outpatient treatment. He has a PEG tube. Gastroesophageal reflux with microaspiration as a problem. This is all complicated by the fact that he has underlying Parkinson's disease and is nearly helpless. He was having increased shortness of breath and weight loss. The patient was admitted to the hospital 11/10/2016 and he was discharged from the hospital12/06/2016 Early on the patient was seen in GI consultation by Dr. Saman Holliday. He noted retained material in the stomach and began the patient on erythromycin and suggested that we watch for small bowel obstruction. Small bowel follow- through showed delayed transit time. It was postulated that this might be related to an ileus with increased fecal material consistent with significant constipation. There was no evidence of definite small bowel obstruction. Dr. Holliday noted the patient has hypomotility of the entire GI tract. The patient's sputum grew Pseudomonas and he was treated aggressively with this. Over time he experienced increase hypoxemia and increased shortness of breath and he had increased difficulty mobilizing sputum. This necessitated a movement to ICU. He was treated aggressively with steroids antibiotics and required repeated therapeutic and diagnostic fiberoptic bronchoscopies. His chest x-ray showed a right upper lung and right lower infiltrate compatible with pneumonia which was most likely Pseudomonas since this is what we grew from his bronchoscopy specimens. He also had Pseudomonas in his urine. Interestingly the Pseudomonas had a different spectrum of antibiotic sensitivity as compared to the one growing from his lung. He also had a urinary tract infection with Enterococcus faecalis. On bronchoscopic examination she had significant retained secretions and markedly collapsible large and small airways with in the broad edema producing partial obstruction. Patient also had hypercarbia and his PCO2's were typically 62-70. He was started on Diamox which he tolerated well. Bilateral bronchoalveolar lavages were sent for cytologies which were negative. Also these specimens were sent for fungus and AFB and the studies were also negative. The patient improved and was able to move them from ICU to the pulmonary floor. Then on 11/29/2016 worsened and he was moved back to ICU. His problem was retention of thick tenacious secretions which could not be suctioned through his trach and that he cannot mobilize his self and this is all complicated by the fact that he has severe underlying obstructive disease with marked collapsibility of the large and small airways that prevented upward movement of his sputum with cough. Along the way social service coordinator worked with his . She would like to keep him at home but we all agreed it would be in the patient's best interest to spend time with long-term acute care. This was arranged at [facility] under the care of Dr. jeevan Sweet. This patient has been twice in the past under my care after developing adult respiratory distress syndrome. On 12/03/2016 the patient's sputum cultures were still positive for Pseudomonas and he also had a gram-positive cocci that was identified as Enterococcus faecalis. Penicillin was added to his regimen. Occasionally the patient grew Kelsey albicans from his sputum. Along the way the patient's PEG tube worked well and he had better emptying of his stomach. The time of discharge white count was 6594% segs. H&H is 11.7/36.8. Platelets are 201,000. INR was 1.1. Creatinine was 0.40 with a BUN of 25 and normal electrolytes. Magnesium was 2.5. Both calcium and phosphorus were low at 7.81.8 respectively. Glucoses were under less than optimal control and the patient required sliding scale insulin. Impression. 1. Chronic infection with Pseudomonas. Right upper lung and right lower lung Pseudomonas pneumonia. Complicated by Enterococcus faecalis pulmonary infection which may also have been a pneumonia. 2. Severe obstructive lung disease with marked collapsibility of the large and small airways resulting in a ineffective cough. 3. Trach 4. PEG tube 5. Gastroesophageal reflux disease exacerbated by delayed gastric emptying. Seen by Dr. Saman Holliday. 6. Severe Parkinson's disease 7. Weight loss. Multifactorial including chronic illness. 8. Anemia Plan. 1. Transfer to long-term acute care at [facility] under the care of Dr. jeevan Sweet. 2. The patient will eventually return to my practice. 3. Continue present medicines once transferred to [facility]. Specialty Discharge - Follow Up or Referrals Discharge Plan - Discharge Data Disposition: Disch/Xfer to [facility]iatrist [facility] - Discharge Medications No Action Aspirin EC Tab 81 mg PO DAILY tablet Fludrocortisone [Florinef] 0.1 mg PEG TID Amantadine HCl [Amantadine] 100 mg PEG TID Acetaminophen Tab [Tylenol Tab] 325 mg PO Q4H PRN PRN Reason: Pain Pantoprazole Tab [Protonix Tab] 40 mg PEG BID Scopolamine 1.5 mg Patch [Transderm Scop 1.5 mg/72 hr Patch] 1 patch TRANSDERM Q3DAY Potassium Chloride Liquid 20 meq PEG BID Midodrine [Proamatine] 10 mg PEG TID Carbidopa/Levodopa/Entacapone [Stalevo 200 Tablet] 1 each PO 5X DAILY - Follow Up or Referral - Forms/Instructions Instructions: Tracheostomy Care (DC), How to Use and Care for Your PEG Tube (DC ) Discharge Results Procedures and tests throughout hospitalization: Pending Orders 11/26/16 Fungal Culture w/ Prep Stat 11/30/16 08:47 Fungal Culture w/ Prep Stat 12/02/16 Fungal Culture w/ Prep Stat 12/03/16 Fungal Culture w/ Prep Stat Labs on day of discharge: Preliminary micro results at discharge 12/03/16 Unknown Fungal Culture - Preliminary Bronchial Gurdeep Lavage Kelsey albicans 12/02/16 Unknown Fungal Culture - Preliminary Bronchial Gurdeep Lavage Kelsey albicans 11/30/16 08:47 Fungal Culture - Preliminary Bronchial Gurdeep Lavage No Fungus isolated at 4 weeks 11/26/16 Unknown Fungal Culture - Preliminary Bronchial Gurdeep Lavage No Fungus isolated at 5 weeks DS: Provider Date of admission: 11/10/16 08:37 Primary care physician: Diogo Jhonson MD Attending physician on admission: Narciso Arnett MD Consults: 11/10/16 08:39 Consult to Dietitian [CONS] Routine Reason for Dietitian: TF-Initiate/Manage 11/10/16 09:24 Consult to Occupational Therapy [CONS] Routine Reason for Occupational Therapy: Evaluate and Treat Consult to Physical Therapy [CONS] Routine Reason for Physical Therapy: Evaluate and Treat 11/10/16 10:17 Consult to Dietitian [CONS] Routine Reason for Dietitian: TF-Initiate/Manage Consult Comment: also wt loss 11/10/16 13:30 Consult to Anesthesiology [CONS] Routine Consulting Provider: Reason for Anesthesiology: Pre-op Clearance 11/15/16 10:39 Consult to Pharmacy [CONS] Routine Reason for Pharmacy Consult: Dose/Manage Gentamicin Comment: pseudomonas in sputum and urine; look at initial culture 11/30/16 12:22 Consult to Case Mgmt/Social Srvs [CONS] Routine Reason for Case Mgmt/Social Srvs: Discharge Planning LTAC Consult Comment: Ask Dr. Sweet or Dr. Patel if they will accept to [facility] 12/01/16 10:51 Consult to Physician [CONS] Routine Comment: Poss. acceptance to [facility] on Tuesday Consulting Provider: Toby Sweet Person Notified: Lazara Date Notified: 12/01/16 Time Notified: 11:01 12/02/16 11:12 Consult to Pharmacy [CONS] Routine Reason for Pharmacy Consult: Dose/Manage Gentamicin Comment: Restart; appartenly it fell off; resume and continue unless we D/C Discharging clinician: Narciso Arnett MD
== END 2016-12-06 12:30 | DRG 166 ==
LOC: N.5E 08:23 → N.ICU 11-13 20:34 → N.5E 11-23 15:38
PROVIDERS: ADMIT Internal Medicine Pulmonary Disease; ATTEND Internal Medicine Pulmonary Disease

== ENCOUNTER 2017-08-03 15:04 | Inpatient (IN) ==
[2017-08-03] MEDS ORDERED: ALBUTEROL/IPRATROPIUM 3 ML NEB RESP TX PRN (15:09)
[2017-08-03] MEDS ORDERED: ACETAMINOPHEN 325 MG TABLET PO PRN (15:09)
[2017-08-03 16:55] LABS: Thyroid Stimulating Hormone 2.5 uIU/ml (0.358-3.74)
[2017-08-03] MEDS ORDERED: NON-FORMULARY MEDICATION (Acetaminophen [Acetaminophen] 650 MG) PEG PRN (18:00)
[2017-08-03] MEDS ORDERED: PHENYLEPH/MINERAL OIL/PETROLAT 57 GM TUBE TOP PRN (18:00)
[2017-08-03] MEDS: cefTAZidime 1,000 MG in SYRINGE 1 EACH IV SCH ×2 (18:29→23:09)
[2017-08-03] MEDS: DORNASE ALFA 2.5 MG/2.5 ML VIAL RESP TX SCH (19:38)
[2017-08-03] MEDS: ALBUTEROL/IPRATROPIUM 3 ML NEB RESP TX SCH (19:38)
[2017-08-03] MEDS ORDERED: ENTACAPONE PO SCH (21:00)
[2017-08-03] MEDS ORDERED: CARBIDOPA PO SCH (21:00)
[2017-08-03] MEDS ORDERED: LORazepam 0.5 MG TABLET PO PRN (21:00)
[2017-08-03] MEDS ORDERED: LEVODOPA PO SCH (21:00)
[2017-08-03] MEDS: PRAMIPEXOLE 1 MG TABLET PO SCH (22:23)
[2017-08-03] MEDS: guaiFENesin 200 MG/10 ML UDCUP PEG SCH (22:23)
[2017-08-03] MEDS: FLUDROCORTISONE 0.1 MG TABLET PEG SCH (22:24)
[2017-08-03] MEDS: MIDODRINE 5 MG TABLET PEG SCH (22:24)
[2017-08-03] MEDS: AMANTADINE 100 MG CAPSULE PO SCH (22:24)
[2017-08-03] MEDS: POTASSIUM BICARB EFFERVESCENT 25 MEQ TABLET PO SCH (22:24)
[2017-08-03] MEDS: PANTOPRAZOLE 40 MG TABLET PO SCH (22:25)
[2017-08-03] MEDS: INSULIN REGULAR 100 UNIT/ML SUBCUT SCH (22:25)
[2017-08-03] MEDS: CARBIDOPA/LEVODOPA 25-100 MG TABLET PO SCH (23:09)
[2017-08-03] MEDS: ENTACAPONE 200 MG TABLET PO SCH (23:09)
[2017-08-04 04:29] LABS: Apearance,Urine Clear (Clear); Bilirubin,Urine Negative (Negative); Blood, Urine Small mg/dL (Negative); Glucose,Urine (UA) Negative (Negative); Ketones,Urine Negative (Negative); Nitrite,Urine Negative (Negative); Protein,Urine 30 MG/DL; RBC,Urine 42 /HPF (0-4); Urine Color Yellow (Yellow); Urine Urobilinogen < 2.0 EU/DL (0.2-1.0)
[2017-08-04 04:30] LABS: Bacteria,Urine Occasional /HPF (Few); Hyaline Casts,Urine 6 /LPF (0-3); Mucus,Urine Occasional /LPF (Occasional); Squamous Epithelial Cell,Urine Occasional /HPF (0-10); WBC,Urine 2 /HPF (0-6)
[2017-08-04 05:00] LABS: Basophils % 0.2 % (0.0-0.8); Eosinophils # 0.1 10*3/uL (0.0-0.87); Eosinophils % 0.8 % (0.00-10.9); Hematocrit 37.8 VOL% (42.0-52.0); Hemoglobin 12.3 GM/DL (14.0-18.0); Immature Granulocytes % 0.3 %; Immature Granulocytes Absolute 0.03 #; Lymphocytes # 0.9 10*3/uL (1.4-4.0); Lymphocytes % 9.2 % (21.2-54.2); Mean Corpuscular HGB Conc 32.5 GM/DL (32-36); Mean Corpuscular Hemoglobin 33 PG (27-34); Mean Corpuscular Volume 100.8 FL (87-102); Mean Platelet Volume 10.3 FL (9.6-12.0); Monocytes # 0.6 10*3/uL (0.11-0.8); Neutrophils # 8.5 10*3/uL (1.4-7.4); Neutrophils % 83.5 % (38.7-73.9); Platelet Count 176 T/CUMM (130-400); Red Blood Count 3.75 MC/CUMM (3.8-5.5); Red Cell Distribution Width 14.1 % (9.3-17.3); White Blood Count 10.1 T/CUMM (4-12)
[2017-08-04 05:12] LABS: INR 1.1; PT Patient Result 11.6 SECS; Partial Thromboplastin Time 29.6 SECS (0-40)
[2017-08-04 05:28] LABS: Alanine Aminotransferase < 9 U/L (16-61); Albumin 3.1 G/DL (3.4-5.0); Alkaline Phosphatase 130 U/L (45-117); Aspartate Amino Transferase 17 U/L (0-37); Blood Urea Nitrogen 11 MG/DL (7-18); Calcium 8.2 MG/DL (8.5-10.1); Glucose 93 MG/DL (74-106); Osmolality,Calculated 271.8 MOS/KG (273-304); Potassium 4.3 MMOL/L (3.5-5.1); Sodium 137 MMOL/L (136-145); Total Protein 6.5 G/DL (6.4-8.3)
[2017-08-04] MEDS: INSULIN NPH/REGULAR 70/30 100 UNIT/ML SUBCUT SCH (06:54)
[2017-08-04] MEDS: DORNASE ALFA 2.5 MG/2.5 ML VIAL RESP TX SCH ×2 (06:57→19:48)
[2017-08-04] MEDS: ALBUTEROL/IPRATROPIUM 3 ML NEB RESP TX SCH ×4 (06:57→19:48)
[2017-08-04] MEDS: diphenhydrAMINE 50 MG/1 ML VIAL IM ONE ×2 (08:10→08:30)
[2017-08-04] MEDS ORDERED: LIDOCAINE 2% 20 ML VIAL RESP TX ONE (09:00)
[2017-08-04] MEDS ORDERED: GENTAMICIN INJ 120 MG in PREMIX 1 EACH IV SCH (09:00)
[2017-08-04] MEDS ORDERED: LIDOCAINE 2% VISCOUS 100 ML BOTTLE SWISH/SPIT ONE (09:00)
[2017-08-04] MEDS ORDERED: LIDOCAINE 1% 20 ML VIAL MISC INJ ONE (09:00)
[2017-08-04] MEDS ORDERED: DEXTROSE 50% 25 GM/50 ML VIAL IV PRN (09:14)
[2017-08-04] MEDS ORDERED: GLUCAGON 1 MG VIAL IM PRN (09:14)
[2017-08-04] MEDS: INSULIN REGULAR 100 UNIT/ML SUBCUT SCH ×4 (10:27→23:30)
[2017-08-04] MEDS: cefTAZidime 1,000 MG in SYRINGE 1 EACH IV SCH ×2 (11:10→18:21)
[2017-08-04 11:34] LABS: ABG Base Excess 19.4 MMOL/L (-2.5-2.5); ABG HCO3 49.9 MMOL/L (20-26); ABG Oxygen Saturation 98.1 % (95-100); ABG PH 7.333 (7.35-7.45); ABG PO2 117.3 MM HG (80-95); ABG TCO2 52.8 MMOL/L (23-27)
[2017-08-04 11:36] LABS: ABG PCO2 96.1 MM HG (35-48)
[2017-08-04] MEDS ORDERED: methylPREDNISolone SOD SUC 125 MG/2 ML VIAL IV ONE (11:56)
[2017-08-04] MEDS: ENTACAPONE 200 MG TABLET PO SCH ×4 (13:10→22:40)
[2017-08-04] MEDS: FLUDROCORTISONE 0.1 MG TABLET PEG SCH ×4 (13:10→22:41)
[2017-08-04] MEDS: POTASSIUM BICARB EFFERVESCENT 25 MEQ TABLET PO SCH (13:10)
[2017-08-04] MEDS: CARBIDOPA/LEVODOPA 25-100 MG TABLET PO SCH ×4 (13:11→22:41)
[2017-08-04] MEDS: MIDODRINE 5 MG TABLET PEG SCH ×4 (13:11→22:40)
[2017-08-04] MEDS: PRAMIPEXOLE 1 MG TABLET PO SCH ×4 (13:11→22:40)
[2017-08-04] MEDS: PANTOPRAZOLE 40 MG TABLET PO SCH ×2 (13:11→22:41)
[2017-08-04] MEDS: guaiFENesin 200 MG/10 ML UDCUP PEG SCH ×4 (13:11→22:40)
[2017-08-04] MEDS: AMANTADINE 100 MG CAPSULE PO SCH ×4 (13:12→22:41)
[2017-08-04 15:33] LABS: ABG Base Excess 14.9 MMOL/L (-2.5-2.5); ABG HCO3 38.5 MMOL/L (20-26); ABG Oxygen Saturation 84.9 % (95-100); ABG PH 7.357 (7.35-7.45); ABG PO2 50.7 MM HG (80-95); ABG TCO2 39.7 MMOL/L (23-27)
[2017-08-04 15:35] LABS: ABG PCO2 80.9 MM HG (35-48)
[2017-08-04] MEDS: ZINC OXIDE PASTE 113 GM TUBE TOP PRN (22:41)
[2017-08-05] MEDS: POTASSIUM BICARB EFFERVESCENT 25 MEQ TABLET PO SCH ×3 (00:14→22:08)
[2017-08-05] MEDS: cefTAZidime 1,000 MG in SYRINGE 1 EACH IV SCH ×3 (03:00→18:11)
[2017-08-05 04:10] LABS: ABG Base Excess 16.4 MMOL/L (-2.5-2.5); ABG HCO3 45.1 MMOL/L (20-26); ABG Oxygen Saturation 87.7 % (95-100); ABG PH 7.378 (7.35-7.45); ABG PO2 57.2 MM HG (80-95); ABG TCO2 47.5 MMOL/L (23-27)
[2017-08-05 04:12] LABS: ABG PCO2 78.3 MM HG (35-48)
[2017-08-05] MEDS: INSULIN NPH/REGULAR 70/30 100 UNIT/ML SUBCUT SCH (07:10)
[2017-08-05 07:14] LABS: Basophils % 0.1 % (0.0-0.8); Hematocrit 36.3 VOL% (42.0-52.0); Hemoglobin 11.4 GM/DL (14.0-18.0); Immature Granulocytes % 0.3 %; Immature Granulocytes Absolute 0.02 #; Lymphocytes # 0.7 10*3/uL (1.4-4.0); Lymphocytes % 9.3 % (21.2-54.2); Mean Corpuscular HGB Conc 31.4 GM/DL (32-36); Mean Corpuscular Hemoglobin 32 PG (27-34); Mean Corpuscular Volume 101.7 FL (87-102); Mean Platelet Volume 10.7 FL (9.6-12.0); Monocytes # 0.5 10*3/uL (0.11-0.8); Monocytes % 6.4 % (1.7-12.7); Neutrophils # 6.2 10*3/uL (1.4-7.4); Neutrophils % 83.9 % (38.7-73.9); Platelet Count 180 T/CUMM (130-400); Red Blood Count 3.57 MC/CUMM (3.8-5.5); White Blood Count 7.4 T/CUMM (4-12)
[2017-08-05] MEDS: DORNASE ALFA 2.5 MG/2.5 ML VIAL RESP TX SCH ×2 (07:28→19:22)
[2017-08-05] MEDS: ALBUTEROL/IPRATROPIUM 3 ML NEB RESP TX SCH ×4 (07:28→19:14)
[2017-08-05 07:43] LABS: Calcium 8.4 MG/DL (8.5-10.1); Osmolality,Calculated 280.4 MOS/KG (273-304); Potassium 3.3 MMOL/L (3.5-5.1)
[2017-08-05 07:46] LABS: Prealbumin 11.9 MG/DL (20-40)
[2017-08-05] MEDS: INSULIN REGULAR 100 UNIT/ML SUBCUT SCH ×4 (08:15→22:11)
[2017-08-05] MEDS: GENTAMICIN INJ 120 MG in SODIUM CHLORIDE 0.9% 100 ML IV SCH (08:51)
[2017-08-05] MEDS: PRAMIPEXOLE 1 MG TABLET PO SCH ×3 (09:42→22:10)
[2017-08-05] MEDS: guaiFENesin 200 MG/10 ML UDCUP PEG SCH ×3 (09:42→22:10)
[2017-08-05] MEDS: MIDODRINE 5 MG TABLET PEG SCH ×3 (09:42→22:09)
[2017-08-05] MEDS: ENTACAPONE 200 MG TABLET PO SCH ×3 (09:42→22:08)
[2017-08-05] MEDS: FLUDROCORTISONE 0.1 MG TABLET PEG SCH ×3 (09:42→22:10)
[2017-08-05] MEDS: AMANTADINE 100 MG CAPSULE PO SCH ×3 (09:42→22:10)
[2017-08-05] MEDS: PANTOPRAZOLE 40 MG TABLET PO SCH ×2 (09:43→22:10)
[2017-08-05] MEDS: CARBIDOPA/LEVODOPA 25-100 MG TABLET PO SCH ×3 (09:43→22:09)
[2017-08-05] MEDS: POTASSIUM CHLORIDE 20 MEQ/15 ML UDCUP PER TUBE PRN ×2 (15:40→15:42)
[2017-08-06] MEDS: cefTAZidime 1,000 MG in SYRINGE 1 EACH IV SCH ×3 (03:21→20:11)
[2017-08-06 03:54] LABS: Basophils % 0.3 % (0.0-0.8); Eosinophils % 0.1 % (0.00-10.9); Hematocrit 37.6 VOL% (42.0-52.0); Hemoglobin 11.8 GM/DL (14.0-18.0); Immature Granulocytes % 0.3 %; Immature Granulocytes Absolute 0.04 #; Lymphocytes # 1.2 10*3/uL (1.4-4.0); Lymphocytes % 9.9 % (21.2-54.2); Mean Corpuscular HGB Conc 31.4 GM/DL (32-36); Mean Corpuscular Hemoglobin 33 PG (27-34); Mean Corpuscular Volume 103.6 FL (87-102); Mean Platelet Volume 11.2 FL (9.6-12.0); Monocytes # 0.9 10*3/uL (0.11-0.8); Monocytes % 7.7 % (1.7-12.7); Neutrophils # 9.5 10*3/uL (1.4-7.4); Neutrophils % 81.7 % (38.7-73.9); Platelet Count 192 T/CUMM (130-400); Red Blood Count 3.63 MC/CUMM (3.8-5.5); Red Cell Distribution Width 14.2 % (9.3-17.3); White Blood Count 11.6 T/CUMM (4-12)
[2017-08-06 04:23] LABS: Calcium 8.4 MG/DL (8.5-10.1); Osmolality,Calculated 284.3 MOS/KG (273-304); Potassium 3.7 MMOL/L (3.5-5.1)
[2017-08-06 04:29] LABS: Calcium 8.4 MG/DL (8.5-10.1); Free T4 (Free Thyroxine) 1.55 NG/DL (0.76-1.46); Osmolality,Calculated 282.4 MOS/KG (273-304); Potassium 3.6 MMOL/L (3.5-5.1)
[2017-08-06 05:01] LABS: ABG Base Excess 13.7 MMOL/L (-2.5-2.5); ABG HCO3 36.7 MMOL/L (20-26); ABG Oxygen Saturation 61.7 % (95-100); ABG PH 7.297 (7.35-7.45); ABG TCO2 40.8 MMOL/L (23-27); Allen Test Positive
[2017-08-06 05:10] LABS: ABG PCO2 91.8 MM HG (35-48); ABG PO2 34.7 MM HG (80-95)
[2017-08-06 06:15] LABS: ABG Base Excess 13.2 MMOL/L (-2.5-2.5); ABG HCO3 36.2 MMOL/L (20-26); ABG Oxygen Saturation 61.3 % (95-100); ABG PH 7.271 (7.35-7.45); ABG TCO2 41.1 MMOL/L (23-27); Allen Test Positive
[2017-08-06 06:18] LABS: ABG PCO2 98.4 MM HG (35-48); ABG PO2 35.7 MM HG (80-95)
[2017-08-06] MEDS: methylPREDNISolone SOD SUC 125 MG/2 ML VIAL IV SCH ×3 (06:25→21:35)
[2017-08-06] MEDS: ACETAMINOPHEN 325 MG TABLET PEG PRN (06:28)
[2017-08-06 06:32] LABS: Calcium 8.5 MG/DL (8.5-10.1); Osmolality,Calculated 285.3 MOS/KG (273-304); Potassium 3.5 MMOL/L (3.5-5.1)
[2017-08-06] MEDS: INSULIN NPH/REGULAR 70/30 100 UNIT/ML SUBCUT SCH (06:32)
[2017-08-06 06:52] LABS: Allen Test Positive; Pt O2 Delivery Device Ventilator
[2017-08-06 06:53] LABS: ABG Base Excess 14.2 MMOL/L (-2.5-2.5); ABG HCO3 37.9 MMOL/L (20-26); ABG PH 7.392 (7.35-7.45); ABG PO2 55.3 MM HG (80-95); ABG TCO2 38.3 MMOL/L (23-27)
[2017-08-06] MEDS ORDERED: PHENYLEPHRINE DRIP 0 MG/0 ML PREMIX IV ONE (07:04)
[2017-08-06] MEDS: DEXTROSE 5% NACL 0.9% 1,000 ML IV SCH ×3 (07:12→16:40)
[2017-08-06] MEDS: ALBUTEROL/IPRATROPIUM 3 ML NEB RESP TX SCH ×4 (07:29→18:55)
[2017-08-06] MEDS: DORNASE ALFA 2.5 MG/2.5 ML VIAL RESP TX SCH ×2 (07:29→18:55)
[2017-08-06] MEDS ORDERED: NOREPINEPHRINE 8 MG in SODIUM CHLORIDE 0.9% 242 ML IV PRN (07:30)
[2017-08-06] MEDS ORDERED: ERYTHROMYCIN INJ 250 MG in SODIUM CHLORIDE 0.9% 100 ML IV SCH (07:30)
[2017-08-06 07:55] LABS: Basophils % 0.2 % (0.0-0.8); Eosinophils % 0.1 % (0.00-10.9); Hematocrit 35.3 VOL% (42.0-52.0); Hemoglobin 10.9 GM/DL (14.0-18.0); Immature Granulocytes % 0.7 %; Immature Granulocytes Absolute 0.06 #; Lymphocytes # 0.5 10*3/uL (1.4-4.0); Lymphocytes % 5.8 % (21.2-54.2); Mean Corpuscular HGB Conc 30.9 GM/DL (32-36); Mean Corpuscular Hemoglobin 32 PG (27-34); Mean Corpuscular Volume 103.8 FL (87-102); Mean Platelet Volume 10.6 FL (9.6-12.0); Monocytes # 0.4 10*3/uL (0.11-0.8); Monocytes % 4.3 % (1.7-12.7); Neutrophils % 88.9 % (38.7-73.9); Platelet Count 174 T/CUMM (130-400); Red Cell Distribution Width 14.4 % (9.3-17.3); White Blood Count 8.9 T/CUMM (4-12)
[2017-08-06 08:07] LABS: Alanine Aminotransferase 14 U/L (16-61); Albumin 2.8 G/DL (3.4-5.0); Alkaline Phosphatase 101 U/L (45-117); Aspartate Amino Transferase 16 U/L (0-37); Bilirubin,Total < 0.39 MG/DL (0.2-1.0); Blood Urea Nitrogen 22 MG/DL (7-18); Calcium 8.5 MG/DL (8.5-10.1); Glucose 124 MG/DL (74-106); Osmolality,Calculated 282.4 MOS/KG (273-304); Potassium 3.4 MMOL/L (3.5-5.1); Sodium 140 MMOL/L (136-145); Total Protein 6.4 G/DL (6.4-8.3)
[2017-08-06 08:11] LABS: Ammonia 40 UMOL/L (11-32)
[2017-08-06] MEDS: INSULIN REGULAR 100 UNIT/ML SUBCUT SCH ×4 (08:22→20:12)
[2017-08-06] MEDS: GENTAMICIN INJ 120 MG in SODIUM CHLORIDE 0.9% 100 ML IV SCH (09:40)
[2017-08-06 10:03] LABS: ABG Base Excess 11.9 MMOL/L (-2.5-2.5); ABG HCO3 35.4 MMOL/L (20-26); ABG Oxygen Saturation 86.2 % (95-100); ABG PH 7.279 (7.35-7.45); ABG PO2 56.4 MM HG (80-95); Allen Test Positive
[2017-08-06] MEDS: PRAMIPEXOLE 1 MG TABLET PO SCH ×3 (10:03→20:13)
[2017-08-06 10:04] LABS: ABG PCO2 92.6 MM HG (35-48)
[2017-08-06] MEDS: ERYTHROMYCIN BASE 250 MG TABLET PO SCH ×3 (10:11→20:13)
[2017-08-06] MEDS: MIDODRINE 5 MG TABLET PEG SCH ×3 (10:11→20:12)
[2017-08-06] MEDS: AMANTADINE 100 MG CAPSULE PO SCH ×3 (10:12→20:13)
[2017-08-06] MEDS: CARBIDOPA/LEVODOPA 25-100 MG TABLET PO SCH ×3 (10:12→20:12)
[2017-08-06] MEDS: guaiFENesin 200 MG/10 ML UDCUP PEG SCH ×3 (10:12→20:12)
[2017-08-06] MEDS: FLUDROCORTISONE 0.1 MG TABLET PEG SCH ×3 (10:13→20:13)
[2017-08-06] MEDS: PANTOPRAZOLE 40 MG TABLET PO SCH ×2 (10:13→20:13)
[2017-08-06] MEDS: ENTACAPONE 200 MG TABLET PO SCH ×3 (10:14→20:13)
[2017-08-06] MEDS: POTASSIUM CHLORIDE 20 MEQ/15 ML UDCUP PER TUBE PRN ×3 (10:22→15:08)
[2017-08-06] MEDS: POTASSIUM BICARB EFFERVESCENT 25 MEQ TABLET PO SCH ×2 (11:39→20:26)
[2017-08-07] MEDS: POTASSIUM CHLORIDE 20 MEQ/15 ML UDCUP PER TUBE PRN (02:00)
[2017-08-07] MEDS: cefTAZidime 1,000 MG in SYRINGE 1 EACH IV SCH ×3 (02:00→18:17)
[2017-08-07] MEDS: ERYTHROMYCIN BASE 250 MG TABLET PO SCH ×4 (02:00→20:15)
[2017-08-07 04:54] LABS: ABG Base Excess 9.4 MMOL/L (-2.5-2.5); ABG HCO3 33.1 MMOL/L (20-26); ABG Oxygen Saturation 95.4 % (95-100); ABG PH 7.273 (7.35-7.45); ABG PO2 79.8 MM HG (80-95); ABG TCO2 36.4 MMOL/L (23-27)
[2017-08-07 05:02] LABS: ABG PCO2 86.6 MM HG (35-48)
[2017-08-07] MEDS: INSULIN NPH/REGULAR 70/30 100 UNIT/ML SUBCUT SCH (05:36)
[2017-08-07] MEDS: methylPREDNISolone SOD SUC 125 MG/2 ML VIAL IV SCH ×3 (05:36→22:02)
[2017-08-07 06:26] LABS: Calcium 8.1 MG/DL (8.5-10.1); Osmolality,Calculated 298.7 MOS/KG (273-304); Potassium 3.9 MMOL/L (3.5-5.1)
[2017-08-07] MEDS: ALBUTEROL/IPRATROPIUM 3 ML NEB RESP TX SCH ×4 (07:05→19:06)
[2017-08-07] MEDS: DORNASE ALFA 2.5 MG/2.5 ML VIAL RESP TX SCH ×2 (07:13→19:06)
[2017-08-07] MEDS: PRAMIPEXOLE 1 MG TABLET PO SCH ×3 (08:07→20:16)
[2017-08-07] MEDS: MIDODRINE 5 MG TABLET PEG SCH ×3 (08:07→20:15)
[2017-08-07] MEDS: AMANTADINE 100 MG CAPSULE PO SCH ×3 (08:07→20:16)
[2017-08-07] MEDS: CARBIDOPA/LEVODOPA 25-100 MG TABLET PO SCH ×3 (08:07→20:16)
[2017-08-07] MEDS: POTASSIUM BICARB EFFERVESCENT 25 MEQ TABLET PO SCH ×2 (08:07→20:16)
[2017-08-07] MEDS: ENTACAPONE 200 MG TABLET PO SCH ×3 (08:07→20:16)
[2017-08-07] MEDS: FLUDROCORTISONE 0.1 MG TABLET PEG SCH ×3 (08:07→20:16)
[2017-08-07] MEDS: guaiFENesin 200 MG/10 ML UDCUP PEG SCH ×3 (08:08→20:16)
[2017-08-07] MEDS: PANTOPRAZOLE 40 MG TABLET PO SCH ×2 (08:08→20:15)
[2017-08-07] MEDS: INSULIN REGULAR 100 UNIT/ML SUBCUT SCH ×4 (08:08→20:16)
[2017-08-07] MEDS: GENTAMICIN INJ 120 MG in SODIUM CHLORIDE 0.9% 100 ML IV SCH (08:08)
[2017-08-07] MEDS: DEXTROSE 5% NACL 0.9% 1,000 ML IV SCH (12:52)
[2017-08-08] MEDS: ERYTHROMYCIN BASE 250 MG TABLET PO SCH ×4 (02:02→20:04)
[2017-08-08] MEDS: cefTAZidime 1,000 MG in SYRINGE 1 EACH IV SCH ×3 (02:20→19:00)
[2017-08-08 05:18] LABS: ABG Base Excess 9.7 MMOL/L (-2.5-2.5); ABG HCO3 33.5 MMOL/L (20-26); ABG Oxygen Saturation 97.3 % (95-100); ABG PH 7.289 (7.35-7.45); ABG PO2 90.8 MM HG (80-95); ABG TCO2 36.1 MMOL/L (23-27)
[2017-08-08 05:20] LABS: ABG PCO2 83.7 MM HG (35-48)
[2017-08-08] MEDS: INSULIN NPH/REGULAR 70/30 100 UNIT/ML SUBCUT SCH (05:27)
[2017-08-08] MEDS: methylPREDNISolone SOD SUC 125 MG/2 ML VIAL IV SCH ×4 (05:27→21:51)
[2017-08-08 06:03] LABS: Hematocrit 39.2 VOL% (42.0-52.0); Immature Granulocytes % 0.3 %; Immature Granulocytes Absolute 0.01 #; Lymphocytes # 0.3 10*3/uL (1.4-4.0); Lymphocytes % 10.2 % (21.2-54.2); Mean Corpuscular HGB Conc 30.6 GM/DL (32-36); Mean Corpuscular Hemoglobin 32 PG (27-34); Mean Corpuscular Volume 105.1 FL (87-102); Mean Platelet Volume 11.4 FL (9.6-12.0); Monocytes # 0.1 10*3/uL (0.11-0.8); Monocytes % 3.9 % (1.7-12.7); Neutrophils # 2.6 10*3/uL (1.4-7.4); Neutrophils % 85.6 % (38.7-73.9); Platelet Count 143 T/CUMM (130-400); Red Blood Count 3.73 MC/CUMM (3.8-5.5); Red Cell Distribution Width 13.3 % (9.3-17.3); White Blood Count 3.1 T/CUMM (4-12)
[2017-08-08 06:06] LABS: INR 1.1; PT Patient Result 11.8 SECS; Partial Thromboplastin Time 31.1 SECS (0-40)
[2017-08-08 06:29] LABS: Calcium 8.4 MG/DL (8.5-10.1); Osmolality,Calculated 302.4 MOS/KG (273-304); Potassium 4.3 MMOL/L (3.5-5.1); Prealbumin 13.4 MG/DL (20-40)
[2017-08-08] MEDS ORDERED: diphenhydrAMINE 50 MG/1 ML VIAL IM ONE (08:00)
[2017-08-08] MEDS: ALBUTEROL/IPRATROPIUM 3 ML NEB RESP TX SCH ×4 (08:28→19:19)
[2017-08-08] MEDS ORDERED: LIDOCAINE 1% 20 ML VIAL MISC INJ ONE (08:30)
[2017-08-08] MEDS ORDERED: LIDOCAINE 2% 20 ML VIAL RESP TX ONE (08:30)
[2017-08-08] MEDS ORDERED: LIDOCAINE 2% VISCOUS 100 ML BOTTLE SWISH/SPIT ONE (08:30)
[2017-08-08] MEDS: DORNASE ALFA 2.5 MG/2.5 ML VIAL RESP TX SCH ×2 (08:36→19:19)
[2017-08-08] MEDS: INSULIN REGULAR 100 UNIT/ML SUBCUT SCH ×4 (09:27→20:04)
[2017-08-08] MEDS: CARBIDOPA/LEVODOPA 25-100 MG TABLET PO SCH ×3 (09:28→20:05)
[2017-08-08] MEDS: FLUDROCORTISONE 0.1 MG TABLET PEG SCH ×3 (09:28→20:04)
[2017-08-08] MEDS: PRAMIPEXOLE 1 MG TABLET PO SCH ×3 (09:28→20:05)
[2017-08-08] MEDS: ENTACAPONE 200 MG TABLET PO SCH ×3 (09:28→20:05)
[2017-08-08] MEDS: PANTOPRAZOLE 40 MG TABLET PO SCH ×2 (09:28→20:05)
[2017-08-08] MEDS: AMANTADINE 100 MG CAPSULE PO SCH ×3 (09:29→20:04)
[2017-08-08] MEDS: guaiFENesin 200 MG/10 ML UDCUP PEG SCH ×3 (09:30→20:05)
[2017-08-08] MEDS: GENTAMICIN INJ 120 MG in SODIUM CHLORIDE 0.9% 100 ML IV SCH (09:44)
[2017-08-08] MEDS: MIDODRINE 5 MG TABLET PEG SCH ×3 (11:16→20:05)
[2017-08-08] MEDS: POTASSIUM BICARB EFFERVESCENT 25 MEQ TABLET PO SCH ×2 (14:45→20:04)
[2017-08-08] MEDS: DEXTROSE 5% NACL 0.9% 1,000 ML IV SCH ×2 (20:21→20:23)
[2017-08-09] MEDS: ERYTHROMYCIN BASE 250 MG TABLET PO SCH ×4 (01:13→20:22)
[2017-08-09] MEDS: cefTAZidime 1,000 MG in SYRINGE 1 EACH IV SCH ×3 (02:33→19:47)
[2017-08-09] MEDS: DEXTROSE 5% NACL 0.9% 1,000 ML IV SCH ×2 (02:33→19:47)
[2017-08-09 03:36] LABS: ABG Base Excess 11.2 MMOL/L (-2.5-2.5); ABG HCO3 40.1 MMOL/L (20-26); ABG Oxygen Saturation 95.1 % (95-100); ABG PH 7.345 (7.35-7.45); ABG PO2 78.5 MM HG (80-95); ABG TCO2 42.4 MMOL/L (23-27)
[2017-08-09] MEDS: methylPREDNISolone SOD SUC 125 MG/2 ML VIAL IV SCH ×3 (05:52→21:35)
[2017-08-09] MEDS: INSULIN NPH/REGULAR 70/30 100 UNIT/ML SUBCUT SCH (05:52)
[2017-08-09] MEDS: DORNASE ALFA 2.5 MG/2.5 ML VIAL RESP TX SCH ×2 (06:50→20:03)
[2017-08-09] MEDS: ALBUTEROL/IPRATROPIUM 3 ML NEB RESP TX SCH ×4 (06:50→20:02)
[2017-08-09] MEDS: CARBIDOPA/LEVODOPA 25-100 MG TABLET PO SCH ×3 (10:20→20:20)
[2017-08-09] MEDS: FLUDROCORTISONE 0.1 MG TABLET PEG SCH ×3 (10:20→20:20)
[2017-08-09] MEDS: guaiFENesin 200 MG/10 ML UDCUP PEG SCH ×3 (10:21→20:20)
[2017-08-09] MEDS: MIDODRINE 5 MG TABLET PEG SCH ×3 (10:21→20:20)
[2017-08-09] MEDS: ENTACAPONE 200 MG TABLET PO SCH ×3 (10:22→20:20)
[2017-08-09] MEDS: GENTAMICIN INJ 120 MG in SODIUM CHLORIDE 0.9% 100 ML IV SCH (10:23)
[2017-08-09] MEDS: PANTOPRAZOLE 40 MG TABLET PO SCH ×2 (10:23→20:20)
[2017-08-09] MEDS: POTASSIUM BICARB EFFERVESCENT 25 MEQ TABLET PO SCH ×2 (10:23→20:22)
[2017-08-09] MEDS: INSULIN REGULAR 100 UNIT/ML SUBCUT SCH ×4 (10:31→20:19)
[2017-08-09] MEDS: PRAMIPEXOLE 1 MG TABLET PO SCH ×3 (10:39→20:20)
[2017-08-09] MEDS: AMANTADINE 100 MG CAPSULE PO SCH ×3 (10:39→20:20)
[2017-08-09 22:32] LABS: Apearance,Urine Slightly Hazy (Clear); Bilirubin,Urine Negative (Negative); Blood, Urine Moderate mg/dL (Negative); Glucose,Urine (UA) 50 mg/dL (Negative); Ketones,Urine Negative (Negative); Mucus,Urine Occasional /LPF (Occasional); Nitrite,Urine Negative (Negative); Protein,Urine 30 MG/DL; RBC,Urine 89 /HPF (0-4); Urine Color Amber (Yellow); Urine Specific Gravity 1.012 (1.001-1.035); Urine Urobilinogen < 2.0 EU/DL (0.2-1.0); WBC,Urine 17 /HPF (0-6)
[2017-08-10] MEDS: DEXTROSE 5% NACL 0.9% 1,000 ML IV SCH ×3 (01:17→22:38)
[2017-08-10] MEDS: ERYTHROMYCIN BASE 250 MG TABLET PO SCH ×4 (01:17→21:13)
[2017-08-10] MEDS: cefTAZidime 1,000 MG in SYRINGE 1 EACH IV SCH ×3 (02:39→21:15)
[2017-08-10 03:07] LABS: Hematocrit 42.1 VOL% (42.0-52.0); Hemoglobin 12.9 GM/DL (14.0-18.0); Immature Granulocytes % 0.7 %; Immature Granulocytes Absolute 0.04 #; Lymphocytes # 0.2 10*3/uL (1.4-4.0); Lymphocytes % 2.6 % (21.2-54.2); Mean Corpuscular HGB Conc 30.6 GM/DL (32-36); Mean Corpuscular Hemoglobin 32 PG (27-34); Mean Corpuscular Volume 103.4 FL (87-102); Mean Platelet Volume 11.1 FL (9.6-12.0); Monocytes # 0.2 10*3/uL (0.11-0.8); Monocytes % 2.6 % (1.7-12.7); Neutrophils # 5.5 10*3/uL (1.4-7.4); Neutrophils % 94.1 % (38.7-73.9); Platelet Count 141 T/CUMM (130-400); Red Blood Count 4.07 MC/CUMM (3.8-5.5); Red Cell Distribution Width 13.3 % (9.3-17.3); White Blood Count 5.8 T/CUMM (4-12)
[2017-08-10 03:42] LABS: ABG Base Excess 11.7 MMOL/L (-2.5-2.5); ABG HCO3 39.7 MMOL/L (20-26); ABG Oxygen Saturation 93.3 % (95-100); ABG PCO2 68.8 MM HG (35-48); ABG PH 7.379 (7.35-7.45); ABG PO2 69.3 MM HG (80-95); ABG TCO2 41.8 MMOL/L (23-27)
[2017-08-10 03:47] LABS: Band Neutrophils 4 % (0-10); Lymphocytes 4 % (20-55); Macrocytosis 3+; Platelet Estimate Normal; Segmented Neutrophils 92 % (50-85); Total Cells Counted 100
[2017-08-10] MEDS: INSULIN NPH/REGULAR 70/30 100 UNIT/ML SUBCUT SCH (05:29)
[2017-08-10] MEDS: methylPREDNISolone SOD SUC 125 MG/2 ML VIAL IV SCH ×3 (05:30→22:37)
[2017-08-10 05:59] LABS: Potassium 3.1 MMOL/L (3.5-5.1)
[2017-08-10 06:00] LABS: Calcium 8.2 MG/DL (8.5-10.1)
[2017-08-10 06:03] LABS: Osmolality,Calculated 305.3 MOS/KG (273-304)
[2017-08-10 06:42] LABS: ABG PCO2 75.1 MM HG (35-48)
[2017-08-10] MEDS: ALBUTEROL/IPRATROPIUM 3 ML NEB RESP TX SCH ×4 (07:04→20:31)
[2017-08-10] MEDS: DORNASE ALFA 2.5 MG/2.5 ML VIAL RESP TX SCH ×2 (07:12→20:31)
[2017-08-10] MEDS: INSULIN REGULAR 100 UNIT/ML SUBCUT SCH ×4 (08:35→21:15)
[2017-08-10] MEDS: POTASSIUM BICARB EFFERVESCENT 25 MEQ TABLET PO SCH ×3 (09:31→21:13)
[2017-08-10] MEDS: FLUDROCORTISONE 0.1 MG TABLET PEG SCH ×3 (09:31→21:14)
[2017-08-10] MEDS: ENTACAPONE 200 MG TABLET PO SCH ×3 (09:31→21:14)
[2017-08-10] MEDS: PRAMIPEXOLE 1 MG TABLET PO SCH ×3 (09:31→21:14)
[2017-08-10] MEDS: PANTOPRAZOLE 40 MG TABLET PO SCH ×2 (09:32→21:15)
[2017-08-10] MEDS: guaiFENesin 200 MG/10 ML UDCUP PEG SCH ×3 (09:32→21:14)
[2017-08-10] MEDS: MIDODRINE 5 MG TABLET PEG SCH ×3 (09:32→21:14)
[2017-08-10] MEDS: CARBIDOPA/LEVODOPA 25-100 MG TABLET PO SCH ×3 (09:33→21:14)
[2017-08-10] MEDS: AMANTADINE 100 MG CAPSULE PO SCH ×3 (09:33→21:13)
[2017-08-10] MEDS: GENTAMICIN INJ 120 MG in SODIUM CHLORIDE 0.9% 100 ML IV SCH (09:41)
[2017-08-10] MEDS ORDERED: cloNIDine 0.1 MG/24 HR PATCH TRANSDERM SCH (11:30)
[2017-08-10] MEDS: AZITHROMYCIN 250 MG TABLET PO SCH (12:27)
[2017-08-10] MEDS: ACETAMINOPHEN 325 MG TABLET PEG PRN (21:14)
[2017-08-11] MEDS: cefTAZidime 1,000 MG in SYRINGE 1 EACH IV SCH ×3 (02:26→20:13)
[2017-08-11] MEDS: ERYTHROMYCIN BASE 250 MG TABLET PO SCH ×4 (02:26→21:59)
[2017-08-11 04:21] LABS: ABG Base Excess 12.1 MMOL/L (-2.5-2.5); ABG HCO3 35.9 MMOL/L (20-26); ABG Oxygen Saturation 98.5 % (95-100); ABG PCO2 66.2 MM HG (35-48); ABG PH 7.393 (7.35-7.45); ABG TCO2 35.4 MMOL/L (23-27)
[2017-08-11] MEDS: ACETAMINOPHEN 325 MG TABLET PEG PRN ×2 (05:41→11:44)
[2017-08-11] MEDS: INSULIN NPH/REGULAR 70/30 100 UNIT/ML SUBCUT SCH (05:41)
[2017-08-11] MEDS: methylPREDNISolone SOD SUC 125 MG/2 ML VIAL IV SCH ×3 (05:42→21:57)
[2017-08-11 06:12] LABS: Calcium 7.9 MG/DL (8.5-10.1); Osmolality,Calculated 300.6 MOS/KG (273-304); Prealbumin 18.2 MG/DL (20-40)
[2017-08-11] MEDS: DORNASE ALFA 2.5 MG/2.5 ML VIAL RESP TX SCH ×2 (07:15→19:37)
[2017-08-11] MEDS: ALBUTEROL/IPRATROPIUM 3 ML NEB RESP TX SCH ×4 (07:15→19:36)
[2017-08-11] MEDS: INSULIN REGULAR 100 UNIT/ML SUBCUT SCH ×4 (09:23→21:58)
[2017-08-11] MEDS: DEXTROSE 5% NACL 0.9% 1,000 ML IV SCH ×2 (09:23→20:13)
[2017-08-11] MEDS: FLUDROCORTISONE 0.1 MG TABLET PEG SCH ×3 (09:25→21:58)
[2017-08-11] MEDS: ENTACAPONE 200 MG TABLET PO SCH ×3 (09:25→21:59)
[2017-08-11] MEDS: MIDODRINE 5 MG TABLET PEG SCH ×3 (09:25→21:59)
[2017-08-11] MEDS: PRAMIPEXOLE 1 MG TABLET PO SCH ×3 (09:25→21:58)
[2017-08-11] MEDS: AZITHROMYCIN 250 MG TABLET PO SCH (09:25)
[2017-08-11] MEDS: POTASSIUM BICARB EFFERVESCENT 25 MEQ TABLET PO SCH ×3 (09:25→21:58)
[2017-08-11] MEDS: PANTOPRAZOLE 40 MG TABLET PO SCH ×2 (09:26→22:00)
[2017-08-11] MEDS: AMANTADINE 100 MG CAPSULE PO SCH ×3 (09:26→21:59)
[2017-08-11] MEDS: guaiFENesin 200 MG/10 ML UDCUP PEG SCH ×3 (09:26→21:58)
[2017-08-11] MEDS: CARBIDOPA/LEVODOPA 25-100 MG TABLET PO SCH ×3 (09:26→22:00)
[2017-08-11] MEDS: GENTAMICIN INJ 120 MG in SODIUM CHLORIDE 0.9% 100 ML IV SCH (09:50)
[2017-08-11 11:35] LABS: Red Blood Count 4.14 MC/CUMM (3.8-5.5); White Blood Count 5.4 T/CUMM (4-12)
[2017-08-11 11:36] LABS: Hematocrit 41.7 VOL% (42.0-52.0); Immature Granulocytes % 0.7 %; Immature Granulocytes Absolute 0.04 #; Lymphocytes # 0.1 10*3/uL (1.4-4.0); Mean Corpuscular HGB Conc 31.2 GM/DL (32-36); Mean Corpuscular Hemoglobin 31 PG (27-34); Mean Corpuscular Volume 100.7 FL (87-102); Mean Platelet Volume 10.7 FL (9.6-12.0); Monocytes # 0.2 10*3/uL (0.11-0.8); Monocytes % 3.1 % (1.7-12.7); Neutrophils # 5.1 10*3/uL (1.4-7.4); Neutrophils % 94.2 % (38.7-73.9); Platelet Count 170 T/CUMM (130-400); Red Cell Distribution Width 13.4 % (9.3-17.3)
[2017-08-11 11:56] LABS: Band Neutrophils 2 % (0-10); Hypochromasia 1+; Lymphocytes 3 % (20-55); Ovalocytes Slight; Platelet Estimate Normal; Segmented Neutrophils 93 % (50-85); Total Cells Counted 100
[2017-08-11 11:57] LABS: Giant Platelets Few
[2017-08-11] MEDS: SPIRONOLACTONE 50 MG TABLET PO SCH (13:10)
[2017-08-11] MEDS: POTASSIUM CHLORIDE 20 MEQ/15 ML UDCUP PER TUBE PRN (22:01)
[2017-08-12] MEDS: ERYTHROMYCIN BASE 250 MG TABLET PO SCH ×4 (01:27→20:49)
[2017-08-12] MEDS: DEXTROSE 5% NACL 0.9% 1,000 ML IV SCH ×2 (01:27→17:10)
[2017-08-12 02:23] LABS: Hematocrit 41.9 VOL% (42.0-52.0); Hemoglobin 13.4 GM/DL (14.0-18.0); Immature Granulocytes % 0.8 %; Immature Granulocytes Absolute 0.05 #; Lymphocytes # 0.1 10*3/uL (1.4-4.0); Lymphocytes % 2.1 % (21.2-54.2); Mean Corpuscular Hemoglobin 32 PG (27-34); Mean Corpuscular Volume 99.3 FL (87-102); Mean Platelet Volume 10.6 FL (9.6-12.0); Monocytes # 0.2 10*3/uL (0.11-0.8); Monocytes % 2.8 % (1.7-12.7); Neutrophils % 94.3 % (38.7-73.9); Platelet Count 174 T/CUMM (130-400); Red Blood Count 4.22 MC/CUMM (3.8-5.5); Red Cell Distribution Width 13.4 % (9.3-17.3); White Blood Count 6.3 T/CUMM (4-12)
[2017-08-12 02:36] LABS: INR 1.1; PT Patient Result 11.7 SECS; Partial Thromboplastin Time 26.8 SECS (0-40)
[2017-08-12] MEDS: cefTAZidime 1,000 MG in SYRINGE 1 EACH IV SCH ×3 (02:43→18:27)
[2017-08-12 02:51] LABS: Band Neutrophils 13 % (0-10); Lymphocytes 2 % (20-55); Osmolality,Calculated 303.6 MOS/KG (273-304); Potassium 3.4 MMOL/L (3.5-5.1); Segmented Neutrophils 82 % (50-85); Total Cells Counted 100
[2017-08-12 02:52] LABS: Polychromasia Slight
[2017-08-12 05:03] LABS: ABG Base Excess 11.8 MMOL/L (-2.5-2.5); ABG HCO3 39.9 MMOL/L (20-26); ABG Oxygen Saturation 97.7 % (95-100); ABG PO2 103.4 MM HG (80-95)
[2017-08-12] MEDS: methylPREDNISolone SOD SUC 125 MG/2 ML VIAL IV SCH ×2 (06:20→15:40)
[2017-08-12] MEDS: INSULIN NPH/REGULAR 70/30 100 UNIT/ML SUBCUT SCH (06:20)
[2017-08-12] MEDS: DORNASE ALFA 2.5 MG/2.5 ML VIAL RESP TX SCH ×2 (08:09→19:28)
[2017-08-12] MEDS: ALBUTEROL/IPRATROPIUM 3 ML NEB RESP TX SCH ×4 (08:09→19:28)
[2017-08-12] MEDS: INSULIN REGULAR 100 UNIT/ML SUBCUT SCH ×4 (08:39→20:47)
[2017-08-12] MEDS: ENTACAPONE 200 MG TABLET PO SCH ×3 (09:07→20:48)
[2017-08-12] MEDS: PANTOPRAZOLE 40 MG TABLET PO SCH ×2 (09:07→20:49)
[2017-08-12] MEDS: MIDODRINE 5 MG TABLET PEG SCH ×3 (09:07→20:48)
[2017-08-12] MEDS: guaiFENesin 200 MG/10 ML UDCUP PEG SCH ×3 (09:07→20:48)
[2017-08-12] MEDS: GENTAMICIN INJ 120 MG in SODIUM CHLORIDE 0.9% 100 ML IV SCH ×2 (09:07→12:13)
[2017-08-12] MEDS: SPIRONOLACTONE 50 MG TABLET PO SCH (09:07)
[2017-08-12] MEDS: PRAMIPEXOLE 1 MG TABLET PO SCH ×3 (09:07→20:49)
[2017-08-12] MEDS: POTASSIUM BICARB EFFERVESCENT 25 MEQ TABLET PO SCH ×3 (09:07→20:47)
[2017-08-12] MEDS: FLUDROCORTISONE 0.1 MG TABLET PEG SCH ×3 (09:07→20:49)
[2017-08-12] MEDS: AMANTADINE 100 MG CAPSULE PO SCH ×3 (09:08→20:48)
[2017-08-12] MEDS: AZITHROMYCIN 250 MG TABLET PO SCH (09:08)
[2017-08-12] MEDS: CARBIDOPA/LEVODOPA 25-100 MG TABLET PO SCH ×3 (09:08→20:48)
[2017-08-13] MEDS: methylPREDNISolone SOD SUC 125 MG/2 ML VIAL IV SCH ×4 (01:22→22:18)
[2017-08-13] MEDS: cefTAZidime 1,000 MG in SYRINGE 1 EACH IV SCH ×3 (02:43→19:30)
[2017-08-13] MEDS: ERYTHROMYCIN BASE 250 MG TABLET PO SCH ×4 (02:43→22:18)
[2017-08-13] MEDS: DEXTROSE 5% NACL 0.9% 1,000 ML IV SCH ×2 (04:01→16:03)
[2017-08-13 04:03] LABS: ABG Base Excess 12.9 MMOL/L (-2.5-2.5); ABG HCO3 41.8 MMOL/L (20-26); ABG PH 7.355 (7.35-7.45); ABG PO2 108.9 MM HG (80-95); ABG TCO2 44.2 MMOL/L (23-27)
[2017-08-13 04:07] LABS: ABG PCO2 76.6 MM HG (35-48)
[2017-08-13 04:48] LABS: Hematocrit 40.1 VOL% (42.0-52.0); Hemoglobin 12.7 GM/DL (14.0-18.0); Immature Granulocytes % 0.8 %; Immature Granulocytes Absolute 0.05 #; Lymphocytes # 0.1 10*3/uL (1.4-4.0); Lymphocytes % 2.1 % (21.2-54.2); Mean Corpuscular HGB Conc 31.7 GM/DL (32-36); Mean Corpuscular Hemoglobin 32 PG (27-34); Mean Corpuscular Volume 99.8 FL (87-102); Mean Platelet Volume 10.9 FL (9.6-12.0); Monocytes # 0.3 10*3/uL (0.11-0.8); Monocytes % 3.8 % (1.7-12.7); Neutrophils # 6.2 10*3/uL (1.4-7.4); Neutrophils % 93.3 % (38.7-73.9); Platelet Count 152 T/CUMM (130-400); Red Blood Count 4.02 MC/CUMM (3.8-5.5); Red Cell Distribution Width 13.1 % (9.3-17.3); White Blood Count 6.7 T/CUMM (4-12)
[2017-08-13 05:13] LABS: Band Neutrophils 1 % (0-10); Giant Platelets Few; Hypochromasia 1+; Lymphocytes 2 % (20-55); Platelet Estimate Normal; Segmented Neutrophils 93 % (50-85); Total Cells Counted 100
[2017-08-13 05:27] LABS: Calcium 7.8 MG/DL (8.5-10.1); Potassium 2.9 MMOL/L (3.5-5.1)
[2017-08-13] MEDS: INSULIN NPH/REGULAR 70/30 100 UNIT/ML SUBCUT SCH (06:32)
[2017-08-13] MEDS: ALBUTEROL/IPRATROPIUM 3 ML NEB RESP TX SCH ×4 (07:51→19:15)
[2017-08-13] MEDS: DORNASE ALFA 2.5 MG/2.5 ML VIAL RESP TX SCH ×2 (07:59→19:15)
[2017-08-13] MEDS: INSULIN REGULAR 100 UNIT/ML SUBCUT SCH ×4 (10:15→22:21)
[2017-08-13] MEDS: SPIRONOLACTONE 50 MG TABLET PO SCH (10:16)
[2017-08-13] MEDS: PANTOPRAZOLE 40 MG TABLET PO SCH ×2 (10:17→22:20)
[2017-08-13] MEDS: MIDODRINE 5 MG TABLET PEG SCH ×3 (10:17→22:20)
[2017-08-13] MEDS: PRAMIPEXOLE 1 MG TABLET PO SCH ×3 (10:17→22:19)
[2017-08-13] MEDS: POTASSIUM BICARB EFFERVESCENT 25 MEQ TABLET PO SCH ×3 (10:17→22:18)
[2017-08-13] MEDS: ENTACAPONE 200 MG TABLET PO SCH ×3 (10:17→22:19)
[2017-08-13] MEDS: CARBIDOPA/LEVODOPA 25-100 MG TABLET PO SCH ×3 (10:17→22:19)
[2017-08-13] MEDS: guaiFENesin 200 MG/10 ML UDCUP PEG SCH ×3 (10:17→22:18)
[2017-08-13] MEDS: FLUDROCORTISONE 0.1 MG TABLET PEG SCH ×3 (10:17→22:21)
[2017-08-13] MEDS: AZITHROMYCIN 250 MG TABLET PO SCH (10:18)
[2017-08-13] MEDS: AMANTADINE 100 MG CAPSULE PO SCH ×3 (10:18→22:20)
[2017-08-13] MEDS: GENTAMICIN INJ 120 MG in SODIUM CHLORIDE 0.9% 100 ML IV SCH (10:32)
[2017-08-14 02:29] LABS: Basophils % 0.1 % (0.0-0.8); Hematocrit 43.1 VOL% (42.0-52.0); Hemoglobin 13.3 GM/DL (14.0-18.0); Immature Granulocytes % 2.4 %; Immature Granulocytes Absolute 0.19 #; Lymphocytes # 0.2 10*3/uL (1.4-4.0); Lymphocytes % 1.9 % (21.2-54.2); Mean Corpuscular HGB Conc 30.9 GM/DL (32-36); Mean Corpuscular Hemoglobin 32 PG (27-34); Mean Corpuscular Volume 103.6 FL (87-102); Mean Platelet Volume 11.2 FL (9.6-12.0); Monocytes # 0.3 10*3/uL (0.11-0.8); Monocytes % 3.5 % (1.7-12.7); Neutrophils # 7.3 10*3/uL (1.4-7.4); Neutrophils % 92.1 % (38.7-73.9); Platelet Count 162 T/CUMM (130-400); Red Blood Count 4.16 MC/CUMM (3.8-5.5); Red Cell Distribution Width 13.2 % (9.3-17.3); White Blood Count 7.9 T/CUMM (4-12)
[2017-08-14 02:49] LABS: Calcium 7.9 MG/DL (8.5-10.1); Osmolality,Calculated 315.7 MOS/KG (273-304); Potassium 2.8 MMOL/L (3.5-5.1)
[2017-08-14 03:32] LABS: Band Neutrophils 11 % (0-10); Lymphocytes 5 % (20-55); Segmented Neutrophils 82 % (50-85); Total Cells Counted 100
[2017-08-14] MEDS: cefTAZidime 1,000 MG in SYRINGE 1 EACH IV SCH ×3 (03:44→21:34)
[2017-08-14] MEDS: ERYTHROMYCIN BASE 250 MG TABLET PO SCH ×4 (03:44→21:35)
[2017-08-14] MEDS: POTASSIUM CHLORIDE 20 MEQ/15 ML UDCUP PER TUBE PRN ×5 (04:03→21:33)
[2017-08-14 04:19] LABS: Allen Test Positive
[2017-08-14 04:20] LABS: ABG Base Excess 12.4 MMOL/L (-2.5-2.5); ABG HCO3 36.3 MMOL/L (20-26); ABG Oxygen Saturation 97.4 % (95-100); ABG PH 7.343 (7.35-7.45); ABG PO2 88.5 MM HG (80-95); ABG TCO2 37.3 MMOL/L (23-27)
[2017-08-14] MEDS: INSULIN NPH/REGULAR 70/30 100 UNIT/ML SUBCUT SCH (06:30)
[2017-08-14] MEDS: methylPREDNISolone SOD SUC 125 MG/2 ML VIAL IV SCH ×3 (06:30→21:36)
[2017-08-14] MEDS: DORNASE ALFA 2.5 MG/2.5 ML VIAL RESP TX SCH ×2 (07:28→18:30)
[2017-08-14] MEDS: ALBUTEROL/IPRATROPIUM 3 ML NEB RESP TX SCH ×4 (07:28→18:30)
[2017-08-14] MEDS: INSULIN REGULAR 100 UNIT/ML SUBCUT SCH ×4 (09:04→21:34)
[2017-08-14] MEDS: AZITHROMYCIN 250 MG TABLET PO SCH (10:42)
[2017-08-14] MEDS: CARBIDOPA/LEVODOPA 25-100 MG TABLET PO SCH ×3 (10:48→21:35)
[2017-08-14] MEDS: AMANTADINE 100 MG CAPSULE PO SCH ×3 (10:48→21:34)
[2017-08-14] MEDS: POTASSIUM BICARB EFFERVESCENT 25 MEQ TABLET PO SCH ×3 (10:48→21:35)
[2017-08-14] MEDS: FLUDROCORTISONE 0.1 MG TABLET PEG SCH ×3 (10:48→21:35)
[2017-08-14] MEDS: PRAMIPEXOLE 1 MG TABLET PO SCH ×3 (10:48→21:36)
[2017-08-14] MEDS: SPIRONOLACTONE 50 MG TABLET PO SCH (10:48)
[2017-08-14] MEDS: guaiFENesin 200 MG/10 ML UDCUP PEG SCH ×3 (10:48→21:34)
[2017-08-14] MEDS: ENTACAPONE 200 MG TABLET PO SCH ×3 (10:48→21:36)
[2017-08-14] MEDS: MIDODRINE 5 MG TABLET PEG SCH ×3 (10:48→21:35)
[2017-08-14] MEDS: PANTOPRAZOLE 40 MG TABLET PO SCH ×2 (10:48→21:35)
[2017-08-14] MEDS: GENTAMICIN INJ 120 MG in SODIUM CHLORIDE 0.9% 100 ML IV SCH (10:52)
[2017-08-14] MEDS: ARFORMOTEROL 15 MCG/2 ML NEB RESP TX SCH (18:30)
[2017-08-15] MEDS: POTASSIUM CHLORIDE 20 MEQ/15 ML UDCUP PER TUBE PRN ×3 (00:05→06:10)
[2017-08-15] MEDS: ERYTHROMYCIN BASE 250 MG TABLET PO SCH ×4 (02:26→22:10)
[2017-08-15] MEDS: cefTAZidime 1,000 MG in SYRINGE 1 EACH IV SCH ×3 (02:28→19:38)
[2017-08-15 04:13] LABS: ABG Base Excess 12.2 MMOL/L (-2.5-2.5); ABG HCO3 40.9 MMOL/L (20-26); ABG Oxygen Saturation 94.8 % (95-100); ABG PH 7.369 (7.35-7.45); ABG PO2 71.3 MM HG (80-95); ABG TCO2 43.2 MMOL/L (23-27); Allen Test Positive
[2017-08-15 04:14] LABS: ABG PCO2 72.6 MM HG (35-48)
[2017-08-15 04:54] LABS: Basophils % 0.4 % (0.0-0.8); Hematocrit 43.7 VOL% (42.0-52.0); Hemoglobin 13.7 GM/DL (14.0-18.0); Immature Granulocytes % 1.9 %; Immature Granulocytes Absolute 0.14 #; Lymphocytes # 0.1 10*3/uL (1.4-4.0); Lymphocytes % 1.5 % (21.2-54.2); Mean Corpuscular HGB Conc 31.4 GM/DL (32-36); Mean Corpuscular Hemoglobin 32 PG (27-34); Mean Corpuscular Volume 101.6 FL (87-102); Mean Platelet Volume 11.3 FL (9.6-12.0); Monocytes # 0.3 10*3/uL (0.11-0.8); Monocytes % 4.3 % (1.7-12.7); Neutrophils # 6.8 10*3/uL (1.4-7.4); Neutrophils % 91.9 % (38.7-73.9); Platelet Count 152 T/CUMM (130-400); Red Cell Distribution Width 13.3 % (9.3-17.3); White Blood Count 7.4 T/CUMM (4-12)
[2017-08-15 05:17] LABS: Calcium 7.7 MG/DL (8.5-10.1); Osmolality,Calculated 323.3 MOS/KG (273-304); Potassium 3.2 MMOL/L (3.5-5.1)
[2017-08-15 05:33] LABS: Prealbumin 22.4 MG/DL (20-40)
[2017-08-15 05:51] LABS: Band Neutrophils 1 % (0-10); Lymphocytes 1 % (20-55); Segmented Neutrophils 97 % (50-85); Total Cells Counted 100
[2017-08-15 05:52] LABS: Hypochromasia 1+
[2017-08-15 05:53] LABS: Platelet Estimate Adequate
[2017-08-15] MEDS: methylPREDNISolone SOD SUC 125 MG/2 ML VIAL IV SCH ×3 (06:12→22:13)
[2017-08-15] MEDS: INSULIN NPH/REGULAR 70/30 100 UNIT/ML SUBCUT SCH (06:12)
[2017-08-15] MEDS: ARFORMOTEROL 15 MCG/2 ML NEB RESP TX SCH ×2 (07:45→19:13)
[2017-08-15] MEDS: ALBUTEROL/IPRATROPIUM 3 ML NEB RESP TX SCH ×4 (07:45→19:13)
[2017-08-15] MEDS: DORNASE ALFA 2.5 MG/2.5 ML VIAL RESP TX SCH ×2 (07:50→19:23)
[2017-08-15] MEDS: MIDODRINE 5 MG TABLET PEG SCH ×3 (09:54→22:12)
[2017-08-15] MEDS: POTASSIUM BICARB EFFERVESCENT 25 MEQ TABLET PO SCH ×3 (09:55→22:10)
[2017-08-15] MEDS: SPIRONOLACTONE 50 MG TABLET PO SCH (09:55)
[2017-08-15] MEDS: CARBIDOPA/LEVODOPA 25-100 MG TABLET PO SCH ×3 (09:55→22:10)
[2017-08-15] MEDS: PANTOPRAZOLE 40 MG TABLET PO SCH ×2 (09:55→22:11)
[2017-08-15] MEDS: ENTACAPONE 200 MG TABLET PO SCH ×3 (09:56→22:12)
[2017-08-15] MEDS: AZITHROMYCIN 250 MG TABLET PO SCH (09:56)
[2017-08-15] MEDS: PRAMIPEXOLE 1 MG TABLET PO SCH ×3 (09:56→22:11)
[2017-08-15] MEDS: guaiFENesin 200 MG/10 ML UDCUP PEG SCH ×3 (09:56→22:11)
[2017-08-15] MEDS: FLUDROCORTISONE 0.1 MG TABLET PEG SCH ×3 (09:56→22:10)
[2017-08-15] MEDS: AMANTADINE 100 MG CAPSULE PO SCH ×3 (09:56→22:10)
[2017-08-15] MEDS: DEXTROSE 5% 1,000 ML IV SCH (10:21)
[2017-08-15] MEDS: LACTULOSE 20 GM/30 ML UDCUP PEG SCH ×3 (10:21→22:13)
[2017-08-15] MEDS: INSULIN REGULAR 100 UNIT/ML SUBCUT SCH ×4 (10:21→22:08)
[2017-08-15] MEDS: GENTAMICIN INJ 120 MG in SODIUM CHLORIDE 0.9% 100 ML IV SCH (10:22)
[2017-08-15] MEDS: DEXTROSE 5% NACL 0.9% 1,000 ML IV SCH (10:23)
[2017-08-15 11:02] LABS: ABG Base Excess 10.4 MMOL/L (-2.5-2.5); ABG HCO3 37.9 MMOL/L (20-26); ABG PCO2 63.2 MM HG (35-48); ABG PH 7.396 (7.35-7.45); ABG PO2 46.7 MM HG (80-95); ABG TCO2 39.9 MMOL/L (23-27)
[2017-08-16] MEDS: cefTAZidime 1,000 MG in SYRINGE 1 EACH IV SCH ×2 (02:33→10:32)
[2017-08-16] MEDS: ERYTHROMYCIN BASE 250 MG TABLET PO SCH ×4 (02:33→21:51)
[2017-08-16 04:09] LABS: Allen Test Positive
[2017-08-16 04:10] LABS: ABG Base Excess 10.4 MMOL/L (-2.5-2.5); ABG HCO3 37.2 MMOL/L (20-26); ABG Oxygen Saturation 91.3 % (95-100); ABG PCO2 58.7 MM HG (35-48); ABG PO2 59.9 MM HG (80-95)
[2017-08-16] MEDS: DEXTROSE 5% 1,000 ML IV SCH (06:50)
[2017-08-16 06:59] LABS: Basophils % 0.1 % (0.0-0.8); Hematocrit 44.7 VOL% (42.0-52.0); Hemoglobin 13.9 GM/DL (14.0-18.0); Immature Granulocytes % 0.9 %; Lymphocytes # 0.2 10*3/uL (1.4-4.0); Lymphocytes % 1.6 % (21.2-54.2); Mean Corpuscular HGB Conc 31.1 GM/DL (32-36); Mean Corpuscular Hemoglobin 32 PG (27-34); Mean Corpuscular Volume 101.8 FL (87-102); Mean Platelet Volume 11.5 FL (9.6-12.0); Monocytes # 0.2 10*3/uL (0.11-0.8); Monocytes % 2.1 % (1.7-12.7); Neutrophils # 10.7 10*3/uL (1.4-7.4); Neutrophils % 95.3 % (38.7-73.9); Platelet Count 134 T/CUMM (130-400); Red Blood Count 4.39 MC/CUMM (3.8-5.5); Red Cell Distribution Width 13.5 % (9.3-17.3); White Blood Count 11.2 T/CUMM (4-12)
[2017-08-16 07:02] LABS: Albumin 2.5 G/DL (3.4-5.0); Calcium 7.9 MG/DL (8.5-10.1); Osmolality,Calculated 324.4 MOS/KG (273-304); Potassium 3.3 MMOL/L (3.5-5.1); Total Protein 5.6 G/DL (6.4-8.3)
[2017-08-16] MEDS: methylPREDNISolone SOD SUC 125 MG/2 ML VIAL IV SCH ×2 (07:25→15:38)
[2017-08-16] MEDS: LACTULOSE 20 GM/30 ML UDCUP PEG SCH ×3 (07:31→21:50)
[2017-08-16 07:37] LABS: Hypochromasia 1+; Lymphocytes 3 % (20-55); Segmented Neutrophils 96 % (50-85); Total Cells Counted 100
[2017-08-16 07:39] LABS: Platelet Estimate Adequate
[2017-08-16] MEDS: INSULIN NPH/REGULAR 70/30 100 UNIT/ML SUBCUT SCH (07:43)
[2017-08-16] MEDS: ALBUTEROL/IPRATROPIUM 3 ML NEB RESP TX SCH ×4 (07:46→19:50)
[2017-08-16] MEDS: ARFORMOTEROL 15 MCG/2 ML NEB RESP TX SCH ×2 (07:54→19:50)
[2017-08-16] MEDS: DORNASE ALFA 2.5 MG/2.5 ML VIAL RESP TX SCH ×2 (07:54→20:18)
[2017-08-16] MEDS ORDERED: GENTAMICIN INJ 120 MG in PREMIX 1 EACH IV SCH (09:00)
[2017-08-16] MEDS: ACETAMINOPHEN 325 MG TABLET PEG PRN ×3 (09:05→21:50)
[2017-08-16] MEDS: guaiFENesin 200 MG/10 ML UDCUP PEG SCH ×3 (09:06→21:50)
[2017-08-16] MEDS: INSULIN REGULAR 100 UNIT/ML SUBCUT SCH ×4 (09:06→21:54)
[2017-08-16] MEDS: FLUDROCORTISONE 0.1 MG TABLET PEG SCH ×3 (09:06→21:52)
[2017-08-16] MEDS: PRAMIPEXOLE 1 MG TABLET PO SCH ×3 (09:07→21:51)
[2017-08-16] MEDS: AZITHROMYCIN 250 MG TABLET PO SCH (09:07)
[2017-08-16] MEDS: PANTOPRAZOLE 40 MG TABLET PO SCH ×2 (09:07→21:53)
[2017-08-16] MEDS: CARBIDOPA/LEVODOPA 25-100 MG TABLET PO SCH ×3 (09:07→21:53)
[2017-08-16] MEDS: MIDODRINE 5 MG TABLET PEG SCH ×3 (09:07→21:53)
[2017-08-16] MEDS: POTASSIUM BICARB EFFERVESCENT 25 MEQ TABLET PO SCH ×3 (09:08→21:52)
[2017-08-16] MEDS: AMANTADINE 100 MG CAPSULE PO SCH ×3 (09:08→21:52)
[2017-08-16] MEDS: SPIRONOLACTONE 50 MG TABLET PO SCH (09:09)
[2017-08-16] MEDS: ENTACAPONE 200 MG TABLET PO SCH ×3 (09:09→21:51)
[2017-08-16 11:45] LABS: Apearance,Urine Slightly Hazy (Clear); Bacteria,Urine Many /HPF (Few); Bilirubin,Urine Negative (Negative); Blood, Urine Negative (Negative); Glucose,Urine (UA) >=500 mg/dL (Negative); Hyaline Casts,Urine 5 /LPF (0-3); Ketones,Urine 5 mg/dL (Negative); Mucus,Urine Occasional /LPF (Occasional); Nitrite,Urine Negative (Negative); Protein,Urine Negative; RBC,Urine 4 /HPF (0-4); Urine Color Yellow (Yellow); Urine Specific Gravity 1.012 (1.001-1.035); Urine Urobilinogen < 2.0 EU/DL (0.2-1.0); WBC,Urine 6 /HPF (0-6)
[2017-08-16] MEDS: DEXTROSE 5% NACL 0.9% 1,000 ML IV SCH (12:10)
[2017-08-16] MEDS: PIPERACILLIN/TAZOBACTAM 3,375 MG in SODIUM CHLORIDE 0.9% 100 ML IV SCH ×2 (12:34→20:23)
[2017-08-16] MEDS ORDERED: POTASSIUM PHOSPHATE 30 MMOL in SODIUM CHLORIDE 0.9% 250 ML IV ONE (13:03)
[2017-08-16] MEDS: VANCOMYCIN INJ 1,000 MG in SODIUM CHLORIDE 0.9% 250 ML IV SCH (13:08)
[2017-08-16] MEDS: AMPICILLIN INJ 1,000 MG in SODIUM CHLORIDE 0.9% 100 ML IV SCH ×2 (15:00→21:55)
[2017-08-16] MEDS: ZINC OXIDE PASTE 113 GM TUBE TOP PRN (23:09)
[2017-08-17] MEDS: VANCOMYCIN INJ 1,000 MG in SODIUM CHLORIDE 0.9% 250 ML IV SCH ×2 (00:44→13:58)
[2017-08-17] MEDS: methylPREDNISolone SOD SUC 125 MG/2 ML VIAL IV SCH ×4 (00:45→23:25)
[2017-08-17 03:36] LABS: ABG Base Excess 10.7 MMOL/L (-2.5-2.5); ABG HCO3 37.7 MMOL/L (20-26); ABG Oxygen Saturation 83.1 % (95-100); ABG PCO2 60.5 MM HG (35-48); ABG PH 7.412 (7.35-7.45); ABG PO2 50.2 MM HG (80-95); ABG TCO2 39.5 MMOL/L (23-27)
[2017-08-17] MEDS: ERYTHROMYCIN BASE 250 MG TABLET PO SCH ×4 (04:03→20:30)
[2017-08-17] MEDS: PIPERACILLIN/TAZOBACTAM 3,375 MG in SODIUM CHLORIDE 0.9% 100 ML IV SCH ×3 (04:04→20:31)
[2017-08-17] MEDS: ACETAMINOPHEN 325 MG TABLET PEG PRN ×3 (04:20→20:54)
[2017-08-17] MEDS: DEXTROSE 5% 1,000 ML IV SCH ×3 (04:20→22:11)
[2017-08-17 04:29] LABS: Basophils % 0.2 % (0.0-0.8); Hematocrit 43.1 VOL% (42.0-52.0); Hemoglobin 13.3 GM/DL (14.0-18.0); Immature Granulocytes % 1.2 %; Immature Granulocytes Absolute 0.15 #; Lymphocytes # 0.3 10*3/uL (1.4-4.0); Mean Corpuscular HGB Conc 30.9 GM/DL (32-36); Mean Corpuscular Hemoglobin 32 PG (27-34); Mean Corpuscular Volume 104.1 FL (87-102); Mean Platelet Volume 11.6 FL (9.6-12.0); Monocytes # 0.4 10*3/uL (0.11-0.8); Monocytes % 3.2 % (1.7-12.7); Neutrophils # 11.5 10*3/uL (1.4-7.4); Neutrophils % 93.4 % (38.7-73.9); Platelet Count 102 T/CUMM (130-400); Red Blood Count 4.14 MC/CUMM (3.8-5.5); Red Cell Distribution Width 13.7 % (9.3-17.3); White Blood Count 12.3 T/CUMM (4-12)
[2017-08-17 05:02] LABS: Calcium 7.6 MG/DL (8.5-10.1)
[2017-08-17 05:03] LABS: Lymphocytes 1 % (20-55); Segmented Neutrophils 98 % (50-85); Total Cells Counted 100
[2017-08-17 05:04] LABS: Hypochromasia 1+; Platelet Estimate Decreased
[2017-08-17 05:16] LABS: Potassium 2.5 MMOL/L (3.5-5.1)
[2017-08-17] MEDS: POTASSIUM CHLORIDE 20 MEQ/15 ML UDCUP PER TUBE PRN ×4 (05:45→12:09)
[2017-08-17] MEDS: AMPICILLIN INJ 1,000 MG in SODIUM CHLORIDE 0.9% 100 ML IV SCH ×3 (05:46→20:32)
[2017-08-17] MEDS: LACTULOSE 20 GM/30 ML UDCUP PEG SCH ×3 (05:46→23:24)
[2017-08-17] MEDS: INSULIN NPH/REGULAR 70/30 100 UNIT/ML SUBCUT SCH (05:51)
[2017-08-17] MEDS: ARFORMOTEROL 15 MCG/2 ML NEB RESP TX SCH (07:43)
[2017-08-17] MEDS: DORNASE ALFA 2.5 MG/2.5 ML VIAL RESP TX SCH ×2 (07:43→19:29)
[2017-08-17] MEDS: ALBUTEROL/IPRATROPIUM 3 ML NEB RESP TX SCH ×4 (07:43→19:29)
[2017-08-17] MEDS: INSULIN REGULAR 100 UNIT/ML SUBCUT SCH ×4 (07:54→20:30)
[2017-08-17] MEDS: guaiFENesin 200 MG/10 ML UDCUP PEG SCH ×3 (10:18→20:29)
[2017-08-17] MEDS: POTASSIUM BICARB EFFERVESCENT 25 MEQ TABLET PO SCH ×3 (10:18→20:30)
[2017-08-17] MEDS: LANSOPRAZOLE ODT 30 MG TABLET PEG SCH ×2 (10:19→20:30)
[2017-08-17] MEDS: SPIRONOLACTONE 50 MG TABLET PO SCH (10:20)
[2017-08-17] MEDS: AMANTADINE 100 MG CAPSULE PO SCH ×3 (10:20→20:29)
[2017-08-17] MEDS: PRAMIPEXOLE 1 MG TABLET PO SCH ×3 (10:20→20:29)
[2017-08-17] MEDS: ENTACAPONE 200 MG TABLET PO SCH ×3 (10:20→20:29)
[2017-08-17] MEDS: MIDODRINE 5 MG TABLET PEG SCH ×3 (10:20→20:29)
[2017-08-17] MEDS: CARBIDOPA/LEVODOPA 25-100 MG TABLET PO SCH ×3 (10:21→20:30)
[2017-08-17] MEDS: FLUDROCORTISONE 0.1 MG TABLET PEG SCH ×3 (10:21→20:29)
[2017-08-17] MEDS: PANTOPRAZOLE 40 MG TABLET PO SCH (10:29)
[2017-08-18] MEDS: VANCOMYCIN INJ 1,000 MG in SODIUM CHLORIDE 0.9% 250 ML IV SCH ×2 (01:15→22:21)
[2017-08-18 03:27] LABS: ABG Base Excess 11.3 MMOL/L (-2.5-2.5); ABG Oxygen Saturation 97.1 % (95-100); ABG PH 7.345 (7.35-7.45); ABG PO2 92.3 MM HG (80-95); ABG TCO2 36.1 MMOL/L (23-27)
[2017-08-18 03:30] LABS: ABG PCO2 74.2 MM HG (35-48)
[2017-08-18] MEDS: ERYTHROMYCIN BASE 250 MG TABLET PO SCH ×4 (03:56→20:49)
[2017-08-18] MEDS: PIPERACILLIN/TAZOBACTAM 3,375 MG in SODIUM CHLORIDE 0.9% 100 ML IV SCH ×3 (03:57→20:46)
[2017-08-18 05:56] LABS: Basophils % 0.2 % (0.0-0.8); Hematocrit 40.3 VOL% (42.0-52.0); Hemoglobin 12.3 GM/DL (14.0-18.0); Immature Granulocytes % 1.8 %; Immature Granulocytes Absolute 0.11 #; Lymphocytes # 0.2 10*3/uL (1.4-4.0); Lymphocytes % 3.3 % (21.2-54.2); Mean Corpuscular HGB Conc 30.5 GM/DL (32-36); Mean Corpuscular Hemoglobin 32 PG (27-34); Mean Corpuscular Volume 103.6 FL (87-102); Mean Platelet Volume 11.9 FL (9.6-12.0); Monocytes # 0.1 10*3/uL (0.11-0.8); Monocytes % 1.7 % (1.7-12.7); Neutrophils # 5.6 10*3/uL (1.4-7.4); Red Blood Count 3.89 MC/CUMM (3.8-5.5); Red Cell Distribution Width 13.2 % (9.3-17.3); White Blood Count 6.1 T/CUMM (4-12)
[2017-08-18] MEDS: AMPICILLIN INJ 1,000 MG in SODIUM CHLORIDE 0.9% 100 ML IV SCH ×3 (05:56→20:46)
[2017-08-18] MEDS: LACTULOSE 20 GM/30 ML UDCUP PEG SCH ×3 (05:56→22:22)
[2017-08-18] MEDS: INSULIN NPH/REGULAR 70/30 100 UNIT/ML SUBCUT SCH (05:57)
[2017-08-18 06:03] LABS: INR 1.2; PT Patient Result 12.3 SECS; Partial Thromboplastin Time 31.3 SECS (0-40)
[2017-08-18 06:06] LABS: Platelet Count 79 T/CUMM (130-400)
[2017-08-18 06:22] LABS: Calcium 7.5 MG/DL (8.5-10.1); Osmolality,Calculated 312.9 MOS/KG (273-304); Potassium 3.1 MMOL/L (3.5-5.1)
[2017-08-18 06:45] LABS: Band Neutrophils 1 % (0-10); Hypochromasia 1+; Lymphocytes 2 % (20-55); Macrocytosis Slight; Metamyelocytes 1 %; Nucleated Red Blood Cells 1 (0-5); Platelet Estimate Decreased; Segmented Neutrophils 94 % (50-85); Total Cells Counted 100
[2017-08-18] MEDS: ALBUTEROL/IPRATROPIUM 3 ML NEB RESP TX SCH ×4 (07:34→19:03)
[2017-08-18] MEDS: DORNASE ALFA 2.5 MG/2.5 ML VIAL RESP TX SCH ×2 (07:34→19:03)
[2017-08-18] MEDS: INSULIN REGULAR 100 UNIT/ML SUBCUT SCH ×4 (08:29→20:47)
[2017-08-18] MEDS: methylPREDNISolone SOD SUC 125 MG/2 ML VIAL IV SCH ×3 (08:30→23:26)
[2017-08-18] MEDS: AMANTADINE 100 MG CAPSULE PO SCH ×3 (09:55→20:48)
[2017-08-18] MEDS: SPIRONOLACTONE 50 MG TABLET PO SCH (09:56)
[2017-08-18] MEDS: MIDODRINE 5 MG TABLET PEG SCH ×3 (09:56→20:48)
[2017-08-18] MEDS: CARBIDOPA/LEVODOPA 25-100 MG TABLET PO SCH ×3 (09:56→20:48)
[2017-08-18] MEDS: FLUDROCORTISONE 0.1 MG TABLET PEG SCH ×3 (09:56→20:47)
[2017-08-18] MEDS: LANSOPRAZOLE ODT 30 MG TABLET PEG SCH ×2 (09:57→20:47)
[2017-08-18] MEDS: PRAMIPEXOLE 1 MG TABLET PO SCH ×3 (09:57→20:47)
[2017-08-18] MEDS: ENTACAPONE 200 MG TABLET PO SCH ×3 (09:57→20:47)
[2017-08-18] MEDS: guaiFENesin 200 MG/10 ML UDCUP PEG SCH ×3 (09:57→20:48)
[2017-08-18 10:25] LABS: ABG Base Excess 12.8 MMOL/L (-2.5-2.5); ABG HCO3 36.6 MMOL/L (20-26); ABG Oxygen Saturation 94.2 % (95-100); ABG PCO2 61.9 MM HG (35-48); ABG PH 7.421 (7.35-7.45); ABG PO2 66.2 MM HG (80-95); ABG TCO2 35.6 MMOL/L (23-27)
[2017-08-18] MEDS ORDERED: POTASSIUM PHOSPHATE 30 MMOL in SODIUM CHLORIDE 0.9% 250 ML IV ONE (11:00)
[2017-08-18] MEDS: DEXTROSE 5% 1,000 ML IV SCH (11:29)
[2017-08-18] MEDS: POTASSIUM BICARB EFFERVESCENT 25 MEQ TABLET PO SCH ×3 (11:29→20:47)
[2017-08-19] MEDS: ERYTHROMYCIN BASE 250 MG TABLET PO SCH ×4 (03:21→21:31)
[2017-08-19 03:30] LABS: ABG HCO3 42.6 MMOL/L (20-26); ABG Oxygen Saturation 93.9 % (95-100); ABG PH 7.469 (7.35-7.45); ABG PO2 69.5 MM HG (80-95); ABG TCO2 44.4 MMOL/L (23-27)
[2017-08-19] MEDS: DEXTROSE 5% 1,000 ML IV SCH ×3 (04:39→20:03)
[2017-08-19] MEDS: PIPERACILLIN/TAZOBACTAM 3,375 MG in SODIUM CHLORIDE 0.9% 100 ML IV SCH ×3 (04:40→21:30)
[2017-08-19] MEDS: AMPICILLIN INJ 1,000 MG in SODIUM CHLORIDE 0.9% 100 ML IV SCH ×3 (04:40→21:31)
[2017-08-19] MEDS: VANCOMYCIN INJ 1,000 MG in SODIUM CHLORIDE 0.9% 250 ML IV SCH ×3 (06:18→21:33)
[2017-08-19] MEDS: LACTULOSE 20 GM/30 ML UDCUP PEG SCH ×3 (06:18→21:34)
[2017-08-19] MEDS: INSULIN NPH/REGULAR 70/30 100 UNIT/ML SUBCUT SCH (06:18)
[2017-08-19 06:23] LABS: Basophils % 0.2 % (0.0-0.8); Hematocrit 39.8 VOL% (42.0-52.0); Hemoglobin 13.1 GM/DL (14.0-18.0); Immature Granulocytes % 1.3 %; Immature Granulocytes Absolute 0.07 #; Lymphocytes # 0.2 10*3/uL (1.4-4.0); Lymphocytes % 3.5 % (21.2-54.2); Mean Corpuscular HGB Conc 32.9 GM/DL (32-36); Mean Corpuscular Hemoglobin 32 PG (27-34); Mean Corpuscular Volume 96.6 FL (87-102); Mean Platelet Volume 11.7 FL (9.6-12.0); Monocytes # 0.2 10*3/uL (0.11-0.8); Monocytes % 3.3 % (1.7-12.7); Neutrophils # 4.8 10*3/uL (1.4-7.4); Neutrophils % 91.7 % (38.7-73.9); Platelet Count 81 T/CUMM (130-400); Red Blood Count 4.12 MC/CUMM (3.8-5.5); Red Cell Distribution Width 13.1 % (9.3-17.3); White Blood Count 5.2 T/CUMM (4-12)
[2017-08-19 06:50] LABS: Calcium 7.5 MG/DL (8.5-10.1)
[2017-08-19] MEDS: ALBUTEROL/IPRATROPIUM 3 ML NEB RESP TX SCH ×4 (07:00→19:38)
[2017-08-19 07:02] LABS: Potassium 2.4 MMOL/L (3.5-5.1)
[2017-08-19] MEDS: DORNASE ALFA 2.5 MG/2.5 ML VIAL RESP TX SCH ×2 (07:07→19:39)
[2017-08-19 07:38] LABS: Band Neutrophils 1 % (0-10); Hypochromasia 2+; Lymphocytes 3 % (20-55); Platelet Estimate Decreased; Segmented Neutrophils 93 % (50-85); Target Cells Slight; Total Cells Counted 100
[2017-08-19] MEDS: POTASSIUM CHLORIDE 20 MEQ/15 ML UDCUP PER TUBE PRN ×5 (08:24→22:29)
[2017-08-19] MEDS: methylPREDNISolone SOD SUC 125 MG/2 ML VIAL IV SCH (08:24)
[2017-08-19] MEDS: INSULIN REGULAR 100 UNIT/ML SUBCUT SCH ×4 (08:24→21:32)
[2017-08-19] MEDS: FLUDROCORTISONE 0.1 MG TABLET PEG SCH ×2 (08:25→21:32)
[2017-08-19] MEDS: MIDODRINE 5 MG TABLET PEG SCH ×3 (08:25→21:32)
[2017-08-19] MEDS: guaiFENesin 200 MG/10 ML UDCUP PEG SCH ×3 (08:25→21:32)
[2017-08-19] MEDS: PRAMIPEXOLE 1 MG TABLET PO SCH ×3 (08:25→21:32)
[2017-08-19] MEDS: SPIRONOLACTONE 50 MG TABLET PO SCH ×2 (08:25→21:31)
[2017-08-19] MEDS: LANSOPRAZOLE ODT 30 MG TABLET PEG SCH ×2 (08:25→21:32)
[2017-08-19] MEDS: CARBIDOPA/LEVODOPA 25-100 MG TABLET PO SCH ×3 (08:25→21:32)
[2017-08-19] MEDS: AMANTADINE 100 MG CAPSULE PO SCH ×3 (08:25→21:32)
[2017-08-19] MEDS: ENTACAPONE 200 MG TABLET PO SCH ×3 (08:26→21:31)
[2017-08-19] MEDS: POTASSIUM BICARB EFFERVESCENT 25 MEQ TABLET PO SCH ×3 (08:44→21:32)
[2017-08-19] MEDS: ACETAMINOPHEN 325 MG TABLET PEG PRN (17:45)
[2017-08-19] MEDS: methylPREDNISolone SOD SUC 40 MG/1 ML VIAL IV SCH (21:30)
[2017-08-20] MEDS: POTASSIUM CHLORIDE 20 MEQ/15 ML UDCUP PER TUBE PRN ×4 (00:03→08:20)
[2017-08-20] MEDS: ERYTHROMYCIN BASE 250 MG TABLET PO SCH ×3 (03:14→15:13)
[2017-08-20] MEDS: PIPERACILLIN/TAZOBACTAM 3,375 MG in SODIUM CHLORIDE 0.9% 100 ML IV SCH ×3 (03:23→21:56)
[2017-08-20 04:17] LABS: Allen Test Positive
[2017-08-20 04:18] LABS: ABG Base Excess 12.5 MMOL/L (-2.5-2.5); ABG HCO3 36.2 MMOL/L (20-26); ABG Oxygen Saturation 94.5 % (95-100); ABG PCO2 65.8 MM HG (35-48); ABG PH 7.398 (7.35-7.45); ABG PO2 70.6 MM HG (80-95); ABG TCO2 35.7 MMOL/L (23-27)
[2017-08-20 04:57] LABS: Basophils % 0.1 % (0.0-0.8); Hemoglobin 12.2 GM/DL (14.0-18.0); Immature Granulocytes Absolute 0.07 #; Lymphocytes # 0.1 10*3/uL (1.4-4.0); Lymphocytes % 1.5 % (21.2-54.2); Mean Corpuscular HGB Conc 31.3 GM/DL (32-36); Mean Corpuscular Hemoglobin 31 PG (27-34); Mean Corpuscular Volume 100.3 FL (87-102); Mean Platelet Volume 12.5 FL (9.6-12.0); Monocytes # 0.2 10*3/uL (0.11-0.8); Monocytes % 2.3 % (1.7-12.7); Neutrophils # 6.9 10*3/uL (1.4-7.4); Neutrophils % 95.1 % (38.7-73.9); Platelet Count 74 T/CUMM (130-400); Red Blood Count 3.89 MC/CUMM (3.8-5.5); Red Cell Distribution Width 13.1 % (9.3-17.3); White Blood Count 7.3 T/CUMM (4-12)
[2017-08-20 05:18] LABS: Calcium 7.5 MG/DL (8.5-10.1); Osmolality,Calculated 306.4 MOS/KG (273-304); Potassium 3.7 MMOL/L (3.5-5.1)
[2017-08-20] MEDS: AMPICILLIN INJ 1,000 MG in SODIUM CHLORIDE 0.9% 100 ML IV SCH (05:19)
[2017-08-20] MEDS: LACTULOSE 20 GM/30 ML UDCUP PEG SCH ×3 (05:19→21:59)
[2017-08-20] MEDS: DEXTROSE 5% 1,000 ML IV SCH ×2 (05:19→10:39)
[2017-08-20] MEDS: VANCOMYCIN INJ 1,000 MG in SODIUM CHLORIDE 0.9% 250 ML IV SCH ×3 (05:22→21:59)
[2017-08-20] MEDS: INSULIN NPH/REGULAR 70/30 100 UNIT/ML SUBCUT SCH (05:45)
[2017-08-20 06:00] LABS: Band Neutrophils 1 % (0-10); Lymphocytes 4 % (20-55); Segmented Neutrophils 95 % (50-85)
[2017-08-20 06:01] LABS: Platelet Estimate Decreased; Total Cells Counted 100
[2017-08-20] MEDS: ALBUTEROL/IPRATROPIUM 3 ML NEB RESP TX SCH ×4 (06:57→19:12)
[2017-08-20] MEDS: INSULIN REGULAR 100 UNIT/ML SUBCUT SCH ×4 (07:35→21:57)
[2017-08-20] MEDS: methylPREDNISolone SOD SUC 40 MG/1 ML VIAL IV SCH ×2 (08:18→21:56)
[2017-08-20] MEDS: MIDODRINE 5 MG TABLET PEG SCH ×3 (08:18→21:58)
[2017-08-20] MEDS: PRAMIPEXOLE 1 MG TABLET PO SCH ×3 (08:18→21:57)
[2017-08-20] MEDS: guaiFENesin 200 MG/10 ML UDCUP PEG SCH ×3 (08:18→21:58)
[2017-08-20] MEDS: LANSOPRAZOLE ODT 30 MG TABLET PEG SCH ×2 (08:18→21:58)
[2017-08-20] MEDS: AMANTADINE 100 MG CAPSULE PO SCH ×3 (08:18→21:58)
[2017-08-20] MEDS: ENTACAPONE 200 MG TABLET PO SCH ×3 (08:18→21:57)
[2017-08-20] MEDS: FLUDROCORTISONE 0.1 MG TABLET PEG SCH ×2 (08:19→21:57)
[2017-08-20] MEDS: SPIRONOLACTONE 50 MG TABLET PO SCH ×2 (08:19→21:57)
[2017-08-20] MEDS: CARBIDOPA/LEVODOPA 25-100 MG TABLET PO SCH ×3 (08:19→21:58)
[2017-08-20] MEDS: POTASSIUM BICARB EFFERVESCENT 25 MEQ TABLET PO SCH ×3 (08:19→21:57)
[2017-08-20] MEDS: ACETAMINOPHEN 325 MG TABLET PEG PRN (15:11)
[2017-08-21] MEDS: DEXTROSE 5% 1,000 ML IV SCH ×2 (00:23→01:10)
[2017-08-21 04:49] LABS: ABG Base Excess 13.6 MMOL/L (-2.5-2.5); ABG HCO3 37.4 MMOL/L (20-26); ABG Oxygen Saturation 94.5 % (95-100); ABG PH 7.386 (7.35-7.45); ABG PO2 71.2 MM HG (80-95); ABG TCO2 37.5 MMOL/L (23-27); Allen Test Positive
[2017-08-21 05:07] LABS: Basophils % 0.1 % (0.0-0.8); Hematocrit 37.4 VOL% (42.0-52.0); Hemoglobin 12.3 GM/DL (14.0-18.0); Immature Granulocytes % 0.5 %; Immature Granulocytes Absolute 0.07 #; Lymphocytes # 0.4 10*3/uL (1.4-4.0); Lymphocytes % 2.8 % (21.2-54.2); Mean Corpuscular HGB Conc 32.9 GM/DL (32-36); Mean Corpuscular Hemoglobin 32 PG (27-34); Mean Corpuscular Volume 97.1 FL (87-102); Mean Platelet Volume 11.4 FL (9.6-12.0); Monocytes # 0.5 10*3/uL (0.11-0.8); Monocytes % 3.9 % (1.7-12.7); Neutrophils % 92.7 % (38.7-73.9); Platelet Count 76 T/CUMM (130-400); Red Blood Count 3.85 MC/CUMM (3.8-5.5); Red Cell Distribution Width 12.8 % (9.3-17.3); White Blood Count 12.9 T/CUMM (4-12)
[2017-08-21] MEDS: LACTULOSE 20 GM/30 ML UDCUP PEG SCH ×2 (05:18→15:10)
[2017-08-21] MEDS: PIPERACILLIN/TAZOBACTAM 3,375 MG in SODIUM CHLORIDE 0.9% 100 ML IV SCH ×3 (05:18→20:33)
[2017-08-21] MEDS: VANCOMYCIN INJ 1,000 MG in SODIUM CHLORIDE 0.9% 250 ML IV SCH ×2 (05:18→16:55)
[2017-08-21 05:47] LABS: Calcium 7.6 MG/DL (8.5-10.1); Osmolality,Calculated 292.7 MOS/KG (273-304); Potassium 3.4 MMOL/L (3.5-5.1)
[2017-08-21] MEDS: INSULIN NPH/REGULAR 70/30 100 UNIT/ML SUBCUT SCH (05:47)
[2017-08-21 06:02] LABS: Lymphocytes 2 % (20-55); Segmented Neutrophils 97 % (50-85); Total Cells Counted 100
[2017-08-21 06:03] LABS: Hypochromasia 1+
[2017-08-21 06:04] LABS: Microcytosis 1+; Platelet Estimate Decreased; Stomatocytes Slight
[2017-08-21] MEDS: DEXT 5% NACL 0.45% KCL 40 MEQ 40 MEQ/1,000 ML BAG IV SCH (06:06)
[2017-08-21] MEDS: POTASSIUM CHLORIDE 20 MEQ/15 ML UDCUP PER TUBE PRN ×3 (06:07→15:06)
[2017-08-21] MEDS: ALBUTEROL/IPRATROPIUM 3 ML NEB RESP TX SCH ×4 (07:08→19:10)
[2017-08-21] MEDS: INSULIN REGULAR 100 UNIT/ML SUBCUT SCH ×4 (08:31→21:36)
[2017-08-21] MEDS: FLUDROCORTISONE 0.1 MG TABLET PEG SCH ×2 (08:31→20:37)
[2017-08-21] MEDS: guaiFENesin 200 MG/10 ML UDCUP PEG SCH ×3 (08:32→20:37)
[2017-08-21] MEDS: LANSOPRAZOLE ODT 30 MG TABLET PEG SCH ×2 (08:32→20:37)
[2017-08-21] MEDS: PRAMIPEXOLE 1 MG TABLET PO SCH ×3 (08:32→20:37)
[2017-08-21] MEDS: AMANTADINE 100 MG CAPSULE PO SCH ×3 (08:32→20:52)
[2017-08-21] MEDS: POTASSIUM BICARB EFFERVESCENT 25 MEQ TABLET PO SCH ×3 (08:32→20:54)
[2017-08-21] MEDS: ENTACAPONE 200 MG TABLET PO SCH ×3 (08:32→20:52)
[2017-08-21] MEDS: SPIRONOLACTONE 50 MG TABLET PO SCH ×2 (08:33→20:52)
[2017-08-21] MEDS: MIDODRINE 5 MG TABLET PEG SCH ×3 (08:33→20:37)
[2017-08-21] MEDS: CARBIDOPA/LEVODOPA 25-100 MG TABLET PO SCH ×3 (08:33→20:52)
[2017-08-21] MEDS: methylPREDNISolone SOD SUC 40 MG/1 ML VIAL IV SCH ×2 (08:39→20:33)
[2017-08-21] MEDS: ACETAMINOPHEN 325 MG TABLET PEG PRN ×2 (17:00→20:32)
[2017-08-21 18:30] LABS: ABG Base Excess 10.9 MMOL/L (-2.5-2.5); ABG HCO3 34.6 MMOL/L (20-26); ABG Oxygen Saturation 94.7 % (95-100); ABG PH 7.362 (7.35-7.45); ABG TCO2 35.3 MMOL/L (23-27)
[2017-08-22] MEDS: DEXT 5% NACL 0.45% KCL 40 MEQ 40 MEQ/1,000 ML BAG IV SCH ×2 (00:10→17:06)
[2017-08-22] MEDS: LACTULOSE 20 GM/30 ML UDCUP PEG SCH ×4 (00:11→22:12)
[2017-08-22] MEDS: VANCOMYCIN INJ 1,000 MG in SODIUM CHLORIDE 0.9% 250 ML IV SCH ×4 (00:18→22:15)
[2017-08-22] MEDS: PIPERACILLIN/TAZOBACTAM 3,375 MG in SODIUM CHLORIDE 0.9% 100 ML IV SCH ×2 (03:56→18:36)
[2017-08-22 04:02] LABS: ABG Base Excess 10.9 MMOL/L (-2.5-2.5); ABG HCO3 34.6 MMOL/L (20-26); ABG Oxygen Saturation 95.8 % (95-100); ABG PH 7.331 (7.35-7.45); ABG PO2 79.7 MM HG (80-95); ABG TCO2 36.2 MMOL/L (23-27)
[2017-08-22 04:08] LABS: ABG PCO2 76.3 MM HG (35-48)
[2017-08-22 05:42] LABS: Basophils % 0.1 % (0.0-0.8); Hematocrit 37.6 VOL% (42.0-52.0); Hemoglobin 11.6 GM/DL (14.0-18.0); Immature Granulocytes % 0.5 %; Immature Granulocytes Absolute 0.07 #; Lymphocytes # 0.1 10*3/uL (1.4-4.0); Mean Corpuscular HGB Conc 30.9 GM/DL (32-36); Mean Corpuscular Hemoglobin 31 PG (27-34); Mean Corpuscular Volume 101.1 FL (87-102); Mean Platelet Volume 11.3 FL (9.6-12.0); Monocytes # 0.2 10*3/uL (0.11-0.8); Monocytes % 1.3 % (1.7-12.7); Neutrophils % 97.1 % (38.7-73.9); Platelet Count 73 T/CUMM (130-400); Red Blood Count 3.72 MC/CUMM (3.8-5.5); Red Cell Distribution Width 12.9 % (9.3-17.3); White Blood Count 13.4 T/CUMM (4-12)
[2017-08-22 06:04] LABS: Calcium 7.4 MG/DL (8.5-10.1); Lymphocytes 1 % (20-55); Osmolality,Calculated 294.3 MOS/KG (273-304); Segmented Neutrophils 99 % (50-85); Total Cells Counted 100
[2017-08-22 06:05] LABS: Anisocytosis 1+; Hypochromasia Slight; Platelet Estimate Decreased
[2017-08-22] MEDS: ACETAMINOPHEN 325 MG TABLET PEG PRN ×3 (06:27→22:12)
[2017-08-22] MEDS: INSULIN NPH/REGULAR 70/30 100 UNIT/ML SUBCUT SCH (06:27)
[2017-08-22] MEDS: ALBUTEROL/IPRATROPIUM 3 ML NEB RESP TX SCH ×4 (07:20→20:00)
[2017-08-22] MEDS: SPIRONOLACTONE 50 MG TABLET PO SCH ×2 (10:28→22:13)
[2017-08-22] MEDS: FLUDROCORTISONE 0.1 MG TABLET PEG SCH ×2 (10:29→22:13)
[2017-08-22] MEDS: POTASSIUM BICARB EFFERVESCENT 25 MEQ TABLET PO SCH ×3 (10:29→22:13)
[2017-08-22] MEDS: ENTACAPONE 200 MG TABLET PO SCH ×3 (10:29→22:14)
[2017-08-22] MEDS: PRAMIPEXOLE 1 MG TABLET PO SCH ×3 (10:29→22:13)
[2017-08-22] MEDS: CARBIDOPA/LEVODOPA 25-100 MG TABLET PO SCH ×3 (10:30→22:13)
[2017-08-22] MEDS: LANSOPRAZOLE ODT 30 MG TABLET PEG SCH ×2 (10:30→22:15)
[2017-08-22] MEDS: MIDODRINE 5 MG TABLET PEG SCH ×3 (10:30→22:21)
[2017-08-22] MEDS: guaiFENesin 200 MG/10 ML UDCUP PEG SCH ×3 (10:30→22:12)
[2017-08-22] MEDS: AMANTADINE 100 MG CAPSULE PO SCH ×3 (10:31→22:12)
[2017-08-22] MEDS: INSULIN REGULAR 100 UNIT/ML SUBCUT SCH ×4 (10:42→22:14)
[2017-08-22] MEDS: methylPREDNISolone SOD SUC 40 MG/1 ML VIAL IV SCH ×2 (10:48→22:12)
[2017-08-23] MEDS: PIPERACILLIN/TAZOBACTAM 3,375 MG in SODIUM CHLORIDE 0.9% 100 ML IV SCH ×2 (00:48→10:42)
[2017-08-23 03:56] LABS: ABG Base Excess 13.5 MMOL/L (-2.5-2.5); ABG HCO3 37.2 MMOL/L (20-26); ABG Oxygen Saturation 91.2 % (95-100); ABG PH 7.312 (7.35-7.45); ABG PO2 60.6 MM HG (80-95); ABG TCO2 39.7 MMOL/L (23-27)
[2017-08-23 03:58] LABS: ABG PCO2 87.9 MM HG (35-48)
[2017-08-23 06:13] LABS: ABG PCO2 70.5 MM HG (35-48)
[2017-08-23] MEDS: LACTULOSE 20 GM/30 ML UDCUP PEG SCH ×3 (06:39→23:39)
[2017-08-23] MEDS: ACETAMINOPHEN 325 MG TABLET PEG PRN ×3 (06:39→21:16)
[2017-08-23] MEDS: INSULIN NPH/REGULAR 70/30 100 UNIT/ML SUBCUT SCH (06:41)
[2017-08-23 06:48] LABS: Basophils % 0.3 % (0.0-0.8); Hematocrit 39.9 VOL% (42.0-52.0); Hemoglobin 12.1 GM/DL (14.0-18.0); Immature Granulocytes % 2.6 %; Lymphocytes # 0.2 10*3/uL (1.4-4.0); Lymphocytes % 2.4 % (21.2-54.2); Mean Corpuscular HGB Conc 30.3 GM/DL (32-36); Mean Corpuscular Hemoglobin 31 PG (27-34); Mean Corpuscular Volume 103.4 FL (87-102); Mean Platelet Volume 11.6 FL (9.6-12.0); Monocytes # 0.2 10*3/uL (0.11-0.8); Monocytes % 2.4 % (1.7-12.7); Neutrophils # 7.2 10*3/uL (1.4-7.4); Neutrophils % 92.3 % (38.7-73.9); Platelet Count 91 T/CUMM (130-400); Red Blood Count 3.86 MC/CUMM (3.8-5.5); White Blood Count 7.8 T/CUMM (4-12)
[2017-08-23 07:14] LABS: Hypochromasia 1+; Lymphocytes 5 % (20-55); Segmented Neutrophils 95 % (50-85); Total Cells Counted 100
[2017-08-23 07:15] LABS: Microcytosis 1+; Platelet Estimate Decreased; Stomatocytes Slight
[2017-08-23 07:24] LABS: Calcium 7.4 MG/DL (8.5-10.1); Osmolality,Calculated 301.7 MOS/KG (273-304); Potassium 3.7 MMOL/L (3.5-5.1)
[2017-08-23] MEDS: ALBUTEROL/IPRATROPIUM 3 ML NEB RESP TX SCH ×4 (08:06→19:55)
[2017-08-23] MEDS: VANCOMYCIN INJ 1,000 MG in SODIUM CHLORIDE 0.9% 250 ML IV SCH (09:19)
[2017-08-23] MEDS: methylPREDNISolone SOD SUC 40 MG/1 ML VIAL IV SCH ×2 (10:43→23:36)
[2017-08-23] MEDS: PRAMIPEXOLE 1 MG TABLET PO SCH ×3 (10:43→23:38)
[2017-08-23] MEDS: CARBIDOPA/LEVODOPA 25-100 MG TABLET PO SCH ×3 (10:43→23:38)
[2017-08-23] MEDS: AMANTADINE 100 MG CAPSULE PO SCH ×3 (10:43→23:38)
[2017-08-23] MEDS: FLUDROCORTISONE 0.1 MG TABLET PEG SCH ×2 (10:43→23:37)
[2017-08-23] MEDS: LANSOPRAZOLE ODT 30 MG TABLET PEG SCH ×2 (10:44→23:38)
[2017-08-23] MEDS: ENTACAPONE 200 MG TABLET PO SCH ×3 (10:44→23:37)
[2017-08-23] MEDS: SPIRONOLACTONE 50 MG TABLET PO SCH ×2 (10:44→23:37)
[2017-08-23] MEDS: POTASSIUM BICARB EFFERVESCENT 25 MEQ TABLET PO SCH ×3 (10:45→23:38)
[2017-08-23] MEDS: MIDODRINE 5 MG TABLET PEG SCH ×3 (10:45→23:38)
[2017-08-23] MEDS: guaiFENesin 200 MG/10 ML UDCUP PEG SCH ×3 (10:45→23:38)
[2017-08-23] MEDS: INSULIN REGULAR 100 UNIT/ML SUBCUT SCH ×4 (10:46→23:37)
[2017-08-23] MEDS ORDERED: GENTAMICIN INJ 120 MG in PREMIX 1 EACH IV SCH (11:00)
[2017-08-23 11:29] LABS: ABG Base Excess 15.5 MMOL/L (-2.5-2.5); ABG HCO3 46.5 MMOL/L (20-26); ABG Oxygen Saturation 76.6 % (95-100); ABG PH 7.294 (7.35-7.45); ABG PO2 44.7 MM HG (80-95); ABG TCO2 49.5 MMOL/L (23-27)
[2017-08-23] MEDS: IBUPROFEN 100 MG/5 ML UDCUP PO PRN ×2 (12:25→17:20)
[2017-08-23] MEDS: LINEZOLID INJ 300 MG in PREMIX 1 EACH IV SCH (14:09)
[2017-08-23] MEDS: DEXT 5% NACL 0.45% KCL 40 MEQ 40 MEQ/1,000 ML BAG IV SCH ×3 (17:20→23:37)
[2017-08-24 00:40] VITALS: BP 48/34
[2017-08-24] MEDS: LINEZOLID INJ 300 MG in PREMIX 1 EACH IV SCH (02:48)
== END 2017-08-24 00:30 | disposition expired | DRG 166 ==
LOC: N.5E 15:46 → N.ICU 08-06 06:18 → N.3E 08-10 15:32 → N.ICU 08-16 12:00 → N.3E 08-21 10:46
PROVIDERS: ADMIT Internal Medicine Pulmonary Disease; ATTEND Internal Medicine Pulmonary Disease